=== PATIENT | female | born 1980 | race African-American/Black ===

== ENCOUNTER → 2020-09-19 06:51 | Outpatient (CLI) | payer BC, SELFPAY ==
[2020-09-19 19:41] LABS: SARS-CoV-2 RNA PCR Negative
== END ==
PROVIDERS: PCP Internal Medicine; Visit Provider Nurse Practitioner
DX: Z20.822 Contact with and (suspected) exposure to COVID-19 (principal)
CPT/HCPCS: C9803; U0003; U0005

== ENCOUNTER → 2020-11-09 07:09 | Outpatient (CLI) | payer BC, SELFPAY ==
[2020-11-09 19:49] LABS: SARS-CoV-2 RNA PCR Negative
== END ==
PROVIDERS: PCP Internal Medicine; Visit Provider Nurse Practitioner
DX: Z20.822 Contact with and (suspected) exposure to COVID-19 (principal); R50.9 Fever, unspecified
CPT/HCPCS: C9803; U0003; U0005

== ENCOUNTER → 2021-01-19 07:16 | Outpatient (CLI) | payer BC, SELFPAY ==
[2021-01-19 19:27] LABS: SARS-CoV-2 RNA PCR Negative
== END ==
PROVIDERS: Visit Provider Nurse Practitioner
DX: R68.89 Other general symptoms and signs (principal); Z20.822 Contact with and (suspected) exposure to COVID-19
CPT/HCPCS: C9803; U0003; U0005

== ENCOUNTER → 2021-04-11 02:59 | Outpatient (CLI) | payer BC, SELFPAY ==
[2021-04-11 20:44] LABS: SARS-CoV-2 RNA PCR Negative
== END ==
PROVIDERS: PCP Internal Medicine; Visit Provider Nurse Practitioner
DX: Z20.822 Contact with and (suspected) exposure to COVID-19 (principal)
CPT/HCPCS: C9803; U0003; U0005

== ENCOUNTER → 2021-05-13 03:43 | Outpatient (CLI) | payer BC, SELFPAY ==
[2021-05-13 20:20] LABS: SARS-CoV-2 RNA PCR Negative
== END ==
PROVIDERS: PCP Internal Medicine; Visit Provider Nurse Practitioner
DX: R05.9 Cough, unspecified (principal); Z20.822 Contact with and (suspected) exposure to COVID-19
CPT/HCPCS: C9803; U0003; U0005

== ENCOUNTER → 2021-08-05 01:26 | Outpatient (CLI) | payer BC, SELFPAY ==
[2021-08-05 21:22] LABS: SARS-CoV-2 RNA PCR Negative
== END ==
PROVIDERS: PCP Internal Medicine; Visit Provider Nurse Practitioner
DX: R51.9 Headache, unspecified (principal); Z20.822 Contact with and (suspected) exposure to COVID-19
CPT/HCPCS: C9803; U0003; U0005

== ENCOUNTER 2022-06-13 10:59 | Outpatient (CLI) | payer BC, SELFPAY ==
[2022-06-13 11:53] LABS: Basophils Percent Auto 0.6 % (0.2-1.2); Eosinophils Absolute Auto 0.1 K/mm3 (0-0.3); Eosinophils Percent Auto 0.9 % (0-4.4); Hematocrit 33.1 % (37.0-47.0); Hemoglobin 10.5 g/dL (12.0-15.0); Immature Granulocyte Absolute 0.01 K/mm3 (0.00-0.031); Immature Granulocyte Percent A 0.2 % (0-0.5); Lymphocytes Absolute Auto 1.84 K/mm3 (0.9-3.2); Lymphocytes Percent Auto 34.7 % (18.3-44.2); Mean Corpuscular HGB Conc 31.7 g/dl (32-36); Mean Corpuscular Hemoglobin 30.9 pg (26-34); Mean Corpuscular Volume 97.4 fl (80-100); Mean Platelet Volume 9.6 fl (7.4-10.4); Monocytes Absolute Auto 0.6 K/mm3 (0.1-0.6); Monocytes Percent Auto 10.5 % (2.6-8.5); Neutrophils Absolute Auto 2.8 K/mm3 (1.3-6.7); Neutrophils Percent Auto 53.1 % (45.5-73.1); Platelet Count Result 191 k/mm3 (150-375); Red Cell Distribution Width 13.8 % (11.5-14.5); White Blood Count 5.3 K/mm3 (4.5-10.0)
[2022-06-13 12:12] LABS: Alanine Aminotransferase 17 U/L (6-35); Alkaline Phosphatase 102 U/L (38-126); Anion Gap 7 mmol/L (8-16); Aspartate Amino Transferase 27 U/L (14-36); Bilirubin,Total 0.3 mg/dL (0.2-1.3); Blood Urea Nitrogen 14 mg/dL (7-17); Calcium 8.3 mg/dL (8.4-10.2); Carbon Dioxide 28 mmol/L (22-30); Chloride 101 mmol/L (98-107); Cholesterol 146 mg/dL (0-200); Estimated Glomerular Filt Rate > 60; Glucose 108 mg/dL (65-110); HDL Direct 59 mg/dL; Potassium 3.4 mmol/L (3.4-5.0); Sodium 136 mmol/L (137-145); Triglycerides 42 mg/dL (<150)
[2022-06-13 12:23] LABS: LDL Cholesterol Direct 61 mg/dL
[2022-06-13 12:42] LABS: Thyroid Stimulating Hormone 0.644 uIU/mL (0.465-4.680)
[2022-06-13 12:59] LABS: Ferritin 8.55 ng/mL (6.24-137)
[2022-06-13 14:03] LABS: Vitamin D 25 Hydroxy < 12.8 ng/mL
== END 2022-06-13 11:00 | disposition home or self-care (01) ==
PROVIDERS: PCP Internal Medicine; Visit Provider Nurse Practitioner
DX: R10.9 Unspecified abdominal pain (principal); R53.83 Other fatigue
CPT/HCPCS: 36415; 80053; 80061; 82306; 82728; 84443; 85025

== ENCOUNTER 2022-06-18 17:25 | Outpatient (CLI) | payer BC, SELFPAY ==
--- NOTE | ~2022-06-18 | CT_ITS ---
EXAMINATION: CT abdomen pelvis w con DATE: 06/18/2022 18:03 INDICATION: Suspected umbilical hernia TECHNIQUE: Computed tomography (CT) of the abdomen and pelvis was performed with 100 CC Omnipaque 350 intravenous contrast. Automated exposure control and iterative reconstruction technique were employe d. Exam dose: 363.06 mGy-cm total exam DLP. COMPARISON: None. FINDINGS: The lung bases are clear. Normal heart size. No pericardial or pleural effusion. Small sliding hiatal hernia. Postoperative change of the stomach. The liver, gallbladder, bile ducts, spleen, pancreas and pancreatic duct are unremarkable. Normal mor phology of the adrenal glands. No renal mass lesion or urinary tract calculus or hydroureteronephrosis. The urinary bladder is unremarkable. There is an IUD within the uterus. Normal caliber of the abdominal aorta. No intraperitoneal or retroperitoneal or pelvic mass lesion or adenopathy or abnormal pelvic fluid collection is detected. There are sutures of the stomach as well as some sutures of the small bowel in the left lower abdomen . There is up to approximately 5.3 cm diameter of the small bowel segment with radiopaque sutures (pr obable jejunal jejunal anastomosis of gastric bypass) of the left lower abdomen. However, no proximal small bowel dilatation or pneumatosis or intraperitoneal free air is detected. Normal appendix, right lower quadrant. Very small fat-containing umbilical hernia. At least 2 or 3 small fat-containing supraumbilical fat-c ontaining hernias. Included skeletal structures are unremarkable. IMPRESSION: Postoperative change of the stomach and small bowel, likely related to gastric bypass perdue rgery. Solitary small fat-containing umbilical hernia and at least 2 or 3 supraumbilical small fat-containin g ventral abdominal wall hernias IUD in uterus Small sliding hiatal hernia Reviewed, dictated and finalized at [facility]. Reviewed, dictated and finalized at location [facility]. 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 Solitary small fat-containing umbilical hernia and at least 2 or 3 supraumbilic al small fat-containing ventral abdominal wall hernias IUD in uterus Small sliding hiatal hernia
== END 2022-06-18 17:26 | disposition home or self-care (01) ==
LOC: ANHIMG 17:26
PROVIDERS: PCP Internal Medicine; Visit Provider Nurse Practitioner
DX: R10.9 Unspecified abdominal pain (principal); Z97.5 Presence of (intrauterine) contraceptive device; K44.9 Diaphragmatic hernia without obstruction or gangrene
CPT/HCPCS: 74177; Q9967

== ENCOUNTER 2023-02-15 12:34 | Outpatient (CLI) | payer OTHER, SELFPAY ==
--- NOTE | ~2023-02-15 | MR_ITS ---
EXAMINATION: MR brain/brain stem wo/w con DATE: 02/15/2023 13:22 INDICATION: Migraine headache, unspecified, not intractable. TECHNIQUE: Magnetic resonance imaging (MRI) of the brain and brainstem was performed without and with 15 mL MultiHance intravenous contrast. COMPARISON: None. FINDINGS: There is no intracranial hemorrhage, acute infarction, or abnormal intracranial mass lesion . The hippocampi are normal and symmetric. The ventricles are normal in size. The orbits are normal. The paranasal sinuses are clear. The mastoid air cells are normal. IMPRESSION: 1. Normal brain. Reviewed, dictated and finalized at location [facility]. IMPRESSION: 1. Normal brain.
== END 2023-02-15 12:35 | disposition home or self-care (01) ==
PROVIDERS: PCP Internal Medicine; Visit Provider Nurse Practitioner
DX: G43.909 Migraine, unspecified, not intractable, without status migrainosus (principal)
CPT/HCPCS: 70553; A9577

== ENCOUNTER 2023-11-05 12:08 | Emergency (ER) | payer OTHER, SELFPAY ==
[2023-11-05 12:18] VITALS: BP 147/100; PULSE 109; RESP 20; TEMP 36.1; O2SAT 100
--- NOTE | 2023-11-05 12:42 | ED.DENTAL ---
HPI - Dental/Oral General Chief complaint: Dental/Oral Stated complaint: right upper toothache (extracted Thursday) Time Seen by Provider: 11/05/23 12:40 Source: patient Mode of arrival: ambulatory Limitations: no limitations History of Present Illness HPI Narrative: Patient presents with dental pain. She had tooth 4. Extracted on Thursday with a provider at the health department in [place]. She continued to have pain and thus returned yesterday. She was told it was not dry socket. She received an public affairs specialist and a nerve block but this wore off last night. She has been taking Tylenol but states that the does lasts only 1-2 hours. She states that she has been taking about 5000 mg per day of Tylenol. She is unable to take NSAIDs in the setting of a history of gastric bypass surgery and that this causes significant GI irritation. She did have course of amoxicillin ( she believes it was actually Augmentin) at home and started taking this for the past 3 days. She has at least 2 weeks worth of this medication left as she had been given a very prolonged prescription for this prior to her dental extraction procedure. She denies any fevers. She states the pain feels like she can feel her heart beating in the place where her tooth used to be. Related Data Allergies Allergy/AdvReac Type Severity Reaction Status Date / Time tramadol Allergy Unknown seizure Verified 11/05/23 12:23 codeine AdvReac Itching Verified 11/05/23 12:22 NSAIDS (Non-Steroidal AdvReac Other Verified 11/05/23 12:23 Anti-Inflamma PMFSH Past Medical History Medical History Anemia Fibromyalgia Hyperkalemia Hypocalcemia Leukopenia Surgical History Surgical History H/O gastric bypass History of umbilical hernia repair Family History Family History Sibling Diabetes mellitus Mother Hypertension Father Family history unknown Social History Social History Social History: Caffeine-occasionally Smoking status: Never smoker Alcohol intake: current Alcohol use details: occasionally Exam Narrative: GENERAL: Well-appearing, well-nourished, in acute mild acute distress. HEAD: Normocephalic, atraumatic. EYES: Non injected, non icteric ENT: Nares clear, no rhinorrhea or epistaxis. able to open mouth without trismus. no periapical abscess. No evidence of dental abscess. there is some brown discoloration at the gum at the site of tooth #5. TTP of the area to percussion. No tongue edema. Uvula midline. NECK: Supple. CHEST: speaking complete sentences. No respiratory distress. HEART: tachycardic rate and rhythm. . ABDOMEN: Soft, nondistended. EXTREMITIES: Normal range of motion. No edema. SKIN: Warm, dry, no rash. NEURO: No focal deficits. Alert and oriented x3. speaks clearly without dysphonia PSYCH: Normal mood and affect. Course Vital Signs Vital signs: Vital Signs Temperature 97.0 F L 11/05/23 12:18 Pulse Rate 109 H 11/05/23 12:18 Respiratory Rate 20 11/05/23 12:18 Blood Pressure 147/100 H 11/05/23 12:18 Pulse Oximetry 100 11/05/23 12:18 Oxygen Delivery Room Air 11/05/23 12:18 Temperature 98.2 F 11/05/23 13:29 Pulse Rate 78 11/05/23 13:29 Respiratory Rate 17 11/05/23 13:29 Blood Pressure 132/76 11/05/23 13:29 Pulse Oximetry 99 11/05/23 13:29 Oxygen Delivery Room Air 11/05/23 12:18 MDM - Dental/Oral MDM Narrative Medical decision making narrative: Patient presents with dental pain. She had tooth 4. Extracted on Thursday with a provider at the health department in [place]. She continued to have pain and thus returned yesterday. She was told it was not dry socket. She received an public affairs specialist and a nerve block but this wore off last night. She has
[2023-11-05] MEDS: HYDROcodone/acetaminophen (*CRX) 5-325 MG TABLET 1 TAB PO (13:25)
[2023-11-05 13:29] VITALS: BP 132/76; PULSE 78; RESP 17; TEMP 36.8; O2SAT 99
== END 2023-11-05 13:31 | disposition home or self-care (01) ==
LOC: ANHED 13:08
PROVIDERS: Emergency Provider Student in an Organized Health Care Education/Training Program; PCP Internal Medicine
DX: K08.89 Other specified disorders of teeth and supporting structures (principal); Z98.818 Other dental procedure status; D64.9 Anemia, unspecified; Z98.84 Bariatric surgery status; Z86.2 Personal history of diseases of the blood and blood-forming organs and certain disorders involving the immune mechanism
CPT/HCPCS: 99283; A9270

== ENCOUNTER 2023-12-04 15:21 | Emergency (ER) | payer OTHER, SELFPAY ==
[2023-12-04 15:47] VITALS: BP 130/94; PULSE 79; RESP 14; TEMP 36.6; O2SAT 99
--- NOTE | 2023-12-04 15:50 | ED.LOWEXIN ---
HPI - Extremity Injury (Lower) General Chief Complaint: Extremity Injury, Lower Stated Complaint: floresita shoulder and floresita leg pain Time Seen by Provider: 12/04/23 15:40 Source: patient Mode of arrival: ambulatory Limitations: no limitations History of Present Illness HPI Narrative: Tabitha is a 43-year-old female patient presenting to the emergency room today with complaints of pain in the bilateral shoulders that writing down her arms and also left leg pain that is radiating down her leg. Denies any injury. States that she has had the symptoms of for was given gabapentin and that helped relieve her symptoms. No history of any neck or back injury. Denies any loss of bowel or bladder, denies any saddle anesthesia. She is unable to take NSAIDs due to gastric irritation-bypass. History of fibromyalgia. She denies any shortness of breath, chest pain, headache, or dizziness. Related Data Allergies Allergy/AdvReac Type Severity Reaction Status Date / Time tramadol Allergy Unknown seizure Verified 12/04/23 15:39 codeine AdvReac Itching Verified 12/04/23 15:39 NSAIDS (Non-Steroidal AdvReac Other Verified 12/04/23 15:39 Anti-Inflamma Review of Systems Review of Systems: Pertinent positives per HPI. Patient denies any fever, chills, rash, headache, visual changes, dizziness, cough, runny nose, sore throat, shortness of breath, chest pain, palpitations, nausea, vomiting, diarrhea, constipation, abdominal pain, or any urinary issues. [facility] Past Medical History Medical History Anemia Fibromyalgia Hyperkalemia Hypocalcemia Leukopenia Surgical History Surgical History H/O gastric bypass History of umbilical hernia repair Family History Family History Sibling Diabetes mellitus Mother Hypertension Father Family history unknown Social History Social History Social History: Caffeine-occasionally Smoking status: Never smoker Alcohol intake: current Alcohol use details: occasionally Comments At the time of my signature, I reviewed and agree with the nursing past medical, surgical, social, and family history. There is no relevant family history pertinent to the patient complaint. Exam Narrative: General: Well-developed, well nourished, in no apparent distress Head: Normocephalic, atraumatic. Cardio: Regular rate and rhythm, s1 and s2 normal, no murmur appreciated. Resp: Clear to auscultation bilaterally, no rhonchi, rales, wheezing or rubs. Musculoskeletal: No deformity, non-tender to palpation, grossly normal range of motion, muscle strength strong and equal, peripheral pulse strong, no edema, no cyanosis, normal gait and station Course Course Emergency Course: Portions of this record may have been created with voice recognition software. Vital Signs Vital signs: Vital Signs Temperature 36.6 C 12/04/23 15:47 Pulse Rate 79 12/04/23 15:47 Respiratory Rate 14 12/04/23 15:47 Blood Pressure 130/94 H 12/04/23 15:47 Pulse Oximetry 99 12/04/23 15:47 Temperature 36.6 C 12/04/23 15:47 Pulse Rate 79 12/04/23 15:47 Respiratory Rate 14 12/04/23 15:47 Blood Pressure 130/94 H 12/04/23 15:47 Pulse Oximetry 99 12/04/23 15:47 Vital signs reviewed MDM - Extremity Injury (Lower) MDM Narrative Medical decision making narrative: At the time of visit patient is resting comfortably on the exam table. Patient appears to be nontoxic. Plan: Offered to do labs and x-rays and patient does not wish to do this at this time. I suspect patient has nerve inflammation-will send prescription for gabapentin and have the patient follow-up with her PCP if symptoms persist. Supportive measures were discussed with the patient and they voiced understandin
== END 2023-12-04 16:10 | disposition home or self-care (01) ==
PROVIDERS: Emergency Provider Nurse Practitioner Family
DX: M25.512 Pain in left shoulder (principal); M25.511 Pain in right shoulder; M79.605 Pain in left leg; M79.7 Fibromyalgia; Z86.2 Personal history of diseases of the blood and blood-forming organs and certain disorders involving the immune mechanism; Z98.84 Bariatric surgery status
CPT/HCPCS: 99283

== ENCOUNTER 2023-12-10 16:25 | Emergency (ER) | payer OTHER, SELFPAY ==
[2023-12-10 16:31] VITALS: BP 137/88; PULSE 103; RESP 18; TEMP 36.4; O2SAT 100
--- NOTE | 2023-12-10 18:18 | PC.NURSE ---
Pt upset about wait time. Charge nurse in to speak with pt.
--- NOTE | 2023-12-10 18:26 | ED.GENADULT ---
HPI - General Adult General Chief complaint: Extremity Problem,Nontraumatic Stated complaint: bilateral leg and arm pain Time Seen by Provider: 12/10/23 18:21 History of Present Illness HPI narrative: Patient is a 43-year-old female who presents ER with request for med refill. She had been having pain in her arms and legs. She had been taking or gabapentin which worked and she was prescribed gabapentin 300 mg b.i.d. a couple weeks ago. She accidentally dropped the pills with a loose cap into the toilet. No additional issues with her pain. No fevers or chills. No trauma. Related Data Allergies Allergy/AdvReac Type Severity Reaction Status Date / Time tramadol Allergy Unknown seizure Verified 12/10/23 16:55 codeine AdvReac Itching Verified 12/10/23 16:55 NSAIDS (Non-Steroidal AdvReac Other Verified 12/10/23 16:55 Anti-Inflamma Review of Systems Constitutional: Constitutional: Reports no additional constitutional complaints Genitourinary: Genitourinary: Reports no additional female genitourinary complaints Musculoskeletal: Musculoskeletal: Denies back pain, Reports arthralgias and Denies joint swelling Integumentary/Breasts: Skin/Breast: Reports system reviewed and no additional complaints, except as docu Neurologic: Reports system reviewed and no additional complaints, except as documented PMFSH Past Medical History Medical History Anemia Fibromyalgia Hyperkalemia Hypocalcemia Leukopenia Surgical History Surgical History H/O gastric bypass History of umbilical hernia repair Family History Family History Sibling Diabetes mellitus Mother Hypertension Father Family history unknown Social History Social History Social History: Caffeine-occasionally Smoking status: Never smoker Alcohol intake: current Alcohol use details: occasionally Exam Narrative: GENERAL: Well-appearing, well-nourished, and in no acute distress. HEAD: Normocephalic, atraumatic. CHEST: Clear to auscultation. No respiratory distress. HEART: Regular rate and rhythm. Normal peripheral pulses. EXTREMITIES: Normal range of motion. No edema. NEURO: Alert and oriented x3. PSYCH: Normal mood and affect. Course Course Emergency Course: medications will be refilled. Patient has scheduled follow-up with PCP in 2-3 weeks. Vital Signs Vital signs: Vital Signs Temperature 97.5 F L 12/10/23 16:31 Pulse Rate 103 H 12/10/23 16:31 Respiratory Rate 18 12/10/23 16:31 Blood Pressure 137/88 12/10/23 16:31 Pulse Oximetry 100 12/10/23 16:31 Oxygen Delivery Room Air 12/10/23 16:31 Temperature 97.5 F L 12/10/23 16:31 Pulse Rate 103 H 12/10/23 16:31 Respiratory Rate 18 12/10/23 16:31 Blood Pressure 137/88 12/10/23 16:31 Pulse Oximetry 100 12/10/23 16:31 Oxygen Delivery Room Air 12/10/23 16:31 Medical Decision Making Vital Signs Vital Signs: Vital Signs Temperature 97.5 F L 12/10/23 16:31 Pulse Rate 103 H 12/10/23 16:31 Respiratory Rate 18 12/10/23 16:31 Blood Pressure 137/88 12/10/23 16:31 Pulse Oximetry 100 12/10/23 16:31 Oxygen Delivery Room Air 12/10/23 16:31 Temperature 97.5 F L 12/10/23 16:31 Pulse Rate 103 H 12/10/23 16:31 Respiratory Rate 18 12/10/23 16:31 Blood Pressure 137/88 12/10/23 16:31 Pulse Oximetry 100 12/10/23 16:31 Oxygen Delivery Room Air 12/10/23 16:31 Discharge Plan Discharge Clinical Impression: Neuropathy Patient Disposition: Home, Self-Care Condition: Stable Instructions: Peripheral Neuropathy (ED) Additional Instructions: Will refill your gabapentin. Follow-up with your primary care doctor. Return to the ER if you have additional concerns. Pr
== END 2023-12-10 18:42 | disposition home or self-care (01) ==
LOC: ANHED 18:40
PROVIDERS: Emergency Provider Emergency Medicine
DX: G62.9 Polyneuropathy, unspecified (principal); M79.7 Fibromyalgia; Z98.84 Bariatric surgery status; Z86.2 Personal history of diseases of the blood and blood-forming organs and certain disorders involving the immune mechanism
CPT/HCPCS: 99283

== ENCOUNTER 2024-01-29 15:48 | Emergency (ER) | payer OTHER, SELFPAY ==
--- NOTE | ~2024-01-29 | XR_ITS ---
EXAMINATION: XR knee LT min 4V DATE: 01/29/2024 17:16 INDICATION: One half weeks of medial left hip pain TECHNIQUE: Anteroposterior, 2 oblique and crosstable lateral views of the left knee were obtained COMPARISON: None. FINDINGS: Alignment is normal. No fracture. Antegrade intramedullary william in the visualized tibia with a couple interlocking proximal metaphyseal screws. Joint spaces appear normal on nonweightbearing imaging. No evident osteophytosis. No joint effusions. Soft tissues are unremarkable. IMPRESSION: 1. No left knee joint effusion or acute osseous abnormality. Reviewed, dictated and finalized at location [facility].
[2024-01-29 15:49] VITALS: BP 132/77; PULSE 109; RESP 18; TEMP 36.4; O2SAT 100
--- NOTE | 2024-01-29 17:20 | ED.LOWEXIN ---
HPI - Extremity Injury (Lower) General Chief Complaint: Extremity Injury, Lower Stated Complaint: left knee pain Time Seen by Provider: 01/29/24 16:59 Source: patient Mode of arrival: ambulatory Limitations: no limitations History of Present Illness HPI Narrative: This is a 43-year-old female that presents to the emergency department for left knee pain. Ongoing over the last couple of weeks. Reports twisting the knee while walking. She has been taking Tylenol and using topical anti-inflammatories with little relief. Denies fevers, decreased ROM or erythema. Related Data Allergies Allergy/AdvReac Type Severity Reaction Status Date / Time tramadol Allergy Unknown seizure Verified 01/29/24 17:54 codeine AdvReac Itching Verified 01/29/24 17:54 NSAIDS (Non-Steroidal AdvReac Other Verified 01/29/24 17:54 Anti-Inflamma Review of Systems Review of Systems: CONSTITUTIONAL: Denies fever SKIN: Denies rash MUSCULOSKELETAL: Reports joint pain, and myalgia. NEUROLOGIC: Denies numbness, or weakness. All systems reviewed & are unremarkable except as noted in HPI and below PMFSH Past Medical History Medical History Anemia Fibromyalgia Hyperkalemia Hypocalcemia Leukopenia Surgical History Surgical History H/O gastric bypass History of umbilical hernia repair Family History Family History Sibling Diabetes mellitus Mother Hypertension Father Family history unknown Social History Social History Social History: Caffeine-occasionally Smoking status: Never smoker Alcohol intake: current Alcohol use details: occasionally Exam Narrative: GENERAL: Well-appearing, well-nourished, and in no acute distress. HEAD: Normocephalic, atraumatic. EYES: EOMI. EXTREMITIES: Normal range of motion. No edema or erythema. Normal DP pulse. Normal sensation SKIN: Warm, dry, no rash. NEURO: No focal deficits. Alert and oriented x3. PSYCH: Normal mood and affect Course Course Emergency Course: Patient updated on her workup and agrees with plan of care Vital Signs Vital signs: Vital Signs Temperature 97.6 F 01/29/24 15:49 Pulse Rate 109 H 01/29/24 15:49 Respiratory Rate 18 01/29/24 15:49 Blood Pressure 132/77 01/29/24 15:49 Pulse Oximetry 100 01/29/24 15:49 Oxygen Delivery Room Air 01/29/24 15:49 Temperature 97.6 F 01/29/24 15:49 Pulse Rate 109 H 01/29/24 15:49 Respiratory Rate 18 01/29/24 15:49 Blood Pressure 132/77 01/29/24 15:49 Pulse Oximetry 100 01/29/24 15:49 Oxygen Delivery Room Air 01/29/24 15:49 Procedures Orthopedic Splinting/Casting Injury #1: Splinting/Casting Date: 01/29/24 Splinting/Casting Time: 18:40 Side: left Lower Extremity Injury Location: knee Lower Extremity Immobilizer: Osiel wrap MDM - Extremity Injury (Lower) MDM Narrative Medical decision making narrative: Patient presents to the emergency department for left knee pain after an injury a couple of weeks prior. She is neurovascularly intact. Left knee x-rays without acute osseous abnormalities or evidence of joint effusion. Patient placed in an Osiel wrap. Reports she has crutches at home. Instructed on further care of knee sprain. She is to follow up with Orthopedics. She was given warnings to return to the ER Differential Diagnosis Differential diagnosis: Likely acute internal derangement of knee and other (meniscal tear) Imaging Data Radiologist's impression: ITS Impressions Knee X-Ray 01/29/24 17:18 IMPRESSION: 1. No left knee joint effusion or acute osseous abnormality. Critical Care Time Critical Care Time Critical Care Time: No Discharge Plan Discharge Clinical Impression: Left
== END 2024-01-29 18:40 | disposition home or self-care (01) ==
PROVIDERS: Emergency Provider Physician Assistant
DX: S83.92XA Sprain of unspecified site of left knee, initial encounter (principal); D64.9 Anemia, unspecified; M79.7 Fibromyalgia; Z98.84 Bariatric surgery status; X50.0XXA Overexertion from strenuous movement or load, initial encounter
CPT/HCPCS: 73564; 99283

== ENCOUNTER 2024-05-14 11:12 | Emergency (ER) | payer OTHER, MEDICAID, SELFPAY ==
--- NOTE | ~2024-05-14 | XR_ITS ---
EXAMINATION: XR foot RT min 3V DATE: 05/14/2024 11:27 INDICATION: Right foot injury and pain. TECHNIQUE: 4 views of right foot were obtained. COMPARISON: None. FINDINGS: There is mild valgus. No fracture. There is mild osteoarthritis of first metatarsophalangea l joint. IMPRESSION: 1. Mild hallux valgus. 2. Mild osteoarthritis of first metatarsophalangeal joint. Reviewed, dictated and finalized at location A.
[2024-05-14 11:14] VITALS: BP 148/109; PULSE 120; RESP 18; TEMP 36.4; O2SAT 100
[2024-05-14] MEDS: oxyCODONE/ACETAMINOPHEN (*CRX) 5-325 MG TABLET 1 TABLET PO (12:13)
--- NOTE | 2024-05-14 12:13 | PC.NURSE ---
Pt refused ordered ice pack. Osiel wrap applied to R. foot.
[2024-05-14 13:09] VITALS: BP 148/104; PULSE 103; RESP 16; O2SAT 97
--- NOTE | 2024-05-14 13:09 | ED.LOWEXIN ---
HPI - Extremity Injury (Lower) General Chief Complaint: Extremity Injury, Lower Stated Complaint: Right Foot Injury Time Seen by Provider: 05/14/24 11:16 History of Present Illness HPI Narrative: Patient presents after accidentally crushed her right foot in a car door a few days ago, continuing to have pain. Related Data Allergies Allergy/AdvReac Type Severity Reaction Status Date / Time tramadol Allergy Unknown seizure Verified 01/29/24 17:54 codeine AdvReac Itching Verified 01/29/24 17:54 methocarbamol AdvReac Vomiting Verified 05/14/24 11:41 NSAIDS (Non-Steroidal AdvReac Diarrhea Verified 05/14/24 11:41 Anti-Inflamma Review of Systems Review of Systems: All systems reviewed & are unremarkable except as noted in HPI and below PMFSH Past Medical History Medical History Anemia Fibromyalgia Hyperkalemia Hypocalcemia Leukopenia Surgical History Surgical History H/O gastric bypass History of umbilical hernia repair Family History Family History Sibling Diabetes mellitus Mother Hypertension Father Family history unknown Social History Social History Social History: Caffeine-occasionally Smoking status: Never smoker Alcohol intake: current Alcohol use details: occasionally Exam Narrative: EXAMINATION OF ORGAN SYSTEMS/BODY AREAS: Constitutional: Vital signs per nursing GENERAL:[No acute distress, non-toxic appearing.] HEAD: Normal with no signs of head trauma. EYES: EOMI, conjunctiva normal ENT: Hearing grossly intact LUNGS: Nonlabored breathing. HEART: well perfused foot with normal DP pulse ABD: [Soft], [nontender to palpation] EXT: Normal range of motion, Tenderness to palpation to right foot SKIN: some bruising to right foot NEURO: [Alert and oriented x 3. No gross focal sensory or strength deficits.] PSYCH: Normal affect Course Vital Signs Vital signs: Vital Signs Temperature 97.5 F L 05/14/24 11:14 Pulse Rate 120 H 05/14/24 11:14 Respiratory Rate 18 05/14/24 11:14 Blood Pressure 148/109 H 05/14/24 11:14 Pulse Oximetry 100 05/14/24 11:14 Oxygen Delivery Room Air 05/14/24 11:14 Temperature 97.5 F L 05/14/24 11:14 Pulse Rate 103 H 05/14/24 13:09 Respiratory Rate 16 05/14/24 13:09 Blood Pressure 148/104 H 05/14/24 13:09 Pulse Oximetry 97 05/14/24 13:09 Oxygen Delivery Room Air 05/14/24 11:14 MDM - Extremity Injury (Lower) MDM Narrative Medical decision making narrative: patient presents with right foot injury, x-ray does not show any acute fracture, Osiel wrap applied, pain medication provided, follow-up to steel wool machine operator given. Discharge Plan Discharge Clinical Impression: Foot sprain Patient Disposition: Home, Self-Care Condition: Stable Instructions: Antibiotic Form, Foot Sprain (ED) Additional Instructions: Please follow up with the steel wool machine operator; use ice and the osiel wrap and keep the foot elevated; you can always return to the ER for any further issues. Prescriptions: New oxycodone 5 mg capsule 5 mg PO Q8H PRN (Reason: pain) Qty: 4 0RF No Action sumatriptan succinate [Imitrex] 50 mg tablet See Rx Instructions PO .COMPLEX Qty: 9 2RF Rx Instructions: take 1 tab at onset of headache; if no relief may repeat 1 tab after at least 2 hrs; max = 4 tabs/24 hr PO pregabalin 200 mg capsule 200 mg PO BID Qty: 60 3RF gabapentin 300 mg capsule 300 mg PO BID 30 Days Qty: 60 0RF hydrocodone-acetaminophen 5-325 mg tablet 1 tablet PO Q6H PRN (Reason: pain) Qty: 12 0RF gabapentin 300 mg capsule 300 mg PO BID Qty: 60 0RF cyclobenzaprine 10 mg tablet 10 mg PO TID PRN (Reason: muscle spasm) Qty: 14 0RF estazolam 2 mg tablet 2 mg PO QHS Qty: 30 0RF Follow-up/Referrals: Devon Young Jr., DPM [Physician] - 2 Days Jeremiah Kwon DO [Primary Care Provider] -
== END 2024-05-14 13:11 | disposition home or self-care (01) ==
PROVIDERS: Emergency Provider Emergency Medicine; PCP Family Medicine
DX: S93.601A Unspecified sprain of right foot, initial encounter (principal); M79.7 Fibromyalgia; Z98.84 Bariatric surgery status; Z86.2 Personal history of diseases of the blood and blood-forming organs and certain disorders involving the immune mechanism; W23.0XXA Caught, crushed, jammed, or pinched between moving objects, initial encounter; Z79.899 Other long term (current) drug therapy
CPT/HCPCS: 73630; 99283; A9270

== ENCOUNTER 2024-06-01 10:42 | Emergency (ER) | payer OTHER, MEDICAID, SELFPAY ==
[2024-06-01 10:52] VITALS: BP 136/95; PULSE 100; RESP 14; TEMP 36.9; O2SAT 100
[2024-06-01 11:12] VITALS: BP 129/95; PULSE 102; RESP 16; O2SAT 100
--- NOTE | 2024-06-01 11:14 | PC.NURSE ---
Patient states to this RN, I dont want to see anyone but a medical doctor. This RN explained to patient that all providers in the ER are competent and able to assess and treat her migraine. Providers notified of patient preference.
[2024-06-01] MEDS: diphenhydrAMINE HCl INJ 50 MG/ML VIAL IV PUSH (12:47)
[2024-06-01] MEDS: methylPREDNISolone SOD SUCC 125 MG VIAL IV PUSH (12:48)
[2024-06-01] MEDS: PROCHLORPERAZINE EDISYLATE 10 MG/2 ML VIAL IV PUSH (12:48)
--- NOTE | 2024-06-01 12:54 | ED.HA ---
HPI - Headache General Chief Complaint: Headache Stated Complaint: MIGRAINE Time Seen by Provider: 06/01/24 12:05 History of Present Illness HPI Narrative: Pt prsents with migraine BAUTISTA. Pt says she has history of Migraines but can usually control them with imitrex at home. Pt says the BAUTISTA started last night tried imitrex today without relief so came to ER. Pt has not ever been seen for migraines in ER before. Pt denies neuro symptoms Related Data Allergies Allergy/AdvReac Type Severity Reaction Status Date / Time tramadol Allergy Unknown seizure Verified 06/01/24 10:53 codeine AdvReac Itching Verified 06/01/24 10:53 ketorolac [From Toradol] AdvReac Shakiness Verified 06/01/24 12:48 methocarbamol AdvReac Vomiting Verified 06/01/24 10:53 NSAIDS (Non-Steroidal AdvReac Diarrhea Verified 06/01/24 10:53 Anti-Inflamma Review of Systems Review of Systems: All systems reviewed & are unremarkable except as noted in HPI and below PMFSH Past Medical History Medical History Anemia Fibromyalgia Hyperkalemia Hypocalcemia Leukopenia Surgical History Surgical History H/O gastric bypass History of umbilical hernia repair Family History Family History Sibling Diabetes mellitus Mother Hypertension Father Family history unknown Social History Social History Social History: Caffeine-occasionally Smoking status: Never smoker Alcohol intake: current Alcohol use details: occasionally Exam Const: General: healthy appearing and no acute distress Nutritional Appearance: well nourished Orientation/consciousness: patient oriented x3 Limitations: no limitations HENMT: Mouth: Yes Normal oral and palatal mucosa present Eyes: Conjunctivae: conjunctivae normal Pupils: Equal, round and reactive pupils present EOM: EOMs intact bilaterally Direct Ophthalmoscopy: no photophobia Neck: Neck: normal visual inspection and no lymphadenopathy Resp: Effort & Inspection: normal respiratory effort Auscultation: clear to auscultation bilaterally Cardio: Rate: regular rate Rhythm: regular rhythm GI: GI Palp: Yes Soft to palpation Auscultation: normal bowel sounds Skin: General skin exam: normal color Rashes: no rashes Wounds: no wounds Neuro: General: patient oriented x3, moves all extremities, no meningeal signs, no focal motor deficits and CN's II-XI intact bilaterally Cranial nerves: Yes Nystagmus not present Speech: normal speech Gait exam (Neuro): Normal gait present Extrem: General: normal to inspection and no clubbing, cyanosis or edema Psych: Mental Status: mental status grossly normal Affect: normal affect Attitude: cooperative Course Vital Signs Vital signs: Vital Signs Temperature 98.4 F 06/01/24 10:52 Pulse Rate 100 06/01/24 10:52 Respiratory Rate 14 06/01/24 10:52 Blood Pressure 136/95 H 06/01/24 10:52 Pulse Oximetry 100 06/01/24 10:52 Temperature 98.4 F 06/01/24 10:52 Pulse Rate 108 H 06/01/24 14:07 Respiratory Rate 16 06/01/24 14:07 Blood Pressure 131/92 H 06/01/24 14:07 Pulse Oximetry 97 06/01/24 14:07 MDM - Headache MDM Narrative Medical decision making narrative: Pt presents with typical migraine but did not resolve with imitrex. will try some meds and hold off on CT to see if improves. Pt feels much better. home to rest. Discharge Plan Discharge Clinical Impression: Headache, Migraine Patient Disposition: Home, Self-Care Condition: Improved Instructions: Antibiotic Form, Dysmenorrhea (ED), Acute Headache (ED) Prescriptions: New hydrocodone-acetaminophen 5-325 mg tablet 1 tablet PO Q6H PRN (Reason: pain) Qty: 10 0RF No Action sumatriptan succinate [Imitrex] 50 mg tablet See Rx Instructions PO .COMPLEX Qty: 9 2RF Rx Instructions: take 1 tab at onset of headache; if no relief may repeat 1 tab after at least 2 hrs; max = 4 tabs/24 hr PO pregabalin 200 mg capsule 200 mg PO BID Qty: 60 3RF gabapentin 300 mg capsule 300 mg PO BID 30 Days Qty: 60 0RF hydrocodone-acetaminophen 5-325 mg tablet 1 tablet PO Q6H PRN (Reason: pain) Qty: 12 0RF gabapentin 300 mg capsule 300 mg PO BID Qty: 60 0RF cyclobenzaprine 10 mg tablet 10 mg PO TID PRN (Reason: muscle spasm) Qty: 14 0RF oxycodone 5 mg capsule 5 mg PO Q8H PRN (Reason: pain) Qty: 4 0RF estazolam 2 mg tablet 2 mg PO QHS Qty: 30 0RF Follow-up/Referrals: Sofia,Rabia Yun APRN [Primary Care Provider] -
[2024-06-01 13:18] VITALS: BP 118/70; PULSE 77; RESP 15; O2SAT 100
[2024-06-01 14:07] VITALS: BP 131/92; PULSE 108; RESP 16; O2SAT 97
== END 2024-06-01 14:10 | disposition home or self-care (01) ==
PROVIDERS: Emergency Provider Emergency Medicine; PCP Nurse Practitioner Family
DX: G43.909 Migraine, unspecified, not intractable, without status migrainosus (principal); M79.7 Fibromyalgia; Z86.2 Personal history of diseases of the blood and blood-forming organs and certain disorders involving the immune mechanism; Z98.84 Bariatric surgery status; Z79.899 Other long term (current) drug therapy
CPT/HCPCS: 96374; 96375; 99284; J0780; J1200; J2919

== ENCOUNTER 2024-08-24 13:02 | Emergency (ER) | payer OTHER, SELFPAY ==
--- NOTE | ~2024-08-24 | CT_ITS ---
EXAMINATION: CT abdomen pelvis w con DATE: 08/24/2024 15:29 INDICATION: Abdominal pain TECHNIQUE: Computed tomography (CT) of the abdomen and pelvis was performed with 100 mL Omnipaque-350 intravenous contrast. Automated exposure control and iterative reconstruction technique were employe d. The dose-length product was 647.69 mGy-cm. COMPARISON: 02/15/2022 FINDINGS: Lung bases are clear. Heart size is normal. No pericardial or pleural effusion. Small sliding-type hi atal hernia with change of prior gastric bypass procedure. Liver, gallbladder, pancreas, bilateral ad renal glands and kidneys are normal. No interval change in a partially rim calcified subcentimeter li haider benign cystic lesion at the spleen. Large amount of stool at the rectum and distal sigmoid colon . Small bowel anastomosis in the lower pelvis. No bowel obstruction. Normal appendix. Bladder is norm al. The uterus is not identified and has likely been surgically resected. No free intraperitoneal gas or fluid. No pathologically enlarged abdominal or pelvic lymphadenopathy. Frontal sinuses. IMPRESSION: 1. Large amount of stool at the rectum and distal sigmoid colon which could be seen with constipation . No other acute intra-abdominal/pelvic process. 2. Postoperative change of prior gastric bypass procedure and hysterectomy. 3. Small sliding-type hiatal hernia. Reviewed, dictated and finalized at location A. E ADVISOR IMPRESSION: 1. Large amount of stool at the rectum and distal sigmoid colon which could be seen with constipation. No other acute intra-abdominal/pelvic process. 2. Postoperative change of prior gastric bypass procedure and hysterectomy. 3. Small sliding-type hiatal hernia.
[2024-08-24 13:17] VITALS: BP 135/92; PULSE 120; RESP 16; TEMP 36.4; O2SAT 100
[2024-08-24] MEDS: ONDANSETRON INJ 4 MG/2 ML VIAL IV PUSH (14:43)
[2024-08-24] MEDS: MORPHINE SULFATE (*CRX) 4 MG/ML INJ IV PUSH (14:43)
[2024-08-24 14:46] LABS: Basophils Percent Auto 0.3 % (0.2-1.2); Eosinophils Percent Auto 0.6 % (0-4.4); Hematocrit 38.4 % (37.0-47.0); Hemoglobin 12.6 g/dL (12.0-15.0); Immature Granulocyte Absolute 0.01 K/mm3 (0.00-0.031); Immature Granulocyte Percent A 0.3 % (0-0.5); Lymphocytes Absolute Auto 1.63 K/mm3 (0.9-3.2); Lymphocytes Percent Auto 47.1 % (18.3-44.2); Mean Corpuscular HGB Conc 32.8 g/dl (32-36); Mean Corpuscular Volume 88.3 fl (80-100); Mean Platelet Volume 10.1 fl (7.4-10.4); Monocytes Absolute Auto 0.3 K/mm3 (0.1-0.6); Monocytes Percent Auto 7.8 % (2.6-8.5); Neutrophils Absolute Auto 1.5 K/mm3 (1.3-6.7); Neutrophils Percent Auto 43.9 % (45.5-73.1); Platelet Count Result 262 k/mm3 (150-375); Red Blood Count 4.35 M/mm3 (4.2-5.4); Red Cell Distribution Width 15.9 % (11.5-14.5); White Blood Count 3.5 K/mm3 (4.5-10.0)
[2024-08-24 14:57] LABS: Alanine Aminotransferase 12 U/L (6-35); Albumin Level 4.3 g/dL (3.5-5.1); Alkaline Phosphatase 148 U/L (38-126); Anion Gap 12 mmol/L (4-12); Aspartate Amino Transferase 24 U/L (14-36); Bilirubin,Total 0.7 mg/dL (0.2-1.3); Blood Urea Nitrogen 11 mg/dL (7-17); Carbon Dioxide 21 mmol/L (22-30); Chloride 107 mmol/L (98-107); Estimated CRCL calculation 109 ml/min; Estimated Glomerular Filt Rate > 60; Glucose 110 mg/dL (65-110); Lipase 108 U/L (23-300); Potassium 3.8 mmol/L (3.4-5.0); Sodium 140 mmol/L (137-145)
[2024-08-24 15:00] VITALS: BP 142/80; PULSE 108; RESP 16; TEMP 36.6; O2SAT 100
[2024-08-24 15:11] LABS: Add Urine Microscopic? YES; Appearance Urine Cloudy (Clear); Bacteria Urine Rare /hpf; Bilirubin Urine Negative (Negative); Blood Urine 1+ (Negative); Budding Yeast Urine Present /hpf; Calcium Oxalate Crystals Urine Present /hpf; Color Urine Yellow (Yellow); Glucose Urine UA Negative (Negative); Hyaline Casts Urine Present /lpf; Ketones Urine 1+ mg/dL (Negative); Leukocyte Esterase Ur 1+ LEU/UL (Negative); Need Manual Microscopic Reviewed; Nitrate Urine Negative (Negative); Non Pathogenic Casts 0-2; Protein Urine Trace mg/dL (Negative); Specific Grav Ur 1.029 (1.001-1.035); Squamous Epithelial Cell Urine Occasional /hpf (Few)
[2024-08-24 16:00] VITALS: BP 146/80; PULSE 102; RESP 16; TEMP 36.4; O2SAT 100
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
--- OUTSIDE RECORDS SUMMARY | 2024-08-26 00:51 | XMS_ITS | Encounter Summary ---
Author Organization [facility] Address [address] [place] [address]. [place], [place] [id number] [place] [id number] Care Team Providers Care Manager Communication Name Role Phone Betzy Tang ENDOSCOPY NURSE Primary Care Provider [phone] Rabia Black ARCHERY EQUIPMENT REPAIRER Primary Care Provider [phone] Encounter Details Date Type Department Care Team (Late st Contact Info) Description 02/08/2020 Telephone [facility] Med/Surg [id number] [address] [id number] Katy Blevins CNA Social History Tobacco Use Types Packs/Day Years Used Date Smoking Tobacco: Never Smokeless Tobacco: Never Alcohol Use Standard Drinks/Week Comments Yes 0 (1 standard drink = 0.6 oz pur e alcohol) occ Comments No Sex and Gender Information Value Date Recorded Sex Assigned at Not on file Legal Sex Female 7:12 PM CDT Gender Identity Not on file Sexual Orientation Not on file COVID-19 Exposure Response Date Recorded In the last month, have you been in contact with someone who was confirmed or suspected to have Coronavirus / COVID-19? Unable to assess 02/07/2020 12:54 PM CDT documented as of this encounter Functional Status * RETIRED Are you deaf or do you have serious difficulty hearing Answer Date of Assessment Author Status No 02/06/2020 5:07 PM CDT Activ e * RETIRED Are you blind or do you have serious difficulty seeing, even when wearing glasses? Answer Date of Assessment Author Status No 02/06/2020 5:07 PM CDT Activ e * Do you have serious difficulty walking or climbing stairs? Answer Date of Assessment Author Status No 02/06/2020 5:07 PM Jennifer Strong RN Active * Do you have difficulty dressing or bathing? Answer Date of Assessment Author Status No 02/06/2020 5:07 PM Jenniefr Strong RN Active * Because of a physical, mental, or emotional condition, do you have difficulty doing errands alone such as visiting a doctor's office or shopping? Answer Date of Assessment Author Status No 02/06/2020 5:07 PM Jennifer Strong RN Active documented as of this encounter Mental Status * Because of a physical, mental, or emotional condition, do you have serious difficulty concentrating, remembering, or making decisions? Answer Entry Date Author Status No 02/06/2020 5:07 PM Jennifer Strong RN Active documented in this encounter Plan of Treatment Not on file documented as of this encounter Goals Goal Patient Goal Type Associated Problems Recent Progress Patient-Stated? 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 MSW documented as of this encounter Visit Diagnoses Not on filedocumented in this encounter Care Teams Manager Communication Relationship Specialty Start Date End Date Betzy Tang APRN [address] [place] [address] PCP - General NURSE PRACTITIONER 04/01/19 10/29/23 Rabia Black FNP [address] [place] [address] PCP - General Nurse Practitioner Family 02/29/24 documented as of this encounter
--- OUTSIDE RECORDS SUMMARY | 2024-08-26 00:51 | XMS_ITS | Encounter Summary ---
Author Organization [facility] Address [address] [place] [address]. [place], [place] [address] [place] [address] Care Team Providers Care Newswriter Name Role Phone Betzy Tang PATIENT ACCOUNT ANALYST Primary Care Provider [phone] Rabia Black TAP PULLER Primary Care Provider [phone] Encounter Details Date Type Department Care Team (Late st Contact Info) Description 07/23/2022 Hospital Follow-up Call [facility] [address] [place] [address] Divina Merino RN Social History Tobacco Use Types Packs/Day Years [...] Exposure Response Date Recorded In the last 10 days, have yo u been in contact with someone who was confirmed or suspected to have Coronavirus/COVID-19? No / Unsure 07/20/2022 1:13 PM LONG DISTANCE OPERATOR documented as of this encounter Functional Status * RETIRED Are you deaf or do you have serious difficulty hearing Answer Date of Assessment Author Status No 07/20/2022 7:28 PM LONG DISTANCE OPERATOR Activ e * RETIRED Are you blind or do you have serious difficulty seeing, even when wearing glasses? Answer Date of Assessment Author Status No 07/20/2022 7:28 PM LONG DISTANCE OPERATOR Activ e * Do you have serious difficulty walking or climbing stairs? Answer Date of Assessment Author Status No 07/20/2022 7:28 PM Ethel Xiong RN Active * Do you have difficulty dressing or bathing? Answer Date of Assessment Author Status No 07/20/2022 7:28 PM Ethel Xiong RN Active * Because of a physical, mental, or emotional condition, do you have difficulty doing errands alone such as visiting a doctor's office or shopping? Answer Date of Assessment Author Status No 07/20/2022 7:28 PM Ethel Xiong RN Active documented as of this encounter Mental Status * Because of a physical, mental, or emotional condition, do you have serious difficulty concentrating, remembering, or making decisions? Answer Entry Date Author Status No 07/20/2022 7:28 PM Ethel Xiong RN Active documented in this encounter Plan of Treatment Not on file documented as of this encounter Goals Goal Patient Goal Type Associated Problems Recent Progress Patient-Stated? 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 MSW Safety ? Patient/family will have appropriate support at home upon discharge Lifestyle No Nelli Rodríguez RN documented as of this encounter Visit Diagnoses Not on filedocumented in this encounter Care Teams Newswriter Relationship Specialty Start Date End Date Betzy Tang APRN [address] [place] [address] PCP - General NURSE PRACTITIONER 04/01/19 10/29/23 Rabia Black FNP [address] [place] [address] PCP - General Nurse Practitioner Family 02/29/24 documented as of this encounter
--- OUTSIDE RECORDS SUMMARY | 2024-08-26 00:51 | XMS_ITS | Patient Health Summary ---
Author Organization [facility] Address [address] 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 This disclosure is being madepursuant to the Care Everywhere program and may not contain all information available regarding this patient. Last updated 18.[facility] Allergies * Codeine(Itching) -Low Criticality * Doxycycline(GI Discomfort) * Nsaids(GI Discomfort) -Low Criticality * Tramadol(Seizures) -High Criticality Medications * Be aware that medications may not be up to date on this document. Alwaysverify current medications with the patient. * SUMAtriptan (Imitrex) 50 MG tablet(Started 03/30/2023) * tobramycin-dexAMETHasone (Tobradex) 0.3-0.1 % ophthalmic suspension(Started 03/18/2023) SHAKE LIQUID AND INSTILL 1 DROP IN RIGHT EYE FOUR TIMES DAILY FOR 10 DAYS * traZODone (Desyrel) 50 MG tablet(Started 03/30/2023) Take 1 (one) tablet by mouth * acetaminophen (Tylenol) 500 MG tablet(Started 05/08/2023) Take 2 (two) tablets by mouth every 8 hours Maximum allowable Acetaminophen amount = 4 Grams (4000 mg) / 24 hours. 2 refills by 05/07/2024 * hydrOXYzine HCl (Atarax) 25 MG tablet(Started 05/08/2023) Take 1 (one) tablet to 2 (two) tablets by mouth 4 times daily as needed for Itching Reasons: Feeling Anxious, Itching, pain adjunct 1 refill by 05/07/2024 * apixaban (Eliquis) 2.5 MG tablet(Started 05/08/2023) Take 1 (one) tablet by mouth 2 times daily * ferrous sulfate 325 (65 FE) MG tablet(Started 05/09/2023) Take 1 (one) tablet by mouth every 2 days 2 refills by 05/07/2024 * cyclobenzaprine (Flexeril) 10 MG tablet(Started 05/08/2023) Take 1 (one) tablet by mouth 3 times daily as needed for Muscle Spasms 1 refill by 05/07/2024 * oxyCODONE, immediate release, (Roxicodone) 10 MG tablet(Started 05/08/2023) Take 1 (one) tablet by mouth every 6 hours as needed * oxyCODONE (Oxy-Ir) 5 MG capsule(Started 05/26/2023) Take 1 (one) capsule by mouth every 6 hours as needed for Pain * HYDROcodone-acetaminophen (Orleans) 5-325 MG tablet(Started 07/07/2023) Take 1 (one) tablet by mouth every 8 hours as needed for Pain * naloxone HCl (Narcan) 4 MG/0.1ML nasal spray(Started 07/08/2023) [place] 1 (one) spray into the nose as needed * pregabalin (Lyrica) 75 MG capsule(Started 07/18/2023) Take 1 (one) capsule by mouth 2 times daily * pregabalin (Lyrica) 200 MG capsule(Started 07/20/2023) Take 1 (one) capsule by mouth 2 times daily * acetaminophen-codeine (Tylenol #3) 300-30 MG tablet(Started 07/29/2023) Take 1 (one) tablet by mouth every 8 hours as needed for Pain * cyanocobalamin (Vitamin B-12) 1000 MCG tablet(Started 06/08/2023) Take 1 (one) tablet by mouth once daily * Estazolam 2 MG(Started 05/26/2023) Take 1 tablet by mouth * acetaminophen-codeine (Tylenol #3) 300-30 MG tablet(Started 08/18/2023) Take 1 (one) tablet by mouth every 8 hours as needed for Pain * diclofenac sodium (Voltaren) 1 % gel(Started 08/18/2023) Apply 2 (two) g to affected area 3 times daily as needed 2 refills by 08/17/2024 Active Problems Problem Noted Date Diagnosed Date Iron deficiency anemia 05/07/2023 Vitamin B 12 deficiency 05/07/2023 Obesity 05/07/2023 H/O gastric bypass 05/07/2023 Tachycardia 05/07/2023 Tibia/fibula fracture, left, closed, initial enc ounter 04/28/2023 Social History Tobacco Use Types Packs/Day Years Used Date Smoking Tobacco: Never Smokeless Tobacco: Never Tobacco Cessation:Counseling Given: Not Answered AUDIT-C Answer Date Recorded Q1: How often do you have a drink containing alcohol? Never 05/01/2023 Q2: How many drinks containi ng alcohol do you have on a typical day when you are drinking? Patient does not drink Q3: How often do you have si x or more drinks on one occasion? Never 05/01/2023 Overall Financial Resource Strain (CARDIA) Answe r Date Recorded How hard is it for you to pa y for the very basics like food, housing, medical care, and heating? Not hard at all 05/01/2023 PHQ-2 Answer Date Recorded Patient Health Questionnaire-2 Score 0 08/18/2023 [facility] - Occupational Stress Questionnaire Answer Date Recorded Do you feel stress - tense, restless, nervous, or anxious, or unable to sleep at night because your mind is troubled all the time - these days? Not at all 05/01/2023 Hunger Vital Sign Answer Date Recorded Within the past 12 months, y ou worried that your food would run out before you got the money to buy more. Never true 05/01/20 23 Within the past 12 months, t he food you bought just didn't last and you didn't have money to get more. Never true 05/01/2023 PRAPARE - Transportation Answer Date Re corded In the past 12 months, has l ack of transportation kept you from medical appointments or from getting medications? No 04/04 In the past 12 months, has l ack of transportation kept you from meetings, work, or from getting things needed for daily living? No 05/01/2023 Housing Stability Vital Sign Answer Anibal e Recorded In the last 12 months, was t here a time when you were not able to pay the mortgage or rent on time? No 05/01/2023 In the last 12 months, how many places have you lived? 1 05/01/2023 In the last 12 months, was t here a time when you did not have a steady place to sleep or slept in a assisted (including now)? No 05/01/2023 Sex and Gender Information Value Date Recorded Sex Assigned at Not on file Gender Identity Not on file Sexual Orientation Not on file Last Filed Vital Signs Vital Sign Reading Time Taken Comments Blood Pressure 137/89 05/08/2023 11:50 AM CDT Pulse 141 05/08/2023 11:50 AM CDT Nurse Notified Temperature 36.8 ??C (98.3 ??F) 05/08/2023 1 1:50 AM CDT Respiratory Rate 16 05/07/2023 6:54 AM CDT Oxygen Saturation 100% 05/08/2023 11: 50 AM CDT Inhaled Oxygen Concentration - - Weight 70.3 kg (155 lb) 08/18/2023 10:5 9 AM EHS SPECIALIST Height 154.9 cm (5' 1 ) 05/19/2023 10:3 7 AM CDT Body Mass Index 29.29 05/19/2023 10:37 AM CDT Medical Devices Implanted Type Area Employment Manager Device Identifier Shelf Expiration Date Model / Serial / Lot Tibial Nail- Advanced/11mm 345mm Implanted:Qty: 1 on 04/29/2023 by Sanjeev Kline MD at [facility] Left: Tibia [employer] 08/02/2032 [id number] S / / [id number] 5.0mm Locking Screws Implanted:Qty: 1 on 04/29/2023 by Sanjeev Kline MD at [facility] [id number] / / 5.0mm Locking Screw Implanted:Qty: 1 on 04/29/2023 by Sanjeev Kline MD at [facility] [id number] / / 5.0mm Locking Screw Implanted:Qty: 2 on 04/29/2023 by Sanjeev Kline MD at [facility] [id number] / / 5.0mm Locking Screw Implanted:Qty: 1 on 04/29/2023 by Sanjeev Kline MD at [facility] [id number] / / 3.5 Cannulated Implanted:Qty: 1 on 04/29/2023 by Sanjeev Kline MD at [facility] [id number] / / 3.5 Cannulated Implanted:Qty: 1 on 04/29/2023 by Sanjeev Kline MD at [facility] [id number] / / Explanted Type Area Employment Manager Device Identifier Shelf Expiration Date Model / Serial / Lot Slv Prtc 12mm Suprapatellar Strl Explanted:Qty: 1 on 04/29/2023 at [facility] Left: Tibia [employer] 10/31/2024 [id number] S / / [id number] Procedures * XR TIBIA FIBULA LEFT 2VW(Performed 08/18/2023) Performed for Tibia/fibula fracture, left, closed, with routine healing, subsequent encounter * XR TIBIA FIBULA LEFT 2VW(Performed 07/07/2023) Performed for Tibia/fibula fracture, left, closed, with routine healing, subsequent encounter * XR TIBIA FIBULA LEFT 2VW(Performed 05/19/2023) Performed for Tibia/fibula fracture, left, closed, initial encounter * CARDIAC EKG ORDER(Performed 05/11/2023) * BASIC METABOLIC PANEL (CALCIUM TOTAL)(Performed 05/08/2023) * CBC W/O DIFFERENTIAL(Performed 05/08/2023) * IRON + TRANSFERRIN PANEL(Performed 05/07/2023) * FERRITIN(Performed 05/07/2023) * VITAMIN B1(Performed 05/07/2023) * FOLATE(Performed 05/07/2023) * METHYLMALONIC ACID BLOOD(Performed 05/07/2023) * VITAMIN B12(Performed 05/07/2023) * EKG 12-LEAD(Performed 05/07/2023) Performed for H/O gastric bypass, Tachycardia * TSH REFLEX FREE T4(Performed 05/07/2023) * BASIC METABOLIC PANEL (CALCIUM TOTAL)(Performed 05/07/2023) * CBC W/O DIFFERENTIAL(Performed 05/07/2023) * BASIC METABOLIC PANEL (CALCIUM TOTAL)(Performed 05/06/2023) * CBC W/O DIFFERENTIAL(Performed 05/06/2023) * BASIC METABOLIC PANEL (CALCIUM TOTAL)(Performed 05/05/2023) * CBC W/O DIFFERENTIAL(Performed 05/05/2023) * BASIC METABOLIC PANEL (CALCIUM TOTAL)(Performed 05/04/2023) * CBC W/O DIFFERENTIAL(Performed 05/04/2023) * BASIC METABOLIC PANEL (CALCIUM TOTAL)(Performed 05/03/2023) * CBC W/O DIFFERENTIAL(Performed 05/03/2023) * BASIC METABOLIC PANEL (CALCIUM TOTAL)(Performed 05/02/2023) * CBC W/O DIFFERENTIAL(Performed 05/02/2023) * BASIC METABOLIC PANEL (CALCIUM TOTAL)(Performed 05/01/2023) * CBC W/O DIFFERENTIAL(Performed 05/01/2023) * BASIC METABOLIC PANEL (CALCIUM TOTAL)(Performed 04/30/2023) * CBC W/O DIFFERENTIAL(Performed 04/30/2023) * XR TIBIA FIBULA LEFT 2VW(Performed 04/29/2023) Performed for Tibia/fibula fracture, left, closed, initial encounter * FL ELIDA SURGERY(Performed 04/29/2023) Performed for Tibia/fibula fracture, left, closed, initial encounter * PERIPHERAL IV NOTE(Performed 04/29/2023) * WA OPEN RX TIBIA SHAFT FX,INTRAMED DEMARCO(Performed 04/29/2023) Performed for Closed fracture of proximal end of right tibia, unspecified fracture morphology, initial encounter * ENDOTRACHEAL TUBE NOTE(Performed 04/29/2023) * CT ANKLE LEFT WO CONTRAST(Performed 04/28/2023) Performed for Fall, initial encounter * XR TIBIA FIBULA LEFT 2VW(Performed 04/27/2023) Performed for Fall, initial encounter * BLOOD TYPE VERIFICATION(Performed 04/27/2023) * TYPE + SCREEN PANEL(Performed 04/27/2023) * VITAMIN D 25-HYDROXY(Performed 04/27/2023) * HCG BETA BLOOD QUANTITATIVE(Performed 04/27/2023) * COMPREHENSIVE METABOLIC PANEL(Performed 04/27/2023) * CBC W AUTO DIFFERENTIAL(Performed 04/27/2023) * PT-INR [facility](Performed 04/27/2023) * XR ANKLE LEFT 3VW OR MORE(Performed 04/27/2023) Performed for Fall, initial encounter * XR FOOT RIGHT 3VW OR MORE(Performed 04/27/2023) Performed for Fall, initial encounter * XR TIBIA FIBULA LEFT 2VW(Performed 04/27/2023) Performed for Fall, initial encounter Results * XR TIBIA FIBULA LEFT 2VW (08/18/2023 10:53 AM EHS SPECIALIST) Only the most recent of6 resultswithin the time period is included. Anatomical Region Laterality Modality Lower Extremity Radiographic Halley ging 08/18/2023 10:5 5 AM EHS SPECIALIST Impressions 08/18/2023 10:57 AM EHS SPECIALIST IMPRESSION: Unchanged alignment. Report dictated by Malcolm Stein DO (president of the [place]). I, Sage Mattson MD have personally reviewed and interpreted this examination/study. > Interpreting Provider: Sage Mattson MD on 08/18/2023 10:57 AM Narrative 08/18/2023 10:57 AM EHS SPECIALIST PROCEDURE: ??XR TIBIA FIBULA LEFT 2VW, DATE/TIME OF EXAM: ??08/18/2023 10:53 AM, LOCATION ??[facility] INDICATION: S82.202D: Tibia/fibula fracture, left, closed, with routine healing, subsequent encounter S82.402D: Tibia/fibula fracture, left, closed, with routine healing, subsequent encounter ADDITIONAL CLINICAL INFORMATION: Ordering Provider Reason For Exam: ??fracture Technologist Note: Additional: COMPARISON: 07/07/2023 FINDINGS: Redemonstrated distal tibial fracture with intramedullary nail and screw fixation into medial malleolus.. The hardware is intact and the tibial osseous alignment is unchanged. The distal fibular shaft fracture is unchanged in alignment with progression of callus formation. ?? Procedure Note Sage Mattson MD - 08/18/2023 PROCEDURE: XR TIBIA FIBULA LEFT 2VW, DATE/TIME OF EXAM: 0:53 AM, LOCATION [facility] INDICATION: S82.202D: Tibia/fibula fracture, left, closed, with routine healing, subsequent encounter S82.402D: Tibia/fibula fracture, left, closed, with routine healing, subsequent encounter ADDITIONAL CLINICAL INFORMATION: Ordering Provider Reason For Exam: fracture Technologist Note: Additional: COMPARISON: 07/07/2023 FINDINGS: Redemonstrated distal tibial fracture with intramedullary nail and screw fixation into medial malleolus.. The hardware is intact and the tibial osseous alignment is unchanged. The distal fibular shaft fracture is unchanged in alignment with progression of callus formation. IMPRESSION: Unchanged alignment. Report dictated by Malcolm Stein DO (president of the [place]). I, Sage Mattson MD have personally reviewed and interpreted this examination/study. > Interpreting Provider: Sage Mattson MD on 08/18/2023 10:57 AM Parful Reina DO DIAGNOSTIC IMAGING O RDERABLES * CARDIAC EKG ORDER (05/11/2023 3:29 PM CDT) Narrative 05/11/2023 3:29 PM CDT Ordered by an unspecified provider. Scanned Document CARDIAC SERVICES ORD ERABLES * (ABNORMAL) CBC W/O DIFFERENTIAL (05/08/2023 2:45 AM CDT) Only the most recent of9 resultswithin the time period is included. WBC 3.8 3.5 - 10.5 10? 3 /uL 05/08/2023 3:05 AM [facility] RBC 2.78(L) 3.80 - 5.20 10? 6 /uL 05/08/2023 3:05 AM [facility] Hemoglobin 8.0(L) 12.0 - 15.6 g/dL 05/08/2023 3:05 AM [facility] Hematocrit 24.5(L) 35.0 - 45.0 % 05/08/2023 3:05 AM [facility] MCV 88.1 80.7 - 98.3 fL 05/08/2023 3:05 AM [facility] MCH 28.8 26.7 - 34.0 pg 05/08/2023 3:05 AM [facility] MCHC 32.7 30.8 - 35.9 g/dL 05/08/2023 3:05 AM [facility] RDW-SD 45.2 36.0 - 50.0 fL 05/08/2023 3:05 AM [facility] RDW-CV 14.0 11.2 - 14.8 % 05/08/2023 3:05 AM [facility] Platelet Count 314 150 - 400 10? 3 /uL 05/08/2023 3:05 AM [facility] MPV 8.7(L) 9.4 - 12.9 fL 05/08/2023 3:05 AM [facility] nRBC Absolute 0.00 0 10? 3 /uL 05/08/2023 3:05 AM [facility] nRBC Auto 0.0 0 /100 WBC 05/08/2023 3:05 AM [facility] Blood BLOOD SPECIMEN / Unknown Lab Venipuncture / Unknown 05/08/2023 2:45 AM CDT 05/08/2023 2:50 AM CDT Praful Reina DO LAB - HEMATOLOGY ORD ERABLES [facility] [address] [place] [address], [facility] [phone] * (ABNORMAL) BASIC METABOLIC PANEL (CALCIUM TOTAL) (05/08/2023 2:45 AM CDT) Only the most recent of9 resultswithin the time period is included. BUN 13 7 - 26 mg/dL 05/08/2023 3:19 AM [facility] Creatinine 0.62 0.56 - 0.96 mg/dL 05/08/2023 3:19 AM [facility] Sodium 135(L) 136 - 145 mmol/L 05/08/2023 3:19 AM [facility] Potassium 4.3 3.5 - 4.5 mmol/L 05/08/2023 3:19 AM [facility] Chloride 106 98 - 107 mmol/L 05/08/2023 3:19 AM [facility] CO2 25 22 - 29 mmol/L 05/08/2023 3:19 AM [facility] Glucose 103 70 - 115 mg/dL 05/08/2023 3:19 AM [facility] Calcium 8.6 8.4 - 10.2 mg/dL 05/08/2023 3:19 AM [facility] Anion Gap 4(L) 6 - 16 05/08/2023 3:19 AM CDT [facility] BUN/Creatinine Ratio 21 7 - 23 05/08/2023 3:19 AM CDT [facility] Osmolality Calculated 280 275 - 295 mOsm/kg 05/08/2023 3:19 AM CDT [facility] eGFR by CKD-EPI >90 >=90 mL/min/1.7 3 m2 05/08/2023 3:19 AM CDT [facility] Blood BLOOD SPECIMEN / Unknown Lab Venipuncture / Unknown 05/08/2023 2:45 AM CDT 05/08/2023 2:51 AM CDT Praful Reina DO LAB - CHEMISTRY [facility] [address] [address], [place] [phone] * IRON + TRANSFERRIN PANEL (05/07/2023 3:28 PM CDT) Iron 74 40 - 150 ug/dL 05/07/2023 5:00 PM CDT [facility] Transferrin 294 174 - 382 mg/dL 05/07/2023 5:00 PM CDT [facility] Transferrin Saturation % 20 16 - 50 % 05/07/2023 5:00 PM CDT [facility] TIBC Calculated 368 240 - 450 ug/dL 05/07/2023 5:00 PM CDT [facility] Blood BLOOD SPECIMEN / Unknown Lab Venipuncture / Unknown 05/07/2023 3:28 PM CDT 05/07/2023 3:54 PM CDT Susanna Acosta PA-C LAB - CHEMIS TRY ORDERABLES [address] [address], [place] [phone] * FERRITIN (05/07/2023 3:28 PM CDT) Ferritin 111 13 - 204 ng/mL 05/07/2023 5:17 PM CDT [facility] Blood BLOOD SPECIMEN / Unknown Lab Venipuncture / Unknown 05/07/2023 3:28 PM CDT 05/07/2023 3:54 PM CDT Susanna Acosta PA-C LAB - CHEMIS TRY ORDERABLES Performing Organization Address [facility]/ZIP Co de Phone Number [facility] [address] [place] [address], [facility] [phone] * (ABNORMAL) METHYLMALONIC ACID BLOOD (05/07/2023 3:26 PM CDT) Methylmalonic Acid 1.69(H) 0.00 - 0.40 umol/L 05/11/2023 5:15 AM CDT [place] ([facility]) Comment: Slight elevation 0.41-0.99 umol/L ? Consistent with mild vitamin B12 deficiency, renal ? insufficiency, or intravascular volume contraction. Moderate elevation 1.00-9.99 umol/L ?Consistent with mild vitamin B12 deficiency. Massive elevation - Greater than or equal to 10 umol/L ?Consistent with significant vitamin B12 deficiency ?or with inborn errors of metabolism. INTERPRETIVE INFORMATION: MMA Serum/Plasma, ?Vitamin B12 Status This test was developed and its performance characteristics determined by [facility]. It has not been cleared or approved by the [place] Food and Drug Administration. This test was performed in a CLIA certified laboratory and is intended for clinical purposes. Performed By: [facility] [address] [place] [id number] [employer]: Ritchie Chapman MD, PhD CLIA Number: [id number] Blood BLOOD SPECIMEN / Unknown Lab Venipuncture / Unknown 05/07/2023 3:26 PM CDT 05/07/2023 3:54 PM CDT Susanna Acosta PA-C LAB - CHEMIS TRY ORDERABLES [facility] [employer] ([facility]) [address] [place] [address] * VITAMIN B1 (05/07/2023 3:26 PM CDT) [facility] Vitamin B1 Whole Blood 98 70 - 180 nmol/L 05/11/2023 7:40 AM CDT [facility] ([facility]) Comment: INTERPRETIVE INFORMATION: Vitamin B1, Whole Blood This assay measures the concentration of thiamine diphosphate (TDP), the primary active form of vitamin B1. Approximately 90 percent of vitamin B1 present in whole blood is TDP. Thiamine and thiamine monophosphate, which comprise the remaining 10 percent, are not measured. This test was developed and its performance characteristics determined by [facility]. It has not been cleared or approved by the [place] Food and Drug Administration. This test was performed in a CLIA certified laboratory and is intended for clinical purposes. Performed By: [facility] [address] [place] [address] [employer]: Ritchie Chapman MD, PhD CLIA Number: [id number] Blood BLOOD SPECIMEN / Unknown Lab Venipuncture / Unknown 05/07/2023 3:26 PM CDT 05/07/2023 3:54 PM CDT Susanna Acosta PA-C LAB - CHEMIS TRY ORDERABLES Performing Organization Address [facility] Co de Phone Number [facility]) [address] [place] [address] * (ABNORMAL) FOLATE (05/07/2023 3:26 PM CDT) [facility] Folate 36.7(H) 7.0 - 31.4 ng/mL 05/07/2023 6:05 PM CDT [facility] Comment:Result obtained by haley roland. Blood BLOOD SPECIMEN / Unknown Lab Venipuncture / Unknown 05/07/2023 3:26 PM CDT 05/07/2023 4:15 PM CDT Susanna Acosta PA-C LAB - CHEMIS TRY ORDERABLES [facility] [address] [place] [address], [facility] [phone] * (ABNORMAL) VITAMIN B12 (05/07/2023 3:26 PM CDT) [facility] Vitamin B12 >2,000(H) 213 - 816 pg/mL 05/07/2023 5:21 PM CDT [facility] Blood BLOOD SPECIMEN / Unknown Lab Venipuncture / Unknown 05/07/2023 3:26 PM CDT 05/07/2023 4:15 PM CDT Susanna Acosta PA-C LAB - CHEMIS TRY ORDERABLES [address] [address], [facility] [phone] * EKG 12-LEAD (05/07/2023 2:59 PM CDT) [facility] Ventricular Rate 111 BPM [facility] MUSE Atrial Rate 111 BPM [facility] MUSE P-R Interval 142 ms [facility] MUSE QRS Duration ms 74 ms [facility] MUSE Q-T Interval ms 334 ms [facility] MUSE QTC Calculation (Bezet) 454 ms [facility] MUSE Calculated P [place] 68 degrees [facility] MUSE Calculated R [place] 52 degrees [facility] MUSE Calculated T [place] 59 degrees [facility] MUSE Interpretation EKG SINUS TACHYCARDIA OTHERWISE NORMAL ECG NO PREVIOUS ECGS AVAILABLE Confirmed by DONNA MADRIGAL, SOILA ([id number]) on 05/08/2023 3:22:20 PM [facility] MUSE 05/07/2023 2:59 PM CDT 05/08/2023 3:22 PM CDT Susanna Acosta PA-C ECG ORDERABL ES [facility] MUSE * TSH REFLEX FREE T4 (05/07/2023 2:36 AM CDT) [facility] TSH 0.397 0.350 - 4.940 uIU/mL 05/07/2023 10:54 AM CDT [facility] Blood BLOOD SPECIMEN / Unknown Lab Venipuncture / Unknown 05/07/2023 2:36 AM CDT 05/07/2023 3:02 AM CDT Praful Reina DO LAB - CHEMISTRY WANDER LINDSAY [facility] [address] [place] [address], [facility] [phone] * FL ELIDA SURGERY (04/29/2023 5:15 PM CDT) Narrative [facility] RADIOLOGY - 04/29/2023 5:40 PM CDT Fluoroscopy was used for this exam in the OR. Please see the Operative report. Sanjeev Kline MD FLUOROSCOPY ORDERABL ES Performing Organization Address City/[facility]/ZIP Co de Phone Number [facility] * IV PLACEMENT PERFORMABLE (04/29/2023 4:51 PM CDT) Narrative Jaswinder Churchill MD - 04/29/2023 4:51 PM CDT Dg Bocanegra, DO ? 04/29/2023 ??4:52 PM Peripheral IV Line Placement: Patient Location: ??OR Procedure: IV start ([id number]). Procedure Section: ?? Skin Prep: alcohol. Orientation: right Location: hand Local Anesthetic Used? ??No Brand Name: Osborn. Catheter Gauge: 18 Catheter Length (in): 1.25 Number of Attempts: 1. Procedure Tolerance: performed while patient under general anesthesia. Procedure Start Time: 04/29/2023 2:44 PM. Procedure End Time: 04/29/2023 2:46 PM. Procedure Total Time: 2 ??minutes. Staff Section ? Provider #1: Mathew Barajas, Performed the procedure. Jaswinder Churchill MD GENERAL ANESTHESIA O RDERABLES * ETT LINE PERFORMABLE (04/29/2023 3:02 PM CDT) Narrative Jaswinder Churchill MD - 04/29/2023 3:02 PM CDT Dg Bocanegra, DO ? 04/29/2023 ??3:06 PM Endotracheal Tube Placement: ? Patient Location: OR. Intubation Event Date/Time: ??04/29/2023 2:37 PM Procedure: intubation ([id number]). Procedure Section: ?? Sedation: under general anesthesia. Indications for Airway Management: ??anesthesia Procedure pretreatments used? ??No Induction: standard IV Patient Position: ??supine and sniffing Mask Ventilation: easy. Blade Type: Keri Blade Size: 3 Laryngoscopy View: grade 2 (partial cords) Intubation Adjuncts: stylet Tube: endotracheal tube Placement: oral Tube type: cuff - inflated Tube Size (MM): 7 Depth of Insertion (CM): 21 Measured From: teeth Cuff volume (mL): ??8 Cuff Inflated With: air Number of Attempts: 2. Ventilation between attempts: Yes. Placement Verified By: direct visualization, bilateral breath sounds, chest auscultation and CO2 monitor Tube secured with: ??adhesive tape. Dentition unchanged? ??Yes Difficult Airway? ??No. Procedure Start Time: 04/29/2023 2:37 PM. Procedure End Time: 04/29/2023 2:41 PM. Procedure Total Time: 4 ??minutes. Staff Section ? Anesthesia Provider: Dg Bocanegra, DO, Performed the procedure ? Provider #1: Mathew Barajas, Performed the procedure. ? Provider #2: Jaswinder Churchill MD. Additional Comments: Jenn, MS4 first DL attempt, had grade II view, ETT dislodged from vocal cord while removing stylet. Ventilated and Daljit attempted DL with successful intubation.. Jaswinder Churchill MD GENERAL ANESTHESIA O RDERABLES * CT ANKLE LEFT WO CONTRAST (04/28/2023 1:58 AM CDT) Anatomical Region Laterality Modality Lower Extremity Computed Tomogra phy 04/28/2023 2:33 AM CDT Impressions 04/28/2023 8:05 AM CDT IMPRESSION: Distal tibial and fibular fractures. The report was drafted by Neto Vernon MD (president of the [place]) I, Sage Mattson MD have personally reviewed and interpreted this examination/study. > Interpreting Provider: Sage Mattson MD on 04/28/2023 8:05 AM Narrative 04/28/2023 8:05 AM CDT PROCEDURE: ??CT ANKLE LEFT WO CONTRAST DATE/TIME OF EXAM: ??04/28/2023 1:59 AM CLINICAL INFORMATION: None relevant/not provided if blank. Indication: W19.XXXA: Fall, initial encounter COMPARISON: Radiograph of the left tibia/fibula and ankle dated 04/27/2023. TECHNIQUE: CT of the left ankle was performed utilizing standard protocol. CT dose reduction technique was used, including Automated Exposure Control. FINDINGS/IMPRESSION: There is a splint. There is a moderately displaced mildly comminuted fracture of the distal tibial shaft. There is a nondisplaced intra-articular fracture of the distal tibia at the medial malleolus. There is a mildly to moderately displaced fracture of the distal fibular shaft. There is no dislocation. The joint spaces are normal. There is soft tissue edema around the fracture sites. Procedure Note Sage Mattson MD - 04/28/2023 PROCEDURE: CT ANKLE LEFT WO CONTRAST DATE/TIME OF EXAM: 04/28/2023 1:59 AM CLINICAL INFORMATION: None relevant/not provided if blank. Indication: W19.XXXA: Fall, initial encounter COMPARISON: Radiograph of the left tibia/fibula and ankle dated 04/27/2023. TECHNIQUE: CT of the left ankle was performed utilizing standard protocol. CT dose reduction technique was used, including Automated ExposureControl. FINDINGS/IMPRESSION: There is a splint. There is a moderately displaced mildly comminuted fracture of the distal tibial shaft. There is a nondisplaced intra-articular fracture of the distal tibia at the medial malleolus. There is a mildly to moderately displaced fracture of the distal fibular shaft. There is no dislocation. The joint spaces are normal. There is soft tissue edema around thefracture sites. IMPRESSION: Distal tibial and fibular fractures. The report was drafted by Neto Vernon MD (president of the [place]) I, Sage Mattson MD have personally reviewed and interpreted this examination/study. > Interpreting Provider: Sage Mattson MD on 04/28/2023 8:05 AM Tata Desir MD CT ORDERABLES * BLOOD TYPE VERIFICATION (04/27/2023 8:38 PM CDT) ABO Rh B POS 04/27/2023 9:1 8 PM CDT [facility] Blood Bank BLOOD SPECIMEN / Unknown Lab Venipuncture / Unknown 04/27/2023 8:38 PM CDT 04/27/2023 8:52 PM CDT Ignacia Merino MD LAB - BLOOD BANK ORD ERABLES Performing Organization Address City/[facility]/ZIP Co de Phone Number [facility] [address] [place] [address], [facility] [phone] * PT-INR [facility] (04/27/2023 8:06 PM CDT) PT 13.7 12.1 - 14.8 Seconds 04/27/2023 8:44 PM CDT [facility] INR 1.1 See Comment 04/27/2023 8:44 PM CDT [facility] Comment:The suggested therap eutic range for standard coumadin (warfarin) therapy is an INR of 2.0-3.0. For high-risk patients (Mechanical Mitral Valve Prosthesis, etc.), the suggested prophylactic therapeutic range is an INR of 2.5-3.5. Blood BLOOD SPECIMEN / Unknown Venipuncture / Unknown 04/27/2023 8:06 PM CDT 04/27/2023 8:22 PM CDT Parker Quispe MD LAB - COAGULATION OR DERABLES Performing Organization Address [facility]/ZIP Co de Phone Number [facility] [address] [place] [address], [place] [phone] * (ABNORMAL) VITAMIN D 25-HYDROXY (04/27/2023 8:06 PM CDT) Vitamin D, 25 Hydroxy 7.0(L) 30.0 - 80.0 ng/mL 04/28/2023 8:10 AM CDT [facility] Comment: The recommendations for 25-Hydroxy Vitamin D clinical decision points are as follows: ? Deficient: ? <20.0 ng/mL ? Insufficient: ? 20.0 - 29.9 ng/mL ? Sufficient: ? 30.0 - 100.0 ng/mL ? Potential Toxicity: ??>100 ng/mL Reference: The Endocrine Society Clinical Practice Guidelines. 2011 If the 25-Hydroxy Vitamin D results are inconsitent with clinical evidence, it is recommended that follow-up testing using a method such as LC/MS/MS be performed to confirm the result. ? Blood BLOOD SPECIMEN / Unknown Venipuncture / Unknown 04/27/2023 8:06 PM CDT 04/27/2023 8:22 PM CDT Cata Francois APRN-OUTSIDE REPAIRER SPECIAL LAB - CHEMISTRY O RDERABLES Performing Organization Address City/[facility]/ZIP Co de Phone Number [facility] [address] [place] [address], [place] [phone] * TYPE + SCREEN PANEL (04/27/2023 8:06 PM CDT) Pathologist [facility] [place] Antibody Screen NEG 9:03 PM CDT [facility] ABO Rh B POS 04/27/2023 9:03 PM CDT [facility] Blood Bank BLOOD SPECIMEN / Unknown Venipuncture / Unknown 04/27/2023 8:06 PM CDT 04/27/2023 8:27 PM CDT Parker Quispe MD LAB - BLOOD BANK ORD ERABLES Performing Organization Address City/[facility]/ZIP Co de Phone Number [facility] [address] [place] [address], [place] [phone] * (ABNORMAL) CBC W AUTO DIFFERENTIAL (04/27/2023 8:06 PM CDT) WBC 6.5 3.5 - 10.5 10? 3 /uL 04/27/2023 8:29 PM [facility] RBC 3.50(L) 3.80 - 5.20 10? 6 /uL 04/27/2023 8:29 PM [facility] Hemoglobin 10.2(L) 12.0 - 15.6 g/dL 04/27/2023 8:29 PM [facility] Hematocrit 31.0(L) 35.0 - 45.0 % 04/27/2023 8:29 PM [facility] MCV 88.6 80.7 - 98.3 fL 04/27/2023 8:29 PM [facility] MCH 29.1 26.7 - 34.0 pg 04/27/2023 8:29 PM [facility] MCHC 32.9 30.8 - 35.9 g/dL 04/27/2023 8:29 PM [facility] RDW-SD 45.9 36.0 - 50.0 fL 04/27/2023 8:29 PM [facility] RDW-CV 14.3 11.2 - 14.8 % 04/27/2023 8:29 PM [facility] Platelet Count 223 150 - 400 10? 3 /uL 04/27/2023 8:29 PM [facility] MPV 9.7 9.4 - 12.9 fL 04/27/2023 8:29 PM [facility] nRBC Absolute 0.00 0 10? 3 /uL 04/27/2023 8:29 PM [facility] nRBC Auto 0.0 0 /100 WBC 04/27/2023 8:29 PM [facility] Neutrophils % 55.0 35.0 - 70.0 % 04/27/2023 8:29 PM [facility] Lymphocytes % 34.3 20.0 - 43.0 % 04/27/2023 8:29 PM [facility] Monocytes % 9.8 5.0 - 13.0 % 04/27/2023 8:29 PM [facility] Eosinophils % 0.3 0.0 - 6.0 % 04/27/2023 8:29 PM [facility] Basophil % 0.3 0.0 - 2.0 % 04/27/2023 8:29 PM CDT [facility] Neutrophils Absolute 3.55 1.60 - 7.00 10? 3 /uL 04/27/2023 8:29 PM CDT [facility] Lymphocyte Absolute 2.21 1.10 - 3.90 10? 3 /uL 04/27/2023 8:29 PM CDT [facility] Monocytes Absolute 0.63 0.26 - 1.07 10? 3 /uL 04/27/2023 8:29 PM CDT [facility] Eosinophils Absolute 0.02 0.00 - 0.47 10? 3 /uL 04/27/2023 8:29 PM CDT [facility] Basophils Absolute 0.02 0.00 - 0.08 10? 3 /uL 04/[facility]23 [facility] Granulocytes % 0.3 0.0 - 1.0 % 04/27/2023 8:29 PM T [facility] Immature Granulocytes Absolute 0.02 04/27/2023 8:29 PM [facility] Blood BLOOD SPECIMEN / Unknown Venipuncture / Unknown 04/27/2023 8:06 PM CDT 04/27/2023 8:22 PM CDT Parker Quispe MD LAB - HEMATOLOGY ORD ERABLES [facility] [address] [place] [address], [facility] [phone] * (ABNORMAL) COMPREHENSIVE METABOLIC PANEL (04/27/2023 8:06 PM CDT) BUN 9 7 - 26 mg/dL 04/27/2023 8:53 PM CDT [facility] Creatinine 0.74 0.56 - 0.96 mg/dL 04/27/2023 8:53 PM [facility] Sodium 138 136 - 145 mmol/L 04/27/2023 8:53 PM T [facility] Potassium 3.7 3.5 - 4.5 mmol/L 04/27/2023 8:53 PM T [facility] Chloride 107 98 - 107 mmol/L 04/27/2023 8:53 PM [facility] CO2 24 22 - 29 mmol/L 04/27/2023 8:53 PM [facility] Glucose 103 70 - 115 mg/dL 04/27/2023 8:53 PM [facility] Calcium 8.2(L) 8.4 - 10.2 mg/dL 04/27/2023 8:53 PM [facility] Protein Total 6.6 6.0 - 8.3 g/dL 04/27/2023 8:53 PM [facility] Albumin 3.6 3.4 - 5.0 g/dL 04/27/2023 8:53 PM [facility] Bilirubin Total 0.4 0.2 - 1.2 mg/dL 04/27/2023 8:53 PM [facility] Alkaline Phosphatase 105 40 - 150 U/L 04/27/2023 8:53 PM [facility] ALT 28 5 - 55 U/L 04/27/2023 8:53 PM [facility] AST 32 5 - 34 U/L 04/27/2023 8:53 PM [facility] Anion Gap 7 6 - 16 04/27/2023 8:53 PM [facility] BUN/Creatinine Ratio 12 7 - 23 04/27/2023 8:53 PM [facility] Osmolality Calculated 285 275 - 295 mOsm/kg 04/27/2023 8:53 PM [facility] Albumin/Globulin Ratio 1.2 1.1 - 2.3 04/27/2023 8:53 PM [facility] eGFR by CKD-EPI >90 >=90 mL/min/1.7 3 m2 04/27/2023 8:53 PM [facility] Blood BLOOD SPECIMEN / Unknown Venipuncture / Unknown 04/27/2023 8:06 PM T 04/27/2023 8:22 PM [facility] Parker Quispe MD LAB - CHEMISTRY WANDER [facility] Organization Address City/State/ZIP Co de Phone Number [facility] [address] [place] [address], [facility] [phone] * HCG BETA BLOOD QUANTITATIVE (04/27/2023 8:06 PM CDT) Beta-hCG Total Quantitative <3 mIU/mL 04/27/2023 9:05 PM CDT [facility] Comment: HCG Numeric Result Interpretation: ? Non- Females: ? < 5 mIU/mL ? Post-Menopausal Females: ??< 7 mIU/mL ? This assay is cleared for use in the early detection of only. It is not approved for any other uses such as tumor marker screening, tumor marker monitoring, etc. and should not be used for any other purposes. Blood BLOOD SPECIMEN / Unknown Venipuncture / Unknown 04/27/2023 8:06 PM CDT 04/27/2023 8:22 PM CDT Parker Quispe MD LAB - CHEMISTRY W[facility]ER [place] Organization Address City/State/ZIP Co de Phone Number [address] [address], [facility] [phone] * XR ANKLE LEFT 3VW OR MORE (04/27/2023 8:00 PM CDT) Anatomical Region Laterality Modality Lower Extremity Radiographic Halley ging 04/27/2023 8:16 PM CDT Impressions 04/27/2023 11:25 PM CDT IMPRESSION: Acute comminuted and displaced fracture of left distal tibia, as described above. Acute displaced fracture of left distal fibula, as described above. No acute fracture or dislocation in left ankle. Report dictated by Jesus Alberto Justin MD (president of the [place]). I, Marcio Victor MD have personally reviewed and interpreted this examination/study. > Interpreting Provider: Marcio Victor MD on 04/27/2023 11:25 PM Narrative 04/27/2023 11:25 PM CDT PROCEDURE: ??XR TIBIA FIBULA LEFT 2VW, XR ANKLE LEFT 3VW OR MORE, DATE/TIME OF EXAM: ??04/27/2023 7:59 PM, LOCATION ??[facility] INDICATION: W19.XXXA: Fall, initial encounter Ordering Provider Reason For Exam: ??fx COMPARISON: None. FINDINGS: Evaluation of bony and soft tissue details is partially limited by presence of dorsal and plantar splint over left lower extremity. Left tibia/fibula: Acute comminuted fractures of distal-third shaft of tibia, with medial and posterior displacement of distal fracture segment. There is also acute fracture of distal third shaft of fibula, with lateral and anterior displacement of distal fracture segment. Bone density and texture are normal. Soft tissue swelling is present over the fracture area. Left ankle: Displaced fractures of distal tibia and fibula, as described above. The osseous structures are otherwise intact and well aligned without acute fracture or dislocation. The ankle mortise is intact. Bone density and texture are normal. No soft tissue swelling is present. Procedure Note Marcio Victor MD - 04/27/2023 PROCEDURE: XR TIBIA FIBULA LEFT 2VW, XR ANKLE LEFT 3VW OR MORE,DATE/TIME OF EXAM: 04/27/2023 7:59 PM, LOCATION [facility] INDICATION: W19.XXXA: Fall, initial encounter Ordering Provider Reason For Exam: fx COMPARISON: None. FINDINGS: Evaluation of bony and soft tissue details is partially limited bypresence of dorsal and plantar splint over left lower extremity. Left tibia/fibula: Acute comminuted fractures of distal-third shaft of tibia, with medialand posterior displacement of distal fracture segment. There is also acute fracture of distal third shaft of fibula, with lateral and anterior displacement of distal fracture segment. Bone density and texture are normal. Soft tissue swelling is present over the fracture area. Left ankle: Displaced fractures of distal tibia and fibula, as described above. The osseous structures are otherwise intact and well aligned without acute fracture or dislocation. The ankle mortise is intact. Bone density and texture are normal. No soft tissue swelling is present. IMPRESSION: Acute comminuted and displaced fracture of left distal tibia, asdescribed above. Acute displaced fracture of left distal fibula, as described above. No acute fracture or dislocation in left ankle. Report dictated by Jesus Alberto Justin MD (president of the [place]). I, Marcio Victor MD have personally reviewed and interpreted this examination/study. > Interpreting Provider: Marcio Victor MD on 04/27/2023 11:25 PM Parker Quispe MD DIAGNOSTIC IMAGING O RDERABLES * XR FOOT RIGHT 3VW OR MORE (04/27/2023 8:00 PM CDT) Anatomical Region Laterality Modality Ankle / Foot Radiographic Halley ging 04/27/2023 8:24 PM CDT Impressions 04/28/2023 10:26 AM CDT IMPRESSION: No acute fracture or dislocation identified. Report dictated by Jesus Alberto Justin MD (president of the [place]). Alba Cordova MD have personally reviewed and interpreted this examination/study. > Interpreting Provider: Alba Saldaña MD on 04/28/2023 10:26 AM Narrative 04/28/2023 10:26 AM CDT PROCEDURE: ??XR FOOT RIGHT 3VW OR MORE, DATE/TIME OF EXAM: ??04/27/2023 8:00 PM, LOCATION ??[facility] INDICATION: W19.XXXA: Fall, initial encounter Ordering Provider Reason For Exam: ??fx COMPARISON: None. FINDINGS: The osseous structures are intact and well aligned without acute fracture or dislocation. The joint spaces are preserved. Bone density and texture are normal. No soft tissue swelling is present. Procedure Note Alba Saldaña MD - 04/28/2023 PROCEDURE: XR FOOT RIGHT 3VW OR MORE, DATE/TIME OF EXAM: 38:00 PM, LOCATION [facility] INDICATION: W19.XXXA: Fall, initial encounter Ordering Provider Reason For Exam: fx COMPARISON: None. FINDINGS: The osseous structures are intact and well aligned without acutefracture or dislocation. The joint spaces are preserved. Bone density and texture are normal. No soft tissue swelling is present. IMPRESSION: No acute fracture or dislocation identified. Report dictated by Jesus Alberto Justin MD (president of the [place]). Alba Cordova MD have personally reviewed and interpreted this examination/study. > Interpreting Provider: Alba Saldaña MD on 04/28/2023 10:26 AM Parker Quispe MD DIAGNOSTIC IMAGING O RDERABLES
--- OUTSIDE RECORDS SUMMARY | 2024-08-26 00:51 | XMS_ITS | Clinical Summary ---
Author Organization [facility] Address [address] [place] [address]. 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 07/31/2022 Active SUMAtriptan (IMITREX) 50 MG tablet Take 1 tablet (50 mg total) by mouth 2 (two) times daily as needed for Migraine. 03/30/2023 Active Cyanocobalamin (B-12) 1000 MCG Tab Active rivaroxaban (XARELTO) 20 MG Tab tablet Take by mouth daily with supper. Take with food Active cyclobenzaprine (FLEXERIL) 10 MG tablet Take 1 tablet (10 mg total) by mouth 3 (three) times daily as needed for Muscle Spasms. 30 tablet 02/29/2024 Active Active Problems Problem Noted Date Diagnosed Date NSTEMI (non-ST elevated myoc ardial infarction) (CMS/HCC HHS/HCC) 07/24/2023 Low back pain 03/02/2020 Syncope 02/06/2020 TMJ (temporomandibular joint syndrome) 8 Patellar bursitis of right knee 06/18/2017 BMI 35.0-35.9,adult 12/31/2016 Overview (02/07/2020): Transitioned From: BMI 33.0-33.9,adult B12 deficiency 01/23/2016 Iron deficiency anemia due to dietary causes Anemia 12/26/2015 Intermittent palpitations 12/24/2015 Depression 11/23/2015 Fibromyalgia 11/07/2015 Seizures ([facility]) 11/07/2015 Resolved Problems Problem Noted Date Diagnosed Date Resolved Date Partial small bowel obstruct ion ([facility]) 07/20/2022 07/22/2022 Incarcerated ventral hernia 07/20/2022 08/18/2022 Women's annual routine gynec ological examination 03/31/2016 04/13/2020 Encounters Date Type Department Care Team Description 08/01/2024 1:41 PM MANAGER FUND - 08/01/2024 9:18 PM [facility] Emergency [facility] Emergency Room [address] [place], [place] [id number] Kerline Anderson MD Medical Problem Discharge Disposition: Transfer to Acute Care Hospital 08/01/2024 Travel from Last 3 Months Immunizations Name Administration Dates Next Due Fluzone 6 Months+ Quad (0.5 mL Prefilled Syringe) 07/25/2023(Deferred: Patient/family declined) Family History Medical History Relation Comments No Known Problems Father No Known Problems Mother Relation Status Comments Father Alive Mother Alive Social History Tobacco Use Types Packs/Day Years Used Date Smoking Tobacco: Never Smokeless Tobacco: Never Tobacco Cessation:Counseling Given: Not Answered Alcohol Use Standard Drinks/Week Comments Yes 0 (1 standard drink = 0.6 oz pur e alcohol) very rarely [facility] Utilities Answer Date Recorded In the past 12 months has e [employer], gas, oil, or water Dimeres threatened to shut off services in your home? Patient declined 07/24/2023 Humiliation, Afraid, Rape, and Kick questionnair e Answer Date Recorded Within the last year, have y ou been afraid of your partner or ex-partner? Patient declined 07/24/2023 Within the last year, have y ou been humiliated or emotionally abused in other ways by your partner or ex-partner? Patient declined 07/24/2023 Within the last year, have y ou been kicked, hit, slapped, or otherwise physically hurt by your partner or ex-partner? Patient declined 07/24/2023 Within the last year, have y ou been raped or forced to have any kind of sexual activity by your partner or ex-partner? Patient declined 07/24/2023 Social Connection and Isolat ion Panel [NHANES] Answer Date Recorded In a typical week, how many times do you talk on the phone with family, friends, or neighbors? More than three times a week 07/24/2023 How often do you get togethe r with friends or relatives? Patient declined 07/24/2023 How often do you attend chur or jewish services? More than 4 times per year 07/24/2023 Do you belong to any clubs o r organizations such as episcopalian groups, unions, fraternal or athletic groups, or school groups? Patient declined 07/24/2023 How often do you attend meet ings of the clubs or organizations you belong to? Patient declined 07/24/2023 Are you , , di vorced, , never , or living with a partner? Patient declined 07/24/2023 AUDIT-C Answer Date Recorded Q1: How often do you have a drink containing alc ohol? Monthly or less 07/24/2023 Q2: How many drinks containi ng alcohol do you have on a typical day when you are drinking? 1 or 2 07/24/2023 Q3: How often do you have si x or more drinks on one occasion? Patient declined 07/24/2023 Overall Financial Resource Strain (CARDIA) Answe r Date Recorded How hard is it for you to pa y for the very basics like food, housing, medical care, and heating? Patient declined 07/24/2023 [facility] - Occupational Stress Questionnaire Answer Date Recorded Do you feel stress - tense, restless, nervous, or anxious, or unable to sleep at night because your mind is troubled all the time - these days? Patient declined 07/24/2023 Exercise Vital Sign Answer Date Recorde d On average, how many days pe r week do you engage in moderate to strenuous exercise (like a brisk walk)? Patient declined On average, how many minutes do you engage in exercise at this level? 0 min 07/24/2023 Hunger Vital Sign Answer Date Recorded Within the past 12 months, y ou worried that your food would run out before you got the money to buy more. Patient declined Within the past 12 months, t he food you bought just didn't last and you didn't have money to get more. Patient declined PRAPARE - Transportation Answer Date Re corded In the past 12 months, has l ack of transportation kept you from medical appointments or from getting medications? Patient declined 07/24/2023 In the past 12 months, has l ack of transportation kept you from meetings, work, or from getting things needed for daily living? Patient declined 07/24/2023 Housing Stability Vital Sign Answer Anibal e Recorded In the last 12 months, was t here a time when you were not able to pay the mortgage or rent on time? Patient declined 07/24/20 23 In the last 12 months, how many places have you lived? 1 07/24/2023 In the last 12 months, was t here a time when you did not have a steady place to sleep or slept in a nursing home (including now)? Patient declined 07/24/2023 Comments No Sex and Gender Information Value Date Recorded Sex Assigned at Not on file Legal Sex Female 7:12 PM CDT Gender Identity Not on file Sexual Orientation Not on file Last Filed Vital Signs Vital Sign Reading Time Taken Comments Blood Pressure 130/90 08/01/2024 8:01 PM MANAGER FUND Pulse 90 08/01/2024 8:01 PM MANAGER FUND Temperature 36.7 ??C (98 ??F) 08/01/2024 8:01 PM MANAGER FUND Respiratory Rate 20 08/01/2024 8:01 PM MANAGER FUND Oxygen Saturation 100% 08/01/2024 8:01 PM MANAGER FUND Inhaled Oxygen Concentration - - Weight 81.2 kg (179 lb) 08/01/2024 1:43 PM MANAGER FUND Height 154.9 cm (5' 1 ) 08/01/2024 1:43 PM MANAGER FUND Body Mass Index 33.82 08/01/2024 1:43 PM MANAGER FUND Plan of Treatment Health Maintenance Due Date Last Done Comments ASCVD Statin 1980 Cervical Cancer Screening Pap Smear (Age 30 to 64) Every 3 Years 1980 Annual Physical 1983 Pneumococcal Vaccine: Pediatrics (0 to 5 Years) and At-Risk Patients (6 to 64 Years) (1 of 2 - PCV) 1986 Hepatitis C 1998 DTaP, Tdap and Td Vaccines (1 - Tdap) 1999 Hepatitis B Vaccines (1 of 3 - 19+ 3-dose series) 1999 Cervical Cancer Screening Pap with HPV Testing (Age 30 to 64) Every 5 Years 2010 Cervical Cancer Screening with HPV 2010 Mammogram Screening 01/02/2023 01/02/2021 COVID-19 Vaccine ( season) 2024 ASCVD LDL 07/24/2024 07/24/2023, 03/03, 02/07/2020, Additional history exists Influenza Adult Completed 06/03/2024 HPV Vaccines Aged Out No longer eligi ble based on patient's age to complete this topic Meningococcal Vaccine Aged Out No renato gavi eligible based on patient's age to complete this topic RSV Immunizations Under 20 Months Aged Out No longer eligible based on patient's age to complete this topic Goals Goal Patient Goal Type Associated Problems Recent Progress Patient-Stated? 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 Patient/family will have appropriate support at home upon discharge Lifestyle No Nelli Rodríguez, digital controls technical officer Procedure Name Priority Date/Time Associated Diagnosis Comments ECG 12-LEAD STAT 08/01/2024 7:[address] ABD+PEL W CON STAT 08/01/2024 4:17 PM MANAGER FUND LACTIC ACID STAT 08/01/2024 3:50 PM MANAGER FUND TROPONIN, QUANT Routine 08/01/2024 3:07 PM MANAGER FUND LACTIC ACID STAT 08/01/2024 3:07 PM MANAGER FUND LIPASE STAT 08/01/2024 3:07 PM MANAGER FUND COMPREHENSIVE METABOLIC PANEL STAT 08/01/2024 3:07 PM MANAGER FUND CBC W/DIFF AUTOMATED STAT 08/01/2024 3:07 PM MANAGER FUND LIPID PANEL Routine 07/24/2023 7:08 AM MANAGER FUND MG SCREENING W ADRIANA LAISHA DIGI Routine 01/02/2021 1:19 PM CDT Visit for screening mammogram from Last 3 Months or Most Recently Relevant to Health Maintenance Results * ECG 12 lead (08/01/2024 7:16 PM MANAGER FUND) 08/01/2024 7:16 PM MANAGER FUND Narrative [facility] ([facility] RAD - 08/02/2024 8:39 AM MANAGER FUND ?[facility] ? Test Date: ?2024-08-01 Pat Name: ? TABITHA BLACKWELL ?Department: ?? 85 ? Room: ? TG1TG1 Gender: ? Female ? Imaging Aide: ?? : ?1980 ? Requested By: KERLINE ANDERSON Order Number: [id number] ? Reading MD: ?? Emre Lees ? Measurements Intervals ?[place] ? Rate: ? 97 ? P: ?59 RI: ? 136 ?QRS: ?43 QRSD: ? 73 ? T: ?48 QT: ? 338 ? QTc: ?430 ? Interpretive Statements SINUS RHYTHM Compared to ECG 02/29/2024 15:22:31 Sinus tachycardia no longer present GER FUND Procedure Note Emre Lees MD - 08/02/2024 [facility] Test Date: 2024-08-01 Pat Name: TABITHA BLACKWELL Department: 85 Room: [facility] Gender: Female Imaging Aide: : 1980 Requested By: KERLINE ANDERSON Order Number: [id number] Reading MD: Emre Lees Measurements Intervals [place] Rate: 97 P: 59 RI: 136 QRS: 43 QRSD: 73 T: 48 QT: 338 QTc: 430 Interpretive Statements SINUS RHYTHM Compared to ECG 02/29/2024 15:22:31 Sinus tachycardia no longer present GER FUND Kerline Anderson MD ECG ORDERABLES Final Result [facility]) RAD * CT ABD+PEL W CON (08/01/2024 4:17 PM MANAGER FUND) Anatomical Region Laterality Modality Abdomen Computed Tomogra phy 08/01/2024 4:42 PM MANAGER FUND Impressions 08/01/2024 4:53 PM MANAGER FUND IMPRESSION: 1. Enlarged mid mesenteric lymph nodes, nonspecific. 2. Mild swirling of the SMA/SMV pedicle with a change in location of the distal anastomosis which is now on the right incidentals midline without convincing evidence of obstruction at this time. These findings are new since August 2022 and subtle internal hernia is not entirely excluded. If patient's abdominal pain persists or progresses a low threshold rescanning would be recommended. 3. Mild wall thickening of the distal Domenic-en-Y anastomosis, largely unchanged compared to the prior examination. Referred By: ?? Interpreted By: Raymon Gardiner MD, 08/01/2024 4:42 PM Narrative 08/01/2024 4:53 PM MANAGER FUND [facility] [address] [place] [address] EXAMINATION: CT ABDOMEN/PELVIS WITH CONTRAST INDICATION: Abdominal pain. COMPARISON: 08/23/2022 TECHNIQUE: Computed tomography of the abdomen, and pelvis was performed after administration of intravenous contrast, 75 mL of Isovue-370, without immediate complication, according to routine protocol. Radiation dose reduction technique(s) were used FINDINGS: Lower Chest: Lung bases are clear. No cardiomegaly or pericardial effusion. Upper abdominal organs: Small hypoattenuating lesion in the posterior right lobe of liver measuring about 8 mm, nonspecific but most commonly represent a benign cyst or hemangioma. There is also a stable partially calcified cyst in the spleen. The gallbladder and biliary tree are unremarkable. No peripancreatic inflammation. No adrenal nodules. No hydronephrosis or nephrolithiasis. Vascular: The abdominal aorta is normal in caliber. There is mild swirling of the SMA/SMV pedicle. Lymph nodes: There are prominent mid mesenteric lymph nodes, nonspecific. No retroperitoneal or inguinal lymphadenopathy. Gastrointestinal: Domenic-en-Y gastric bypass. No evidence of bowel obstruction. Mild wall thickening at the distal anastomosis, unchanged from the prior exams. No convincing evidence of bowel wall thickening. The appendix is normal. Miscellaneous: No free intraperitoneal air or ascites. Pelvis: No free pelvic fluid. The urinary bladder is normal. The uterus is surgically absent. No evidence of adnexal mass. 1.9 cm right ovarian follicle. MSK: No acute osseous abnormality or destructive bone lesions. Procedure Note Raymon Gardiner MD - 08/01/2024 [facility] [address] [facility] [place] [address] EXAMINATION: CT ABDOMEN/PELVIS WITH CONTRAST INDICATION: Abdominal pain. COMPARISON: 08/23/2022 TECHNIQUE: Computed tomography of the abdomen, and pelvis was performedafter administration of intravenous contrast, 75 mL of Isovue-370, withoutimmediate complication, according to routine protocol. Radiation dosereduction technique(s) were used FINDINGS: Lower Chest: Lung bases are clear. No cardiomegaly or pericardialeffusion. Upper abdominal organs: Small hypoattenuating lesion in the posteriorright lobe of liver measuring about 8 mm, nonspecific but most commonlyrepresent a benign cyst or hemangioma. There is also a stable partiallycalcified cyst in the spleen. The gallbladder and biliary tree areunremarkable. No peripancreatic inflammation. No adrenal nodules. Nohydronephrosis or nephrolithiasis. Vascular: The abdominal aorta is normal in caliber. There is mild swirlingof the SMA/SMV pedicle. Lymph nodes: There are prominent mid mesenteric lymph nodes, nonspecific.No retroperitoneal or inguinal lymphadenopathy. Gastrointestinal: Domenic-en-Y gastric bypass. No evidence of bowelobstruction. Mild wall thickening at the distal anastomosis, unchangedfrom the prior exams. No convincing evidence of bowel wall thickening. Theappendix is normal. Miscellaneous: No free intraperitoneal air or ascites. Pelvis: No free pelvic fluid. The urinary bladder is normal. The uterus issurgically absent. No evidence of adnexal mass. 1.9 cm right ovarianfollicle. MSK: No acute osseous abnormality or destructive bone lesions. IMPRESSION: 1. Enlarged mid mesenteric lymph nodes, nonspecific. 2. Mild swirling of the SMA/SMV pedicle with a change in location of thedistal anastomosis which is now on the right incidentals midline withoutconvincing evidence of obstruction at this time. These findings are newsince August 2022 and subtle internal hernia is not entirely excluded. Ifpatient's abdominal pain persists or progresses a low threshold rescanningwould be recommended. 3. Mild wall thickening of the distal Domenic-en-Y anastomosis, largelyunchanged compared to the prior examination. Referred By: Interpreted By: Raymon Gardiner MD, 08/01/2024 4:42 PM us Kerline Anderson MD CT Final Result * LACTIC ACID - SINGLE (08/01/2024 3:50 PM MANAGER FUND) Only the most recent of2 resultswithin the time period is included. LACTIC ACID VENOUS 0.5 0.4 - 2.0 MMOL/L 08/01/2024 4:12 PM MANAGER FUND [facility] 08/01/2024 3:50 PM MANAGER FUND us Kerline Anderson MD LABORATORY Final Result [facility] [address] [place] [address], [place] [phone] * (ABNORMAL) COMPREHENSIVE METABOLIC PANEL (08/01/2024 3:07 PM MANAGER FUND) Pathologist [facility] GLUCOSE 98 70 - 99 MG/DL 08/01/2024 3:29 PM MANAGER FUND [facility] BUN 12 7 - 18 MG/DL 08/01/2024 3:29 PM MANAGER FUND [facility] CREATININE S/P/B 0.85 0.55 - 1.02 MG/DL 08/01/2024 3:29 PM [facility] SODIUM S/P/B 143 136 - 145 MMOL/L 08/01/2024 3:29 PM [facility] POTASSIUM S/P/B 3.9 3.5 - 5.1 MMOL/L 08/01/2024 3:29 PM [facility] CHLORIDE S/P/B 107 100 - 108 MMOL/L 08/01/2024 3:29 PM [facility] CO2 27.9 21 - 32 MMOL/L 08/01/2024 3:29 PM [facility] CALCIUM S/P/B 9.0 8.5 - 10.1 MG/DL 08/01/2024 3:29 PM [facility] BILIRUBIN TOTAL S/P/B 0.2 0.2 - 1.2 MG/DL 08/01/2024 3:29 PM [facility] TOTAL PROTEIN S/P/B 7.4 6.4 - 8.2 G/DL 08/01/2024 3:29 PM [facility] ALBUMIN S/P/B 3.3(L) 3.4 - 5.0 G/DL 08/01/2024 3:29 PM [facility] AST 19 15 - 37 U/L 08/01/2024 3:29 PM [facility] ALT 25 14 - 55 U/L 08/01/2024 3:29 PM [facility] ALKALINE PHOSPHATASE S/P/B 167(H) 50 - 136 U/L 08/01/2024 3:29 PM [facility] ANION GAP 8.1 5 - 15 MMOL/L 08/01/2024 3:29 PM [facility] BUN CREATININE RATIO 14.1 6 - 26 08/01/2024 3:29 PM [facility] A/G RATIO 0.8(L) 1.0 - 2.0 RATIO 08/01/2024 3:29 PM [facility] GFR ESTIMATE 87(L) >90 ML/MIN/1.7 3 M2 08/01/2024 3:29 PM [facility] Comment: NOTE: eGFR is not calculated for patients <18 years of age. This is an estimated GFR calculation using the new CKD EPI creatinine equation without race and so does not require a correction factor for race. This estimated GFR should not be used for calculating drug doses. 08/01/2024 3:07 PM MANAGER FUND Kerline Anderson MD LABORATORY Final Result [facility] [address] [place] [address], * (ABNORMAL) CBC W/DIFF AUTOMATED (08/01/2024 3:07 PM MANAGER FUND) WBC 5.64 4.4 - 11.0 x10'3/uL 08/01/2024 3:14 PM [facility] RBC 3.99(L) 4.50 - 5.10 x10'6/uL 08/01/2024 3:14 PM [facility] HGB 11.5(L) 12.3 - 15.3 G/DL 08/01/2024 3:14 PM [facility] HCT 36.1 35.9 - 44.6 % 08/01/2024 3:14 PM [facility] MCV 90.5 80.0 - 96.0 FL 08/01/2024 3:14 PM [facility] MCH 28.8 25.3 - 30.9 PG 08/01/2024 3:14 PM [facility] MCHC 31.9 31.0 - 34.1 G/DL 08/01/2024 3:14 PM [facility] RDW 16.0(H) 12.4 - 15.1 % 08/01/2024 3:14 PM [facility] PLT 306 151 - 353 x10'3/uL 08/01/2024 3:14 PM [facility] MPV 9.4(L) 9.6 - 12.0 FL 08/01/2024 3:14 PM [facility] RBC MORPHOLOGY NORMAL 08/01/2024 3:14 PM [facility] PLT MORPH. NORMAL 08/01/2024 3:14 PM [facility] WBC MORPHOLOGY NORMAL 08/01/2024 3:14 PM [facility] LYMPHOCYTES % 30.3 15.8 - 45.0 % 08/01/2024 3:14 PM [facility] NEUTROPHILS % 60.7 42.1 - 71.9 % 08/01/2024 3:14 PM [facility] MONOCYTES % 6.9 5.7 - 12.5 % 08/01/2024 3:14 PM [facility] EOSINOPHILS 0.5 0.0 - 5.6 % 08/01/2024 3:14 PM [facility] BASOPHILS 0.4 0.0 - 1.3 % 08/01/2024 3:14 PM [facility] ABS. NEUTROPHILS 3.42 1.40 - 6.00 x10'3/uL 08/01/2024 3:14 PM [facility] IMMATURE GRANS % 1.2(H) 0.0 - 0.5 % 08/01/2024 3:14 PM MANAGER FUND [facility] ABS. LYMPHOCYTES 1.71 0.80 - 4.70 x10'3/uL 08/01/2024 3:14 PM MANAGER FUND [facility] 08/01/2024 3:07 PM MANAGER FUND us Kerline Anderson MD LABORATORY Final Result Performing Organization Address City/[facility]/ZIP Co de Phone Number [facility] [address] [place] [address], [place] [phone] * TROPONIN, QUANT (08/01/2024 3:07 PM MANAGER FUND) [facility] TROPONIN I HIGH SENSITIVITY <4 0 - 50 ng/L 08/01/2024 10:38 PM MANAGER FUND [facility] Comment: HIGH DOSES OF BIOTIN, TROPONIN-SPECIFIC AUTOANTIBODIES, AND ANTIBODY THERAPY CONTAINING HAMA MAY INTERFERE WITH THIS TEST RESULT. CORRELATION TO CLINICAL HISTORY AND PRESENTATION RECOMMENDED. 08/01/2024 3:07 PM MANAGER FUND us Kerline Anderson MD LABORATORY Final Result Performing Organization Address City/[facility] Co de Phone Number [facility] [address] [place] [address], [place] [phone] * LIPASE (08/01/2024 3:07 PM MANAGER FUND) [facility] LIPASE 51 16 - 77 UNITS/L 08/01/2024 3:29 PM MANAGER FUND [facility] 08/01/2024 3:07 PM MANAGER FUND us Kerline Anderson MD LABORATORY Final Result Performing Organization Address City/[facility]/ZIP Co de Phone Number [facility] [address] [place] [address], [place] [phone] * LIPID PANEL (07/24/2023 7:08 AM MANAGER FUND) [facility] Signature CHOLESTEROL 131 <200 MG/DL 07/24/2023 8:17 AM [facility] TRIGLYCERIDES 45 <150 MG/DL 07/24/2023 8:17 AM [facility] HDL 65 >40.0 MG/DL 07/24/2023 8:17 AM [facility] LDL (CALCULATED) 57 <100 MG/DL 07/24/20 8:17 AM [facility] NON HDL CHOLESTEROL 66 <130 MG/DL 07/24 8:17 AM [facility] CHOL/HDL RATIO 2.0 0.0 - 4.5 07/24/2023 8:17 AM [facility] VLDL CALCULATION 9 5 - 55 MG/DL 07/24/2023 8:17 AM [facility] LIPID INTERPRETATION 07/24/2023 8:17 AM [facility] Comment: NIH CONCENSUS REPORT RECOMMENDATIONS: ?ADULT ?CHILD ??LOW RISK: ?CHOLESTEROL ? <200 ? <170 ?TRIGLYCERIDE ?<150 ?--- ?HDL ? >=60 ?--- ?LDL ? <100 ? <110 ??BORDERLINE: ?CHOLESTEROL ? 200-239 ?? 170-199 ?TRIGLYCERIDE ?150-199 ? --- ?HDL ?40-59 ?--- ?LDL ? 100-159 ?? 110-129 ??HIGH RISK: ?CHOLESTEROL ? >=240 ?>=200 ?TRIGLYCERIDE ?>=200 ? --- ?HDL ?<40 ?--- ?LDL ? >=160 ?>=130 07/24/2023 7:08 AM MANAGER FUND Alyse Jacob MD LABORATORY Final Re sult Performing Organization Address City/State/[facility] Co de Phone Number [facility] [address] [id number], * MG SCREENING W ADRIANA LAISHA DIGI (01/02/2021 1:19 PM CDT) Anatomical Region Laterality Modality Breast Bilateral Mammography 01/02/2021 1:25 PM CDT Narrative 01/02/2021 1:26 PM CDT IMAGING STUDIES: MG SCREENING W ADRIANA LAISHA DIGI ? DATE: 01/02/2021 1:19 PM INDICATION: screening. Baseline. COMPARISON: ??No comparisons. FINDINGS: Bilateral XCCL, CC and MLO views, digital with CAD. ??2-D with 3-D tomosynthesis. Breast compostition: Category C - The breasts are heterogeneously dense, which may obscure small masses. No suspicious microcalcification, worrisome mass or evidence of architectural distortion. ??No skin thickening or nipple retraction. Benign microcalcifications. CONCLUSION: No mammographic evidence of malignancy. BI-RADS Category 2 - benign findings. Routine screening mammography recommended ? MQSA BI-RADS Categories: Category 0 - needs additional imaging evaluation. Category 1 - negative. Category 2 - benign findings. Category 3 - probably benign findings, but short interval follow-up ?is recommended. Category 4 - suspicious abnormality and biopsy should be considered ?though the lesion may well be benign. Category 5 - highly suggestive of malignancy and appropriate action ?should be taken. ?? A) ??A negative report should not delay a biopsy if a dominant or ?clinically suspicious mass is present. B) ??Adenosis and dense breasts may obscure an underlying neoplasm. C) ??Study interpreted with computer aided detection. Referred By: MITA MADRID Interpreted By: Daniel Presley, 01/02/2021 1:25 PM us [place] CHIEF PETROLEUM ENGINEER MAMMO Final Result from Last 3 Months or Most Recently Relevant to Health Maintenance Insurance [facility] Advance Directives * Full Code (Latest Code Status on File) Date Activated Date Inactivated Comments 07/24/2023 5:34 PM 07/25/2023 2:01 PM * Full Code Date Activated Date Inactivated Comments 07/24/2023 6:39 AM 07/24/2023 5:34 PM * Full Code Date Activated Date Inactivated Comments 07/20/2022 8:07 PM 07/22/2022 7:06 PM * Full Code Date Activated Date Inactivated Comments 02/06/2020 4:39 PM 02/07/2020 6:36 PM 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
--- OUTSIDE RECORDS SUMMARY | 2024-08-26 00:51 | XMS_ITS | Clinical Summary ---
Author Organization [facility] Address [address] [place] [address] Care Team Providers Care Hadoop Engineer Name Role Phone Unavailable Primary Care Provider Unavailabl e Source Comments [facility],non-owned Affiliates and Associated Physician Practices is amultiple site organization consisting of ambulatory clinics and hospital sitesin [place], [place], [place] and [place]. This disclosure is being madepursuant to the Care Everywhere program and may not contain all information available regarding this patient. Last updated 18.[facility] [employer] Allergies Active Allergy Reactions Criticality Noted Date Comments Codeine Itching Low 04/27/2023 Doxycycline GI Discomfort 07/07/2023 Nsaids GI Discomfort Low 04/27/2023 Gastric bypass patient Tramadol Seizures High 11/07/2015 Medications * Be aware that medications may not be up to date on this document. Alwaysverify current medications with the patient. Medication Sig Dispensed Refills Start Date End Date Status SUMAtriptan (Imitrex) 50 MG tablet 03/30/2023 Active tobramycin-dexAME THasone (Tobradex) 0.3-0.1 % ophthalmic suspension SHAKE LIQUID AND INSTILL 1 DROP IN RIGHT EYE FOUR TIMES DAILY FOR 10 DAYS 03/18/2023 Active traZODone (Desyrel) 50 MG tablet Take 1 (one) tablet by mouth 03/30/2023 Active acetaminophen (Tylenol) 500 MG tablet Take 2 (two) tablets by mouth every 8 hours Maximum allowable Acetaminophen amount = 4 Grams (4000 mg) / 24 hours. 90 tablet 2 05/08/2023 Active hydrOXYzine HCl (Atarax) 25 MG tabletIndications :Anxiety,Pruritus ,pain adjunct Take 1 (one) tablet to 2 (two) tablets by mouth 4 times daily as needed for Itching Reasons: Feeling Anxious, Itching, pain adjunct 40 tablet 1 05/08/2023 Active Additional Information Patient not taking.Reported on 07/07/2023 apixaban (Eliquis) 2.5 MG tablet Take 1 (one) tablet by mouth 2 times daily 70 tablet 05/08/2023 Active ferrous sulfate 325 (65 FE) MG tablet Take 1 (one) tablet by mouth every 2 days 30 tablet 2 05/09/2023 Active cyclobenzaprine (Flexeril) 10 MG tablet Take 1 (one) tablet by mouth 3 times daily as needed for Muscle Spasms 30 tablet 1 05/08/2023 Active Additional Information Patient not taking.Reported on 08/18/2023 oxyCODONE, immediate release, (Roxicodone) 10 MG tabletIndications :Tibia/fibula fracture, left, closed, initial encounter Take 1 (one) tablet by mouth every 6 hours as needed 40 tablet 05/08/2023 Active Additional Information Patient not taking.Reported on 07/07/2023 oxyCODONE (Oxy-Ir) 5 MG capsuleIndication s:Tibia/fibula fracture, left, closed, initial encounter Take 1 (one) capsule by mouth every 6 hours as needed for Pain 40 capsule 05/26/2023 Active Additional Information Patient not taking.Reported on 07/07/2023 HYDROcodone-aceta minophen ([place]) 5-325 MG tabletIndications :Tibia/fibula fracture, left, closed, with routine healing, subsequent encounter Take 1 (one) tablet by mouth every 8 hours as needed for Pain 40 tablet 07/07/2023 Active Additional Information Patient not taking.Reported on 08/18/2023 naloxone HCl (Narcan) 4 MG/0.1ML nasal sprayIndications: Tibia/fibula fracture, left, closed, with routine healing, subsequent encounter,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,Chronic pain syndrome [place] 1 (one) spray into the nose as needed 2 Each 07/08/2023 Active pregabalin (Lyrica) 75 MG capsule Take 1 (one) capsule by mouth 2 times daily 30 capsule 07/18/2023 Active Additional Information Patient not taking.Reported on 08/18/2023 pregabalin (Lyrica) 200 MG capsule Take 1 (one) capsule by mouth 2 times daily 60 capsule 07/20/2023 Active acetaminophen-cod eine (Tylenol #3) 300-30 MG tablet Take 1 (one) tablet by mouth every 8 hours as needed for Pain 40 tablet 07/29/2023 Active Additional Information Patient not taking.Reported on 08/18/2023 cyanocobalamin (Vitamin B-12) 1000 MCG tablet Take 1 (one) tablet by mouth once daily 06/08/2023 Active Estazolam 2 MG Take 1 tablet by mouth 05/26/2023 Active acetaminophen-cod eine (Tylenol #3) 300-30 MG tabletIndications :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,Chronic pain syndrome,Closed displaced oblique fracture of shaft of left tibia with routine healing, subsequent encounter Take 1 (one) tablet by mouth every 8 hours as needed for Pain 30 tablet 08/18/2023 Active diclofenac sodium (Voltaren) 1 % gelIndications:Lo ng term current use of opiate analgesic,Closed displaced oblique fracture of shaft of left tibia with routine healing, subsequent encounter Apply 2 (two) g to affected area 3 times daily as needed 100 g 2 08/18/2023 Active Active Problems Problem Noted Date Diagnosed [...] Recorded Patient Health Questionnaire-2 Score 0 08/18/2023 [facility] Occupat ional Health - Occupational Stress [...] place to sleep or slept in a chcf (including now)? No 05/01/2023 Sex and Gender [...] kg (155 lb) 08/18/2023 10:5 9 AM TRANSVERSE ABDOMINAL MUSCLE NURSE Height 154.9 cm (5' 1 ) 05/19/2023 10:3 7 AM CDT Body Mass Index 29.29 05/19/2023 10:37 AM CDT Plan of Treatment Health Maintenance Due Date Last Done Comments LIPID TESTING 1980 HIV SCREENING 1995 HEPATITIS C SCREENING 04/21/1998 DTAP/TDAP/TD VACCINES (1 - Tdap) 1999 HEPATITIS B VACCINE (1 of 3 - 19+ 3-dose series) 1999 MAMMOGRAM 01/02/2023 01/02/2021 COVID-19 VACCINE (1 - 2023- season) 2024 INFLUENZA VACCINE (#1) 2024 DEPRESSION SCREENING 08/03/2024 08/18/2023, 07/07/20 PAP SMEAR 06/03/2025 06/03/2022 SCREENING FOR DIABETES 05/08/2026 , 05/07/2023, 05/06/2023, Additional history exists ZOSTER VACCINE (1 of 2) 2030 HIB VACCINE Aged Out No longer eligi ble based on patient's age to complete this topic HPV VACCINE Aged Out No longer eligi ble based on patient's age to complete this topic MENINGOCOCCAL (Group B) VACCINE Aged Out No longer eligible based on patient's age to complete this topic MENINGOCOCCAL VACCINE Aged Out No renato gavi eligible based on patient's age to complete this topic PNEUMOCOCCAL VACCINE Aged Out No long er eligible based on patient's age to complete this topic Medical Devices Implanted Type Area Sample Display Preparer Device Identifier Shelf Expiration Date Model / Serial / Lot Tibial Nail- Advanced/11mm 345mm Implanted:Qty: 1 on 04/29/2023 by Sanjeev Kline MD at [facility] Left: Tibia [employer] 08/02/2032 [id number] S / / [id number] 5.0mm Locking Screws Implanted:Qty: 1 on 04/29/2023 by Sanjeev Kline MD at [facility] 04.045.032 / / 5.0mm Locking Screw Implanted:Qty: 1 on 04/29/2023 by Sanjeev Kline MD at [facility] 04.045.036 / / 5.0mm Locking Screw Implanted:Qty: 2 on 04/29/2023 by Sanjeev Kline MD at [facility] 04.045.040 / / 5.0mm Locking Screw Implanted:Qty: 1 on 04/29/2023 by Sanjeev Kline MD at [facility] [id number] / / 3.5 Cannulated Implanted:Qty: 1 on 04/29/2023 by Sanjeev Kline MD at [facility] [id number] / / 3.5 Cannulated Implanted:Qty: 1 on 04/29/2023 by Sanjeev Kline MD at [facility] [id number] / / Explanted Type Area Sample Display Preparer Device Identifier Shelf Expiration Date Model / Serial / Lot Slv Prtc 12mm Suprapatellar Strl Explanted:Qty: 1 on 04/29/2023 at [facility] Left: Tibia [employer] 10/31/2024 [id number] S / / [id number] Procedures Procedure Name Priority Date/Time Associated Diagnosis Comments BASIC METABOLIC PANEL (CALCIUM TOTAL) AM Draw 05/08/2023 2:45 AM CDT from Last 3 Months or Most Recently Relevant to Health Maintenance Results * (ABNORMAL) BASIC METABOLIC PANEL (CALCIUM TOTAL) (05/08/2023 2:45 AM CDT) BUN 13 7 - 26 mg/dL 05/08/2023 3:19 AM [facility] Creatinine 0.62 0.56 - 0.96 mg/dL 05/08/2023 3:19 AM [facility] Sodium 135(L) 136 - 145 mmol/L 05/08/2023 3:19 AM [facility] Potassium 4.3 3.5 - 4.5 mmol/L 05/08/2023 3:19 AM [facility] Chloride 106 98 - 107 mmol/L 05/08/2023 3:19 AM [facility] CO2 25 22 - 29 mmol/L 05/08/2023 3:19 AM [facility] Glucose 103 70 - 115 mg/dL 05/08/2023 3:19 AM [facility] Calcium 8.6 8.4 - 10.2 mg/dL 05/08/2023 3:19 AM [facility] Anion Gap 4(L) 6 - 16 05/08/2023 3:19 AM [facility] BUN/Creatinine Ratio 21 7 - 23 05/08/2023 3:[address] [facility] Osmolality Calculated 280 275 - 295 mOsm/kg 05/08/2023 3:19 AM CDT [facility] eGFR by CKD-EPI >90 >=90 mL/min/1.7 3 m2 05/08/2023 3:19 AM CDT [facility] Blood BLOOD SPECIMEN / Unknown Lab Venipuncture / Unknown 05/08/2023 2:45 AM CDT 05/08/2023 2:51 AM CDT Praful Reina DO LAB - CHEMISTRY WANDER LINDSAY [facility] [address] [place] [address], [facility] [phone] from Last 3 Months or Most Recently Relevant to Health Maintenance Advance Directives * Full Code (Latest Code Status on File) Date Activated Date Inactivated Comments 04/28/2023 4:28 AM 05/08/2023 4:32 PM
--- OUTSIDE RECORDS SUMMARY | 2024-08-26 00:51 | XMS_ITS | Referral Summary ---
Author Organization [facility] Address [address] [place] [address] Care Team Providers Care Au Pair Name Role Phone Unavailable Primary Care Provider Unavailabl e Source Comments [facility],non-owned Affiliates and Associated Physician Practices is amultiple site organization consisting of ambulatory clinics and hospital sitesin [place], [place], [place] and [place]. This disclosure is being madepursuant to the Care Everywhere program and may not contain all information available regarding this patient. Last updated 18.[facility] [employer] Allergies Active Allergy Reactions Criticality Noted Date [...] Patient not taking.Reported on 07/07/2023 HYDROcodone-aceta minophen ([place]) 5-325 MG tabletIndications :Tibia/fibula fracture, left, closed, with routine healing, subsequent encounter Take 1 (one) tablet by mouth every 8 hours as needed for Pain 40 tablet 07/07/2023 Active Additional Information Patient not taking.Reported on 08/18/2023 naloxone HCl (Narcan) 4 MG/0.1ML nasal sprayIndications: Tibia/fibula fracture, left, closed, with routine healing, subsequent encounter,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 No 05/01/2023 Sex and Gender [...] kg (155 lb) 08/18/2023 10:5 9 AM FUR POINTER Height 154.9 cm (5' 1 ) 05/19/2023 10:3 7 AM CDT Body Mass Index 29.29 05/19/2023 10:37 AM CDT Functional Status Functional Status Response Date of Assess ment Is person deaf or have serious hearing difficult y? No 05/01/2023 Is person blind or have serious difficulty seein g? No 05/01/2023 Does person have serious dif ficulty walking/climbing stairs? No 05/01/2023 Does person have difficulty dressing/bathing? No 05/01/2023 Does person have difficulty doing errands alone? No 05/01/2023 Cognitive Status Response Date of Assessm ent Does person have difficulty concentrating/remembering/making decisions? No 05/01/2023 Plan of Treatment Not on file Medical Devices Implanted Type Area Dietary Director Device Identifier Shelf Expiration Date Model / Serial / Lot Tibial Nail- Advanced/11mm 345mm Implanted:Qty: 1 on 04/29/2023 by Sanjeev Kline MD at [facility] Left: Tibia [employer] 08/02/2032 [id number] S / / [id number] 5.0mm Locking Screws Implanted:Qty: 1 on 04/29/2023 by Sanjeev Kline MD at [facility] 04.045.032 / / 5.0mm Locking Screw Implanted:Qty: 1 on 04/29/2023 by Sanjeev Kline MD at [facility] 04.045.036 / / 5.0mm Locking Screw Implanted:Qty: 2 on 04/29/2023 by Sanjeev Kline MD at [facility] 04.045.040 / / 5.0mm Locking Screw Implanted:Qty: 1 on 04/29/2023 by Sanjeev Kline MD at [facility] 04.045.042 / / 3.5 Cannulated Implanted:Qty: 1 on 04/29/2023 by Sanjeev Kline MD at [facility] [id number] / / 3.5 Cannulated Implanted:Qty: 1 on 04/29/2023 by Sanjeev Kline MD at [facility] [id number] / / Explanted Type Area Dietary Director Device Identifier Shelf Expiration Date Model / Serial / Lot Slv Prtc 12mm Suprapatellar Strl Explanted:Qty: 1 on 04/29/2023 at [facility] Left: Tibia [employer] 10/31/2024 [id number] S / / [id number] Procedures Procedure Name Priority Date/Time Associated Diagnosis Comments BASIC METABOLIC PANEL (CALCIUM TOTAL) AM Draw 05/08/2023 2:45 AM CDT from Last 3 Months or Most Recently Relevant to Health Maintenance Results * (ABNORMAL) BASIC METABOLIC PANEL (CALCIUM TOTAL) (05/08/2023 2:45 AM CDT) BUN 13 7 - 26 mg/dL 05/08/2023 3:19 AM [facility] Creatinine 0.62 0.56 - 0.96 mg/dL 05/08/2023 3:19 AM [facility] Sodium 135(L) 136 - 145 mmol/L 05/08/2023 3:19 AM [facility] Potassium 4.3 3.5 - 4.5 mmol/L 05/08/2023 3:19 AM [facility] Chloride 106 98 - 107 mmol/L 05/08/2023 3:19 AM [facility] CO2 25 22 - 29 mmol/L 05/08/2023 3:19 AM [facility] Glucose 103 70 - 115 mg/dL 05/08/2023 3:19 AM [facility] Calcium 8.6 8.4 - 10.2 mg/dL 05/08/2023 3:19 AM [facility] Anion Gap 4(L) 6 - 16 05/08/2023 3:19 AM [facility] BUN/Creatinine Ratio 21 7 - 23 05/08/2023 3:19 AM [facility] Osmolality Calculated 280 275 - 295 mOsm/kg 05/08/2023 3:19 AM [facility] eGFR by CKD-EPI >90 >=90 mL/min/1.7 3 m2 05/08/2023 3:19 AM [facility] Blood BLOOD SPECIMEN / Unknown Lab Venipuncture / Unknown 05/08/2023 2:45 AM CDT 05/08/2023 2:51 AM CDT Praful Reina DO LAB - CHEMISTRY WANDER LINDSAY [facility] [address] [place] [address], [facility] [phone] from Last 3 Months or Most Recently Relevant to Health Maintenance Advance Directives * Full Code (Latest Code Status on File) Date Activated Date Inactivated Comments 04/28/2023 4:28 AM 05/08/2023 4:32 PM
--- OUTSIDE RECORDS SUMMARY | 2024-08-26 00:51 | XMS_ITS | Clinical Summary ---
Author Organization [facility] Address [address], [facility] [address] [place] [address] Phone Care Team Providers Care Dye Tub Operator Name Role Phone Unavailable Primary Care Provider Unavailabl e Allergies Active Allergy Reactions Criticality Noted Date Comments Codeine Itching 01/16/2016 Medications LYRICA 150 MG Capsule Take 150 mg by mouth 2 times daily. 5 01/02/2016 Active VIMPAT 100 MG Tablet Take 100 mg by mouth 2 times daily. 01/10/2016 Active ferrous sulfate 325 (65 FE) MG Tablet 1 tab daily for 7 days , then 1 tab twice a day 60 Tab 2 01/23/2016 Active Active Problems Problem Noted Date Diagnosed Date B12 deficiency 01/23/2016 Iron deficiency anemia due to dietary causes Family History Medical History Relation Name Comments Diabetes Brother No Known Problems Father Cancer Maternal Aunt pancreatic Heart Disease Maternal Aunt Heart Attack Maternal Grandfather No Known Problems Maternal Grandmother Heart Disease Maternal Uncle No Known Problems Mother Heart Disease Paternal Grandfather Heart Disease Paternal Grandmother Relation Name Status Comments Brother Alive Father Alive Maternal Aunt Maternal Grandfather Maternal Grandmother Alive Maternal Uncle Mother Alive Paternal Grandfather Paternal Grandmother Social History Tobacco Use Types Packs/Day Years Used Date Smoking Tobacco: Never Alcohol Use Standard Drinks/Week Comments Yes 0 (1 standard drink = 0.6 oz pur e alcohol) occasional Comments No Sex and Gender Information Value Date Recorded Sex Assigned at Not on file Legal Sex Female 9:40 AM CDT Gender Identity Not on file Sexual Orientation Not on file Last Filed Vital Signs Vital Sign Reading Time Taken Comments Blood Pressure 122/78 01/23/2016 10:14 AM CDT Pulse 98 01/23/2016 10:14 AM CDT Temperature 37.3 ??C (99.1 ??F) 01/23/2016 10:14 AM C DT Respiratory Rate - - Oxygen Saturation 98% 01/23/2016 10:14 AM CDT Inhaled Oxygen Concentration - - Weight 73 kg (161 lb) 01/23/2016 10:14 AM CDT Height 157.5 cm (5' 2 ) 01/23/2016 10:14 AM CDT Body Mass Index 29.45 01/23/2016 10:14 AM CDT Plan of Treatment Health Maintenance Due Date Last Done Comments Hepatitis C Virus (HCV) Screening 1980 TdaP Immunization 1980 Hepatitis B Immunization (1 of 3 - 19+ 3-dose series) 1999 Pap Smear 2001 Cervical Cancer Screening (CCS) 2010 HPV/Cotest 2010 Discussion re Starting/Frequ ency of Mammograms 2020 Influenza Immunization (#1) 2024 SARS-COV-2 Immunization (2023- season) 2024 Respiratory Syncytial Virus (RSV) Immunization (Adult) (1 - 1-dose 75+ series) 2055 Meningococcal Immunization (ACWY) Aged Out No longer eligible based on patient's age to complete this topic Pneumococcal Immunization Combined Aged Out No longer eligible based on patient's age to complete this topic Rotavirus Immunization Aged Out No lo nger eligible based on patient's age to complete this topic Insurance MEDICAID [facility]
--- OUTSIDE RECORDS SUMMARY | 2024-08-26 02:14 | XMS_ITS | Clinical Summary ---
Author Organization [facility] Address [address] [place] [address] Care Team Providers Care Artificial Glass Eye Maker Name Role Phone Unavailable Primary Care Provider Unavailabl e Source Comments [facility],non-owned Affiliates and Associated Physician Practices is amultiple site organization consisting of ambulatory clinics and hospital sitesin [place], [place], [place] and [place]. This disclosure is being madepursuant to the Care Everywhere program and may not contain all information available regarding this patient. Last updated 18.[facility] [employer] Allergies Active Allergy Reactions Criticality Noted Date [...] Patient not taking.Reported on 07/07/2023 HYDROcodone-aceta minophen ([place]) 5-325 MG tabletIndications :Tibia/fibula fracture, left, closed, with routine healing, subsequent encounter Take 1 (one) tablet by mouth every 8 hours as needed for Pain 40 tablet 07/07/2023 Active Additional Information Patient not taking.Reported on 08/18/2023 naloxone HCl (Narcan) 4 MG/0.1ML nasal sprayIndications: Tibia/fibula fracture, left, closed, with routine healing, subsequent encounter,long term current use of opiate analgesic,Chronic pain syndrome [place] 1 (one) spray into the nose as [...] acetaminophen-cod eine (Tylenol #3) 300-30 MG tabletIndications :long term current use of opiate analgesic,Chronic pain syndrome,Closed [...] Recorded Patient Health Questionnaire-2 Score 0 08/18/2023 [facility] of Occupat ional Health - Occupational Stress [...] place to sleep or slept in a senior care (including now)? No 05/01/2023 Sex and Gender [...] kg (155 lb) 08/18/2023 10:5 9 AM [employer] Height 154.9 cm (5' 1 ) 05/19/2023 [...] this topic Medical Devices Implanted Type Area Vp Research Device Identifier Shelf Expiration Date Model / Serial / Lot Tibial Nail- Advanced/11mm 345mm Implanted:Qty: 1 on 04/29/2023 by Sanjeev Kline MD at [facility] Left: Tibia [employer] 08/02/2032 04.043.335 S / / [id number] 5.0mm Locking Screws Implanted:Qty: 1 on 04/29/2023 by Sanjeev Kline MD at [facility] 04.045.032 / / 5.0mm Locking Screw Implanted:Qty: 1 on 04/29/2023 by Sanjeev Kline MD at [facility] 04.045.036 / / 5.0mm Locking Screw Implanted:Qty: 2 on 04/29/2023 by Sanjeev Kline MD at [facility] 04.045.040 / / 5.0mm Locking Screw Implanted:Qty: 1 on 04/29/2023 by Sanjeev Kline MD at [facility] 04.045.042 / / 3.5 Cannulated Implanted:Qty: 1 on 04/29/2023 by Sanjeev Kline MD at [facility] [id number] / / 3.5 Cannulated Implanted:Qty: 1 on 04/29/2023 by Sanjeev Kline MD at [facility] 04.353.336 / / Explanted Type Area Vp Research Device Identifier Shelf Expiration Date Model / Serial / Lot Slv Prtc 12mm Suprapatellar Strl Explanted:Qty: 1 on 04/29/2023 at [facility] Left: [employer]ia [employer] 10/31/2024 03.010.437 S / / [id number] Procedures Procedure Name Priority Date/Time Associated Diagnosis Comments BASIC METABOLIC PANEL (CALCIUM TOTAL) AM Draw 05/08/2023 2:45 AM CDT from Last 3 Months or Most Recently Relevant to Health Maintenance Results * (ABNORMAL) BASIC METABOLIC PANEL (CALCIUM TOTAL) (05/08/2023 2:45 AM CDT) BUN 13 7 - 26 mg/dL 05/08/2023 3:19 AM [facility] Creatinine 0.62 0.56 - 0.96 mg/dL 05/08/2023 3:19 AM [facility] Sodium 135(L) 136 - 145 mmol/L 05/08/2023 3:19 AM [facility] Potassium 4.3 3.5 - 4.5 mmol/L 05/08/2023 3:19 AM [facility] Chloride 106 98 - 107 mmol/L 05/08/2023 3:19 AM [facility] CO2 25 22 - 29 mmol/L 05/08/2023 3:19 AM [facility] Glucose 103 70 - 115 mg/dL 05/08/2023 3:19 AM [facility] Calcium 8.6 8.4 - 10.2 mg/dL 05/08/2023 3:19 AM [facility] Anion Gap 4(L) 6 - 16 05/08/2023 3:19 AM [facility] BUN/Creatinine Ratio 21 7 - 23 05/08/2023 3:19 AM CDT [facility] Osmolality Calculated 280 275 - 295 mOsm/kg 05/08/2023 3:19 AM CDT [facility] eGFR by CKD-EPI >90 >=90 mL/min/1.7 3 m2 05/08/2023 3:19 AM CDT [facility] Blood BLOOD SPECIMEN / Unknown Lab Venipuncture / Unknown 05/08/2023 2:45 AM CDT 05/08/2023 2:51 AM CDT Praful Reina DO LAB - CHEMISTRY WANDER LINDSAY [facility] [address] [place] [address], [facility] [phone] from Last 3 Months or Most Recently Relevant to Health Maintenance Advance Directives * Full Code (Latest Code Status on File) Date Activated Date Inactivated Comments 04/28/2023 4:28 AM 05/08/2023 4:32 PM
--- OUTSIDE RECORDS SUMMARY | 2024-08-26 02:14 | XMS_ITS | Encounter Summary ---
Author Organization [facility] Address [address] [place] [address]. [place], [place] [address] [place] [address] Care Team Providers Care Ems Instructor Name Role Phone Betzy Tang HABILITATION WORKER Primary Care Provider [phone] Rabia Black HISTORICAL GUIDE Primary Care Provider [phone] Encounter Details Date Type Department Care Team (Late st Contact Info) Description 07/23/2022 Hospital Follow-up Call [facility] [address] [place] [address] Divina Merino RN Social History [...] Coronavirus/COVID-19? No / Unsure 07/20/2022 1:13 PM DIRECTOR OF PLAYER PERSONNEL documented as of this encounter Functional Status * RETIRED Are you deaf or do you have serious difficulty hearing Answer Date of Assessment Author Status No 07/20/2022 7:28 PM DIRECTOR OF PLAYER PERSONNEL Activ e * RETIRED Are you blind or do you have serious difficulty seeing, even when wearing glasses? Answer Date of Assessment Author Status No 07/20/2022 7:28 PM DIRECTOR OF PLAYER PERSONNEL Activ e * Do you have serious [...] on filedocumented in this encounter Care Teams Ems Instructor Relationship Specialty Start Date End Date Betzy Tang APRN [address] [place] [address] PCP - General NURSE PRACTITIONER 04/01/19 10/29/23 Rabia Black FNP [address] [place] [address] PCP - General Nurse Practitioner Family 02/29/24 documented as of this encounter
--- OUTSIDE RECORDS SUMMARY | 2024-08-26 02:14 | XMS_ITS | Encounter Summary ---
Author Organization [facility] Address [address] [place] [address]. [place], [place] [address] [place] [address] Care Team Providers Care Dinkey Motor Operator Name Role Phone Betzy Tang ANIMAL SCIENCE PROFESSOR Primary Care Provider [phone] Rabia Black MARKETING COMMUNICATIONS MANAGER Primary Care Provider [phone] Encounter Details Date Type Department Care Team (Late st Contact Info) Description 02/08/2020 Telephone [facility] Med/Surg [address] [id number] Katy Blevins CNA Social History Tobacco Use [...] 5:07 PM Jennifer Strong RN Active * Because of a [...] on filedocumented in this encounter Care Teams Dinkey Motor Operator Relationship Specialty Start Date End Date Betzy Tang APRN [address] [place] [address] PCP - General NURSE PRACTITIONER 04/01/19 10/29/23 Rabia Black FNP [address] [place] [address] PCP - General Nurse Practitioner Family 02/29/24 documented as of this encounter
--- OUTSIDE RECORDS SUMMARY | 2024-08-26 02:14 | XMS_ITS | Clinical Summary ---
Author Organization [facility] Address [address] [place] [address]. [place] [address] [place] [address] Care Team Providers Care Salad Counter Attendant Name Role Phone Rabia Black Trever PRE PAROLE COUNSELING AIDE Primary Care Provider [phone] Allergies Active Allergy Reactions Criticality Noted Date [...] palpitations 12/24/2015 Depression 11/23/2015 Fibromyalgia 11/07/2015 Seizures ([facility]) 11/07/2015 Resolved Problems Problem Noted Date Diagnosed Date Resolved Date Partial small bowel obstruct ion ([facility]) 07/20/2022 07/22/2022 Incarcerated ventral hernia 07/20/2022 08/18/2022 Women's annual routine gynec ological examination 03/31/2016 04/13/2020 Encounters Date Type Department Care Team Description 08/01/2024 1:41 PM BOX TOE STITCHER - 08/01/2024 9:18 PM [facility] Emergency [facility] Emergency Room [address] [place], [place] [id number] Kerline Anderson MD Medical Problem Discharge Disposition: [...] 0.6 oz pur e alcohol) very rarely [facility] Utilities Answer Date Recorded In the past 12 months has e T3 Search, gas, oil, or water Sensitive Object threatened to shut off services in your [...] How often do you attend chur or denominational services? More than 4 times per year 07/24/2023 Do you belong to any clubs o r organizations such as restoration groups, unions, fraternal or athletic groups, or [...] medical care, and heating? Patient declined 07/24/2023 [facility] - [...] place to sleep or slept in a intermediate (including now)? Patient declined 07/24/2023 Comments No Sex and Gender Information Value Date Recorded Sex Assigned at Not on file Legal Sex Female 7:12 PM CDT Gender Identity Not on file Sexual Orientation Not on file Last Filed Vital Signs Vital Sign Reading Time Taken Comments Blood Pressure 130/90 08/01/2024 8:01 PM BOX TOE STITCHER Pulse 90 08/01/2024 8:01 PM BOX TOE STITCHER Temperature 36.7 ??C (98 ??F) 08/01/2024 8:01 PM BOX TOE STITCHER Respiratory Rate 20 08/01/2024 8:01 PM BOX TOE STITCHER Oxygen Saturation 100% 08/01/2024 8:01 PM BOX TOE STITCHER Inhaled Oxygen Concentration - - Weight 81.2 kg (179 lb) 08/01/2024 1:43 PM BOX TOE STITCHER Height 154.9 cm (5' 1 ) 08/01/2024 1:43 PM BOX TOE STITCHER Body Mass Index 33.82 08/01/2024 1:43 PM BOX TOE STITCHER Plan of Treatment Health Maintenance Due Date [...] to independent living Lifestyle No Aracely Baird, STEAM TABLE ASSOCIATE Safety ? Patient/family will have appropriate support at home upon discharge Lifestyle No Nelli Rodríguez, medical facilities section director Procedure Name Priority Date/Time Associated Diagnosis Comments ECG 12-LEAD STAT 08/01/2024 7:[address] ABD+PEL W CON STAT 08/01/2024 4:17 PM BOX TOE STITCHER LACTIC ACID STAT 08/01/2024 3:50 PM BOX TOE STITCHER TROPONIN, QUANT Routine 08/01/2024 3:07 PM BOX TOE STITCHER LACTIC ACID STAT 08/01/2024 3:07 PM BOX TOE STITCHER LIPASE STAT 08/01/2024 3:07 PM BOX TOE STITCHER COMPREHENSIVE METABOLIC PANEL STAT 08/01/2024 3:07 PM BOX TOE STITCHER CBC W/DIFF AUTOMATED STAT 08/01/2024 3:07 PM BOX TOE STITCHER LIPID PANEL Routine 07/24/2023 7:08 AM BOX TOE STITCHER MG SCREENING W ADRIANA LAISHA DIGI Routine 01/02/2021 1:19 PM CDT Visit for screening mammogram from Last 3 Months or Most Recently Relevant to Health Maintenance Results * ECG 12 lead (08/01/2024 7:16 PM BOX TOE STITCHER) 08/01/2024 7:16 PM BOX TOE STITCHER Narrative [facility] RAD - 08/02/2024 8:39 AM BOX TOE STITCHER ?[facility] [place] ? Test Date: ?2024-08-01 Pat Name: ? TABITHA BLACKWELL ?Department: ?? 85 ? Room: ? TG1TG1 Gender: ? Female ? 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 : ?1980 ? Requested By: KERLINE ANDERSON Order Number: [id number] ? Reading MD: ?? Emre Lese ? Measurements Intervals ?[place] ? Rate: ? 97 ? P: ?59 TN: ? 136 ?QRS: ?43 QRSD: ? 73 ? T: ?48 QT: ? 338 ? QTc: ?430 ? 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: : 1980 Requested By: KERLINE ANDERSON Order Number: [id number] Reading MD: Emre Lees Measurements Intervals [place] Rate: 97 P: 59 TN: 136 QRS: 43 QRSD: 73 T: 48 QT: 338 QTc: 430 Interpretive Statements SINUS RHYTHM Compared to ECG 02/29/2024 15:22:31 Sinus tachycardia no longer present TOE STITCHER Kerline Anderson MD ECG ORDERABLES Final Result [facility] RAD * CT ABD+PEL W CON (08/01/2024 4:17 PM BOX TOE STITCHER) Anatomical Region Laterality Modality Abdomen Computed Tomogra phy 08/01/2024 4:42 PM BOX TOE STITCHER Impressions 08/01/2024 4:53 PM BOX TOE STITCHER IMPRESSION: 1. Enlarged mid mesenteric lymph nodes, [...] 08/01/2024 4:42 PM Narrative 08/01/2024 4:53 PM BOX TOE STITCHER [facility] [address] [place] [address] EXAMINATION: CT ABDOMEN/PELVIS WITH CONTRAST INDICATION: Abdominal [...] Procedure Note Raymon Gardiner MD - 08/01/2024 [facility] [address] [facility] [place] [address] EXAMINATION: CT ABDOMEN/PELVIS WITH CONTRAST INDICATION: Abdominal [...] LACTIC ACID - SINGLE (08/01/2024 3:50 PM BOX TOE STITCHER) Only the most recent of2 resultswithin the time period is included. LACTIC ACID VENOUS 0.5 0.4 - 2.0 MMOL/L 08/01/2024 4:12 PM BOX TOE STITCHER [facility] 08/01/2024 3:50 PM BOX TOE STITCHER us Kerline Anderson MD LABORATORY Final Result [facility] [address] [place] [address], [place] [phone] * (ABNORMAL) COMPREHENSIVE METABOLIC PANEL (08/01/2024 3:07 PM BOX TOE STITCHER) Pathologist [facility] GLUCOSE 98 70 - 99 MG/DL 08/01/2024 3:29 PM BOX TOE STITCHER [facility] BUN 12 7 - 18 MG/DL 08/01/2024 3:29 PM BOX TOE STITCHER [facility] CREATININE S/P/B 0.85 0.55 - 1.02 MG/DL 08/01/2024 3:29 PM [facility] SODIUM S/P/B 143 136 - 145 MMOL/L 08/01/2024 3:29 PM [facility] POTASSIUM S/P/B 3.9 3.5 - 5.1 MMOL/L 08/01/2024 3:29 PM [facility] CHLORIDE S/P/B 107 100 - 108 MMOL/L 08/01/2024 3:29 PM [facility] CO2 27.9 21 - 32 MMOL/L 08/01/2024 3:29 PM [facility] CALCIUM S/P/B 9.0 8.5 - 10.1 MG/DL 08/01/2024 3:29 PM [facility] BILIRUBIN TOTAL S/P/B 0.2 0.2 - 1.2 MG/DL 08/01/2024 3:29 PM [facility] TOTAL PROTEIN S/P/B 7.4 6.4 - 8.2 G/DL 08/01/2024 3:29 PM [facility] ALBUMIN S/P/B 3.3(L) 3.4 - 5.0 G/DL 08/01/2024 3:29 PM [facility] AST 19 15 - 37 U/L 08/01/2024 3:29 PM [facility] ALT 25 14 - 55 U/L 08/01/2024 3:29 PM [facility] ALKALINE PHOSPHATASE S/P/B 167(H) 50 - 136 U/L 08/01/2024 3:29 PM [facility] ANION GAP 8.1 5 - 15 MMOL/L 08/01/2024 3:29 PM [facility] BUN CREATININE RATIO 14.1 6 - 26 08/01/2024 3:29 PM [facility] A/G RATIO 0.8(L) 1.0 - 2.0 RATIO 08/01/2024 3:29 PM [facility] GFR ESTIMATE 87(L) >90 ML/MIN/1.7 3 M2 08/01/2024 3:29 PM [facility] Comment: NOTE: eGFR is not calculated for patients <18 years of age. This is an estimated GFR calculation using the new CKD EPI creatinine equation without race and so does not require a correction factor for race. This estimated GFR should not be used for calculating drug doses. 08/01/2024 3:07 PM BOX TOE STITCHER Kerline Anderson MD LABORATORY Final Result [facility] [address] [place] [address], * (ABNORMAL) CBC W/DIFF AUTOMATED (08/01/2024 3:07 PM BOX TOE STITCHER) WBC 5.64 4.4 - 11.0 x10'3/uL 08/01/2024 3:14 PM [facility] RBC 3.99(L) 4.50 - 5.10 x10'6/uL 08/01/2024 3:14 PM [facility] HGB 11.5(L) 12.3 - 15.3 G/DL 08/01/2024 3:14 PM [facility] HCT 36.1 35.9 - 44.6 % 08/01/2024 3:14 PM [facility] MCV 90.5 80.0 - 96.0 FL 08/01/2024 3:14 PM [facility] MCH 28.8 25.3 - 30.9 PG 08/01/2024 3:14 PM [facility] MCHC 31.9 31.0 - 34.1 G/DL 08/01/2024 3:14 PM [facility] RDW 16.0(H) 12.4 - 15.1 % 08/01/2024 3:14 PM [facility] PLT 306 151 - 353 x10'3/uL 08/01/2024 3:14 PM [facility] MPV 9.4(L) 9.6 - 12.0 FL 08/01/2024 3:14 PM [facility] RBC MORPHOLOGY NORMAL 08/01/2024 3:14 PM [facility] PLT MORPH. NORMAL 08/01/2024 3:14 PM [facility] WBC MORPHOLOGY NORMAL 08/01/2024 3:14 PM [facility] LYMPHOCYTES % 30.3 15.8 - 45.0 % 08/01/2024 3:14 PM [facility] NEUTROPHILS % 60.7 42.1 - 71.9 % 08/01/2024 3:14 PM [facility] MONOCYTES % 6.9 5.7 - 12.5 % 08/01/2024 3:14 PM [facility] EOSINOPHILS 0.5 0.0 - 5.6 % 08/01/2024 3:14 PM [facility] BASOPHILS 0.4 0.0 - 1.3 % 08/01/2024 3:14 PM [facility] ABS. NEUTROPHILS 3.42 1.40 - 6.00 x10'3/uL 08/01/2024 3:14 PM [facility] IMMATURE GRANS % 1.2(H) 0.0 - 0.5 % 08/01/2024 3:14 PM BOX TOE STITCHER [facility] ABS. LYMPHOCYTES 1.71 0.80 - 4.70 x10'3/uL 08/01/2024 3:14 PM BOX TOE STITCHER [facility] 08/01/2024 3:07 PM BOX TOE STITCHER us Kerline Anderson MD LABORATORY Final Result Performing Organization Address City/[facility]/ZIP Co de Phone Number [facility] [address] [place] [address], [place] [phone] * TROPONIN, QUANT (08/01/2024 3:07 PM BOX TOE STITCHER) [facility] TROPONIN I HIGH SENSITIVITY <4 0 - 50 ng/L 08/01/2024 10:38 PM BOX TOE STITCHER [facility] Comment: HIGH DOSES OF BIOTIN, TROPONIN-SPECIFIC AUTOANTIBODIES, AND ANTIBODY THERAPY CONTAINING HAMA MAY INTERFERE WITH THIS TEST RESULT. CORRELATION TO CLINICAL HISTORY AND PRESENTATION RECOMMENDED. 08/01/2024 3:07 PM BOX TOE STITCHER us Kerline Anderson MD LABORATORY Final Result Performing Organization Address City/[facility] Co de Phone Number [facility] [address] [place] [address], [place] [phone] * LIPASE (08/01/2024 3:07 PM BOX TOE STITCHER) [facility] LIPASE 51 16 - 77 UNITS/L 08/01/2024 3:29 PM BOX TOE STITCHER [facility] 08/01/2024 3:07 PM BOX TOE STITCHER us Kerline Anderson MD LABORATORY Final Result Performing Organization Address City/[facility]/ZIP Co de Phone Number [facility] [address] [place] [address], [place] [phone] * LIPID PANEL (07/24/2023 7:08 AM BOX TOE STITCHER) [facility] Signature CHOLESTEROL 131 <200 MG/DL 07/24/2023 8:17 AM [facility] TRIGLYCERIDES 45 <150 MG/DL 07/24/2023 8:17 AM [facility] HDL 65 >40.0 MG/DL 07/24/2023 8:17 AM [facility] LDL (CALCULATED) 57 <100 MG/DL 07/24/20 8:17 AM [facility] NON HDL CHOLESTEROL 66 <130 MG/DL 07/24 8:17 AM [facility] CHOL/HDL RATIO 2.0 0.0 - 4.5 07/24/2023 8:17 AM [facility] VLDL CALCULATION 9 5 - 55 MG/DL 07/24/2023 8:17 AM [facility] LIPID INTERPRETATION 07/24/2023 8:17 AM [facility] Comment: [facility] CONCENS[facility] REPORT RECOMMENDATIONS: [...] ?LDL ? >=160 ?>=130 07/24/2023 7:08 AM BOX TOE STITCHER Alyse Jacob MD LABORATORY Final Re sult Performing Organization Address City/State/[facility] Co de Phone Number [facility] [address] [id number], * MG SCREENING W ADRIANA LAISHA DIGI [...] detection. Referred By: MITA MADRID Interpreted By: Dnaiel Presley, 01/02/2021 1:25 PM us Mita [place] CROSSBAR SWITCH ADJUSTER MAMMO Final Result from Last 3 Months or Most Recently Relevant to Health Maintenance Insurance [facility] Advance Directives * Full Code (Latest Code [...] 4:39 PM 02/07/2020 6:36 PM Care Teams Salad Counter Attendant Relationship Specialty Start Date End Date Rabia Black FNP PCP - General Nurse Practitioner Family 02/29/24
--- OUTSIDE RECORDS SUMMARY | 2024-08-26 02:14 | XMS_ITS | Patient Health Summary ---
Author Organization [facility] Address [address] [place] [address] Care Team Providers Care Air Lift Operator Name Role Phone Unavailable Primary Care Provider Unavailabl e Note from [facility],non-owned Affiliates and Associated Physician Practices is amultiple site organization consisting of ambulatory clinics and hospital sitesin [place], [place], [place] and [place]. This disclosure is being madepursuant to the Care Everywhere program and may not contain all information available regarding this patient. Last updated 18.[facility] Allergies * Codeine(Itching) -Low Criticality * Doxycycline(GI [...] hours as needed for Pain * HYDROcodone-acetaminophen ([place]) 5-325 MG tablet(Started 07/07/2023) Take 1 (one) tablet by mouth every 8 hours as needed for Pain * naloxone HCl (Narcan) 4 MG/0.1ML nasal spray(Started 07/08/2023) [place] 1 (one) spray into the nose as [...] Recorded Patient Health Questionnaire-2 Score 0 08/18/2023 [facility] - Occupational Stress Questionnaire Answer [...] place to sleep or slept in a residential (including now)? No 05/01/2023 Sex and Gender [...] kg (155 lb) 08/18/2023 10:5 9 AM HEADER DOCK Height 154.9 cm (5' 1 ) 05/19/2023 10:3 7 AM CDT Body Mass Index 29.29 05/19/2023 10:37 AM CDT Medical Devices Implanted Type Area Marketing Support Specialist Device Identifier Shelf Expiration Date Model / Serial / Lot Tibial Nail- Advanced/11mm 345mm Implanted:Qty: 1 on 04/29/2023 by Sanjeev Kline MD at [facility] Left: Tibia [employer] 08/02/2032 [id number] S / / [id number] 5.0mm Locking Screws Implanted:Qty: 1 on 04/29/2023 by Sanjeev Kline MD at [facility] [id number] / / 5.0mm Locking Screw Implanted:Qty: 1 on 04/29/2023 by Sanjeev Kline MD at [facility] [id number] / / 5.0mm Locking Screw Implanted:Qty: 2 on 04/29/2023 by Sanjeev Kline MD at [facility] [id number] / / 5.0mm Locking Screw Implanted:Qty: 1 on 04/29/2023 by Sanjeev Kline MD at [facility] [id number] / / 3.5 Cannulated Implanted:Qty: 1 on 04/29/2023 by Sanjeev Kline MD at [facility] [id number] / / 3.5 Cannulated Implanted:Qty: 1 on 04/29/2023 by Sanjeev Kline MD at [facility] [id number] / / Explanted Type Area Marketing Support Specialist Device Identifier Shelf Expiration Date Model / Serial / Lot Slv Prtc 12mm Suprapatellar Strl Explanted:Qty: 1 on 04/29/2023 at [facility] Left: Tibia [employer] 10/31/2024 [id number] S / / [id number] Procedures * XR TIBIA FIBULA LEFT 2VW(Performed [...] encounter * PERIPHERAL IV NOTE(Performed 04/29/2023) * [place] OPEN RX TIBIA SHAFT FX,INTRAMED DEMARCO(Performed 04/29/2023) [...] TIBIA FIBULA LEFT 2VW (08/18/2023 10:53 AM HEADER DOCK) Only the most recent of6 resultswithin the time period is included. Anatomical Region Laterality Modality Lower Extremity Radiographic Halley ging 08/18/2023 10:5 5 AM HEADER DOCK Impressions 08/18/2023 10:57 AM HEADER DOCK IMPRESSION: Unchanged alignment. Report dictated by Malcolm Stein DO (echocardiography radiology technologist). I, Sage Mattson MD have personally reviewed and interpreted this examination/study. > Interpreting Provider: Sage Mattson MD on 08/18/2023 10:57 AM Narrative 08/18/2023 10:57 AM HEADER DOCK PROCEDURE: ??XR TIBIA FIBULA LEFT 2VW, DATE/TIME OF EXAM: ??08/18/2023 10:53 AM, LOCATION ??[facility] INDICATION: S82.202D: Tibia/fibula fracture, left, closed, [...] 2VW, DATE/TIME OF EXAM: 0:53 AM, LOCATION [facility] INDICATION: S82.202D: Tibia/fibula fracture, left, closed, [...] alignment. Report dictated by Malcolm Stein DO (echocardiography radiology technologist). I, Sage Mattson MD have personally reviewed and interpreted this examination/study. > Interpreting Provider: Sage Mattson MD on 08/18/2023 10:57 AM Praful Reina DO DIAGNOSTIC IMAGING O RDERABLES * CARDIAC EKG ORDER (05/11/2023 3:29 PM CDT) Narrative 05/11/2023 3:29 PM CDT Ordered by an unspecified provider. Scanned Document CARDIAC SERVICES ORD ERABLES * (ABNORMAL) CBC W/O DIFFERENTIAL (05/08/2023 2:45 AM CDT) Only the most recent of9 resultswithin the time period is included. WBC 3.8 3.5 - 10.5 10? 3 /uL 05/08/2023 3:05 AM [facility] RBC 2.78(L) 3.80 - 5.20 10? 6 /uL 05/08/2023 3:05 AM [facility] Hemoglobin 8.0(L) 12.0 - 15.6 g/dL 05/08/2023 3:05 AM [facility] Hematocrit 24.5(L) 35.0 - 45.0 % 05/08/2023 3:05 AM [facility] MCV 88.1 80.7 - 98.3 fL 05/08/2023 3:05 AM [facility] MCH 28.8 26.7 - 34.0 pg 05/08/2023 3:05 AM [facility] MCHC 32.7 30.8 - 35.9 g/dL 05/08/2023 3:05 AM [facility] RDW-SD 45.2 36.0 - 50.0 fL 05/08/2023 3:05 AM [facility] RDW-CV 14.0 11.2 - 14.8 % 05/08/2023 3:05 AM [facility] Platelet Count 314 150 - 400 10? 3 /uL 05/08/2023 3:05 AM [facility] MPV 8.7(L) 9.4 - 12.9 fL 05/08/2023 3:05 AM [facility] nRBC Absolute 0.00 0 10? 3 /uL 05/08/2023 3:05 AM [facility] nRBC Auto 0.0 0 /100 WBC 05/08/2023 3:05 AM [facility] Blood BLOOD SPECIMEN / Unknown Lab Venipuncture / Unknown 05/08/2023 2:45 AM CDT 05/08/2023 2:50 AM CDT Praful Reina DO LAB - HEMATOLOGY ORD ERABLES [facility] [address] [place] [address], [facility] [phone] * (ABNORMAL) BASIC METABOLIC PANEL (CALCIUM TOTAL) (05/08/2023 2:45 AM CDT) Only the most recent of9 resultswithin the time period is included. BUN 13 7 - 26 mg/dL 05/08/2023 3:19 AM [facility] Creatinine 0.62 0.56 - 0.96 mg/dL 05/08/2023 3:19 AM [facility] Sodium 135(L) 136 - 145 mmol/L 05/08/2023 3:19 AM [facility] Potassium 4.3 3.5 - 4.5 mmol/L 05/08/2023 3:19 AM [facility] Chloride 106 98 - 107 mmol/L 05/08/2023 3:19 AM [facility] CO2 25 22 - 29 mmol/L 05/08/2023 3:19 AM [facility] Glucose 103 70 - 115 mg/dL 05/08/2023 3:19 AM [facility] Calcium 8.6 8.4 - 10.2 mg/dL 05/08/2023 3:19 AM [facility] Anion Gap 4(L) 6 - 16 05/08/2023 3:19 AM CDT [facility] BUN/Creatinine Ratio 21 7 - 23 05/08/2023 3:19 AM CDT [facility] Osmolality Calculated 280 275 - 295 mOsm/kg 05/08/2023 3:19 AM CDT [facility] eGFR by CKD-EPI >90 >=90 mL/min/1.7 3 m2 05/08/2023 3:19 AM CDT [facility] Blood BLOOD SPECIMEN / Unknown Lab Venipuncture / Unknown 05/08/2023 2:45 AM CDT 05/08/2023 2:51 AM CDT Praful Reina DO LAB - CHEMISTRY [place]ER [place] [address] [address], [place] [phone] * IRON + TRANSFERRIN PANEL (05/07/2023 3:28 PM CDT) Iron 74 40 - 150 ug/dL 05/07/2023 5:00 PM CDT [facility] Transferrin 294 174 - 382 mg/dL 05/07/2023 5:00 PM CDT [facility] Transferrin Saturation % 20 16 - 50 % 05/07/2023 5:00 PM CDT [facility] TIBC Calculated 368 240 - 450 ug/dL 05/07/2023 5:00 PM CDT [facility] Blood BLOOD SPECIMEN / Unknown Lab Venipuncture / Unknown 05/07/2023 3:28 PM CDT 05/07/2023 3:54 PM CDT Susanna Acosta PA-C LAB - CHEMIS TRY ORDERABLES [address] [address], [place] [phone] * FERRITIN (05/07/2023 3:28 PM CDT) Ferritin 111 13 - 204 ng/mL 05/07/2023 5:17 PM CDT [facility] Blood BLOOD SPECIMEN / Unknown Lab Venipuncture / Unknown 05/07/2023 3:28 PM CDT 05/07/2023 3:54 PM CDT Susanna Acosta PA-C LAB - CHEMIS TRY ORDERABLES Performing Organization Address [facility]/ZIP Co de Phone Number [facility] [address] [place] [address], [facility] [phone] * (ABNORMAL) METHYLMALONIC ACID BLOOD (05/07/2023 3:26 PM CDT) Methylmalonic Acid 1.69(H) 0.00 - 0.40 umol/L 05/11/2023 5:15 AM CDT [facility] ([facility]) Comment: Slight elevation 0.41-0.99 umol/L ? Consistent [...] developed and its performance characteristics determined by [facility]. It has not been cleared or approved by the US Food and Drug Administration. This test was performed in a CLIA certified laboratory and is intended for clinical purposes. Performed By: [facility] [address] [place] [address] Rubber Engraver: Ritchie Chapman MD, PhD CLIA Number: [id number] Blood BLOOD SPECIMEN / Unknown Lab Venipuncture / Unknown 05/07/2023 3:26 PM CDT 05/07/2023 3:54 PM CDT Susanna Acosta PA-C LAB - CHEMIS TRY ORDERABLES [facility] [employer] ([facility]) [address] [place] [address] * VITAMIN B1 (05/07/2023 3:26 PM CDT) [facility] Vitamin B1 Whole Blood 98 70 - 180 nmol/L 05/11/2023 7:40 AM CDT [facility] ([facility]) Comment: INTERPRETIVE INFORMATION: Vitamin B1, Whole Blood This assay measures the concentration of thiamine diphosphate (TDP), the primary active form of vitamin B1. Approximately 90 percent of vitamin B1 present in whole blood is TDP. Thiamine and thiamine monophosphate, which comprise the remaining 10 percent, are not measured. This test was developed and its performance characteristics determined by [employer]. It has not been cleared or approved by the US Food and Drug Administration. This test was performed in a CLIA certified laboratory and is intended for clinical purposes. Performed By: [employer] [address] [place] [address] Rubber Engraver: Ritchie Chapman MD, PhD CLIA Number: [id number] Blood BLOOD SPECIMEN / Unknown Lab Venipuncture / Unknown 05/07/2023 3:26 PM CDT 05/07/2023 3:54 PM CDT Susanna Acosta PA-C LAB - CHEMIS TRY ORDERABLES Performing Organization Address [facility] Co de Phone Number [facility]) [address] [place] [address] * (ABNORMAL) FOLATE (05/07/2023 3:26 PM CDT) [facility] Folate 36.7(H) 7.0 - 31.4 ng/mL 05/07/2023 6:05 PM CDT [facility] Comment:Result obtained by haley roland. Blood BLOOD SPECIMEN / Unknown Lab Venipuncture / Unknown 05/07/2023 3:26 PM CDT 05/07/2023 4:15 PM CDT Susanna Acosta PA-C LAB - CHEMIS TRY ORDERABLES [facility] [address] [place] [address], [facility] [phone] * (ABNORMAL) VITAMIN B12 (05/07/2023 3:26 PM CDT) [facility] Vitamin B12 >2,000(H) 213 - 816 pg/mL 05/07/2023 5:21 PM CDT [facility] Blood BLOOD SPECIMEN / Unknown Lab Venipuncture / Unknown 05/07/2023 3:26 PM CDT 05/07/2023 4:15 PM CDT Susanna Acosta PA-C LAB - CHEMIS TRY ORDERABLES [address] [address], [facility] [phone] * EKG 12-LEAD (05/07/2023 2:59 PM CDT) [facility] Ventricular Rate 111 BPM [facility] MUSE Atrial Rate 111 BPM [facility] MUSE P-R Interval 142 ms [facility] MUSE QRS Duration ms 74 ms [facility] MUSE Q-T Interval ms 334 ms [facility] MUSE QTC Calculation (Bezet) 454 ms [facility] MUSE Calculated P [place] 68 degrees [facility] MUSE Calculated R [place] 52 degrees [facility] MUSE Calculated T [place] 59 degrees [facility] MUSE Interpretation EKG SINUS TACHYCARDIA OTHERWISE NORMAL ECG NO PREVIOUS ECGS AVAILABLE Confirmed by DONNA MADRIGAL, SOILA ([id number]) on 05/08/2023 3:22:20 PM [facility] MUSE 05/07/2023 2:59 PM CDT 05/08/2023 3:22 PM CDT Susanna Acosta PA-C ECG ORDERABL ES [facility] MUSE * TSH REFLEX FREE T4 (05/07/2023 2:36 AM CDT) [facility] TSH 0.397 0.350 - 4.940 uIU/mL 05/07/2023 10:54 AM CDT [facility] Blood BLOOD SPECIMEN / Unknown Lab Venipuncture / Unknown 05/07/2023 2:36 AM CDT 05/07/2023 3:02 AM CDT Praful Reina DO LAB - CHEMISTRY WANDER [place]SA[place] [facility] LABORATORY [facility] [address] [place] [address], [facility] [phone] * [place] ELIDA SURGERY (04/29/2023 5:15 PM CDT) Narrative [facility] RADIOLOGY - 04/29/2023 5:40 PM CDT Fluoroscopy was used for this exam in the OR. Please see the Operative report. Sanjeev Kline MD FLUOROSCOPY ORDERABL ES Performing Organization Address City/[facility]/ZIP Co de Phone Number [facility] RADIOLOGY * IV PLACEMENT PERFORMABLE (04/29/2023 4:51 PM CDT) Narrative Jaswinder Churchill MD - 04/29/2023 4:51 PM CDT Dg Bocanegra, DO ? 04/29/2023 ??4:52 PM Peripheral IV Line Placement: Patient Location: ??OR Procedure: IV start ([id number]). Procedure Section: ?? Skin Prep: alcohol. Orientation: [...] Event Date/Time: ??04/29/2023 2:37 PM Procedure: intubation ([id number]). Procedure Section: ?? Sedation: under general anesthesia. [...] report was drafted by Neto Vernon MD (executive vice president business development) I, Sage Mattson MD have personally reviewed [...] report was drafted by Neto Vernon MD (executive vice president business development) I, Sage Mattson MD have personally reviewed [...] BLOOD BANK ORD ERABLES Performing Organization Address City/[facility]/ZIP Co de Phone Number [facility] BLOOD BANK LAB [address] [place] [address], [facility] [phone] * PT-INR [facility] (04/27/2023 8:06 PM CDT) PT 13.7 12.1 - 14.8 Seconds 04/27/2023 8:44 PM CDT [facility] LABORATORY [facility] INR 1.1 See Comment 04/27/2023 8:44 PM CDT [facility] Comment:The suggested therap eutic range for standard coumadin (warfarin) therapy is an INR of 2.0-3.0. For high-risk patients (Mechanical Mitral Valve Prosthesis, etc.), the suggested prophylactic therapeutic range is an INR of 2.5-3.5. Blood BLOOD SPECIMEN / Unknown Venipuncture / Unknown 04/27/2023 8:06 PM CDT 04/27/2023 8:22 PM CDT Parker Quispe MD LAB - COAGULATION OR DERABLES Performing Organization Address [facility]/ZIP Co de Phone Number [facility] [address] [place] [address], [place] [phone] * (ABNORMAL) VITAMIN D 25-HYDROXY (04/27/2023 8:06 PM CDT) Vitamin D, 25 Hydroxy 7.0(L) 30.0 - 80.0 ng/mL 04/28/2023 8:10 AM CDT [facility] Comment: The recommendations for 25-Hydroxy [...] CDT 04/27/2023 8:22 PM CDT Cata Francois APRN-TOWN CLERK LAB - CHEMISTRY O RDERABLES Performing Organization Address City/[facility]/ZIP Co de Phone Number [facility] [address] [place] [address], [place] [phone] * TYPE + SCREEN PANEL (04/27/2023 8:06 PM CDT) Pathologist [facility] Antibody Screen NEG 9:03 PM CDT [facility] BLOOD BANK LAB ABO Rh B POS 04/27/2023 9:03 PM CDT [facility] BLOOD BANK LAB Blood Bank BLOOD SPECIMEN / Unknown Venipuncture / Unknown 04/27/2023 8:06 PM CDT 04/27/2023 8:27 PM CDT Parker Quispe MD LAB - BLOOD BANK ORD ERABLES Performing Organization Address City/[facility]/ZIP Co de Phone Number [facility] BLOOD BANK LAB [address] [place] [address], [place] [phone] * (ABNORMAL) CBC W AUTO DIFFERENTIAL (04/27/2023 8:06 PM CDT) WBC 6.5 3.5 - 10.5 10? 3 /uL 04/27/2023 8:29 PM [facility] RBC 3.50(L) 3.80 - 5.20 10? 6 /uL 04/27/2023 8:29 PM [facility] Hemoglobin 10.2(L) 12.0 - 15.6 g/dL 04/27/2023 8:29 PM [facility] Hematocrit 31.0(L) 35.0 - 45.0 % 04/27/2023 8:29 PM [facility] MCV 88.6 80.7 - 98.3 fL 04/27/2023 8:29 PM [facility] MCH 29.1 26.7 - 34.0 pg 04/27/2023 8:29 PM [facility] MCHC 32.9 30.8 - 35.9 g/dL 04/27/2023 8:29 PM [facility] RDW-SD 45.9 36.0 - 50.0 fL 04/27/2023 8:29 PM [facility] RDW-CV 14.3 11.2 - 14.8 % 04/27/2023 8:29 PM [facility] Platelet Count 223 150 - 400 10? 3 /uL 04/27/2023 8:29 PM [facility] MPV 9.7 9.4 - 12.9 fL 04/27/2023 8:29 PM [facility] nRBC Absolute 0.00 0 10? 3 /uL 04/27/2023 8:29 PM [facility] nRBC Auto 0.0 0 /100 WBC 04/27/2023 8:29 PM [facility] Neutrophils % 55.0 35.0 - 70.0 % 04/27/2023 8:29 PM [facility] Lymphocytes % 34.3 20.0 - 43.0 % 04/27/2023 8:29 PM [facility] Monocytes % 9.8 5.0 - 13.0 % 04/27/2023 8:29 PM [facility] Eosinophils % 0.3 0.0 - 6.0 % 04/27/2023 8:29 PM [facility] Basophil % 0.3 0.0 - 2.0 % 04/27/2023 8:29 PM CDT [facility] Neutrophils Absolute 3.55 1.60 - 7.00 10? 3 /uL 04/27/2023 8:29 PM CDT [facility] Lymphocyte Absolute 2.21 1.10 - 3.90 10? 3 /uL 04/27/2023 8:29 PM CDT [facility] Monocytes Absolute 0.63 0.26 - 1.07 10? 3 /uL 04/27/2023 8:29 PM CDT [facility] Eosinophils Absolute 0.02 0.00 - 0.47 10? 3 /uL 04/27/2023 8:29 PM CDT [facility] Basophils Absolute 0.02 0.00 - 0.08 10? 3 /uL 04/27/2023 8:29 PM [facility] Imm[facility] Granulocytes % 0.3 0.0 - 1.0 % 04/27/2023 8:29 PM T [facility] Immature Granulocytes Absolute 0.02 04/27/2023 8:29 PM [facility] Blood BLOOD SPECIMEN / Unknown Venipuncture / Unknown 04/27/2023 8:06 PM CDT 04/27/2023 8:22 PM CDT Parker Quispe MD LAB - HEMATOLOGY ORD ERABLES [facility] [address] [place] [address], [facility] [phone] * (ABNORMAL) COMPREHENSIVE METABOLIC PANEL (04/27/2023 8:06 PM CDT) BUN 9 7 - 26 mg/dL 04/27/2023 8:53 PM CDT [facility] Creatinine 0.74 0.56 - 0.96 mg/dL 04/27/2023 8:53 PM [facility] Sodium 138 136 - 145 mmol/L 04/27/2023 8:53 PM T [facility] Potassium 3.7 3.5 - 4.5 mmol/L 04/27/2023 8:53 PM T [facility] Chloride 107 98 - 107 mmol/L 04/27/2023 8:53 PM [facility] CO2 24 22 - 29 mmol/L 04/27/2023 8:53 PM [facility] Glucose 103 70 - 115 mg/dL 04/27/2023 8:53 PM [facility] Calcium 8.2(L) 8.4 - 10.2 mg/dL 04/27/2023 8:53 PM [facility] Protein Total 6.6 6.0 - 8.3 g/dL 04/27/2023 8:53 PM [facility] Albumin 3.6 3.4 - 5.0 g/dL 04/27/2023 8:53 PM [facility] Bilirubin Total 0.4 0.2 - 1.2 mg/dL 04/27/2023 8:53 PM [facility] Alkaline Phosphatase 105 40 - 150 U/L 04/27/2023 8:53 PM [facility] ALT 28 5 - 55 U/L 04/27/2023 8:53 PM [facility] AST 32 5 - 34 U/L 04/27/2023 8:53 PM [facility] Anion Gap 7 6 - 16 04/27/2023 8:53 PM [facility] BUN/Creatinine Ratio 12 7 - 23 04/27/2023 8:53 PM [facility] Osmolality Calculated 285 275 - 295 mOsm/kg 04/27/2023 8:53 PM [facility] Albumin/Globulin Ratio 1.2 1.1 - 2.3 04/27/2023 8:53 PM [facility] eGFR by CKD-EPI >90 >=90 mL/min/1.7 3 m2 04/27/2023 8:53 PM [facility] Blood BLOOD SPECIMEN / Unknown Venipuncture / Unknown 04/27/2023 8:06 PM T 04/27/2023 8:22 PM [facility] Parker Quispe MD LAB - CHEMISTRY WANDER [place]SA[place] [facility] Organization Address City/State/ZIP Co de Phone Number [facility] [address] [place] [address], [facility] [phone] * HCG BETA BLOOD QUANTITATIVE (04/27/2023 8:06 PM CDT) Beta-hCG Total Quantitative <3 mIU/mL 04/27/2023 9:05 PM CDT [facility] Comment: HCG Numeric Result Interpretation: [...] Quispe MD LAB - CHEMISTRY WANDER [place]SA[place] [facility] Organization Address City/State/ZIP Co de Phone Number [address] [address], [facility] [phone] * XR ANKLE LEFT 3VW OR MORE [...] Report dictated by Jesus Alberto Justin MD (echocardiography radiology technologist). I, Marcio Victor MD have personally reviewed and interpreted this examination/study. > Interpreting Provider: Marcio Victor MD on 04/27/2023 11:25 PM Narrative 04/27/2023 11:25 PM CDT PROCEDURE: ??XR TIBIA FIBULA LEFT 2VW, XR ANKLE LEFT 3VW OR MORE, DATE/TIME OF EXAM: ??04/27/2023 7:59 PM, LOCATION ??[facility] INDICATION: W19.XXXA: Fall, initial encounter Ordering [...] MORE,DATE/TIME OF EXAM: 04/27/2023 7:59 PM, LOCATION [facility] INDICATION: W19.XXXA: Fall, initial encounter Ordering [...] Report dictated by Jesus Alberto Justin MD (echocardiography radiology technologist). I, Marcio Victor MD have personally reviewed [...] Report dictated by Jesus Alberto Justin MD (echocardiography radiology technologist). Alba Cordova MD have personally reviewed and interpreted this examination/study. > Interpreting Provider: Alba Saldaña MD on 04/28/2023 10:26 AM Narrative 04/28/2023 10:26 AM CDT PROCEDURE: ??XR FOOT RIGHT 3VW OR MORE, DATE/TIME OF EXAM: ??04/27/2023 8:00 PM, LOCATION ??[facility] INDICATION: W19.XXXA: Fall, initial encounter Ordering [...] MORE, DATE/TIME OF EXAM: 38:00 PM, LOCATION [facility] INDICATION: W19.XXXA: Fall, initial encounter Ordering Provider Reason For Exam: fx COMPARISON: None. FINDINGS: The osseous structures are intact and well aligned without acutefracture or dislocation. The joint spaces are preserved. Bone density and texture are normal. No soft tissue swelling is present. IMPRESSION: No acute fracture or dislocation identified. Report dictated by Jesus Alberto Justin MD (echocardiography radiology technologist). Alba Cordova MD have personally reviewed and interpreted this examination/study. > Interpreting Provider: Alba Saldaña MD on 04/28/2023 10:26 AM Parker Quispe MD DIAGNOSTIC IMAGING O RDERABLES
--- OUTSIDE RECORDS SUMMARY | 2024-08-26 02:14 | XMS_ITS | Referral Summary ---
Author Organization [facility] Address [address] [place] [address] Care Team Providers Care Automobile Mechanic Apprentice Name Role Phone Unavailable Primary Care Provider Unavailabl e Source Comments [facility],non-owned Affiliates and Associated Physician Practices is amultiple site organization consisting of ambulatory clinics and hospital sitesin [place], [place], [place] and [place]. This disclosure is being madepursuant to the Care Everywhere program and may not contain all information available regarding this patient. Last updated 18.[facility] [employer] [facility] [employer] Allergies Active Allergy Reactions Criticality Noted Date [...] Patient not taking.Reported on 07/07/2023 HYDROcodone-aceta minophen ([place]) 5-325 MG tabletIndications :Tibia/fibula fracture, left, closed, with routine healing, subsequent encounter Take 1 (one) tablet by mouth every 8 hours as needed for Pain 40 tablet 07/07/2023 Active Additional Information Patient not taking.Reported on 08/18/2023 naloxone HCl (Narcan) 4 MG/0.1ML nasal sprayIndications: Tibia/fibula fracture, left, closed, with routine healing, subsequent encounter,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 No 05/01/2023 Sex and Gender [...] kg (155 lb) 08/18/2023 10:5 9 AM TRAINING MANAGER Height 154.9 cm (5' 1 ) 05/19/2023 [...] on file Medical Devices Implanted Type Area Intelligence Consultant Device Identifier Shelf Expiration Date Model / Serial / Lot Tibial Nail- Advanced/11mm 345mm Implanted:Qty: 1 on 04/29/2023 by Sanjeev Kline MD at [facility] Left: Tibia [employer] 08/02/2032 [id number] S / / [id number] 5.0mm Locking Screws Implanted:Qty: 1 on 04/29/2023 by Sanjeev Kline MD at [facility] [id number] / / 5.0mm Locking Screw Implanted:Qty: 1 on 04/29/2023 by Sanjeev Kline MD at [facility] [id number] / / 5.0mm Locking Screw Implanted:Qty: 2 on 04/29/2023 by Sanjeev Kline MD at [facility] [id number] / / 5.0mm Locking Screw Implanted:Qty: 1 on 04/29/2023 by Sanjeev Kline MD at [facility] [id number] / / 3.5 Cannulated Implanted:Qty: 1 on 04/29/2023 by Sanjeev Kline MD at [facility] [id number] / / 3.5 Cannulated Implanted:Qty: 1 on 04/29/2023 by Sanjeev Kline MD at [facility] [id number] / / Explanted Type Area Intelligence Consultant Device Identifier Shelf Expiration Date Model / Serial / Lot Slv Prtc 12mm Suprapatellar Strl Explanted:Qty: 1 on 04/29/[address] [facility] Left: Tibia [employer] 10/31/2024 [id number] S / / [id number] Procedures Procedure Name Priority Date/Time Associated Diagnosis Comments BASIC METABOLIC PANEL (CALCIUM TOTAL) AM Draw 05/08/2023 2:45 AM CDT from Last 3 Months or Most Recently Relevant to Health Maintenance Results * (ABNORMAL) BASIC METABOLIC PANEL (CALCIUM TOTAL) (05/08/2023 2:45 AM CDT) BUN 13 7 - 26 mg/dL 05/08/2023 3:19 AM [facility] Creatinine 0.62 0.56 - 0.96 mg/dL 05/08/2023 3:19 AM [facility] Sodium 135(L) 136 - 145 mmol/L 05/08/2023 3:19 AM [facility] Potassium 4.3 3.5 - 4.5 mmol/L 05/08/2023 3:19 AM [facility] Chloride 106 98 - 107 mmol/L 05/08/2023 3:19 AM [facility] CO2 25 22 - 29 mmol/L 05/08/2023 3:19 AM [facility] Glucose 103 70 - 115 mg/dL 05/08/2023 3:19 AM [facility] Calcium 8.6 8.4 - 10.2 mg/dL 05/08/2023 3:19 AM [facility] Anion Gap 4(L) 6 - 16 05/08/2023 3:19 AM [facility] BUN/Creatinine Ratio 21 7 - 23 05/08/2023 3:19 AM [facility] Osmolality Calculated 280 275 - 295 mOsm/kg 05/08/2023 3:19 AM [facility] eGFR by CKD-EPI >90 >=90 mL/min/1.7 3 m2 05/08/2023 3:19 AM [facility] Blood BLOOD SPECIMEN / Unknown Lab Venipuncture / Unknown 05/08/2023 2:45 AM CDT 05/08/2023 2:51 AM CDT Praful Reina DO LAB - CHEMISTRY WANDER [facility] [address] [place] [address], [facility] [phone] from Last 3 Months or Most Recently Relevant to Health Maintenance Advance Directives * Full Code (Latest Code Status on File) Date Activated Date Inactivated Comments 04/28/2023 4:28 AM 05/08/2023 4:32 PM
--- OUTSIDE RECORDS SUMMARY | 2024-08-26 02:14 | XMS_ITS | Clinical Summary ---
Author Organization [facility] Address [address] [place] [address] Phone Care Team Providers Care Cloud Engineer Name Role Phone Unavailable Primary Care Provider Unavailabl e Allergies Active Allergy Reactions Criticality Noted Date Comments Codeine Itching Low 08/22/2024 Methocarbamol Nausea and Vomiting Low 08/22/2024 Nsaids (Non-Steroidal Anti-Inflammatory Drug) Nausea and Vomiting Low 08/22/2024 Tramadol Seizure High 08/22/2024 Encounters Date Type Department Care Team Description 08/22/2024 6:58 PM NETWORK MANAGEMENT SPECIALIST - 08/22/2024 8:23 PM NETWORK MANAGEMENT SPECIALIST Emergency [facility] Emergency Department [address] [place] [address] Rabia Chi MD Discharge Disposition: Left without being seen from Last 3 Months Social History Tobacco Use Types Packs/Day Years Used Date Smoking Tobacco: Never Assessed Feeling Safe Answer Date Recorded Are you in a relationship wi th someone who hurts you emotionally and/or physically? No 08/22/2024 Comments Unknown Sex and Gender Information Value Date Recorded Sex Assigned at Not on file Legal Sex Female 6:11 PM NETWORK MANAGEMENT SPECIALIST Gender Identity Not on file Sexual Orientation Not on file Last Filed Vital Signs Vital Sign Reading Time Taken Comments Blood Pressure 124/94 08/22/2024 6:16 PM NETWORK MANAGEMENT SPECIALIST Pulse - - Temperature 36.6 ??C (97.9 ??F) 08/22/2024 6:16 PM CS T Respiratory Rate 08/22/2024 6:16 PM NETWORK MANAGEMENT SPECIALIST Oxygen Saturation 100% 08/22/2024 6:16 PM NETWORK MANAGEMENT SPECIALIST Inhaled Oxygen Concentration - - Weight 84.8 kg (187 lb) 08/22/2024 6:16 PM NETWORK MANAGEMENT SPECIALIST Height 154.9 cm (5' 1 ) 08/22/2024 6:16 PM NETWORK MANAGEMENT SPECIALIST Body Mass Index 35.33 08/22/2024 6:16 PM NETWORK MANAGEMENT SPECIALIST Plan of Treatment Health Maintenance Due Date Last Done Comments Pre-Diabetes and Diabetes Screening 1980 DTAP/TDAP/TD VACCINES (1 - Tdap) 1999 HEPATITIS B VACCINES (1 of 3 - 19+ 3-dose series) 1999 CERVICAL CANCER SCREENING 2010 BREAST CANCER SCREENING 2020 INFLUENZA VACCINE (#1) 2024 HPV VACCINES Aged Out No longer eligi ble based on patient's age to complete this topic Procedures Procedure Name Priority Date/Time Associated Diagnosis Comments POC CREATININE Stat 08/22/2024 7:20 PM NETWORK MANAGEMENT SPECIALIST COMPREHENSIVE METABOLIC PANEL Stat 08/22/2024 7:15 PM NETWORK MANAGEMENT SPECIALIST CBC WITH DIFFERENTIAL Stat 08/22/2024 7:15 PM NETWORK MANAGEMENT SPECIALIST from Last 3 Months Results * POC CREATININE (08/22/2024 7:20 PM NETWORK MANAGEMENT SPECIALIST) CREATININE POC 0.90 0.50 - 1.00 mg/dL 08/22/2024 7:20 PM NETWORK MANAGEMENT SPECIALIST [facility] GFR POC >60 >=60 mL/min/1.7 3 sq meter 08/22/2024 7:20 PM NETWORK MANAGEMENT SPECIALIST [facility] Comment:eGFR calculated with 2020 CKD-EPI equation. Vegetarian diet, extremely high or low muscle mass, and may affect results. Cystatin C with Glomerular Filtration Rate is a suitable alternative for these patients. Blood, whole 08/22/2024 7:20 PM NETWORK MANAGEMENT SPECIALIST 08/22/2024 7:23 PM NETWORK MANAGEMENT SPECIALIST us Rabia Chi MD POINT OF CARE TESTING Final Resu lt [facility]# [id number] [address] [place] [id number] * (ABNORMAL) CBC WITH DIFFERENTIAL (08/22/2024 7:15 PM NETWORK MANAGEMENT SPECIALIST) WBC 4.7 4.0 - 9.8 K/uL 08/22/2024 7:41 PM NETWORK MANAGEMENT SPECIALIST [facility] RBC 4.13 3.90 - 4.90 M/uL 08/22/2024 7:41 PM NETWORK MANAGEMENT SPECIALIST [facility] [place] HEMOGLOBIN 12.1 11.8 - 14.8 g/dL 08/22/2024 7:41 PM NETWORK MANAGEMENT SPECIALIST [facility] [place] HEMATOCRIT 37.1 35.5 - 44.0 % 08/22/2024 7:41 PM NETWORK MANAGEMENT SPECIALIST [facility] [place] MCV 89.8 82.0 - 99.0 fL 08/22/2024 7:41 PM NETWORK MANAGEMENT SPECIALIST [facility] [place] MCH 29.3 27.2 - 32.6 pg 08/22/2024 7:41 PM NETWORK MANAGEMENT SPECIALIST [facility] MCHC 32.6 31.5 - 35.5 g/dL 08/22/2024 7:41 PM NETWORK MANAGEMENT SPECIALIST [facility] RDW 16.3(H) 11.5 - 14.5 % 08/22/2024 7:41 PM NETWORK MANAGEMENT SPECIALIST [facility] RDW-STDEV 54.5(H) 37.1 - 48.7 fL 08/22/2024 7:41 PM NETWORK MANAGEMENT SPECIALIST [facility] [place] PLATELETS 273 140 - 350 K/uL 08/22/2024 7:41 PM NETWORK MANAGEMENT SPECIALIST [facility] MPV 10.4 9.3 - 12.4 fL 08/22/2024 7:41 PM NETWORK MANAGEMENT SPECIALIST [facility] NEUTROPHILS 41 % 08/22/2024 7:41 PM NETWORK MANAGEMENT SPECIALIST [facility] LYMPHOCYTES 48 % 08/22/2024 7:41 PM NETWORK MANAGEMENT SPECIALIST [facility] MONOCYTES 9 % 08/22/2024 7:41 PM NETWORK MANAGEMENT SPECIALIST [facility] EOSINOPHILS 1 % 08/22/2024 7:41 PM NETWORK MANAGEMENT SPECIALIST [facility] BASOPHILS 0 % 08/22/2024 7:41 PM NETWORK MANAGEMENT SPECIALIST [facility] IMMATURE GRANULOCYTES 0 % 08/22/2024 7:41 PM NETWORK MANAGEMENT SPECIALIST [facility] [place] NEUTROPHIL ABSOLUTE 1.93 1.90 - 7.00 K/uL 08/22/2024 7:41 PM NETWORK MANAGEMENT SPECIALIST [facility] LYMPHOCYTE ABSOLUTE 2.25 0.70 - 4.50 K/uL 08/22/2024 7:[address] [facility] MONOCYTE ABSOLUTE 0.41 0.10 - 1.30 K/uL 08/22/2024 7:[address] [facility] EOSINOPHIL ABSOLUTE 0.04 0.00 - 0.70 K/uL 08/22/2024 7:[address] [facility] BASOPHILS ABSOLUTE 0.02 0.00 - 0.20 K/uL 08/22/2024 7:[address] [facility] IMMATURE GRANULOCYTES ABSOLUTE 0.01 0.00 - 0.03 K/uL 08/22/2024 7:[address] [facility] Blood Venipuncture / Unknown 08/22/2024 7:15 PM NETWORK MANAGEMENT SPECIALIST 08/22/2024 7:30 PM NETWORK MANAGEMENT SPECIALIST Rabia Chi MD HEMATOLOGY ORDERABLES Final Resu lt [facility]# [id number] [address] [place] [id number] * (ABNORMAL) COMPREHENSIVE METABOLIC PANEL (08/22/2024 7:15 PM NETWORK MANAGEMENT SPECIALIST) SODIUM 142 136 - 145 mmol/L 08/22/2024 8:[address] [facility] [place] POTASSIUM 4.5 3.5 - 5.0 mmol/L 08/22/2024 8:[address] [facility] [place] CHLORIDE 109(H) 98 - 107 mmol/L 08/22/2024 8:[address] [facility] CO2 23 22 - 29 mmol/L 08/22/2024 8:[address] [facility] [place] CALCIUM 9.0 8.6 - 10.2 mg/dL 08/22/2024 8:09 PM NETWORK MANAGEMENT SPECIALIST [facility] BUN 17 6 - 20 mg/dL 08/22/2024 8:09 PM [facility] CREATININE 0.86 0.51 - 0.95 mg/dL 08/22/2024 8:09 PM [facility] GLUCOSE 105(H) 74 - 99 mg/dL 08/22/2024 8:09 PM [facility] TOTAL PROTEIN 7.5 6.7 - 8.6 g/dL 08/22/2024 8:09 PM [facility] ALBUMIN 4.0 3.5 - 5.2 g/dL 08/22/2024 8:09 PM [facility] BILIRUBIN TOTAL 0.2(L) 0.3 - 1.2 mg/dL 08/22/2024 8:09 PM [facility] ALKALINE PHOSPHATASE 148(H) 35 - 104 U/L 08/22/2024 8:09 PM [facility] AST 08/22/2024 8:09 PM [facility] [employer] [facility] Comment:Test cannot be perfo rmed. Sample hemolysis interference above limits. Redraw if indicated. ALT 8 <34 U/L 08/22/2024 8:09 PM [facility] GFR >60 >=60 mL/min/1.7 3 sq meter 08/22/2024 8:09 PM [facility] [employer] [facility] Comment:eGFR calculated with 2020 CKD-EPI equation. Vegetarian diet, extremely high or low muscle mass, and may affect results. Cystatin C with Glomerular Filtration Rate is a suitable alternative for these patients. ANION GAP 10 8 - 16 mmol/L 08/22/2024 8:09 PM [facility] [employer] [facility] Blood Venipuncture / Unknown 08/22/2024 7:15 PM NETWORK MANAGEMENT SPECIALIST 08/22/2024 7:30 PM [facility] - 08/22/2024 8:[address] [facility] Samples containing indocyanine green cause interferences on Total and/or Direct Bilirubin and must not be measured. us Rabia Chi MD CHEMISTRY ORDERABLES Final Resul t [facility]# [id number] [address] [place] [address] from Last 3 Months Insurance [facility] [id number] [place] [phone]
--- OUTSIDE RECORDS SUMMARY | 2024-08-26 02:14 | XMS_ITS | Clinical Summary ---
Author Organization [facility] Address [address], [facility] [[email or web address] [address] [place] [address] Phone Care Team Providers Care Braid Maker Name Role Phone Unavailable Primary Care [...] age to complete this topic Insurance MEDICAID [facility] PLAN
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
== END 2024-08-24 16:22 | disposition home or self-care (01) ==
PROVIDERS: Physician Assistant; Emergency Provider Emergency Medicine; PCP Nurse Practitioner Family
DX: R10.9 Unspecified abdominal pain (principal); M79.7 Fibromyalgia; Z98.84 Bariatric surgery status
CPT/HCPCS: 36415; 74177; 80053; 81001; 83690; 85025; 87086; 96374; 96375; 99284; J2270; J2405; Q9967

== ENCOUNTER 2024-09-09 15:56 | Emergency (ER) | payer OTHER, SELFPAY ==
--- NOTE | ~2024-09-09 | XR_ITS ---
EXAMINATION: XR ankle LT min 3V DATE: 09/09/2024 16:34 INDICATION: Left ankle injury post fall TECHNIQUE: Anteroposterior, oblique and lateral views of the left ankle were obtained. COMPARISON: None. FINDINGS: There are old healed fractures in near-anatomic alignment of the left fibular diaphysis and the dista l left tibial metadiaphysis, the latter fixed with an antegrade intramedullary william with 3 distal inte rlocking screws in the metaphyseal region. There are a pair of lag screws at the lateral malleolus perdue ggesting an old healed medial malleolar fracture without residual deformity. No acute fractures ident ified. Joint spaces are normal. Small plantar calcaneal spur. Mild soft tissue swelling about the lef t ankle. IMPRESSION: 1. Old fractures of the tibia and fibula with internal fixation as detailed above. No acute osseous a bnormality. Reviewed, dictated and finalized at location B. ER IMPRESSION: 1. Old fractures of the tibia and fibula with internal fixation as detailed abo ve. No acute osseous abnormality.
--- NOTE | ~2024-09-09 | XR_ITS ---
EXAMINATION: XR knee LT min 4V DATE: 09/09/2024 16:34 INDICATION: Fall. TECHNIQUE: 5 views of left knee were obtained. COMPARISON: Left knee radiographs 01/29/2024. FINDINGS: Bone alignment is normal. No acute fracture. There is william and screw fixation of left tibia. There is mild tricompartmental osteoarthritis of the knee. No knee joint effusion. IMPRESSION: 1. Mild left knee osteoarthritis. Reviewed, dictated and finalized at location A. R DRIVER
--- OUTSIDE RECORDS SUMMARY | 2024-09-09 15:58 | XMS_ITS | Clinical Summary ---
Author Organization [facility] Address [address] [place] [address] Care Team Providers Care Roving Teller Name Role Phone Cole Blackdrea Perera COMPANY MANAGER Primary Care Provider [phone] Allergies Active Allergy Reactions Criticality Noted Date [...] palpitations 12/24/2015 Depression 11/23/2015 Fibromyalgia 11/07/2015 Seizures ([facility]) 11/07/2015 Resolved Problems Problem Noted Date Diagnosed Date Resolved Date Partial small bowel obstruct ion ([facility]) 07/20/2022 07/22/2022 Incarcerated ventral hernia 07/20/2022 08/18/2022 Women's annual routine gynec ological examination 03/31/2016 04/13/2020 Encounters Date Type Department Care Team Description 08/01/2024 1:41 PM IC ENGINEER - 08/01/2024 9:18 PM [facility] Emergency [facility] Emergency Room [address] [place], [place] [id number] Kerline Anderson MD Medical Problem Discharge Disposition: [...] 0.6 oz pur e alcohol) very rarely [facility] Utilities Answer Date Recorded In the past 12 months has e [employer], gas, oil, or water [employer] threatened to shut off services in your [...] How often do you attend chur or sikh services? More than 4 times per year 07/24/2023 Do you belong to any clubs o r organizations such as faith groups, unions, fraternal or athletic groups, or [...] or slept in a residential (including now)? Patient declined 07/24/2023 Comments No Sex and Gender Information Value Date Recorded Sex Assigned at Not on file Legal Sex Female 7:12 PM CDT Gender Identity Not on file Sexual Orientation Not on file Last Filed Vital Signs Vital Sign Reading Time Taken Comments Blood Pressure 130/90 08/01/2024 8:01 PM IC ENGINEER Pulse 90 08/01/2024 8:01 PM IC ENGINEER Temperature 36.7 C (98 F) 08/01/2024 8:01 PM IC ENGINEER Respiratory Rate 20 08/01/2024 8:01 PM IC ENGINEER Oxygen Saturation 100% 08/01/2024 8:01 PM IC ENGINEER Inhaled Oxygen Concentration - - Weight 81.2 kg (179 lb) 08/01/2024 1:43 PM IC ENGINEER Height 154.9 cm (5' 1 ) 08/01/2024 1:43 PM IC ENGINEER Body Mass Index 33.82 08/01/2024 1:43 PM IC ENGINEER Plan of Treatment Health Maintenance Due Date [...] patient's age to complete this topic Meningococcal B Vaccine Aged Out No l onger eligible based on patient's age to complete this topic Meningococcal Vaccine Aged Out No renato gavi eligible based on patient's age to complete this topic RSV Immunizations Under 20 Months Aged Out No longer eligible based on patient's age to complete this topic Goals Goal Patient Goal Type Associated Problems Recent Progress Patient-Stated? 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, INNER DIAMETER GRINDER TOOL Safety Patient/family will have appropriate support at home upon discharge Lifestyle No Nelli Rodríguez, gis consultant Procedure Name Priority Date/Time Associated Diagnosis Comments ECG 12-LEAD STAT 08/01/2024 7:[address] ABD+PEL W CON STAT 08/01/2024 4:17 PM IC ENGINEER LACTIC ACID STAT 08/01/2024 3:50 PM IC ENGINEER TROPONIN, QUANT Routine 08/01/2024 3:07 PM IC ENGINEER LACTIC ACID STAT 08/01/2024 3:07 PM IC ENGINEER LIPASE STAT 08/01/2024 3:07 PM IC ENGINEER COMPREHENSIVE METABOLIC PANEL STAT 08/01/2024 3:07 PM IC ENGINEER CBC W/DIFF AUTOMATED STAT 08/01/2024 3:07 PM IC ENGINEER LIPID PANEL Routine 07/24/2023 7:08 AM IC ENGINEER MG SCREENING W ADRIANA LAISHA DIGI Routine 01/02/2021 1:19 PM CDT Visit for screening mammogram from Last 3 Months or Most Recently Relevant to Health Maintenance Results * ECG 12 lead (08/01/2024 7:16 PM IC ENGINEER) 08/01/2024 7:16 PM IC ENGINEER Narrative [facility] ([facility]) RAD - 08/02/2024 8:39 AM IC ENGINEER [facility] Test Date: 2024-08-01 Pat Name: TABITHA BLACKWELL Department: 85 Room: [facility] Gender: Female 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: : [id number] Requested By: KERLINE ANDERSON Order Number: [id number] Reading MD: Emre Lees Measurements Intervals [place] Rate: 97 P: 59 LA: 136 QRS: 43 QRSD: 73 T: 48 QT: 338 QTc: 430 Interpretive Statements SINUS RHYTHM Compared to ECG 02/29/2024 15:22:31 Sinus tachycardia no longer present ENGINEER Procedure Note Emre Lees MD - 08/02/2024 [facility] Test Date: 2024-08-01 Pat Name: TABITHA BLACKWELL Department: 85 Room: [facility] Gender: Female 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: : [id number] Requested By: KERLINEROSEMARIE ANDERSON Order Number: [id number] Reading MD: Emre Lees Measurements Intervals [place] Rate: 97 P: 59 LA: 136 QRS: 43 QRSD: 73 T: 48 QT: 338 QTc: 430 Interpretive Statements SINUS RHYTHM Compared to ECG 02/29/2024 15:22:31 Sinus tachycardia no longer present ENGINEER us Kerline Anderson MD ECG ORDERABLES Final Result [facility] ([facility]) RAD * CT ABD+PEL W CON (08/01/2024 4:17 PM IC ENGINEER) Anatomical Region Laterality Modality Abdomen Computed Tomogra phy 08/01/2024 4:42 PM IC ENGINEER Impressions 08/01/2024 4:53 PM IC ENGINEER IMPRESSION: 1. Enlarged mid mesenteric lymph nodes, [...] 08/01/2024 4:42 PM Narrative 08/01/2024 4:53 PM IC ENGINEER [facility] [address] [place] [address] EXAMINATION: CT ABDOMEN/PELVIS WITH CONTRAST INDICATION: Abdominal [...] Procedure Note Raymon Gardiner MD - 08/01/2024 [facility] [address] [address] [place] [address] EXAMINATION: CT ABDOMEN/PELVIS WITH CONTRAST INDICATION: Abdominal [...] LACTIC ACID - SINGLE (08/01/2024 3:50 PM IC ENGINEER) Only the most recent of2 resultswithin the time period is included. LACTIC ACID VENOUS 0.5 0.4 - 2.0 MMOL/L 08/01/2024 4:12 PM IC ENGINEER [facility] 08/01/2024 3:50 PM IC ENGINEER us Kerline Anderson MD LABORATORY Final Result [facility] [address] [place] [address], * (ABNORMAL) COMPREHENSIVE METABOLIC PANEL (08/01/2024 3:07 PM IC ENGINEER) GLUCOSE 98 70 - 99 MG/DL 08/01/2024 3:29 PM IC ENGINEER [facility] BUN 12 7 - 18 MG/DL 08/01/2024 3:29 PM IC ENGINEER [facility] CREATININE S/P/B 0.85 0.55 - 1.02 MG/DL 08/01/2024 3:29 PM [facility] SODIUM S/P/B 143 136 - 145 MMOL/L 08/01/2024 3:29 PM [facility] POTASSIUM S/P/B 3.9 3.5 - 5.1 MMOL/L 08/01/2024 3:29 PM [facility] CHLORIDE S/P/B 107 100 - 108 MMOL/L 08/01/2024 3:29 PM [facility] CO2 27.9 21 - 32 MMOL/L 08/01/2024 3:29 PM [facility] CALCIUM S/P/B 9.0 8.5 - 10.1 MG/DL 08/01/2024 3:29 PM [facility] BILIRUBIN TOTAL S/P/B 0.2 0.2 - 1.2 MG/DL 08/01/2024 3:29 PM [facility] TOTAL PROTEIN S/P/B 7.4 6.4 - 8.2 G/DL 08/01/2024 3:29 PM [facility] ALBUMIN S/P/B 3.3(L) 3.4 - 5.0 G/DL 08/01/2024 3:29 PM [facility] AST 19 15 - 37 U/L 08/01/2024 3:29 PM [facility] ALT 25 14 - 55 U/L 08/01/2024 3:29 PM [facility] ALKALINE PHOSPHATASE S/P/B 167(H) 50 - 136 U/L 08/01/2024 3:29 PM [facility] ANION GAP 8.1 5 - 15 MMOL/L 08/01/2024 3:29 PM [facility] BUN CREATININE RATIO 14.1 6 - 26 08/01/2024 3:29 PM [facility] A/G RATIO 0.8(L) 1.0 - 2.0 RATIO 08/01/2024 3:29 PM [facility] GFR ESTIMATE 87(L) >90 ML/MIN/1.7 3 M2 08/01/2024 3:29 PM [facility] Comment: NOTE: eGFR is not calculated for patients <18 years of age. This is an estimated GFR calculation using the new CKD EPI creatinine equation without race and so does not require a correction factor for race. This estimated GFR should not be used for calculating drug doses. 08/01/2024 3:07 PM IC ENGINEER Kerline Anderson MD LABORATORY Final Result [facility] [address] [place] [address], * (ABNORMAL) CBC W/DIFF AUTOMATED (08/01/2024 3:07 PM IC ENGINEER) WBC 5.64 4.4 - 11.0 x10'3/uL 08/01/2024 3:14 PM [facility] RBC 3.99(L) 4.50 - 5.10 x10'6/uL 08/01/2024 3:14 PM [facility] HGB 11.5(L) 12.3 - 15.3 G/DL 08/01/2024 3:14 PM [facility] HCT 36.1 35.9 - 44.6 % 08/01/2024 3:14 PM [facility] MCV 90.5 80.0 - 96.0 FL 08/01/2024 3:14 PM [facility] MCH 28.8 25.3 - 30.9 PG 08/01/2024 3:14 PM [facility] MCHC 31.9 31.0 - 34.1 G/DL 08/01/2024 3:14 PM [facility] RDW 16.0(H) 12.4 - 15.1 % 08/01/2024 3:14 PM [facility] PLT 306 151 - 353 x10'3/uL 08/01/2024 3:14 PM [facility] MPV 9.4(L) 9.6 - 12.0 FL 08/01/2024 3:14 PM [facility] RBC MORPHOLOGY NORMAL 08/01/2024 3:14 PM [facility] PLT MORPH. NORMAL 08/01/2024 3:14 PM [facility] WBC MORPHOLOGY NORMAL 08/01/2024 3:14 PM [facility] LYMPHOCYTES % 30.3 15.8 - 45.0 % 08/01/2024 3:14 PM [facility] NEUTROPHILS % 60.7 42.1 - 71.9 % 08/01/2024 3:14 PM [facility] MONOCYTES % 6.9 5.7 - 12.5 % 08/01/2024 3:14 PM [facility] EOSINOPHILS 0.5 0.0 - 5.6 % 08/01/2024 3:14 PM [facility] BASOPHILS 0.4 0.0 - 1.3 % 08/01/2024 3:14 PM [facility] ABS. NEUTROPHILS 3.42 1.40 - 6.00 x10'3/uL 08/01/2024 3:14 PM [facility] IMMATURE GRANS % 1.2(H) 0.0 - 0.5 % 08/01/2024 3:14 PM [facility] ABS. LYMPHOCYTES 1.71 0.80 - 4.70 x10'3/uL 08/01/2024 3:14 PM IC ENGINEER [facility] 08/01/2024 3:07 PM IC ENGINEER us Kerline Anderson MD LABORATORY Final Result Performing Organization Address City/[facility]/ZIP Co de Phone Number [facility] [address] [place] [address], [place] [phone] * TROPONIN, QUANT (08/01/2024 3:07 PM IC ENGINEER) TROPONIN I HIGH SENSITIVITY <4 0 - 50 ng/L 08/01/2024 10:38 PM IC ENGINEER [facility] Comment: HIGH DOSES OF BIOTIN, TROPONIN-SPECIFIC AUTOANTIBODIES, AND ANTIBODY THERAPY CONTAINING HAMA MAY INTERFERE WITH THIS TEST RESULT. CORRELATION TO CLINICAL HISTORY AND PRESENTATION RECOMMENDED. 08/01/2024 3:07 PM IC ENGINEER us Kerline Anderson MD LABORATORY Final Result Performing Organization Address [facility]/ZIP Co de Phone Number [facility] [address] [place] [address], [place] [phone] * LIPASE (08/01/2024 3:07 PM IC ENGINEER) LIPASE 51 16 - 77 UNITS/L 08/01/2024 3:29 PM IC ENGINEER [facility] 08/01/2024 3:07 PM IC ENGINEER us Kerline Anderson MD LABORATORY Final Result Performing Organization Address City/[facility]/ZIP Co de Phone Number [facility] [address] [place] [address], [place] [phone] * LIPID PANEL (07/24/2023 7:08 AM IC ENGINEER) CHOLESTEROL 131 <200 MG/DL 07/24/2023 8:17 AM [facility] TRIGLYCERIDES 45 <150 MG/DL 07/24/2023 8:17 AM [facility] HDL 65 >40.0 MG/DL 07/24/2023 8:17 AM [facility] LDL (CALCULATED) 57 <100 MG/DL 07/24/20 8:17 AM [facility] NON HDL CHOLESTEROL 66 <130 MG/DL 07/24 8:17 AM [facility] CHOL/HDL RATIO 2.0 0.0 - 4.5 07/24/2023 8:17 AM [facility] VLDL CALCULATION 9 5 - 55 MG/DL 07/24/2023 8:17 AM [facility] LIPID INTERPRETATION 07/24/2023 8:17 AM [facility] Comment: [facility] REPORT RECOMMENDATIONS: ADULT CHILD LOW RISK: CHOLESTEROL <200 <170 TRIGLYCERIDE <150 --- HDL >=60 --- LDL <100 <110 BORDERLINE: CHOLESTEROL 200-239 170-199 TRIGLYCERIDE 150-199 --- HDL 40-59 --- LDL 100-159 110-129 HIGH RISK: CHOLESTEROL >=240 >=200 TRIGLYCERIDE >=200 --- HDL <40 --- LDL >=160 >=130 07/24/2023 7:08 AM IC ENGINEER Alyse Jacob MD LABORATORY Final Re sult [facility] [address] [place] [address], [place] [phone] * MG SCREENING W ADRIANAHillary BLACKBURNI (01/02/2021 1:19 PM CDT) Anatomical Region Laterality Modality Breast Bilateral Mammography 01/02/2021 1:25 PM CDT Narrative 01/02/2021 1:26 PM CDT IMAGING STUDIES: MG SCREENING W ADRIANA INTERIANO DIGI DATE: 01/02/2021 1:19 PM INDICATION: screening. Baseline. COMPARISON: No comparisons. FINDINGS: Bilateral XCCL, CC and MLO views, digital with CAD. 2-D with 3-D tomosynthesis. Breast compostition: Category C - The breasts are heterogeneously dense, which may obscure small masses. No suspicious microcalcification, worrisome mass or evidence of architectural distortion. No skin thickening or nipple retraction. Benign microcalcifications. CONCLUSION: No mammographic evidence of malignancy. BI-RADS Category 2 - benign findings. Routine screening mammography recommended [facility] BI-RADS Categories: Category 0 - needs additional imaging evaluation. Category 1 - negative. Category 2 - benign findings. Category 3 - probably benign findings, but short interval follow-up is recommended. Category 4 - suspicious abnormality and biopsy should be considered though the lesion may well be benign. Category 5 - highly suggestive of malignancy and appropriate action should be taken. A) A negative report should not delay a biopsy if a dominant or clinically suspicious mass is present. B) Adenosis and dense breasts may obscure an underlying neoplasm. C) Study interpreted with computer aided detection. Referred By: MITA MADRID Interpreted By: Daniel Presley, 01/02/2021 1:25 PM [place] MANAGER PRICING MAMMO Final Result from Last 3 Months or Most Recently Relevant to Health Maintenance [facility] [address] Advance Directives * Full Code (Latest Code [...] 4:39 PM 02/07/2020 6:36 PM Care Teams Roving Teller Relationship Specialty Start Date End Date Rabia Black FNP PCP - General Nurse Practitioner Family 02/29/24
--- OUTSIDE RECORDS SUMMARY | 2024-09-09 15:58 | XMS_ITS | Referral Summary ---
Author Organization [facility] Address [address] [place] [address] Care Team Providers Care Laundry Superintendent Name Role Phone Unavailable Primary Care Provider Unavailabl e Source Comments [facility],non-owned Affiliates and Associated Physician Practices is amultiple site organization consisting of ambulatory clinics and hospital sitesin [place], [place], [place] and [place]. This disclosure is being madepursuant to the Care Everywhere program and may not contain all information available regarding this patient. Last updated 18.[facility] [employer] Allergies Active Allergy Reactions Criticality Noted Date [...] Patient not taking.Reported on 07/07/2023 HYDROcodone-aceta minophen ([place]buck[place]) 5-325 MG tabletIndications :Tibia/fibula fracture, left, closed, with routine healing, subsequent encounter Take 1 (one) tablet by mouth every 8 hours as needed for Pain 40 tablet 07/07/2023 Active Additional Information Patient not taking.Reported on 08/18/2023 naloxone HCl (Narcan) 4 MG/0.1ML nasal sprayIndications: Tibia/fibula fracture, left, closed, with routine healing, subsequent encounter,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 No 05/01/2023 Sex and Gender Information Value Date Recorded Sex Assigned at Not on file Gender Identity Not on file Sexual Orientation Not on file Last Filed Vital Signs Vital Sign Reading Time Taken Comments Blood Pressure 137/89 05/08/2023 11:50 AM CDT Pulse 141 05/08/2023 11:50 AM CDT Nurse Notified Temperature 36.8 C (98.3 F) 05/08/2023 11:50 AM CDT Respiratory Rate 16 05/07/2023 6:54 AM CDT Oxygen Saturation 100% 05/08/2023 11: 50 AM CDT Inhaled Oxygen Concentration - - Weight 70.3 kg (155 lb) 08/18/2023 10:5 9 AM ANATOMY TEACHER Height 154.9 cm (5' 1 ) 05/19/2023 [...] concentrating/remembering/making decisions? No 05/01/2023 Plan of Treatment Upcoming Encounters Date Type Department Care Team (Late st Contact Info) Description 10/04/2024 12:00 PM ANATOMY TEACHER Office Visit [facility] - Orthopedics [address] [place] [phone] Praful Reina, [address] [facility] [place] [address] Medical Devices Implanted Type Area Maintenance Truck Driver Device Identifier Shelf Expiration Date Model / Serial / Lot Tibial Nail- Advanced/11mm 345mm Implanted:Qty: 1 on 04/29/2023 by Sanjeev Kline MD at [facility] Left: Tibia [employer] 08/02/2032 [id number] S / / [id number] 5.0mm Locking Screws Implanted:Qty: 1 on 04/29/2023 by Sanjeev Kline MD at [facility] [id number] / / 5.0mm Locking Screw Implanted:Qty: 1 on 04/29/2023 by Sanjeev Kline MD at [facility] [id number] / / 5.0mm Locking Screw Implanted:Qty: 2 on 04/29/2023 by Sanjeev Kline MD at [facility] [id number] / / 5.0mm Locking Screw Implanted:Qty: 1 on 04/29/2023 by Sanjeev Kline MD at [facility] [id number] / / 3.5 Cannulated Implanted:Qty: 1 on 04/29/2023 by Sanjeev Kline MD at [facility] [id number] / / 3.5 Cannulated Implanted:Qty: 1 on 04/29/2023 by Sanjeev Kline MD at [facility] [id number] / / Explanted Type Area Maintenance Truck Driver Device Identifier Shelf Expiration Date Model / Serial / Lot Slv Prtc 12mm Suprapatellar Strl Explanted:Qty: 1 on 04/29/2023 at [facility] Left: Tibia [employer] 10/31/2024 [id number] S / / [id number] Procedures Procedure Name Priority Date/Time Associated Diagnosis Comments BASIC METABOLIC PANEL (CALCIUM TOTAL) AM Draw 05/08/2023 2:45 AM CDT from Last 3 Months or Most Recently Relevant to Health Maintenance Results * (ABNORMAL) BASIC METABOLIC PANEL (CALCIUM TOTAL) (05/08/2023 2:45 AM CDT) BUN 13 7 - 26 mg/dL 05/08/2023 3:19 AM [facility] Creatinine 0.62 0.56 - 0.96 mg/dL 05/08/2023 3:19 AM [facility] Sodium 135(L) 136 - 145 mmol/L 05/08/2023 3:19 AM [facility] Potassium 4.3 3.5 - 4.5 mmol/L 05/08/2023 3:19 AM [facility] Chloride 106 98 - 107 mmol/L 05/08/2023 3:19 AM [facility] CO2 25 22 - 29 mmol/L 05/08/2023 3:19 AM [facility] Glucose 103 70 - 115 mg/dL 05/08/2023 3:19 AM [facility] Calcium 8.6 8.4 - 10.2 mg/dL 05/08/2023 3:19 AM [facility] Anion Gap 4(L) 6 - 16 05/08/2023 3:19 AM [facility] BUN/Creatinine Ratio 21 7 - 23 05/08/2023 3:19 AM [facility] Osmolality Calculated 280 275 - 295 mOsm/kg 05/08/2023 3:19 AM [facility] eGFR by CKD-EPI >90 >=90 mL/min/1.7 3 m2 05/08/2023 3:19 AM [facility] Blood BLOOD SPECIMEN / Unknown Lab Venipuncture / Unknown 05/08/2023 2:45 AM CDT 05/08/2023 2:51 AM CDT Praful Reina DO LAB - CHEMISTRY [facility] [address] [place] [address], [facility] [phone] from Last 3 Months or Most Recently Relevant to Health Maintenance Advance Directives * Full Code (Latest Code Status on File) Date Activated Date Inactivated Comments 04/28/2023 4:28 AM 05/08/2023 4:32 PM
--- OUTSIDE RECORDS SUMMARY | 2024-09-09 15:58 | XMS_ITS | Patient Health Summary ---
Author Organization [facility] Address [address] [place] [address] Care Team Providers Care Voyage Management System Operator Name Role Phone Unavailable Primary Care Provider Unavailabl e Note from [facility],non-owned Affiliates and Associated Physician Practices is amultiple site organization consisting of ambulatory clinics and hospital sitesin [place], [place], [place] and [place]. This disclosure is being madepursuant to the Care Everywhere program and may not contain all information available regarding this patient. Last updated 18.[facility] Allergies * Codeine(Itching) -Low Criticality * Doxycycline(GI [...] hours as needed for Pain * HYDROcodone-acetaminophen ([place]) 5-325 MG tablet(Started 07/07/2023) Take 1 (one) tablet by mouth every 8 hours as needed for Pain * naloxone HCl (Narcan) 4 MG/0.1ML nasal spray(Started 07/08/2023) [place] 1 (one) spray into the nose as [...] Recorded Patient Health Questionnaire-2 Score 0 08/18/2023 [facility] Occupat ional [facility] - Occupational Stress Questionnaire Answer Date Recorded [...] place to sleep or slept in a prison (including now)? No 05/01/2023 Sex and Gender [...] kg (155 lb) 08/18/2023 10:5 9 AM ASSISTANT EDITOR Height 154.9 cm (5' 1 ) 05/19/2023 10:3 7 AM CDT Body Mass Index 29.29 05/19/2023 10:37 AM CDT Medical Devices Implanted Type Area Switch Inspector Device Identifier Shelf Expiration Date Model / Serial / Lot Tibial Nail- Advanced/11mm 345mm Implanted:Qty: 1 on 04/29/2023 by Sanjeev Kline MD at [facility] Left: Tibia [employer] 08/02/2032 [id number] S / / [id number] 5.0mm Locking Screws Implanted:Qty: 1 on 04/29/2023 by Sanjeev Kline MD at [facility] [id number] / / 5.0mm Locking Screw Implanted:Qty: 1 on 04/29/2023 by Sanjeev Kline MD at [facility] [id number] / / 5.0mm Locking Screw Implanted:Qty: 2 on 04/29/2023 by Sanjeev Kline MD at [facility] [id number] / / 5.0mm Locking Screw Implanted:Qty: 1 on 04/29/2023 by Sanjeev Kline MD at [facility] [id number] / / 3.5 Cannulated Implanted:Qty: 1 on 04/29/2023 by Sanjeev Kline MD at [facility] [id number] / / 3.5 Cannulated Implanted:Qty: 1 on 04/29/2023 by Sanjeev Kline MD at [facility] [id number] / / Explanted Type Area Switch Inspector Device Identifier Shelf Expiration Date Model / Serial / Lot Slv Prtc 12mm Suprapatellar Strl Explanted:Qty: 1 on 04/29/2023 at [facility] Left: Tibia [employer] 10/31/2024 [id number] S / / [id number] Procedures * XR TIBIA FIBULA LEFT 2VW(Performed [...] encounter * PERIPHERAL IV NOTE(Performed 04/29/2023) * MS OPEN RX TIBIA SHAFT FX,INTRAMED DEMARCO(Performed 04/29/2023) [...] TIBIA FIBULA LEFT 2VW (08/18/2023 10:53 AM ASSISTANT EDITOR) Only the most recent of6 resultswithin the time period is included. Anatomical Region Laterality Modality Lower Extremity Radiographic Halley ging 08/18/2023 10:5 5 AM ASSISTANT EDITOR Impressions 08/18/2023 10:57 AM ASSISTANT EDITOR IMPRESSION: Unchanged alignment. Report dictated by Malcolm Stein DO (student affairs vice president). I, Sage Mattson MD have personally reviewed and interpreted this examination/study. > Interpreting Provider: Sage Mattson MD on 08/18/2023 10:57 AM Narrative 08/18/2023 10:57 AM ASSISTANT EDITOR PROCEDURE: XR TIBIA FIBULA LEFT 2VW, DATE/TIME OF EXAM: 08/18/2023 10:53 AM, LOCATION [facility] INDICATION: S82.202D: Tibia/fibula fracture, left, closed, with [...] in alignment with progression of callus formation. Procedure Note Sage Mattson MD - 08/18/2023 PROCEDURE: XR TIBIA FIBULA LEFT 2VW, DATE/TIME OF EXAM: 410:53 AM, LOCATION [facility] INDICATION: S82.202D: Tibia/fibula fracture, left, closed, with [...] alignment. Report dictated by Malcolm Stein DO (student affairs vice president). I, Sage Mattson MD have personally reviewed [...] is included. WBC 3.8 3.5 - 10.5 10 3/uL 05/08/2023 3:05 AM [facility] RBC 2.78(L) 3.80 - 5.20 10 6/uL 05/08/2023 3:05 AM [facility] Hemoglobin 8.0(L) 12.0 - 15.6 g/dL 05/08/2023 3:05 AM [facility] Hematocrit 24.5(L) 35.0 - 45.0 % 05/08/2023 3:05 AM [facility] MCV 88.1 80.7 - 98.3 fL 05/08/2023 3:05 AM [facility] MCH 28.8 26.7 - 34.0 pg 05/08/2023 3:05 AM [facility] MCHC 32.7 30.8 - 35.9 g/dL 05/08/2023 3:05 AM [facility] RDW-SD 45.2 36.0 - 50.0 fL 05/08/2023 3:05 AM [facility] RDW-CV 14.0 11.2 - 14.8 % 05/08/2023 3:05 AM [facility] Platelet Count 314 150 - 400 10 3/uL 05/08/2023 3:05 AM [facility] MPV 8.7(L) 9.4 - 12.9 fL 05/08/2023 3:05 AM [facility] nRBC Absolute 0.00 0 10 3/uL 05/08/2023 3:05 AM [facility] nRBC Auto 0.0 0 /100 WBC 05/08/2023 3:05 AM [facility] Blood BLOOD SPECIMEN / Unknown Lab Venipuncture / Unknown 05/08/2023 2:45 AM CDT 05/08/2023 2:50 AM CDT Praful Reina DO LAB - HEMATOLOGY ORD ERABLES [facility] [address] [place] [address], [facility] [phone] * (ABNORMAL) BASIC METABOLIC PANEL (CALCIUM TOTAL) (05/08/2023 2:45 AM CDT) Only the most recent of9 resultswithin the time period is included. BUN 13 7 - 26 mg/dL 05/08/2023 3:19 AM [facility] Creatinine 0.62 0.56 - 0.96 mg/dL 05/08/2023 3:19 AM [facility] Sodium 135(L) 136 - 145 mmol/L 05/08/2023 3:19 AM [facility] Potassium 4.3 3.5 - 4.5 mmol/L 05/08/2023 3:19 AM [facility] Chloride 106 98 - 107 mmol/L 05/08/2023 3:19 AM [facility] CO2 25 22 - 29 mmol/L 05/08/2023 3:19 AM [facility] Glucose 103 70 - 115 mg/dL 05/08/2023 3:19 AM [facility] Calcium 8.6 8.4 - 10.2 mg/dL 05/08/2023 3:19 AM [facility] Anion Gap 4(L) 6 - 16 05/08/2023 3:19 AM [facility] BUN/Creatinine Ratio 21 7 - 23 05/08/2023 3:19 AM CDT [facility] Osmolality Calculated 280 275 - 295 mOsm/kg 05/08/2023 3:19 AM CDT [facility] eGFR by CKD-EPI >90 >=90 mL/min/1.7 3 m2 05/08/2023 3:19 AM CDT [facility] Blood BLOOD SPECIMEN / Unknown Lab Venipuncture / Unknown 05/08/2023 2:45 AM CDT 05/08/2023 2:51 AM CDT Praful Reina DO LAB - CHEMISTRY [facility] [place] [address] [address], [place] [phone] * IRON + TRANSFERRIN PANEL (05/07/2023 3:28 PM CDT) Iron 74 40 - 150 ug/dL 05/07/2023 5:00 PM CDT [facility] Transferrin 294 174 - 382 mg/dL 05/07/2023 5:00 PM CDT [facility] Transferrin Saturation % 20 16 - 50 % 05/07/2023 5:00 PM CDT [facility] TIBC Calculated 368 240 - 450 ug/dL 05/07/2023 5:00 PM CDT [facility] Blood BLOOD SPECIMEN / Unknown Lab Venipuncture / Unknown 05/07/2023 3:28 PM CDT 05/07/2023 3:54 PM CDT Susanna Acosta PA-C LAB - CHEMIS TRY ORDERABLES [address] [address], [place] [phone] * FERRITIN (05/07/2023 3:28 PM CDT) Ferritin 111 13 - 204 ng/mL 05/07/2023 5:17 PM CDT [facility] Blood BLOOD SPECIMEN / Unknown Lab Venipuncture / Unknown 05/07/2023 3:28 PM CDT 05/07/2023 3:54 PM CDT Susanna Acosta PA-C LAB - CHEMIS TRY ORDERABLES Performing Organization Address [facility] Co de Phone Number [address] [phone] [place] [address], [facility] [phone] * (ABNORMAL) METHYLMALONIC ACID BLOOD (05/07/2023 3:26 PM CDT) Methylmalonic Acid 1.69(H) 0.00 - 0.40 umol/L 05/11/2023 5:15 AM CDT [employer] ([facility]) Comment: Slight elevation 0.41-0.99 umol/L Consistent with mild vitamin B12 deficiency, renal insufficiency, or intravascular volume contraction. Moderate elevation 1.00-9.99 umol/L Consistent with mild vitamin B12 deficiency. Massive elevation - Greater than or equal to 10 umol/L Consistent with significant vitamin B12 deficiency or with inborn errors of metabolism. INTERPRETIVE INFORMATION: MMA Serum/Plasma, Vitamin B12 Status This test was developed and its performance characteristics determined by [employer]. It has not been cleared or approved by the [place] Food and Drug Administration. This test was performed in a CLIA certified laboratory and is intended for clinical purposes. Performed By: [employer] [address] [place] [address] Airborne Operations Manager: Ritchie Champan MD, PhD CLIA Number: [id number] Blood BLOOD SPECIMEN / Unknown Lab Venipuncture / Unknown 05/07/2023 3:26 PM CDT 05/07/2023 3:54 PM CDT Susanna Acosta PA-C LAB - CHEMIS TRY ORDERABLES Performing Organization Address [facility]/ZIP Co de Phone Number [facility] [employer] [facility]) [address] * VITAMIN B1 (05/07/2023 3:26 PM CDT) Vitamin B1 Whole Blood 98 70 - 180 nmol/L 05/11/2023 7:40 AM CDT [facility] ([facility]) Comment: INTERPRETIVE INFORMATION: Vitamin B1, Whole Blood This assay measures the concentration of thiamine diphosphate (TDP), the primary active form of vitamin B1. Approximately 90 percent of vitamin B1 present in whole blood is TDP. Thiamine and thiamine monophosphate, which comprise the remaining 10 percent, are not measured. This test was developed and its performance characteristics determined by [employer]. It has not been cleared or approved by the US Food and Drug Administration. This test was performed in a CLIA certified laboratory and is intended for clinical purposes. Performed By: [employer] [address] [place] [address] Airborne Operations Manager: Ritchie Chapman MD, PhD CLIA Number: [id number] Blood BLOOD SPECIMEN / Unknown Lab Venipuncture / Unknown 05/07/2023 3:26 PM CDT 05/07/2023 3:54 PM CDT Susanna Acosta PA-C LAB - CHEMH&R Century TRY ORDERABLES Performing Organization Address City/[facility]/ZIP Co de Phone Number [facility]) [address] [place] [address] * (ABNORMAL) FOLATE (05/07/2023 3:26 PM CDT) Folate 36.7(H) 7.0 - 31.4 ng/mL 05/07/2023 6:05 PM CDT [facility] Comment:Result obtained by haley roland. Blood BLOOD SPECIMEN / Unknown Lab Venipuncture / Unknown 05/07/2023 3:26 PM CDT 05/07/2023 4:15 PM CDT Susanna Acosta PA-C LAB - CHEMIS TRY ORDERABLES [facility] [address] [place] [address], [place] [phone] * (ABNORMAL) VITAMIN B12 (05/07/2023 3:26 PM CDT) Vitamin B12 >2,000(H) 213 - 816 pg/mL 05/07/2023 5:21 PM CDT [facility] Blood BLOOD SPECIMEN / Unknown Lab Venipuncture / Unknown 05/07/2023 3:26 PM CDT 05/07/2023 4:15 PM CDT Susanna Acosta PA-C LAB - CHEMIS TRY ORDERABLES Performing Organization Address [facility] Co de Phone Number [address] [address], [facility] [phone] * EKG 12-LEAD (05/07/2023 2:59 PM CDT) Ventricular Rate 111 BPM [facility] Atrial Rate 111 BPM [facility] P-R Interval 142 ms [facility] QRS Duration ms 74 ms [facility] MUSE Q-T Interval ms 334 ms [facility] MUSE QTC Calculation (Bezet) 454 ms [facility] Calculated P [place] 68 degrees [facility] MUSE Calculated R [place] 52 degrees [facility] MUSE Calculated T [place] 59 degrees [facility] Interpretation EKG SINUS TACHYCARDIA OTHERWISE NORMAL ECG NO PREVIOUS ECGS AVAILABLE Confirmed by SOILA THOMPSON MD ([id number]) on 05/08/2023 3:22:20 PM [facility] MUSE 05/07/2023 2:59 PM CDT 05/08/2023 3:22 PM CDT Susanna Acosta PA-C ECG ORDERABL ES Performing Organization Address [facility] Co de Phone Number [facility] MUSE * TSH REFLEX FREE T4 (05/07/2023 2:36 AM CDT) TSH 0.397 0.350 - 4.940 uIU/mL 05/07/2023 10:54 AM CDT [facility] Blood BLOOD SPECIMEN / Unknown Lab Venipuncture / Unknown 05/07/2023 2:36 AM CDT 05/07/2023 3:02 AM CDT Praful Reina DO LAB - CHEMISTRY [facility] [place] Performing Organization Address City/[facility]/ZIP Co de Phone Number [address] [address], [facility] [phone] * FL ELIDA SURGERY (04/29/2023 5:15 PM CDT) Narrative [facility] RADIOLOGY - 04/29/2023 5:40 PM CDT Fluoroscopy was used for this exam in the OR. Please see the Operative report. Sanjeev Kline MD FLUOROSCOPY ORDERABL ES [facility] RADIOLOGY * IV PLACEMENT PERFORMABLE (04/29/2023 4:51 PM CDT) Narrative Jaswinder Churchill MD - 04/29/2023 4:51 PM CDT Dg Bocanegra DO 04/29/2023 4:52 PM Peripheral IV Line Placement: Patient Location: OR Procedure: IV start (88514). Procedure Section: Skin Prep: alcohol. Orientation: right Location: hand Local Anesthetic Used? No Brand Name: Osborn. Catheter Gauge: 18 Catheter Length (in): 1.25 Number of Attempts: 1. Procedure Tolerance: performed while patient under general anesthesia. Procedure Start Time: 04/29/2023 2:44 PM. Procedure End Time: 04/29/2023 2:46 PM. Procedure Total Time: 2 minutes. Staff Section Provider #1: Mathew Barajas, Performed the procedure. Jaswinder Churchill MD GENERAL ANESTHESIA O RDERABLES * ETT LINE PERFORMABLE (04/29/2023 3:02 PM CDT) Narrative Jaswinder Churchill MD - 04/29/2023 3:02 PM CDT Dg Bocanegra DO 04/29/2023 3:06 PM Endotracheal Tube Placement: Patient Location: OR. Intubation Event Date/Time: 04/29/2023 2:37 PM Procedure: intubation (54028). Procedure Section: Sedation: under general anesthesia. Indications for Airway Management: anesthesia Procedure pretreatments used? No Induction: standard IV Patient Position: supine and sniffing Mask Ventilation: easy. Blade Type: Keri Blade Size: 3 Laryngoscopy View: grade 2 (partial cords) Intubation Adjuncts: stylet Tube: endotracheal tube Placement: oral Tube type: cuff - inflated Tube Size (MM): 7 Depth of Insertion (CM): 21 Measured From: teeth Cuff volume (mL): 8 Cuff Inflated With: air Number of Attempts: 2. Ventilation between attempts: Yes. Placement Verified By: direct visualization, bilateral breath sounds, chest auscultation and CO2 monitor Tube secured with: adhesive tape. Dentition unchanged? Yes Difficult Airway? No. Procedure Start Time: 04/29/2023 2:37 PM. Procedure End Time: 04/29/2023 2:41 PM. Procedure Total Time: 4 minutes. Staff Section Anesthesia Provider: Dg Bocanegra DO, Performed the procedure Provider #1: Mathew Barajas, Performed the procedure. Provider #2: Jaswinder Churchill MD. Additional Comments: [...] report was drafted by Neto Vernon MD (residential insurance inspector) I, Sage Mattson MD have personally reviewed and interpreted this examination/study. > Interpreting Provider: Sage Mattson MD on 04/28/2023 8:05 AM Narrative 04/28/2023 8:05 AM CDT PROCEDURE: CT ANKLE LEFT WO CONTRAST DATE/TIME [...] report was drafted by Neto Vernon MD (residential insurance inspector) I, Sage Mattson MD have personally reviewed and interpreted this examination/study. > Interpreting Provider: Sage Mattson MD on 04/28/2023 8:[address] ORDERABLES * BLOOD TYPE VERIFICATION (04/27/2023 8:38 PM CDT) ABO Rh B POS 04/27/2023 9:1 8 PM CDT [facility] BLOOD BANK LAB Blood Bank BLOOD SPECIMEN / Unknown Lab Venipuncture / Unknown 04/27/2023 8:38 PM CDT 04/27/2023 8:52 PM CDT Ignacia Merino MD LAB - BLOOD BANK ORD ERABLES [facility] BLOOD BANK LAB [address] [place] [address], [facility] [phone] * PT-INR [facility] (04/27/2023 8:06 PM CDT) PT 13.7 12.1 - 14.8 Seconds 04/27/2023 8:44 PM CDT [facility] INR 1.1 See Comment 04/27/2023 8:44 PM CDT [facility] Comment:The suggested therap eutic range for standard coumadin (warfarin) therapy is an INR of 2.0-3.0. For high-risk patients (Mechanical Mitral Valve Prosthesis, etc.), the suggested prophylactic therapeutic range is an INR of 2.5-3.5. Blood BLOOD SPECIMEN / Unknown Venipuncture / Unknown 04/27/2023 8:06 PM CDT 04/27/2023 8:22 PM CDT Parker Quispe MD LAB - COAGULATION OR DERABLES Performing Organization Address [facility]/ZIP Co de Phone Number [address] [address], [facility] [phone] * (ABNORMAL) VITAMIN D 25-HYDROXY (04/27/2023 8:06 PM CDT) Vitamin D, 25 Hydroxy 7.0(L) 30.0 - 80.0 ng/mL 04/28/2023 8:10 AM CDT [facility] Comment: The recommendations for 25-Hydroxy Vitamin D clinical decision points are as follows: Deficient: <20.0 ng/mL Insufficient: 20.0 - 29.9 ng/mL Sufficient: 30.0 - 100.0 ng/mL Potential Toxicity: >100 ng/mL Reference: The Endocrine Society Clinical Practice Guidelines. 2011 If the 25-Hydroxy Vitamin D results are inconsitent with clinical evidence, it is recommended that follow-up testing using a method such as LC/MS/MS be performed to confirm the result. Blood BLOOD SPECIMEN / Unknown Venipuncture / Unknown 04/27/2023 8:06 PM CDT 04/27/2023 8:22 PM CDT Cata Francois DIGITAL PHOTOGRAPHER-PROFESSOR [employer] LAB - CHEMISTRY O RDERABLES Performing Organization Address City/[facility]/ZIP Co de Phone Number [address] [address], [place] [phone] * TYPE + SCREEN PANEL (04/27/2023 8:06 PM CDT) Pathologist [facility] Antibody Screen NEG 9:03 PM CDT [facility] BLOOD B[facility] LAB ABO Rh B POS 04/27/2023 9:03 PM CDT [facility] BLOOD [facility] LAB Blood Bank BLOOD SPECIMEN / Unknown Venipuncture / Unknown 04/27/2023 8:06 PM CDT 04/27/2023 8:27 PM CDT Parker Quispe MD LAB - BLOOD BANK ORD ERABLES [facility] BLOOD [facility]ANK LAB [address] [place] [address], [facility] [phone] * (ABNORMAL) CBC W AUTO DIFFERENTIAL (04/27/2023 8:06 PM CDT) [facility] WBC 6.5 3.5 - 10.5 10 3/uL 04/27/2023 8:29 PM [facility] RBC 3.50(L) 3.80 - 5.20 10 6/uL 04/27/2023 8:29 PM [facility] Hemoglobin 10.2(L) 12.0 - 15.6 g/dL 04/27/2023 8:29 PM [facility] Hematocrit 31.0(L) 35.0 - 45.0 % 04/27/2023 8:29 PM [facility] MCV 88.6 80.7 - 98.3 fL 04/27/2023 8:29 PM [facility] MCH 29.1 26.7 - 34.0 pg 04/27/2023 8:29 PM [facility] MCHC 32.9 30.8 - 35.9 g/dL 04/27/2023 8:29 PM [facility] RDW-SD 45.9 36.0 - 50.0 fL 04/27/2023 8:29 PM [facility] RDW-CV 14.3 11.2 - 14.8 % 04/27/2023 8:29 PM [facility] Platelet Count 223 150 - 400 10 3/uL 04/27/2023 8:29 PM [facility] MPV 9.7 9.4 - 12.9 fL 04/27/2023 8:29 PM [facility] nRBC Absolute 0.00 0 10 3/uL 04/27/2023 8:29 PM [facility] nRBC Auto 0.0 0 /100 WBC 04/27/2023 8:29 PM [facility] Neutrophils % 55.0 35.0 - 70.0 % 04/27/2023 8:29 PM [facility] Lymphocytes % 34.3 20.0 - 43.0 % 04/27/2023 8:29 PM [facility] Monocytes % 9.8 5.0 - 13.0 % 04/27/2023 8:29 PM [facility] Eosinophils % 0.3 0.0 - 6.0 % 04/27/2023 8:29 PM [facility] Basophil % 0.3 0.0 - 2.0 % 04/27/2023 8:29 PM [facility] Neutrophils Absolute 3.55 1.60 - 7.00 10 3/uL 04/27/2023 8:29 PM [facility] Lymphocyte Absolute 2.21 1.10 - 3.90 10 3/uL 04/27/2023 8:29 PM [facility] Monocytes Absolute 0.63 0.26 - 1.07 10 3/uL 04/27/2023 8:29 PM [facility] Eosinophils Absolute 0.02 0.00 - 0.47 10 3/uL 04/27/2023 8:29 PM [facility] Basophils Absolute 0.02 0.00 - 0.08 10 3/uL 04/27/2023 8:29 PM [facility] Immature Granulocytes % 0.3 0.0 - 1.0 % 04/27/2023 8:29 PM [facility] Immature Granulocytes Absolute 0.02 04/27/2023 8:29 PM [facility] Blood BLOOD SPECIMEN / Unknown Venipuncture / Unknown 04/27/2023 8:06 PM CDT 04/27/2023 8:22 PM CDT Parker Quispe MD LAB - HEMATOLOGY ORD ERABLES [facility] [address] [place] [address], [facility] [phone] * (ABNORMAL) COMPREHENSIVE METABOLIC PANEL (04/27/2023 8:06 PM CDT) BUN 9 7 - 26 mg/dL 04/27/2023 8:53 PM [facility] Creatinine 0.74 0.56 - 0.96 mg/dL 04/27/2023 8:53 PM [facility] Sodium 138 136 - 145 mmol/L 04/27/2023 8:53 PM [facility] Potassium 3.7 3.5 - 4.5 mmol/L 04/27/2023 8:53 PM [facility] Chloride 107 98 - 107 mmol/L 04/27/2023 8:53 PM [facility] CO2 24 22 - 29 mmol/L 04/27/2023 8:53 PM [facility] Glucose 103 70 - 115 mg/dL 04/27/2023 8:53 PM [facility] Calcium 8.2(L) 8.4 - 10.2 mg/dL 04/27/2023 8:53 PM [facility] Protein Total 6.6 6.0 - 8.3 g/dL 04/27/2023 8:53 PM [facility] Albumin 3.6 3.4 - 5.0 g/dL 04/27/2023 8:53 PM [facility] Bilirubin Total 0.4 0.2 - 1.2 mg/dL 04/27/2023 8:53 PM [facility] Alkaline Phosphatase 105 40 - 150 U/L 04/27/2023 8:53 PM [facility] ALT 28 5 - 55 U/L 04/27/2023 8:53 PM [facility] AST 32 5 - 34 U/L 04/27/2023 8:53 PM [facility] Anion Gap 7 6 - 16 04/27/2023 8:53 PM [facility] BUN/Creatinine Ratio 12 7 - 23 04/27/2023 8:53 PM CDT [facility] Osmolality Calculated 285 275 - 295 mOsm/kg 04/27/2023 8:53 PM [facility]T [facility] Albumin/Globulin Ratio 1.2 1.1 - 2.3 04/27/2023 8:53 PM CDT [facility] eGFR by CKD-EPI >90 >=90 mL/min/1.7 3 m2 04/27/2023 8:53 PM CDT [facility] Blood BLOOD SPECIMEN / Unknown Venipuncture / Unknown 04/27/2023 8:06 PM CDT 04/27/2023 8:22 PM CDT Parker Quispe MD LAB - CHEMISTRY [facility] Performing Organization Address City/[facility]/ZIP Co de Phone Number [address] [id number], [facility] [phone] * HCG BETA BLOOD QUANTITATIVE (04/27/2023 8:06 PM CDT) Beta-hCG Total Quantitative <3 mIU/mL 04/27/2023 9:05 PM CDT [facility] Comment: HCG Numeric Result Interpretation: Non- Females: < 5 mIU/mL Post-Menopausal Females: < 7 mIU/mL This assay is cleared for use in the early detection of only. It is not approved for any other uses such as tumor marker screening, tumor marker monitoring, etc. and should not be used for any other purposes. Blood BLOOD SPECIMEN / Unknown Venipuncture / Unknown 04/27/2023 8:06 PM CDT 04/27/2023 8:22 PM CDT Parker Quispe MD LAB - CHEMISTRY [facility] [address] [address], [place] [phone] * XR ANKLE LEFT 3VW OR MORE [...] Report dictated by Jesus Alberto Justin MD (student affairs vice president). I, Marcio Victor MD have personally reviewed and interpreted this examination/study. > Interpreting Provider: Marcio Victor MD on 04/27/2023 11:25 PM Narrative 04/27/2023 11:25 PM CDT PROCEDURE: XR TIBIA FIBULA LEFT 2VW, XR ANKLE LEFT 3VW OR MORE, DATE/TIME OF EXAM: 04/27/2023 7:59 PM, LOCATION [facility] INDICATION: W19.XXXA: Fall, initial encounter Ordering Provider [...] MORE,DATE/TIME OF EXAM: 04/27/2023 7:59 PM, LOCATION [facility] INDICATION: W19.XXXA: Fall, initial encounter Ordering Provider [...] Report dictated by Jesus Alberto Justin MD (student affairs vice president). Marcio Cordova MD have personally reviewed and interpreted [...] Report dictated by Jesus Alberto Justin MD (student affairs vice president). Alba Cordova MD have personally reviewed and interpreted this examination/study. > Interpreting Provider: Alba Saldaña MD on 04/28/2023 10:26 AM Narrative 04/28/2023 10:26 AM CDT PROCEDURE: XR FOOT RIGHT 3VW OR MORE, DATE/TIME OF EXAM: 04/27/2023 8:00 PM, LOCATION [facility] INDICATION: W19.XXXA: Fall, initial encounter Ordering Provider [...] MORE, DATE/TIME OF EXAM: 38:00 PM, LOCATION [facility] INDICATION: W19.XXXA: Fall, initial encounter Ordering Provider Reason For Exam: fx COMPARISON: None. FINDINGS: The osseous structures are intact and well aligned without acutefracture or dislocation. The joint spaces are preserved. Bone density and texture are normal. No soft tissue swelling is present. IMPRESSION: No acute fracture or dislocation identified. Report dictated by Jesus Alberto Justin MD (student affairs vice president). I, Alba Saldaña MD have personally reviewed and interpreted this examination/study. > Interpreting Provider: Alba Saldaña MD on 04/28/2023 10:26 AM Parker Quispe MD DIAGNOSTIC IMAGING [facility] [place]
--- OUTSIDE RECORDS SUMMARY | 2024-09-09 15:58 | XMS_ITS | Clinical Summary ---
Author Organization [facility] Address [address] [place] [address] Care Team Providers Care Movie Editor Name Role Phone Unavailable Primary Care Provider Unavailabl e Source Comments [facility],non-owned Affiliates and Associated Physician Practices is amultiple site organization consisting of ambulatory clinics and hospital sitesin [place], [place], [place] and [place]. This disclosure is being madepursuant to the Care Everywhere program and may not contain all information available regarding this patient. Last updated 18.[facility] [place] Allergies Active Allergy Reactions Criticality Noted Date [...] Patient not taking.Reported on 07/07/2023 HYDROcodone-aceta minophen ([place]) 5-325 MG tabletIndications :Tibia/fibula fracture, left, closed, with routine healing, subsequent encounter Take 1 (one) tablet by mouth every 8 hours as needed for Pain 40 tablet 07/07/2023 Active Additional Information Patient not taking.Reported on 08/18/2023 naloxone HCl (Narcan) 4 MG/0.1ML nasal sprayIndications: Tibia/fibula fracture, left, closed, with routine healing, subsequent encounter,terminal carman current use of opiate analgesic,Chronic pain syndrome [place] 1 (one) spray into the nose as [...] eine (Tylenol #3) 300-30 MG tabletIndications :terminal carman current use of opiate analgesic,Chronic pain syndrome,Closed [...] Recorded Patient Health Questionnaire-2 Score 0 08/18/2023 [facility] - Occupational [...] slept in a nursing home (including now)? No 05/01/2023 Sex and [...] kg (155 lb) 08/18/2023 10:5 9 AM WORKING SECOND HAND Height 154.9 cm (5' 1 ) 05/19/2023 10:3 7 AM CDT Body Mass Index 29.29 05/19/2023 10:37 AM CDT Plan of Treatment Upcoming Encounters Date Type Department Care Team (Late st Contact Info) Description 10/04/2024 12:00 PM WORKING SECOND HAND Office Visit [facility] Orth[facility] [address] [place] [address], [place] [address] Praful Reina, DO [facility] [place] [address] Health Maintenance Due Date Last Done Comments LIPID TESTING 1980 HIV SCREENING 1995 HEPATITIS C SCREENING 04/21/1998 DTAP/TDAP/TD VACCINES (1 - Tdap) 1999 HEPATITIS B VACCINE (1 of 3 - 19+ 3-dose series) 1999 MAMMOGRAM 01/02/2023 01/02/2021 COVID-19 VACCINE (1 - season) 2024 INFLUENZA VACCINE (#1) 2024 DEPRESSION SCREENING 08/03/2024 08/18/2023, 07/07/20 PAP SMEAR 06/03/2025 06/03/2022 SCREENING FOR DIABETES 05/08/2026 3, 05/07/2023, 05/06/2023, Additional history exists ZOSTER VACCINE [...] this topic Medical Devices Implanted Type Area Public Area Attendant Device Identifier Shelf Expiration Date Model / Serial / Lot Tibial Nail- Advanced/11mm 345mm Implanted:Qty: 1 on 04/29/2023 by Sanjeev Kline MD at [facility] Left: Tibia [employer] 08/02/2032 [id number] S / / [id number] 5.0mm Locking Screws Implanted:Qty: 1 on 04/29/2023 by Sanjeev Kline MD at [facility] [id number] / / 5.0mm Locking Screw Implanted:Qty: 1 on 04/29/2023 by Sanjeev Kline MD at [facility] [id number] / / 5.0mm Locking Screw Implanted:Qty: 2 on 04/29/2023 by Sanjeev Kline MD at [facility] [id number] / / 5.0mm Locking Screw Implanted:Qty: 1 on 04/29/2023 by Sanjeev Kline MD at [facility] [id number] / / 3.5 Cannulated Implanted:Qty: 1 on 04/29/2023 by Sanjeev Kline MD at [facility] [id number] / / 3.5 Cannulated Implanted:Qty: 1 on 04/29/2023 by Sanjeev Kline MD at [facility] [id number] / / Explanted Type Area Public Area Attendant Device Identifier Shelf Expiration Date Model / Serial / Lot Slv Prtc 12mm Suprapatellar Strl Explanted:Qty: 1 on 04/29/2023 at [facility] Left: Tibia [employer] 10/31/2024 [id number] S / / [id number] Procedures Procedure Name Priority Date/Time Associated Diagnosis Comments BASIC METABOLIC PANEL (CALCIUM TOTAL) AM Draw 05/08/2023 2:45 AM CDT from Last 3 Months or Most Recently Relevant to Health Maintenance Results * (ABNORMAL) BASIC METABOLIC PANEL (CALCIUM TOTAL) (05/08/2023 2:45 AM CDT) BUN 13 7 - 26 mg/dL 05/08/2023 3:19 AM [facility] Creatinine 0.62 0.56 - 0.96 mg/dL 05/08/2023 3:19 AM [facility] Sodium 135(L) 136 - 145 mmol/L 05/08/2023 3:19 AM [facility] Potassium 4.3 3.5 - 4.5 mmol/L 05/08/2023 3:19 AM [facility] Chloride 106 98 - 107 mmol/L 05/08/2023 3:19 AM [facility] CO2 25 22 - 29 mmol/L [...] [facility] [address] [place] [address], [facility] [phone] from Last 3 Months or Most Recently Relevant to Health Maintenance Advance Directives * Full Code (Latest Code Status on File) Date Activated Date Inactivated Comments 04/28/2023 4:28 AM 05/08/2023 4:32 PM
--- OUTSIDE RECORDS SUMMARY | 2024-09-09 15:59 | XMS_ITS | Encounter Summary ---
Author Organization [facility] Address [facility] [place] [address] Care Team Providers Care Farmer Diversified Crops Name Role Phone Betzy Tang APRN Primary Care Provider [phone] Rabia Black BASKETBALL COMMENTATOR Primary Care Provider [phone] Encounter Details Date Type Department Care Team (Late st Contact Info) Description 07/23/2022 Hospital Follow-up Call [place] [address] [place] [address] Divina Merino, RN Social History Tobacco Use Types Packs/Day [...] Coronavirus/COVID-19? No / Unsure 07/20/2022 1:13 PM PROFESSOR OF PSYCHIATRY documented as of this encounter Functional Status * RETIRED Are you deaf or do you have serious difficulty hearing Answer Date of Assessment Author Status No 07/20/2022 7:28 PM PROFESSOR OF PSYCHIATRY Activ e * RETIRED Are you blind or do you have serious difficulty seeing, even when wearing glasses? Answer Date of Assessment Author Status No 07/20/2022 7:28 PM PROFESSOR OF PSYCHIATRY Activ e * Do you have serious [...] living Lifestyle No Aracely Baird MSW Safety Patient/family will have appropriate support at home upon discharge Lifestyle No Nelli Rodríguez RN documented as of this encounter Visit Diagnoses Not on filedocumented in this encounter Care Teams Farmer Diversified Crops Relationship Specialty Start Date End Date Betzy Tang APRN [address] [place] [address] PCP - General NURSE PRACTITIONER 04/01/19 10/29/23 Rabia Black FNP [address] [place] [address] PCP - General Nurse Practitioner Family 02/29/24 documented as of this encounter
--- OUTSIDE RECORDS SUMMARY | 2024-09-09 15:59 | XMS_ITS | Encounter Summary ---
Author Organization [facility] Address [facility] [place] [address] Care Team Providers Care Advertising Traffic Manager Name Role Phone Betzy Tang APRN Primary Care Provider [phone] Rabia Black RESIDENT ENGINEER Primary Care Provider [phone] Encounter Details Date Type Department Care Team (Late st Contact Info) Description 02/08/2020 Telephone [facility] [address] [place] [address] Katy Blevins CNA Social History Tobacco Use [...] Assessment Author Status No 02/06/2020 5:07 PM Jennifre Strong RN Active * Because of a [...] to independent living Lifestyle No Aracely Baird, STRATEGIC ALLIANCES MANAGER documented as of this encounter Visit Diagnoses Not on filedocumented in this encounter Care Teams Advertising Traffic Manager Relationship Specialty Start Date End Date Betzy Tang APRN [address] [place] [address] PCP - General NURSE PRACTITIONER 04/01/19 10/29/23 Rabia Black FNP [address] [place] [address] PCP - General Nurse Practitioner Family 02/29/24 documented as of this encounter
--- OUTSIDE RECORDS SUMMARY | 2024-09-09 15:59 | XMS_ITS | Clinical Summary ---
Author Organization [facility] Address [address], [facility] [address] [place] [address] Phone Care Team Providers Care Medication Aid Name Role Phone Unavailable Primary Care Provider [...] 98 01/23/2016 10:14 AM CDT Temperature 37.3 C (99.1 F) 01/23/2016 10:14 AM CDT Respiratory Rate - - Oxygen Saturation 98% [...] age to complete this topic Insurance MEDICAID [facility]
--- OUTSIDE RECORDS SUMMARY | 2024-09-09 15:59 | XMS_ITS | Clinical Summary ---
Author Organization [facility] ui Address [address] [place] [address] Phone Care Team Providers Care Cuprous Chloride Helper Name Role Phone Unavailable Primary Care Provider Unavailabl e Allergies Active Allergy Reactions Criticality Noted Date Comments Codeine Itching Low 08/22/2024 Methocarbamol Nausea and Vomiting Low 08/22/2024 Nsaids (Non-Steroidal Anti-Inflammatory Drug) Nausea and Vomiting Low 08/22/2024 Tramadol Seizure High 08/22/2024 Encounters Date Type Department Care Team Description 08/22/2024 6:58 PM MEDICAL OBSERVER - 08/22/2024 8:23 PM MEDICAL OBSERVER Emergency [facility] Emergency Department [address] [place] [address] Rabia Chi MD Discharge Disposition: [...] on file Legal Sex Female 6:11 PM MEDICAL OBSERVER Gender Identity Not on file Sexual Orientation Not on file Last Filed Vital Signs Vital Sign Reading Time Taken Comments Blood Pressure 124/94 08/22/2024 6:16 PM MEDICAL OBSERVER Pulse - - Temperature 36.6 C (97.9 F) 08/22/2024 6:16 PM MEDICAL OBSERVER Respiratory Rate 20 08/22/2024 6:16 PM MEDICAL OBSERVER Oxygen Saturation 100% 08/22/2024 6:16 PM MEDICAL OBSERVER Inhaled Oxygen Concentration - - Weight 84.8 kg (187 lb) 08/22/2024 6:16 PM MEDICAL OBSERVER Height 154.9 cm (5' 1 ) 08/22/2024 6:16 PM MEDICAL OBSERVER Body Mass Index 35.33 08/22/2024 6:16 PM MEDICAL OBSERVER Plan of Treatment Health Maintenance Due Date [...] Comments POC CREATININE Stat 08/22/2024 7:20 PM MEDICAL OBSERVER COMPREHENSIVE METABOLIC PANEL Stat 08/22/2024 7:15 PM MEDICAL OBSERVER CBC WITH DIFFERENTIAL Stat 08/22/2024 7:15 PM MEDICAL OBSERVER from Last 3 Months Results * POC CREATININE (08/22/2024 7:20 PM MEDICAL OBSERVER) CREATININE POC 0.90 0.50 - 1.00 mg/dL 08/22/2024 7:20 PM MEDICAL OBSERVER [facility] GFR POC >60 >=60 mL/min/1.7 3 sq meter 08/22/2024 7:20 PM MEDICAL OBSERVER [facility] Comment:eGFR calculated with 2020 CKD-EPI equation. Vegetarian diet, extremely high or low muscle mass, and may affect results. Cystatin C with Glomerular Filtration Rate is a suitable alternative for these patients. Blood, whole 08/22/2024 7:20 PM MEDICAL OBSERVER 08/22/2024 7:23 PM MEDICAL OBSERVER us Rabia Chi MD POINT OF CARE TESTING Final Resu lt [facility]# [id number] [address] [place] [address] * (ABNORMAL) CBC WITH DIFFERENTIAL (08/22/2024 7:15 PM MEDICAL OBSERVER) WBC 4.7 4.0 - 9.8 K/uL 08/22/2024 7:41 PM MEDICAL OBSERVER [facility] RBC 4.13 3.90 - 4.90 M/uL 08/22/2024 7:41 PM MEDICAL OBSERVER [facility] HEMOGLOBIN 12.1 11.8 - 14.8 g/dL 08/22/2024 7:41 PM MEDICAL OBSERVER [facility] [place] HEMATOCRIT 37.1 35.5 - 44.0 % 08/22/2024 7:41 PM MEDICAL OBSERVER [facility] [place] MCV 89.8 82.0 - 99.0 fL 08/22/2024 7:41 PM MEDICAL OBSERVER [facility] [place] MCH 29.3 27.2 - 32.6 pg 08/22/2024 7:41 PM MEDICAL OBSERVER [facility] MCHC 32.6 31.5 - 35.5 g/dL 08/22/2024 7:41 PM MEDICAL OBSERVER [facility] RDW 16.3(H) 11.5 - 14.5 % 08/22/2024 7:41 PM MEDICAL OBSERVER [facility] RDW-STDEV 54.5(H) 37.1 - 48.7 fL 08/22/2024 7:41 PM MEDICAL OBSERVER [facility] PLATELETS 273 140 - 350 K/uL 08/22/2024 7:41 PM MEDICAL OBSERVER [facility] MPV 10.4 9.3 - 12.4 fL 08/22/2024 7:41 PM MEDICAL OBSERVER [facility] [place] NEUTROPHILS 41 % 08/22/2024 7:41 PM MEDICAL OBSERVER [facility] LYMPHOCYTES 48 % 08/22/2024 7:41 PM MEDICAL OBSERVER [facility] MONOCYTES 9 % 08/22/2024 7:41 PM MEDICAL OBSERVER [facility] EOSINOPHILS 1 % 08/22/2024 7:41 PM MEDICAL OBSERVER [facility] BASOPHILS 0 % 08/22/2024 7:41 PM MEDICAL OBSERVER [facility] IMMATURE GRANULOCYTES 0 % 08/22/2024 7:41 PM MEDICAL OBSERVER [facility] [place] NEUTROPHIL ABSOLUTE 1.93 1.90 - 7.00 K/uL 08/22/2024 7:41 PM MEDICAL OBSERVER [facility] LYMPHOCYTE ABSOLUTE 2.25 0.70 - 4.50 K/uL 08/22/2024 7:41 PM [facility] [employer] [facility] - [facility] MONOCYTE ABSOLUTE 0.41 0.10 - 1.30 K/uL 08/22/2024 7:41 PM [facility] [employer] [facility] EOSINOPHIL ABSOLUTE 0.04 0.00 - 0.70 K/uL 08/22/2024 7:41 PM [facility] [employer] [facility] BASOPHILS ABSOLUTE 0.02 0.00 - 0.20 K/uL 08/22/2024 7:41 PM [facility] [employer] [facility] - [facility] IMMATURE GRANULOCYTES ABSOLUTE 0.01 0.00 - 0.03 K/uL 08/22/2024 7:41 PM [facility] [employer] [facility] Blood Venipuncture / Unknown 08/22/2024 7:15 PM MEDICAL OBSERVER 08/22/2024 7:30 PM MEDICAL OBSERVER Rabia Chi MD HEMATOLOGY ORDERABLES Final Resu lt [facility]# [id number] [address] [place] [address] * (ABNORMAL) COMPREHENSIVE METABOLIC PANEL (08/22/2024 7:15 PM MEDICAL OBSERVER) SODIUM 142 136 - 145 mmol/L 08/22/2024 8:09 PM [facility] POTASSIUM 4.5 3.5 - 5.0 mmol/L 08/22/2024 8:09 PM [facility] [employer] [facility] [place] CHLORIDE 109(H) 98 - 107 mmol/L 08/22/2024 8:09 PM [facility] [employer] [facility] CO2 23 22 - 29 mmol/L 08/22/2024 8:09 PM [facility] [employer] [facility] CALCIUM 9.0 8.6 - 10.2 mg/dL 08/22/2024 8:09 PM [facility] [employer] [facility] [place] BUN 17 6 - 20 mg/dL 08/22/2024 8:09 PM [facility] [employer] [facility] CREATININE 0.86 0.51 - 0.95 mg/dL 08/22/2024 8:09 PM [facility] GLUCOSE 105(H) 74 - 99 mg/dL 08/22/2024 8:09 PM [facility] TOTAL PROTEIN 7.5 6.7 - 8.6 g/dL 08/22/2024 8:09 PM [facility] ALBUMIN 4.0 3.5 - 5.2 g/dL 08/22/2024 8:09 PM [facility] BILIRUBIN TOTAL 0.2(L) 0.3 - 1.2 mg/dL 08/22/2024 8:09 PM [facility] ALKALINE PHOSPHATASE 148(H) 35 - 104 U/L 08/22/2024 8:09 PM [facility] AST 08/22/2024 8:09 PM [facility] Comment:Test cannot be perfo rmed. Sample hemolysis interference above limits. Redraw if indicated. ALT 8 <34 U/L 08/22/2024 8:09 PM [facility] GFR >60 >=60 mL/min/1.7 3 sq meter 08/22/2024 8:09 PM [facility] Comment:eGFR calculated with 2020 CKD-EPI equation. Vegetarian diet, extremely high or low muscle mass, and may affect results. Cystatin C with Glomerular Filtration Rate is a suitable alternative for these patients. ANION GAP 10 8 - 16 mmol/L 08/22/2024 8:09 PM [facility] Blood Venipuncture / Unknown 08/22/2024 7:15 PM MEDICAL OBSERVER 08/22/2024 7:30 PM [facility] - 08/22/2024 8:09 PM [facility] Samples containing indocyanine green cause interferences on Total and/or Direct Bilirubin and must not be measured. Rabia Chi MD CHEMISTRY ORDERABLES Final Resul t [facility] CLIA# [id number] [address] [place] [address] from Last 3 Months Insurance [facility] CHOICE [id number]
[2024-09-09 16:12] VITALS: BP 135/100; PULSE 120; RESP 17; TEMP 36.4; O2SAT 100
--- NOTE | 2024-09-09 16:13 | ED.LOWEXIN ---
HPI - Extremity Injury (Lower) General Chief Complaint: Extremity Injury, Lower Stated Complaint: fall left leg pain Focused HPI: 44-year-old female presents emergency department for left knee and ankle pain after mechanical fall that occurred yesterday. Patient states she was walking naked slides when the lip over 90 slide caught a stair and caused her to fall, landing on her left knee. She endorses a prior history of surgery to this left knee is concerned that the rods are screws have been misplaced. She did not hit her head or lose consciousness. Denies other injuries acquired. GENERAL: Well-appearing, well-nourished, and in no acute distress. HEAD: Normocephalic, atraumatic. CHEST: Clear to auscultation. ?No respiratory distress. EXT: LLE: tenderness over the patella and inferior to patella with no overlying skin changes, no deformity, full active and passive range of motion. Tenderness along the medial malleolus full range of motion of ankle and toes, DP pulse 2 +, sensation intact. HEART: Regular rate and rhythm.? NEURO: ?Alert and oriented x3. Patient screened in triage and initial orders placed.? ?Additional care and disposition to be based upon?diagnostic testing and treatment. Related Data Allergies Allergy/AdvReac Type Severity Reaction Status Date / Time tramadol Allergy Unknown seizure Verified 08/24/24 13:04 codeine AdvReac Itching Verified 08/24/24 13:04 ketorolac (From Toradol) AdvReac Shakiness Verified 08/24/24 13:04 methocarbamol AdvReac Vomiting Verified 08/24/24 13:04 NSAIDS (Non-Steroidal AdvReac Diarrhea Verified 08/24/24 13:04 Anti-Inflamma Review of Systems Review of Systems: All systems reviewed & are unremarkable except as noted in HPI and below PMFSH Past Medical History Medical History Anemia Hypocalcemia Hyperkalemia Leukopenia Fibromyalgia Surgical History Surgical History History of umbilical hernia repair H/O gastric bypass Family History Family History Sibling Diabetes mellitus Mother Hypertension Father Family history unknown Social History Social History Social History: Caffeine-occasionally Smoking status: Never smoker Alcohol intake: current Alcohol use details: occasionally Exam Narrative: GENERAL: Well-appearing, well-nourished, and in no acute distress. HEAD: Normocephalic, atraumatic. EYES: EOMI. ENT: Nares clear, no rhinorrhea or epistaxis. Mucous membranes moist. NECK: Supple. CHEST: Clear to auscultation. No respiratory distress. HEART: Regular rate and rhythm. No murmur heard. Normal peripheral pulses. EXTREMITIES: EXT: LLE: Tenderness to the patella just inferior to the patella with no overlying deformity or skin changes, full active and passive range of motion of knee. Tenderness to the medial malleolus with no overlying skin changes or deformity. DP pulse 2 +. Sensation intact. Compartments soft SKIN: Warm, dry, no rash. NEURO: No focal deficits. Alert and oriented x3 Course Vital Signs Vital signs: Vital Signs Temperature 97.6 F 09/09/24 16:12 Pulse Rate 120 H 09/09/24 16:12 Respiratory Rate 17 09/09/24 16:12 Blood Pressure 135/100 H 09/09/24 16:12 Pulse Oximetry 100 09/09/24 16:12 Oxygen Delivery Room Air 09/09/24 16:12 Temperature 97.6 F 09/09/24 16:12 Pulse Rate 120 H 09/09/24 16:12 Respiratory Rate 17 09/09/24 16:12 Blood Pressure 135/100 H 09/09/24 16:12 Pulse Oximetry 100 09/09/24 16:12 Oxygen Delivery Room Air 09/09/24 16:12 MDM - Extremity Injury (Lower) MDM Narrative Medical decision making narrative: 44-year-old female presents emergency department for left knee and ankle pain after a fall that occurred yesterday. Follows mechanical in nature. No head injury or trauma. Exam is significant for the above, no evidence of trauma. She is neurovascularly intact. X-rays of the left knee and ankle show no acute osseous findings, there are old fractures of the tibia and fibula with internal fixation. Patient updated on results. Discussed supportive care with NURA Mena, f/u with PCP. Pt repeatedly asked what I was going to do for her pain and I continue to reinforce that unfortunately will take time for the contusion/sprain to heal and then she needs to rest, compress, elevate and ice 20 minutes on 20 minutes off. Patient then asked to speak with attending physician. I am concerned for drug-seeking behavior. Per PMD patient had [place] filled on 08/27/2024 and oxycodone as then filled on 08/18/2024, pregabalin, gabapentin several times. These are all filled by different providers. Pt advised to f/u with PCP. Return precautions provided. Discharge Plan Discharge Clinical Impression: Acute pain of left knee Patient Disposition: Home, Self-Care Condition: Stable Instructions: Antibiotic Form, Knee Pain (ED) Additional Instructions: Please ice compress and elevate your injury and take Tylenol as needed for pain. Follow up with your primary care provider. Return to the ER if you develop any worsening symptoms. Patient Language: Turkish Prescriptions: No Action sumatriptan succinate [Imitrex] 50 mg tablet See Rx Instructions PO .COMPLEX Qty: 9 2RF Rx Instructions: take 1 tab at onset of headache; if no relief may repeat 1 tab after at least 2 hrs; max = 4 tabs/24 hr PO pregabalin 200 mg capsule 200 mg PO BID Qty: 60 3RF gabapentin 300 mg capsule 300 mg PO BID 30 Days Qty: 60 0RF hydrocodone-acetaminophen 5-325 mg tablet 1 tablet PO Q6H PRN (Reason: pain) 3 Days Qty: 12 0RF polyethylene glycol 3350 [Miralax] 17 gram/dose powder 17 g PO DAILY 5 Days Qty: 119 0RF hydrocodone-acetaminophen 5-325 mg tablet 1 tablet PO Q6H PRN (Reason: pain) Qty: 12 0RF gabapentin 300 mg capsule 300 mg PO BID Qty: 60 0RF cyclobenzaprine 10 mg tablet 10 mg PO TID PRN (Reason: muscle spasm) Qty: 14 0RF oxycodone 5 mg capsule 5 mg PO Q8H PRN (Reason: pain) Qty: 4 0RF hydrocodone-acetaminophen 5-325 mg tablet 1 tablet PO Q6H PRN (Reason: pain) Qty: 10 0RF estazolam 2 mg tablet 2 mg PO QHS Qty: 30 0RF Follow-up/Referrals: Sofia,Rabia Yun, TIMBER REPAIRER [Primary Care Provider] -
--- NOTE | 2024-09-09 17:20 | PC.NURSE ---
asked to dc pt by EDP, upset that she was being dc without pain medications. pt asked t follow up with PCP for pain management
--- OUTSIDE RECORDS SUMMARY | 2024-09-09 17:22 | XMS_ITS | Clinical Summary ---
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 Primary Care Provider [phone] Allergies Active Allergy Reactions Criticality Noted Date [...] palpitations 12/24/2015 Depression 11/23/2015 Fibromyalgia 11/07/2015 Seizures ([facility]) 11/07/2015 Resolved Problems Problem Noted Date Diagnosed Date Resolved Date Partial small bowel obstruct ion ([facility]) 07/20/2022 07/22/2022 Incarcerated ventral hernia 07/20/2022 08/18/2022 Women's annual routine gynec ological examination 03/31/2016 04/13/2020 Encounters Date Type Department Care Team Description 08/01/2024 1:41 PM COLLISION REPAIRER - 08/01/2024 9:18 PM [facility] Emergency [facility] Emergency Room [address] [place], [place] [id number] Kerline Anderson MD Medical Problem Discharge Disposition: [...] 0.6 oz pur e alcohol) very rarely [facility] Utilities Answer Date Recorded In the past 12 months has e [employer], gas, oil, or water [employer] threatened to shut off services in your [...] How often do you attend chur or mandaen services? More than 4 times per year 07/24/2023 Do you belong to any clubs o r organizations such as religion groups, unions, fraternal or athletic groups, or [...] medical care, and heating? Patient declined 07/24/2023 [facility] - Occupational [...] or slept in a fdc (including now)? Patient declined 07/24/2023 Comments No Sex and Gender Information Value Date Recorded Sex Assigned at Not on file Legal Sex Female 7:12 PM CDT Gender Identity Not on file Sexual Orientation Not on file Last Filed Vital Signs Vital Sign Reading Time Taken Comments Blood Pressure 130/90 08/01/2024 8:01 PM COLLISION REPAIRER Pulse 90 08/01/2024 8:01 PM COLLISION REPAIRER Temperature 36.7 C (98 F) 08/01/2024 8:01 PM COLLISION REPAIRER Respiratory Rate 20 08/01/2024 8:01 PM COLLISION REPAIRER Oxygen Saturation 100% 08/01/2024 8:01 PM COLLISION REPAIRER Inhaled Oxygen Concentration - - Weight 81.2 kg (179 lb) 08/01/2024 1:43 PM COLLISION REPAIRER Height 154.9 cm (5' 1 ) 08/01/2024 1:43 PM COLLISION REPAIRER Body Mass Index 33.82 08/01/2024 1:43 PM COLLISION REPAIRER Plan of Treatment Health Maintenance Due Date [...] to independent living Lifestyle No Aracely Baird, STUNT DOUBLE Safety Patient/family will have appropriate support at home upon discharge Lifestyle No Nelli 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, 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 bench operator Procedure Name Priority Date/Time Associated Diagnosis Comments ECG 12-LEAD STAT 08/01/2024 7:[address] ABD+PEL W CON STAT 08/01/2024 4:17 PM COLLISION REPAIRER LACTIC ACID STAT 08/01/2024 3:50 PM COLLISION REPAIRER TROPONIN, QUANT Routine 08/01/2024 3:07 PM COLLISION REPAIRER LACTIC ACID STAT 08/01/2024 3:07 PM COLLISION REPAIRER LIPASE STAT 08/01/2024 3:07 PM COLLISION REPAIRER COMPREHENSIVE METABOLIC PANEL STAT 08/01/2024 3:07 PM COLLISION REPAIRER CBC W/DIFF AUTOMATED STAT 08/01/2024 3:07 PM COLLISION REPAIRER LIPID PANEL Routine 07/24/2023 7:08 AM COLLISION REPAIRER MG SCREENING W ADRIANA LAISHA DIGI Routine 01/02/2021 1:19 PM CDT Visit for screening mammogram from Last 3 Months or Most Recently Relevant to Health Maintenance Results * ECG 12 lead (08/01/2024 7:16 PM COLLISION REPAIRER) 08/01/2024 7:16 PM COLLISION REPAIRER Narrative [facility] RAD - 08/02/2024 8:39 AM COLLISION REPAIRER [facility] Test Date: 2024-08-01 Pat Name: TABITHA BLACKWELL Department: 85 Room: [facility] Gender: Female 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: : 1980 Requested By: KERLINE ANDERSON Order Number: [id number] Reading MD: Emre Lees Measurements Intervals [place] Rate: 97 P: 59 WY: 136 QRS: 43 QRSD: 73 T: 48 QT: 338 QTc: 430 Interpretive Statements SINUS RHYTHM Compared to ECG 02/29/2024 15:22:31 Sinus tachycardia no longer present ISION REPAIRER Procedure Note Emre Lees MD - 08/02/2024 [facility] Test Date: 2024-08-01 Pat Name: TABITHA BLACKWELL Department: 85 Room: [facility] Gender: Female 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: : 1980 Requested By: KERLINEROSEMARIE ANDERSON Order Number: [id number] Reading MD: Emre Lees Measurements Intervals [place] Rate: 97 P: 59 WY: 136 QRS: 43 QRSD: 73 T: 48 QT: 338 QTc: 430 Interpretive Statements SINUS RHYTHM Compared to ECG 02/29/2024 15:22:31 Sinus tachycardia no longer present ISION REPAIRER us Kerline Anderson MD ECG ORDERABLES Final Result [facility] RAD * CT ABD+PEL W CON (08/01/2024 4:17 PM COLLISION REPAIRER) Anatomical Region Laterality Modality Abdomen Computed Tomogra phy 08/01/2024 4:42 PM COLLISION REPAIRER Impressions 08/01/2024 4:53 PM COLLISION REPAIRER IMPRESSION: 1. Enlarged mid mesenteric lymph nodes, [...] 08/01/2024 4:42 PM Narrative 08/01/2024 4:53 PM COLLISION REPAIRER [facility] [address] [place] [address] EXAMINATION: CT ABDOMEN/PELVIS WITH CONTRAST INDICATION: Abdominal [...] Procedure Note Raymon Gardiner MD - 08/01/2024 [facility] [address] [facility] [place] [address] EXAMINATION: CT ABDOMEN/PELVIS WITH CONTRAST INDICATION: Abdominal [...] LACTIC ACID - SINGLE (08/01/2024 3:50 PM COLLISION REPAIRER) Only the most recent of2 resultswithin the time period is included. LACTIC ACID VENOUS 0.5 0.4 - 2.0 MMOL/L 08/01/2024 4:12 PM COLLISION REPAIRER [facility] 08/01/2024 3:50 PM COLLISION REPAIRER us Kerline Anderson MD LABORATORY Final Result [facility] [address] [place] [address], * (ABNORMAL) COMPREHENSIVE METABOLIC PANEL (08/01/2024 3:07 PM COLLISION REPAIRER) GLUCOSE 98 70 - 99 MG/DL 08/01/2024 3:29 PM COLLISION REPAIRER [facility] BUN 12 7 - 18 MG/DL 08/01/2024 3:29 PM COLLISION REPAIRER [facility] CREATININE S/P/B 0.85 0.55 - 1.02 MG/DL 08/01/2024 3:29 PM [facility] SODIUM S/P/B 143 136 - 145 MMOL/L 08/01/2024 3:29 PM [facility] POTASSIUM S/P/B 3.9 3.5 - 5.1 MMOL/L 08/01/2024 3:29 PM [facility] CHLORIDE S/P/B 107 100 - 108 MMOL/L 08/01/2024 3:29 PM [facility] CO2 27.9 21 - 32 MMOL/L 08/01/2024 3:29 PM [facility] CALCIUM S/P/B 9.0 8.5 - 10.1 MG/DL 08/01/2024 3:29 PM [facility] BILIRUBIN TOTAL S/P/B 0.2 0.2 - 1.2 MG/DL 08/01/2024 3:29 PM [facility] TOTAL PROTEIN S/P/B 7.4 6.4 - 8.2 G/DL 08/01/2024 3:29 PM [facility] ALBUMIN S/P/B 3.3(L) 3.4 - 5.0 G/DL 08/01/2024 3:29 PM [facility] AST 19 15 - 37 U/L 08/01/2024 3:29 PM [facility] ALT 25 14 - 55 U/L 08/01/2024 3:29 PM [facility] ALKALINE PHOSPHATASE S/P/B 167(H) 50 - 136 U/L 08/01/2024 3:29 PM [facility] ANION GAP 8.1 5 - 15 MMOL/L 08/01/2024 3:29 PM [facility] BUN CREATININE RATIO 14.1 6 - 26 08/01/2024 3:29 PM [facility] A/G RATIO 0.8(L) 1.0 - 2.0 RATIO 08/01/2024 3:29 PM [facility] GFR ESTIMATE 87(L) >90 ML/MIN/1.7 3 M2 08/01/2024 3:29 PM [facility] Comment: NOTE: eGFR is not calculated for patients <18 years of age. This is an estimated GFR calculation using the new CKD EPI creatinine equation without race and so does not require a correction factor for race. This estimated GFR should not be used for calculating drug doses. 08/01/2024 3:07 PM COLLISION REPAIRER Kerline Anderson MD LABORATORY Final Result [facility] [address] [place] [address], * (ABNORMAL) CBC W/DIFF AUTOMATED (08/01/2024 3:07 PM COLLISION REPAIRER) WBC 5.64 4.4 - 11.0 x10'3/uL 08/01/2024 3:14 PM [facility] RBC 3.99(L) 4.50 - 5.10 x10'6/uL 08/01/2024 3:14 PM [facility] HGB 11.5(L) 12.3 - 15.3 G/DL 08/01/2024 3:14 PM [facility] HCT 36.1 35.9 - 44.6 % 08/01/2024 3:14 PM [facility] MCV 90.5 80.0 - 96.0 FL 08/01/2024 3:14 PM [facility] MCH 28.8 25.3 - 30.9 PG 08/01/2024 3:14 PM [facility] MCHC 31.9 31.0 - 34.1 G/DL 08/01/2024 3:14 PM [facility] RDW 16.0(H) 12.4 - 15.1 % 08/01/2024 3:14 PM [facility] PLT 306 151 - 353 x10'3/uL 08/01/2024 3:14 PM [facility] MPV 9.4(L) 9.6 - 12.0 FL 08/01/2024 3:14 PM [facility] RBC MORPHOLOGY NORMAL 08/01/2024 3:14 PM [facility] PLT MORPH. NORMAL 08/01/2024 3:14 PM [facility] WBC MORPHOLOGY NORMAL 08/01/2024 3:14 PM [facility] LYMPHOCYTES % 30.3 15.8 - 45.0 % 08/01/2024 3:14 PM [facility] NEUTROPHILS % 60.7 42.1 - 71.9 % 08/01/2024 3:14 PM [facility] MONOCYTES % 6.9 5.7 - 12.5 % 08/01/2024 3:14 PM [facility] EOSINOPHILS 0.5 0.0 - 5.6 % 08/01/2024 3:14 PM [facility] BASOPHILS 0.4 0.0 - 1.3 % 08/01/2024 3:14 PM [facility] ABS. NEUTROPHILS 3.42 1.40 - 6.00 x10'3/uL 08/01/2024 3:14 PM [facility] IMMATURE GRANS % 1.2(H) 0.0 - 0.5 % 08/01/2024 3:14 PM [facility] ABS. LYMPHOCYTES 1.71 0.80 - 4.70 x10'3/uL 08/01/2024 3:14 PM COLLISION REPAIRER [facility] 08/01/2024 3:07 PM COLLISION REPAIRER us Kerline Anderson MD LABORATORY Final Result Performing Organization Address City/[facility]/ZIP Co de Phone Number [facility] [address] [place] [address], [place] [phone] * TROPONIN, QUANT (08/01/2024 3:07 PM COLLISION REPAIRER) TROPONIN I HIGH SENSITIVITY <4 0 - 50 ng/L 08/01/2024 10:38 PM COLLISION REPAIRER [facility] Comment: HIGH DOSES OF BIOTIN, TROPONIN-SPECIFIC AUTOANTIBODIES, AND ANTIBODY THERAPY CONTAINING HAMA MAY INTERFERE WITH THIS TEST RESULT. CORRELATION TO CLINICAL HISTORY AND PRESENTATION RECOMMENDED. 08/01/2024 3:07 PM COLLISION REPAIRER us Kerline Anderson MD LABORATORY Final Result Performing Organization Address [facility]/ZIP Co de Phone Number [facility] [address] [place] [address], [place] [phone] * LIPASE (08/01/2024 3:07 PM COLLISION REPAIRER) LIPASE 51 16 - 77 UNITS/L 08/01/2024 3:29 PM COLLISION REPAIRER [facility] 08/01/2024 3:07 PM COLLISION REPAIRER us Kerline Anderson MD LABORATORY Final Result Performing Organization Address City/[facility]/ZIP Co de Phone Number [facility] [address] [place] [address], [place] [phone] * LIPID PANEL (07/24/2023 7:08 AM COLLISION REPAIRER) CHOLESTEROL 131 <200 MG/DL 07/24/2023 8:17 AM [facility] TRIGLYCERIDES 45 <150 MG/DL 07/24/2023 8:17 AM [facility] HDL 65 >40.0 MG/DL 07/24/2023 8:17 AM [facility] LDL (CALCULATED) 57 <100 MG/DL 07/24/20 8:17 AM [facility] NON HDL CHOLESTEROL 66 <130 MG/DL 07/24 8:17 AM [facility] CHOL/HDL RATIO 2.0 0.0 - 4.5 07/24/2023 8:17 AM [facility] VLDL CALCULATION 9 5 - 55 MG/DL 07/24/2023 8:17 AM [facility] LIPID INTERPRETATION 07/24/2023 8:17 AM [facility] Comment: [facility] CONCENSUS REPORT RECOMMENDATIONS: ADULT CHILD LOW RISK: CHOLESTEROL <200 <170 TRIGLYCERIDE <150 --- HDL >=60 --- LDL <100 <110 BORDERLINE: CHOLESTEROL 200-239 170-199 TRIGLYCERIDE 150-199 --- HDL 40-59 --- LDL 100-159 110-129 HIGH RISK: CHOLESTEROL >=240 >=200 TRIGLYCERIDE >=200 --- HDL <40 --- LDL >=160 >=130 07/24/2023 7:08 AM COLLISION REPAIRER Alyse Jacob MD LABORATORY Final Re sult [facility] [address] [place] [address], [place] [phone] * MG SCREENING W ADRIANAHillary BLACKBURNI (01/02/2021 [...] - benign findings. Routine screening mammography recommended [facility] BI-RADS Categories: Category 0 - needs [...] Daniel Presley, 01/02/2021 1:25 PM Mita [place] CHART WRITER MAMMO Final Result from Last 3 Months or Most Recently Relevant to Health Maintenance [facility] [address] Advance Directives * Full Code (Latest [...] 4:39 PM 02/07/2020 6:36 PM Care Teams Residential Appraiser Relationship Specialty Start Date End Date Rabia Black FNP PCP - General Nurse Practitioner Family 02/29/24
--- OUTSIDE RECORDS SUMMARY | 2024-09-09 17:23 | XMS_ITS | Clinical Summary ---
Author Organization [facility] Address [address] [place] [address] Care Team Providers Care Sustainability Officer Name Role Phone Unavailable Primary Care Provider Unavailabl e Source Comments [facility],non-owned Affiliates and Associated Physician Practices is amultiple site organization consisting of ambulatory clinics and hospital sitesin [place], [place], [place] and [place]. This disclosure is being madepursuant to the Care Everywhere program and may not contain all information available regarding this patient. 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 No 05/01/2023 Sex and Gender [...] kg (155 lb) 08/18/2023 10:5 9 AM PROJECT SURVEYOR Height 154.9 cm (5' 1 ) 05/19/2023 10:3 7 AM CDT Body Mass Index 29.29 05/19/2023 10:37 AM CDT Plan of Treatment Upcoming Encounters Date Type Department Care Team (Late st Contact Info) Description 10/04/2024 12:00 PM PROJECT SURVEYOR Office Visit [facility] [address] [place] [address], [place] [address] Praful Reina, DO [facility] [place] [address] Health Maintenance Due Date Last Done Comments [...] this topic Medical Devices Implanted Type Area Heater Helper Device Identifier Shelf Expiration Date Model / Serial / Lot Tibial Nail- Advanced/11mm 345mm Implanted:Qty: 1 on 04/29/2023 by Sanjeev Kline MD at [facility] Left: Tibia [employer] 08/02/2032 [id number] S / / [id number] 5.0mm Locking Screws Implanted:Qty: 1 on 04/29/2023 by Sanjeev Kline MD at [facility] [id number] / / 5.0mm Locking Screw Implanted:Qty: 1 on 04/29/2023 by Sanjeev Kline MD at [facility] [id number] / / 5.0mm Locking Screw Implanted:Qty: 2 on 04/29/2023 by Sanjeev Kline MD at [facility] [id number] / / 5.0mm Locking Screw Implanted:Qty: 1 on 04/29/2023 by Sanjeev Kline MD at [facility] [id number] / / 3.5 Cannulated Implanted:Qty: 1 on 04/29/2023 by Sanjeev Kline MD at [facility] [id number] / / 3.5 Cannulated Implanted:Qty: 1 on 04/29/2023 by Sanjeev Kline MD at [facility] [id number] / / Explanted Type Area Heater Helper Device Identifier Shelf Expiration Date Model / Serial / Lot Slv Prtc 12mm Suprapatellar Strl Explanted:Qty: 1 on 04/29/2023 at [facility] Left: Tibia [employer] 10/31/2024 [id number] S / / [id number] Procedures Procedure Name Priority Date/Time Associated Diagnosis Comments BASIC METABOLIC PANEL (CALCIUM TOTAL) AM Draw 05/08/2023 2:45 AM CDT from Last 3 Months or Most Recently Relevant to Health Maintenance Results * (ABNORMAL) BASIC METABOLIC PANEL (CALCIUM TOTAL) (05/08/2023 2:45 AM CDT) BUN 13 7 - 26 mg/dL 05/08/2023 3:19 AM [facility] Creatinine 0.62 0.56 - 0.96 mg/dL 05/08/2023 3:19 AM [facility] Sodium 135(L) 136 - 145 mmol/L 05/08/2023 3:19 AM [facility] Potassium 4.3 3.5 - 4.5 mmol/L 05/08/2023 3:19 AM [facility] Chloride 106 98 - 107 mmol/L 05/08/2023 3:19 AM [facility] CO2 25 22 - 29 mmol/L 05/08/2023 3:19 AM [facility] Glucose 103 70 - 115 mg/dL 05/08/2023 3:19 AM [facility] Calcium 8.6 8.4 - 10.2 mg/dL 05/08/2023 3:19 AM [facility] Anion Gap 4(L) 6 - 16 05/08/2023 3:19 AM [facility] BUN/Creatinine Ratio 21 7 - 23 05/08/2023 3:19 AM [facility] Osmolality Calculated 280 275 - 295 mOsm/kg 05/08/2023 3:19 AM [facility] eGFR by CKD-EPI >90 >=90 mL/min/1.7 3 m2 05/08/2023 3:19 AM [facility] Blood BLOOD SPECIMEN / Unknown Lab Venipuncture / Unknown 05/08/2023 2:45 AM CDT 05/08/2023 2:51 AM CDT Praful Reina DO LAB - CHEMISTRY WANDER [facility] [address] [place] [address], [facility] [phone] from Last 3 Months or Most Recently Relevant to Health Maintenance Advance Directives * Full Code (Latest Code Status on File) Date Activated Date Inactivated Comments 04/28/2023 4:28 AM 05/08/2023 4:32 PM
--- OUTSIDE RECORDS SUMMARY | 2024-09-09 17:23 | XMS_ITS | Patient Health Summary ---
Author Organization [facility] Address [address] [place] [address] Care Team Providers Care Butt Presser Name Role Phone Unavailable Primary Care Provider Unavailabl e Note from [facility],non-owned Affiliates and Associated Physician Practices is amultiple site organization consisting of ambulatory clinics and hospital sitesin [place], [place], [place] and [place]. This disclosure is being madepursuant to the Care Everywhere program and may not contain all information available regarding this patient. Last updated 18.[facility] Allergies * Codeine(Itching) -Low Criticality * Doxycycline(GI [...] hours as needed for Pain * HYDROcodone-acetaminophen ([place]) 5-325 MG tablet(Started 07/07/2023) Take 1 (one) tablet by mouth every 8 hours as needed for Pain * naloxone HCl (Narcan) 4 MG/0.1ML nasal spray(Started 07/08/2023) [place] 1 (one) spray into the nose as [...] Recorded Patient Health Questionnaire-2 Score 0 08/18/2023 [facility] - Occupational Stress Questionnaire Answer Date [...] place to sleep or slept in a alf (including now)? No 05/01/2023 Sex and Gender [...] kg (155 lb) 08/18/2023 10:5 9 AM NUTRITION SERVICES ASSISTANT Height 154.9 cm (5' 1 ) 05/19/2023 10:3 7 AM CDT Body Mass Index 29.29 05/19/2023 10:37 AM CDT Medical Devices Implanted Type Area Raw Hide Trimmer Device Identifier Shelf Expiration Date Model / Serial / Lot Tibial Nail- Advanced/11mm 345mm Implanted:Qty: 1 on 04/29/2023 by Sanjeev Kline MD at [facility] Left: Tibia [employer] 08/02/2032 [id number] S / / [id number] 5.0mm Locking Screws Implanted:Qty: 1 on 04/29/2023 by Sanjeev Kline MD at [facility] [id number] / / 5.0mm Locking Screw Implanted:Qty: 1 on 04/29/2023 by Sanjeev Kline MD at [facility] [id number] / / 5.0mm Locking Screw Implanted:Qty: 2 on 04/29/2023 by Sanjeev Kline MD at [facility] [id number] / / 5.0mm Locking Screw Implanted:Qty: 1 on 04/29/2023 by Sanjeev Kline MD at [facility] [id number] / / 3.5 Cannulated Implanted:Qty: 1 on 04/29/2023 by Sanjeev Kline MD at [facility] [id number] / / 3.5 Cannulated Implanted:Qty: 1 on 04/29/2023 by Sanjeev Kline MD at [facility] [id number] / / Explanted Type Area Raw Hide Trimmer Device Identifier Shelf Expiration Date Model / Serial / Lot Slv Prtc 12mm Suprapatellar Strl Explanted:Qty: 1 on 04/29/2023 at [facility] Left: Tibia [employer] 10/31/2024 [id number] S / / [id number] Procedures * XR TIBIA FIBULA LEFT 2VW(Performed [...] encounter * PERIPHERAL IV NOTE(Performed 04/29/2023) * MA OPEN RX TIBIA SHAFT FX,INTRAMED DEMARCO(Performed 04/29/2023) [...] TIBIA FIBULA LEFT 2VW (08/18/2023 10:53 AM NUTRITION SERVICES ASSISTANT) Only the most recent of6 resultswithin the time period is included. Anatomical Region Laterality Modality Lower Extremity Radiographic Halley ging 08/18/2023 10:5 5 AM NUTRITION SERVICES ASSISTANT Impressions 08/18/2023 10:57 AM NUTRITION SERVICES ASSISTANT IMPRESSION: Unchanged alignment. Report dictated by Malcolm Stein DO (residential interior designer). I, Sage Mattson MD have personally reviewed and interpreted this examination/study. > Interpreting Provider: Sage Mattson MD on 08/18/2023 10:57 AM Narrative 08/18/2023 10:57 AM NUTRITION SERVICES ASSISTANT PROCEDURE: XR TIBIA FIBULA LEFT 2VW, DATE/TIME OF EXAM: 08/18/2023 10:53 AM, LOCATION [facility] INDICATION: S82.202D: Tibia/fibula fracture, left, [...] 2VW, DATE/TIME OF EXAM: 410:53 AM, LOCATION [facility] INDICATION: S82.202D: Tibia/fibula fracture, left, [...] alignment. Report dictated by Malcolm Stein DO (residential interior designer). I, Sage Mattson MD have personally reviewed [...] - 10.5 10 3/uL 05/08/2023 3:05 AM [facility] RBC 2.78(L) 3.80 - 5.20 10 6/uL 05/08/2023 3:05 AM [facility] Hemoglobin 8.0(L) 12.0 - 15.6 g/dL 05/08/2023 3:05 AM [facility] Hematocrit 24.5(L) 35.0 - 45.0 % 05/08/2023 3:05 AM [facility] MCV 88.1 80.7 - 98.3 fL 05/08/2023 3:05 AM [facility] MCH 28.8 26.7 - 34.0 pg 05/08/2023 3:05 AM [facility] MCHC 32.7 30.8 - 35.9 g/dL 05/08/2023 3:05 AM [facility] RDW-SD 45.2 36.0 - 50.0 fL 05/08/2023 3:05 AM [facility] RDW-CV 14.0 11.2 - 14.8 % 05/08/2023 3:05 AM [facility] Platelet Count 314 150 - 400 10 3/uL 05/08/2023 3:05 AM [facility] MPV 8.7(L) 9.4 - 12.9 fL 05/08/2023 3:05 AM [facility] nRBC Absolute 0.00 0 10 3/uL 05/08/2023 3:05 AM [facility] nRBC Auto 0.0 0 /100 WBC 05/08/2023 3:05 AM [facility] Blood BLOOD SPECIMEN / Unknown Lab Venipuncture / Unknown 05/08/2023 2:45 AM CDT 05/08/2023 2:50 AM CDT Praful Reina DO LAB - HEMATOLOGY ORD ERABLES [facility] [address] [place] [address], [facility] [phone] * (ABNORMAL) BASIC METABOLIC PANEL (CALCIUM TOTAL) (05/08/2023 2:45 AM CDT) Only the most recent of9 resultswithin the time period is included. BUN 13 7 - 26 mg/dL 05/08/2023 3:19 AM [facility] Creatinine 0.62 0.56 - 0.96 mg/dL 05/08/2023 3:19 AM [facility] Sodium 135(L) 136 - 145 mmol/L 05/08/2023 3:19 AM [facility] Potassium 4.3 3.5 - 4.5 mmol/L 05/08/2023 3:19 AM [facility] Chloride 106 98 - 107 mmol/L 05/08/2023 3:19 AM [facility] CO2 25 22 - 29 mmol/L 05/08/2023 3:19 AM [facility] Glucose 103 70 - 115 mg/dL 05/08/2023 3:19 AM [facility] Calcium 8.6 8.4 - 10.2 mg/dL 05/08/2023 3:19 AM [facility] Anion Gap 4(L) 6 - 16 05/08/2023 3:19 AM [facility] BUN/Creatinine Ratio 21 7 - 23 05/08/2023 3:19 AM CDT [facility] Osmolality Calculated 280 275 - 295 mOsm/kg 05/08/2023 3:19 AM CDT [facility] eGFR by CKD-EPI >90 >=90 mL/min/1.7 3 m2 05/08/2023 3:19 AM CDT [facility] Blood BLOOD SPECIMEN / Unknown Lab Venipuncture / Unknown 05/08/2023 2:45 AM CDT 05/08/2023 2:51 AM CDT Praful Reina DO LAB - CHEMISTRY [facility] [place] [address] [address], [place] [phone] * IRON + TRANSFERRIN PANEL (05/07/2023 3:28 PM CDT) Iron 74 40 - 150 ug/dL 05/07/2023 5:00 PM CDT [facility] Transferrin 294 174 - 382 mg/dL 05/07/2023 5:00 PM CDT [facility] Transferrin Saturation % 20 16 - 50 % 05/07/2023 5:00 PM CDT [facility] TIBC Calculated 368 240 - 450 ug/dL 05/07/2023 5:00 PM CDT [facility] Blood BLOOD SPECIMEN / Unknown Lab Venipuncture / Unknown 05/07/2023 3:28 PM CDT 05/07/2023 3:54 PM CDT Susanna Acosta PA-C LAB - CHEMIS TRY ORDERABLES [address] [address], [place] [phone] * FERRITIN (05/07/2023 3:28 PM CDT) Ferritin 111 13 - 204 ng/mL 05/07/2023 5:17 PM CDT [facility] Blood BLOOD SPECIMEN / Unknown Lab Venipuncture / Unknown 05/07/2023 3:28 PM CDT 05/07/2023 3:54 PM CDT Susanna Acosta PA-C LAB - CHEMIS TRY ORDERABLES Performing Organization Address [facility] Co de Phone Number [place] [phone] [place] [address], [facility] [phone] * (ABNORMAL) METHYLMALONIC ACID BLOOD (05/07/2023 3:26 PM CDT) Methylmalonic Acid 1.69(H) 0.00 - 0.40 umol/L 05/11/2023 5:15 AM CDT [facility] ([facility]) Comment: Slight elevation 0.41-0.99 umol/L Consistent with [...] developed and its performance characteristics determined by [facility]. It has not been cleared or approved by the US Food and Drug Administration. This test was performed in a CLIA certified laboratory and is intended for clinical purposes. Performed By: [facility] [address] [place] [address] Nocturnist Physician: Ritchie Chapman MD, PhD CLIA Number: [id number] Blood BLOOD SPECIMEN / Unknown Lab Venipuncture / Unknown 05/07/2023 3:26 PM CDT 05/07/2023 3:54 PM CDT Susanna Acosta PA-C LAB - CHEMIS TRY ORDERABLES Performing Organization Address [facility]/ZIP Co de Phone Number [facility] [employer] [facility]) [address] * VITAMIN B1 (05/07/2023 3:26 PM CDT) Vitamin B1 Whole Blood 98 70 - 180 nmol/L 05/11/2023 7:40 AM CDT [facility] ([facility]) Comment: INTERPRETIVE INFORMATION: Vitamin B1, Whole Blood This assay measures the concentration of thiamine diphosphate (TDP), the primary active form of vitamin B1. Approximately 90 percent of vitamin B1 present in whole blood is TDP. Thiamine and thiamine monophosphate, which comprise the remaining 10 percent, are not measured. This test was developed and its performance characteristics determined by [facility]. It has not been cleared or approved by the US Food and Drug Administration. This test was performed in a CLIA certified laboratory and is intended for clinical purposes. Performed By: [facility] [address] [place] [address] Nocturnist Physician: Ritchie Chapman MD, PhD CLIA Number: [id number] Blood BLOOD SPECIMEN / Unknown Lab Venipuncture / Unknown 05/07/2023 3:26 PM CDT 05/07/2023 3:54 PM CDT Susanna Acosta PA-C [facility] TRY ORDERABLES Performing Organization Address City/[facility]/ZIP Co de Phone Number [facility]) [address] [place] [address] * (ABNORMAL) FOLATE (05/07/2023 3:26 PM CDT) Folate 36.7(H) 7.0 - 31.4 ng/mL 05/07/2023 6:05 PM CDT [facility] Comment:Result obtained by haley roland. Blood BLOOD SPECIMEN / Unknown Lab Venipuncture / Unknown 05/07/2023 3:26 PM CDT 05/07/2023 4:15 PM CDT Susanna Acosta PA-C LAB - CHEMIS TRY ORDERABLES [facility] [address] [place] [address], [place] [phone] * (ABNORMAL) VITAMIN B12 (05/07/2023 3:26 PM CDT) Vitamin B12 >2,000(H) 213 - 816 pg/mL 05/07/2023 5:21 PM CDT [facility] Blood BLOOD SPECIMEN / Unknown Lab Venipuncture / Unknown 05/07/2023 3:26 PM CDT 05/07/2023 4:15 PM CDT Susanna Acosta PA-C LAB - CHEMIS TRY ORDERABLES Performing Organization Address [facility] Co de Phone Number [address] [address], [facility] [phone] * EKG 12-LEAD (05/07/2023 2:59 PM CDT) Ventricular Rate 111 BPM [facility] MUSE Atrial Rate 111 BPM [facility] P-R Interval 142 ms [facility] QRS Duration ms 74 ms [facility] MUSE Q-T Interval ms 334 ms [facility] MUSE QTC Calculation (Bezet) 454 ms [facility] M[facility] Calculated P [place] 68 degrees [facility] MUSE Calculated R [place] 52 degrees [facility] MUSE Calculated T [place] 59 degrees [facility] MUSE Interpretation EKG SINUS TACHYCARDIA OTHERWISE NORMAL ECG NO PREVIOUS ECGS AVAILABLE Confirmed by SOILA THOMPSON MD ([id number]) on 05/08/2023 3:22:20 PM [facility] MUSE 05/07/2023 2:59 PM CDT 05/08/2023 3:22 PM CDT Susanna Acosta PA-C ECG ORDERABL ES Performing Organization Address [facility] Co de Phone Number [facility] M[facility] * TSH REFLEX FREE T4 (05/07/2023 2:36 AM CDT) TSH 0.397 0.350 - 4.940 uIU/mL 05/07/2023 10:54 AM CDT [facility] Blood BLOOD SPECIMEN / Unknown Lab Venipuncture / Unknown 05/07/2023 2:36 AM CDT 05/07/2023 3:02 AM CDT Praful Reina DO LAB - CHEMISTRY WANDER [place] Performing Organization Address City/[facility]/ZIP Co de Phone Number [address] [address], [facility] [phone] * FL ELIDA SURGERY (04/29/2023 5:15 PM CDT) Narrative [facility] - 04/29/2023 5:40 PM CDT Fluoroscopy was used for this exam in the OR. Please see the Operative report. Sanejev Kline MD FLUOROSCOPY ORDERABL ES [facility] * IV PLACEMENT PERFORMABLE (04/29/2023 4:51 PM CDT) Narrative Jaswinder Churchill MD - 04/29/2023 4:51 PM CDT Dg Bocanegra DO 04/29/2023 4:52 PM Peripheral IV Line Placement: Patient Location: OR Procedure: IV start ([id number]). Procedure Section: Skin Prep: alcohol. Orientation: right [...] Event Date/Time: 04/29/2023 2:37 PM Procedure: intubation ([id number]). Procedure Section: Sedation: under general anesthesia. Indications [...] report was drafted by Neto Vernon MD (vice president for instruction) I, Sage Mattson MD have personally reviewed [...] report was drafted by Neto Vernon MD (vice president for instruction) I, Sage Mattson MD have personally reviewed and interpreted this examination/study. > Interpreting Provider: Sage Mattson MD on 04/28/2023 8:05 AM [address]ir MD [address] ORDERABLES * BLOOD TYPE VERIFICATION (04/27/2023 8:38 PM CDT) ABO Rh B POS 04/27/2023 9:1 8 PM CDT [facility] Blood Bank BLOOD SPECIMEN / Unknown Lab Venipuncture / Unknown 04/27/2023 8:38 PM CDT 04/27/2023 8:52 PM CDT Ignacia Merino MD LAB - BLOOD BANK ORD ERABLES [facility] [address] [place] [address], [facility] [phone] * PT-INR [facility] (04/27/2023 8:06 PM CDT) PT 13.7 12.1 - 14.8 Seconds 04/27/2023 8:44 PM CDT [facility] INR 1.1 See Comment 04/27/2023 8:44 PM CDT [facility] Comment:The suggested therap eutic range for standard coumadin (warfarin) therapy is an INR of 2.0-3.0. For high-risk patients (Mechanical Mitral Valve Prosthesis, etc.), the suggested prophylactic therapeutic range is an INR of 2.5-3.5. Blood BLOOD SPECIMEN / Unknown Venipuncture / Unknown 04/27/2023 8:06 PM CDT 04/27/2023 8:22 PM CDT Parker Quispe MD LAB - COAGULATION OR DERABLES Performing Organization Address [facility]/ZIP Co de Phone Number [address] [address], [facility] [phone] * (ABNORMAL) VITAMIN D 25-HYDROXY (04/27/2023 8:06 PM CDT) Vitamin D, 25 Hydroxy 7.0(L) 30.0 - 80.0 ng/mL 04/28/2023 8:10 AM CDT [facility] Comment: The recommendations for 25-Hydroxy Vitamin D [...] CDT 04/27/2023 8:22 PM CDT Cata Francois WOMEN'S STUDIES LECTURER-WORKERS COMPENSATION ANALYST LAB - CHEMISTRY O RDERABLES Performing Organization Address City/[facility]/ZIP Co de Phone Number [address] [address], [place] [phone] * TYPE + SCREEN PANEL (04/27/2023 8:06 PM CDT) Pathologist [facility] Antibody Screen NEG 9:03 PM CDT [facility] ABO Rh B POS 04/27/2023 9:03 PM CDT [facility] Blood Bank BLOOD SPECIMEN / Unknown Venipuncture / Unknown 04/27/2023 8:06 PM CDT 04/27/2023 8:27 PM CDT Parker Quispe MD LAB - BLOOD BANK ORD ERABLES [facility] [address] [place] [address], [facility] [phone] * (ABNORMAL) CBC W AUTO DIFFERENTIAL (04/27/2023 8:06 PM CDT) [facility] WBC 6.5 3.5 - 10.5 10 3/uL 04/27/2023 8:29 PM [facility] RBC 3.50(L) 3.80 - 5.20 10 6/uL 04/27/2023 8:29 PM [facility] Hemoglobin 10.2(L) 12.0 - 15.6 g/dL 04/27/2023 8:29 PM [facility] Hematocrit 31.0(L) 35.0 - 45.0 % 04/27/2023 8:29 PM [facility] MCV 88.6 80.7 - 98.3 fL 04/27/2023 8:29 PM [facility] MCH 29.1 26.7 - 34.0 pg 04/27/2023 8:29 PM [facility] MCHC 32.9 30.8 - 35.9 g/dL 04/27/2023 8:29 PM [facility] RDW-SD 45.9 36.0 - 50.0 fL 04/27/2023 8:29 PM [facility] RDW-CV 14.3 11.2 - 14.8 % 04/27/2023 8:29 PM [facility] Platelet Count 223 150 - 400 10 3/uL 04/27/2023 8:29 PM [facility] MPV 9.7 9.4 - 12.9 fL 04/27/2023 8:29 PM [facility] nRBC Absolute 0.00 0 10 3/uL 04/27/2023 8:29 PM [facility] nRBC Auto 0.0 0 /100 WBC 04/27/2023 8:29 PM [facility] Neutrophils % 55.0 35.0 - 70.0 % 04/27/2023 8:29 PM [facility] Lymphocytes % 34.3 20.0 - 43.0 % 04/27/2023 8:29 PM [facility] Monocytes % 9.8 5.0 - 13.0 % 04/27/2023 8:29 PM [facility] Eosinophils % 0.3 0.0 - 6.0 % 04/27/2023 8:29 PM [facility] Basophil % 0.3 0.0 - 2.0 % 04/27/2023 8:29 PM [facility] Neutrophils Absolute 3.55 1.60 - 7.00 10 3/uL 04/27/2023 8:29 PM [facility] Lymphocyte Absolute 2.21 1.10 - 3.90 10 3/uL 04/27/2023 8:29 PM [facility] Monocytes Absolute 0.63 0.26 - 1.07 10 3/uL 04/27/2023 8:29 PM [facility] Eosinophils Absolute 0.02 0.00 - 0.47 10 3/uL 04/27/2023 8:29 PM [facility] Basophils Absolute 0.02 0.00 - 0.08 10 3/uL 04/27/2023 8:29 PM [facility] Immature Granulocytes % 0.3 0.0 - 1.0 % 04/27/2023 8:29 PM [facility] Immature Granulocytes Absolute 0.02 04/27/2023 8:29 PM [facility] Blood BLOOD SPECIMEN / Unknown Venipuncture / Unknown 04/27/2023 8:06 PM CDT 04/27/2023 8:22 PM CDT Parker Quispe MD LAB - HEMATOLOGY ORD ERABLES [facility] [address] [place] [address], [facility] [phone] * (ABNORMAL) COMPREHENSIVE METABOLIC PANEL (04/27/2023 8:06 PM CDT) BUN 9 7 - 26 mg/dL 04/27/2023 8:53 PM [facility] Creatinine 0.74 0.56 - 0.96 mg/dL 04/27/2023 8:53 PM [facility] Sodium 138 136 - 145 mmol/L 04/27/2023 8:53 PM [facility] Potassium 3.7 3.5 - 4.5 mmol/L 04/27/2023 8:53 PM [facility] Chloride 107 98 - 107 mmol/L 04/27/2023 8:53 PM [facility] CO2 24 22 - 29 mmol/L 04/27/2023 8:53 PM [facility] Glucose 103 70 - 115 mg/dL 04/27/2023 8:53 PM [facility] Calcium 8.2(L) 8.4 - 10.2 mg/dL 04/27/2023 8:53 PM [facility] Protein Total 6.6 6.0 - 8.3 g/dL 04/27/2023 8:53 PM [facility] Albumin 3.6 3.4 - 5.0 g/dL 04/27/2023 8:53 PM [facility] Bilirubin Total 0.4 0.2 - 1.2 mg/dL 04/27/2023 8:53 PM [facility] Alkaline Phosphatase 105 40 - 150 U/L 04/27/2023 8:53 PM [facility] ALT 28 5 - 55 U/L 04/27/2023 8:53 PM [facility] AST 32 5 - 34 U/L 04/27/2023 8:53 PM [facility] Anion Gap 7 6 - 16 04/27/2023 8:53 PM [facility] BUN/Creatinine Ratio 12 7 - 23 04/27/2023 8:53 PM CDT [facility] Osmolality Calculated 285 275 - 295 mOsm/kg 04/27/2023 8:53 PM CDT [facility] Albumin/Globulin Ratio 1.2 1.1 - 2.3 04/27/2023 8:53 PM CDT [facility] eGFR by CKD-EPI >90 >=90 mL/min/1.7 3 m2 04/27/2023 8:53 PM CDT [facility] Blood BLOOD SPECIMEN / Unknown Venipuncture / Unknown 04/27/2023 8:06 PM CDT 04/27/2023 8:22 PM CDT Parker Quispe MD LAB - CHEMISTRY WANDER [place]INDSAY Performing Organization Address City/[facility]/ZIP Co de Phone Number [address] [address], [facility] [phone] * HCG BETA BLOOD QUANTITATIVE (04/27/2023 8:06 PM CDT) Beta-hCG Total Quantitative <3 mIU/mL 04/27/2023 9:05 PM CDT [facility] Comment: HCG Numeric Result Interpretation: Non- Females: [...] Quispe MD LAB - CHEMISTRY WANDER [place] [address] [address], [place] [phone] * XR ANKLE LEFT 3VW OR MORE [...] Report dictated by Jesus Alberto Justin MD (residential interior designer). I, Marcio Victor MD have personally reviewed and interpreted this examination/study. > Interpreting Provider: Marcio Victor MD on 04/27/2023 11:25 PM Narrative 04/27/2023 11:25 PM CDT PROCEDURE: XR TIBIA FIBULA LEFT 2VW, XR ANKLE LEFT 3VW OR MORE, DATE/TIME OF EXAM: 04/27/2023 7:59 PM, LOCATION [facility] INDICATION: W19.XXXA: Fall, initial encounter [...] MORE,DATE/TIME OF EXAM: 04/27/2023 7:59 PM, LOCATION [facility] INDICATION: W19.XXXA: Fall, initial encounter [...] Report dictated by Jesus Alberto Justin MD (residential interior designer). Marcio Cordova MD have personally reviewed and [...] Report dictated by Jesus Alberto Justin MD (residential interior designer). Alba Cordova MD have personally reviewed and interpreted this examination/study. > Interpreting Provider: Alba Saldaña MD on 04/28/2023 10:26 AM Narrative 04/28/2023 10:26 AM CDT PROCEDURE: XR FOOT RIGHT 3VW OR MORE, DATE/TIME OF EXAM: 04/27/2023 8:00 PM, LOCATION [facility] INDICATION: W19.XXXA: Fall, initial encounter [...] MORE, DATE/TIME OF EXAM: 38:00 PM, LOCATION [facility] INDICATION: W19.XXXA: Fall, initial encounter Ordering Provider Reason For Exam: fx COMPARISON: None. FINDINGS: The osseous structures are intact and well aligned without acutefracture or dislocation. The joint spaces are preserved. Bone density and texture are normal. No soft tissue swelling is present. IMPRESSION: No acute fracture or dislocation identified. Report dictated by Jesus Alberto Justin MD (residential interior designer). I, Alba Saldaña MD have personally reviewed and interpreted this examination/study. > Interpreting Provider: lAba Saldaña MD on 04/28/2023 10:26 AM Parker Quispe MD DIAGNOSTIC IMAGING O [place]
--- OUTSIDE RECORDS SUMMARY | 2024-09-09 17:23 | XMS_ITS | Encounter Summary ---
Author Organization [facility] Address [facility] [place] [address] Care Team Providers Care Weight Checker Name Role Phone Betzy Tang APRN Primary Care Provider [phone] Rabia Black WHEEL SHOP SUPERVISOR Primary Care Provider [phone] Encounter Details Date Type Department Care Team (Late st Contact Info) Description 02/08/[address] [facility] Med/Surg [address] [place] [address] Katy Blevins CNA Social History [...] to independent living Lifestyle No Aracely Baird, RATE INSERTER documented as of this encounter Visit Diagnoses Not on filedocumented in this encounter Care Teams Weight Checker Relationship Specialty Start Date End Date Betzy Tang APRN [address] [place] [address] PCP - General NURSE PRACTITIONER 04/01/19 10/29/23 Rabia Black FNP [address] [place] [address] PCP - General Nurse Practitioner Family 02/29/24 documented as of this encounter
--- OUTSIDE RECORDS SUMMARY | 2024-09-09 17:23 | XMS_ITS | Referral Summary ---
Author Organization [facility] Address [address] [place] [address] Care Team Providers Care Pamphlet Distributor Name Role Phone Unavailable Primary Care Provider Unavailabl e Source Comments [facility],non-owned Affiliates and Associated Physician Practices is amultiple site organization consisting of ambulatory clinics and hospital sitesin [place], [place], [place] and [place]. This disclosure is being madepursuant to the Care Everywhere program and may not contain all information available regarding this patient. Last updated 18.[facility] Allergies Active Allergy Reactions Criticality Noted Date [...] Patient not taking.Reported on 07/07/2023 HYDROcodone-aceta minophen ([place]) 5-325 MG tabletIndications :Tibia/fibula fracture, left, closed, with routine healing, subsequent encounter Take 1 (one) tablet by mouth every 8 hours as needed for Pain 40 tablet 07/07/2023 Active Additional Information Patient not taking.Reported on 08/18/2023 naloxone HCl (Narcan) 4 MG/0.1ML nasal sprayIndications: Tibia/fibula fracture, left, closed, with routine healing, subsequent encounter,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 No 05/01/2023 Sex and Gender [...] kg (155 lb) 08/18/2023 10:5 9 AM CEO AND CO FOUNDER Height 154.9 cm (5' 1 ) 05/19/2023 [...] st Contact Info) Description 10/04/2024 12:00 PM CEO AND CO FOUNDER Office Visit [facility] - Orthopedics [address] [place] [phone] Praful Reina, [address] [place] [address] Medical Devices Implanted Type Area Gas Usage Meter Clerk Device Identifier Shelf Expiration Date Model / Serial / Lot Tibial Nail- Advanced/11mm 345mm Implanted:Qty: 1 on 04/29/2023 by Sanjeev Kline MD at [facility] Left: Tibia [employer] 08/02/2032 [id number] S / / [id number] 5.0mm Locking Screws Implanted:Qty: 1 on 04/29/2023 [...] Center [id number] / / Explanted Type Area Gas Usage Meter Clerk Device Identifier Shelf Expiration Date Model / Serial / Lot Slv Prtc 12mm Suprapatellar Strl Explanted:Qty: 1 on 04/29/2023 at [facility] Left: Tibia [employer] 10/31/2024 [id number] S / / [id number] Procedures Procedure Name Priority Date/Time Associated Diagnosis Comments BASIC METABOLIC PANEL (CALCIUM TOTAL) AM Draw 05/08/2023 2:45 AM CDT from Last 3 Months or Most Recently Relevant to Health Maintenance Results * (ABNORMAL) BASIC METABOLIC PANEL (CALCIUM TOTAL) (05/08/2023 2:45 AM CDT) BUN 13 7 - 26 mg/dL 05/08/2023 3:19 AM [facility] Creatinine 0.62 0.56 - 0.96 mg/dL 05/08/2023 3:19 AM [facility] Sodium 135(L) 136 - 145 mmol/L 05/08/2023 3:19 AM [facility] Potassium 4.3 3.5 - 4.5 mmol/L 05/08/2023 3:19 AM [facility] Chloride 106 98 - 107 mmol/L 05/08/2023 3:19 AM [facility] CO2 25 22 - 29 mmol/L 05/08/2023 3:19 AM [facility] Glucose 103 70 - 115 mg/dL 05/08/2023 3:19 AM [facility] Calcium 8.6 8.4 - 10.2 mg/dL 05/08/2023 3:19 AM [facility] Anion Gap 4(L) 6 - 16 05/08/2023 3:19 AM [facility] BUN/Creatinine Ratio 21 7 - 23 05/08/2023 3:19 AM [facility] Osmolality Calculated 280 275 - 295 mOsm/kg 05/08/2023 3:19 AM [facility] eGFR by CKD-EPI >90 >=90 mL/min/1.7 3 m2 05/08/2023 3:19 AM [facility] Blood BLOOD SPECIMEN / Unknown Lab Venipuncture / Unknown 05/08/2023 2:45 AM CDT 05/08/2023 2:51 AM CDT Praful Reina DO LAB - CHEMISTRY W[facility]ER [facility] [address] [place] [address], [facility] [phone] from Last 3 Months or Most Recently Relevant to Health Maintenance Advance Directives * Full Code (Latest Code Status on File) Date Activated Date Inactivated Comments 04/28/2023 4:28 AM 05/08/2023 4:32 PM
--- OUTSIDE RECORDS SUMMARY | 2024-09-09 17:23 | XMS_ITS | Clinical Summary ---
Author Organization [facility] Address [address], [facility] [address] [phone] Phone Care Team Providers Care Hide Selector Name Role Phone Unavailable Primary Care Provider [...] age to complete this topic Insurance MEDICAID [facility]
--- OUTSIDE RECORDS SUMMARY | 2024-09-09 17:23 | XMS_ITS | Clinical Summary ---
Author Organization [facility] Address [address] [place] [address] Phone Care Team Providers Care Segment Block Layer Name Role Phone Unavailable Primary Care Provider Unavailabl e Allergies Active Allergy Reactions Criticality Noted Date Comments Codeine Itching Low 08/22/2024 Methocarbamol Nausea and Vomiting Low 08/22/2024 Nsaids (Non-Steroidal Anti-Inflammatory Drug) Nausea and Vomiting Low 08/22/2024 Tramadol Seizure High 08/22/2024 Encounters Date Type Department Care Team Description 08/22/2024 6:58 PM COMPLAINTS COORDINATOR - 08/22/2024 8:23 PM COMPLAINTS COORDINATOR Emergency [facility] Emergency Department [address] [place] [address] Rabia Chi MD Discharge Disposition: [...] on file Legal Sex Female 6:11 PM COMPLAINTS COORDINATOR Gender Identity Not on file Sexual Orientation Not on file Last Filed Vital Signs Vital Sign Reading Time Taken Comments Blood Pressure 124/94 08/22/2024 6:16 PM COMPLAINTS COORDINATOR Pulse - - Temperature 36.6 C (97.9 F) 08/22/2024 6:16 PM COMPLAINTS COORDINATOR Respiratory Rate 20 08/22/2024 6:16 PM COMPLAINTS COORDINATOR Oxygen Saturation 100% 08/22/2024 6:16 PM COMPLAINTS COORDINATOR Inhaled Oxygen Concentration - - Weight 84.8 kg (187 lb) 08/22/2024 6:16 PM COMPLAINTS COORDINATOR Height 154.9 cm (5' 1 ) 08/22/2024 6:16 PM COMPLAINTS COORDINATOR Body Mass Index 35.33 08/22/2024 6:16 PM COMPLAINTS COORDINATOR Plan of Treatment Health Maintenance Due Date [...] Comments POC CREATININE Stat 08/22/2024 7:20 PM COMPLAINTS COORDINATOR COMPREHENSIVE METABOLIC PANEL Stat 08/22/2024 7:15 PM COMPLAINTS COORDINATOR CBC WITH DIFFERENTIAL Stat 08/22/2024 7:15 PM COMPLAINTS COORDINATOR from Last 3 Months Results * POC CREATININE (08/22/2024 7:20 PM COMPLAINTS COORDINATOR) CREATININE POC 0.90 0.50 - 1.00 mg/dL 08/22/2024 7:20 PM COMPLAINTS COORDINATOR [facility] GFR POC >60 >=60 mL/min/1.7 3 sq meter 08/22/2024 7:20 PM COMPLAINTS COORDINATOR [facility] Comment:eGFR calculated with 2020 CKD-EPI equation. Vegetarian diet, extremely high or low muscle mass, and may affect results. Cystatin C with Glomerular Filtration Rate is a suitable alternative for these patients. Blood, whole 08/22/2024 7:20 PM COMPLAINTS COORDINATOR 08/22/2024 7:23 PM COMPLAINTS COORDINATOR us Rabia Chi MD POINT OF CARE TESTING Final Resu lt [facility]# [id number] [address] [place] [address] * (ABNORMAL) CBC WITH DIFFERENTIAL (08/22/2024 7:15 PM COMPLAINTS COORDINATOR) WBC 4.7 4.0 - 9.8 K/uL 08/22/2024 7:41 PM COMPLAINTS COORDINATOR [facility] RBC 4.13 3.90 - 4.90 M/uL 08/22/2024 7:41 PM COMPLAINTS COORDINATOR [facility] HEMOGLOBIN 12.1 11.8 - 14.8 g/dL 08/22/2024 7:41 PM COMPLAINTS COORDINATOR [facility] HEMATOCRIT 37.1 35.5 - 44.0 % 08/22/2024 7:41 PM COMPLAINTS COORDINATOR [facility] [place] MCV 89.8 82.0 - 99.0 fL 08/22/2024 7:41 PM COMPLAINTS COORDINATOR [facility] [place] MCH 29.3 27.2 - 32.6 pg 08/22/2024 7:41 PM COMPLAINTS COORDINATOR [facility] MCHC 32.6 31.5 - 35.5 g/dL 08/22/2024 7:41 PM COMPLAINTS COORDINATOR [facility] RDW 16.3(H) 11.5 - 14.5 % 08/22/2024 7:41 PM COMPLAINTS COORDINATOR [facility] RDW-STDEV 54.5(H) 37.1 - 48.7 fL 08/22/2024 7:41 PM COMPLAINTS COORDINATOR [facility] PLATELETS 273 140 - 350 K/uL 08/22/2024 7:41 PM COMPLAINTS COORDINATOR [facility] . [facility] MPV 10.4 9.3 - 12.4 fL 08/22/2024 7:41 PM COMPLAINTS COORDINATOR [facility] [place] NEUTROPHILS 41 % 08/22/2024 7:41 PM COMPLAINTS COORDINATOR [facility] LYMPHOCYTES 48 % 08/22/2024 7:41 PM COMPLAINTS COORDINATOR [facility] MONOCYTES 9 % 08/22/2024 7:41 PM COMPLAINTS COORDINATOR [facility] EOSINOPHILS 1 % 08/22/2024 7:41 PM COMPLAINTS COORDINATOR [facility] BASOPHILS 0 % 08/22/2024 7:41 PM COMPLAINTS COORDINATOR [facility] IMMATURE GRANULOCYTES 0 % 08/22/2024 7:41 PM COMPLAINTS COORDINATOR [facility] [place] NEUTROPHIL ABSOLUTE 1.93 1.90 - 7.00 K/uL 08/22/2024 7:41 PM COMPLAINTS COORDINATOR [facility] LYMPHOCYTE ABSOLUTE 2.25 0.70 - 4.50 K/uL 08/22/2024 7:41 PM [facility] MONOCYTE ABSOLUTE 0.41 0.10 - 1.30 K/uL 08/22/2024 7:41 PM [facility] EOSINOPHIL ABSOLUTE 0.04 0.00 - 0.70 K/uL 08/22/2024 7:41 PM [facility] BASOPHILS ABSOLUTE 0.02 0.00 - 0.20 K/uL 08/22/2024 7:41 PM [facility] IMMATURE GRANULOCYTES ABSOLUTE 0.01 0.00 - 0.03 K/uL 08/22/2024 7:41 PM [facility] Blood Venipuncture / Unknown 08/22/2024 7:15 PM COMPLAINTS COORDINATOR 08/22/2024 7:30 PM COMPLAINTS COORDINATOR Rabia Chi MD HEMATOLOGY ORDERABLES Final Resu lt [facility]# [id number] [address] [place] [address] * (ABNORMAL) COMPREHENSIVE METABOLIC PANEL (08/22/2024 7:15 PM COMPLAINTS COORDINATOR) SODIUM 142 136 - 145 mmol/L 08/22/2024 8:09 PM [facility] POTASSIUM 4.5 3.5 - 5.0 mmol/L 08/22/2024 8:09 PM [facility] [place] CHLORIDE 109(H) 98 - 107 mmol/L 08/22/2024 8:09 PM [facility] CO2 23 22 - 29 mmol/L 08/22/2024 8:09 PM [facility] CALCIUM 9.0 8.6 - 10.2 mg/dL 08/22/2024 8:09 PM [facility] [place] BUN 17 6 - 20 mg/dL 08/22/2024 8:09 PM [facility] CREATININE 0.86 0.51 - 0.95 mg/dL 08/22/2024 8:09 PM [facility] GLUCOSE 105(H) 74 - 99 mg/dL 08/22/2024 8:09 PM [facility] TOTAL PROTEIN 7.5 6.7 - 8.6 g/dL 08/22/2024 8:09 PM [facility] ALBUMIN 4.0 3.5 - 5.2 g/dL 08/22/2024 8:09 PM [facility] BILIRUBIN TOTAL 0.2(L) 0.3 - 1.2 mg/dL 08/22/2024 8:09 PM [facility] ALKALINE PHOSPHATASE 148(H) 35 - 104 U/L 08/22/2024 8:09 PM [facility] AST 08/22/2024 8:09 PM [facility] Comment:Test cannot be perfo rmed. Sample hemolysis interference above limits. Redraw if indicated. ALT 8 <34 U/L 08/22/2024 8:09 PM [facility] GFR >60 >=60 mL/min/1.7 3 sq meter 08/22/2024 8:09 PM [facility] Comment:eGFR calculated with 2020 CKD-EPI equation. Vegetarian diet, extremely high or low muscle mass, and may affect results. Cystatin C with Glomerular Filtration Rate is a suitable alternative for these patients. ANION GAP 10 8 - 16 mmol/L 08/22/2024 8:09 PM [facility] Blood Venipuncture / Unknown 08/22/2024 7:15 PM COMPLAINTS COORDINATOR 08/22/2024 7:[address] [facility] - 08/22/2024 8:09 PM [facility] Samples containing indocyanine green cause interferences on Total and/or Direct Bilirubin and must not be measured. Rabia Chi MD CHEMISTRY ORDERABLES Final Resul t [facility] CLIA# [id number] [address] [place] [address] from Last 3 Months Insurance [facility] CHOICE [id number]
--- OUTSIDE RECORDS SUMMARY | 2024-09-09 17:23 | XMS_ITS | Encounter Summary ---
Author Organization [facility] Address [address] [facility] [address] [place] [address] Care Team Providers Care Quality Head Name Role Phone Betzy Tang APRN Primary Care Provider [phone] Rabia Black PIZZA COOK Primary Care Provider [phone] Encounter Details Date Type Department Care Team (Late st Contact Info) Description 07/23/2022 Hospital Follow-up Call [place] [address] [place] [address] Divina Merino, RN Social History [...] Coronavirus/COVID-19? No / Unsure 07/20/2022 1:13 PM DOG HAIR CLIPPER documented as of this encounter Functional Status * RETIRED Are you deaf or do you have serious difficulty hearing Answer Date of Assessment Author Status No 07/20/2022 7:28 PM DOG HAIR CLIPPER Activ e * RETIRED Are you blind or do you have serious difficulty seeing, even when wearing glasses? Answer Date of Assessment Author Status No 07/20/2022 7:28 PM DOG HAIR CLIPPER Activ e * Do you have serious [...] on filedocumented in this encounter Care Teams Quality Head Relationship Specialty Start Date End Date Betzy Tang APRN [address] [place] [address] PCP - General NURSE PRACTITIONER 04/01/19 10/29/23 Rabia Black FNP [address] [place] [address] PCP - General Nurse Practitioner Family 02/29/24 documented as of this encounter
== END 2024-09-09 17:23 | disposition home or self-care (01) ==
LOC: ANHED 17:21
PROVIDERS: Emergency Provider Physician Assistant; PCP Nurse Practitioner Family
DX: M25.562 Pain in left knee (principal); W19.XXXA Unspecified fall, initial encounter
CPT/HCPCS: 73564; 73610; 99284

== ENCOUNTER 2024-11-18 15:28 | Emergency (ER) | payer OTHER, SELFPAY ==
--- OUTSIDE RECORDS SUMMARY | 2024-11-18 15:30 | XMS_ITS | Clinical Summary ---
Author Organization [facility] Address [address] [place] [address] Care Team Providers Care Whanau Support Worker Name Role Phone Unavailable Primary Care Provider Unavailabl e Source Comments [facility],non-owned Affiliates and Associated Physician Practices is amultiple site organization consisting of ambulatory clinics and hospital sitesin [place], [place], [place] and [place]. This disclosure is being madepursuant to the Care Everywhere program and may not contain all informatio navailable regarding this patient. Last updated 18.[facility] [employer] Allergies Active Allergy Reactions Criticality Noted Date Comments Codeine Itching Low 04/27/2023 Doxycycline GI Discomfort 07/07/2023 Nsaids GI Discomfort Low 04/27/2023 Gastric bypass patient Tramadol Seizures High 11/07/2015 Medications * Be aware that medications may not be up to date on this document. Alwaysverify current medications with the patient. SUMAtriptan (Imitrex) 50 MG tablet 3 Active tobramycin-dex AMETHasone (Tobradex) 0.3-0.1 % ophthalmic suspension SHAKE LIQUID AND INSTILL 1 DROP IN RIGHT EYE FOUR TIMES DAILY FOR 10 DAYS 3 Active traZODone (Desyrel) 50 MG tablet Take 1 (one) tablet by mouth 3 Active acetaminophen (Tylenol) 500 MG tablet Take 2 (two) tablets by mouth every 8 hours Maximum allowable Acetaminophen amount = 4 Grams (4000 mg) / 24 hours. 90 tablet 2 3 Active hydrOXYzine HCl (Atarax) 25 MG tabletIndicati ons:Anxiety,Pr uritus,pain adjunct Take 1 (one) tablet to 2 (two) tablets by mouth 4 times daily as needed for Itching Reasons: Feeling Anxious, Itching, pain adjunct 40 tablet 1 3 Active Additional Information Patient not taking.Reported on 07/07/2023 apixaban (Eliquis) 2.5 MG tablet Take 1 (one) tablet by mouth 2 times daily 70 tablet 3 Active ferrous sulfate 325 (65 FE) MG tablet Take 1 (one) tablet by mouth every 2 days 30 tablet 2 3 Active cyclobenzaprin e (Flexeril) 10 MG tablet Take 1 (one) tablet by mouth 3 times daily as needed for Muscle Spasms 30 tablet 1 3 Active Additional Information Patient not taking.Reported on 08/18/2023 oxyCODONE, immediate release, (Roxicodone) 10 MG tabletIndicati ons:Tibia/fibu la fracture, left, closed, initial encounter Take 1 (one) tablet by mouth every 6 hours as needed 40 tablet 3 Active Additional Information Patient not taking.Reported on 07/07/2023 oxyCODONE (Oxy-Ir) 5 MG capsuleIndicat ions:Tibia/fib rosalia fracture, left, closed, initial encounter Take 1 (one) capsule by mouth every 6 hours as needed for Pain 40 capsule 3 Active Additional Information Patient not taking.Reported on 07/07/2023 HYDROcodone-ac etaminophen ([place]) 5-325 MG tabletIndicati ons:Tibia/fibu la fracture, left, closed, with routine healing, subsequent encounter Take 1 (one) tablet by mouth every 8 hours as needed for Pain 40 tablet 3 Active Additional Information Patient not taking.Reported on 08/18/2023 naloxone HCl (Narcan) 4 MG/0.1ML nasal sprayIndicatio ns:Tibia/fibul a fracture, left, closed, with routine healing, subsequent encounter,custodial current use of opiate analgesic,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 [place] 1 (one) spray into the nose as needed 2 Each 3 Active pregabalin (Lyrica) 75 MG capsule Take 1 (one) capsule by mouth 2 times daily 30 capsule 3 Active Additional Information Patient not taking.Reported on 08/18/2023 pregabalin (Lyrica) 200 MG capsule Take 1 (one) capsule by mouth 2 times daily 60 capsule 3 Active acetaminophen- codeine (Tylenol #3) 300-30 MG tablet Take 1 (one) tablet by mouth every 8 hours as needed for Pain 40 tablet 3 Active Additional Information Patient not taking.Reported on 08/18/2023 cyanocobalamin (Vitamin B-12) 1000 MCG tablet Take 1 (one) tablet by mouth once daily 3 Active Estazolam 2 MG Take 1 tablet by mouth 3 Active acetaminophen- codeine (Tylenol #3) 300-30 MG tabletIndicati ons:custodial current use of opiate analgesic,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 Patient does not drink 3 Q3: How often do you have si x or more drinks on one occasion? Never 05/01/2023 Overall Financial Resource Strain (CARDIA) Answe r Date Recorded How hard is it for you to pa y for the very basics like food, housing, medical care, and heating? Not hard at all 05/01/2023 PHQ-2 Answer Date Recorded Patient Health Questionnaire-2 Score 0 08/18/2023 [facility] [place] of Occupat ional Health - Occupational Stress [...] place to sleep or slept in a retirement (including now)? No 05/01/2023 Comments Unknown Sex and Gender Information Value Date Recorded Sex Assigned at Not on file Legal Sex Female 5:57 PM BUILDING SPECIALIST Gender Identity Not on file Sexual [...] kg (155 lb) 08/18/2023 10:5 9 AM BUILDING SPECIALIST Height 154.9 cm (5' 1 ) 05/19/2023 10:3 7 AM CDT Body Mass Index 29.29 05/19/2023 10:37 AM CDT Plan of Treatment Health Maintenance Due Date Last Done Comments PAP SMEAR 1980 HIV SCREENING 1995 HEPATITIS C SCREENING 04/21/1998 DTAP/TDAP/TD VACCINES (1 - Tdap) 1999 HEPATITIS B VACCINE (1 of 3 - 19+ 3-dose series) 1999 MAMMOGRAM 01/02/2023 01/02/2021 COVID-19 VACCINE (1 - 2023-2 5 season) 2024 DEPRESSION SCREENING 08/03/2024 08/18/2023, 07/07/2023 INFLUENZA VACCINE (Season Ended) 2025 LIPID TESTING 07/24/2028 07/24/2023, 02/07/2020, 02/07/2020 ZOSTER VACCINE (1 of 2) 2030 HIB VACCINE Aged Out No longer eligi ble based on patient's age to complete this topic HPV VACCINE Aged Out No longer eligi ble based on patient's age to complete this topic MENINGOCOCCAL (Group B) VACCINE SHARED DECISION-MAKING Aged Out No longer eligible based on patient's age to complete this topic MENINGOCOCCAL GROUPS A/C/Y/W VACCINE Aged Out No longer eligible b ased on patient's age to complete this topic PNEUMOCOCCAL VACCINE Aged Out No long er eligible based on patient's age to complete this topic Medical Devices Implanted Type Area Knitter Wire Mesh Device Identifier Shelf Expiration Date Model / Serial / Lot Tibial Nail- Advanced/11mm 345mm Implanted:Qty: 1 on 04/29/2023 by Sanjeev Kline MD at [facility] Left: [employer]ia [employer] 08/02/2032 [id number] S / / [id number] 5.0mm Locking Screws Implanted:Qty: 1 on 04/29/2023 by Sanjeev Kline MD at [facility] [id number] / / 5.0mm Locking Screw Implanted:Qty: 1 on 04/29/2023 by Sanjeev Kline MD at [facility] [id number] / / 5.0mm Locking Screw Implanted:Qty: 2 on 04/29/2023 by Sanjeev Kline MD at [facility] [id number] / / 5.0mm Locking Screw Implanted:Qty: 1 on 04/29/2023 by Sanjeev Kline MD at [facility] [id number] / / 3.5 Cannulated Implanted:Qty: 1 on 04/29/2023 by Sanjeev Kline MD at [facility] [id number] / / 3.5 Cannulated Implanted:Qty: 1 on 04/29/2023 by Sanjeev Kline MD at [facility] [id number] / / Explanted Type Area Knitter Wire Mesh Device Identifier Shelf Expiration Date Model / Serial / Lot Slv Prtc 12mm Suprapatellar Strl Explanted:Qty: 1 on 04/29/2023 at [facility] Left: [employer]ia [employer] 10/31/2024 [id number] S / / [id number] Advance Directives * Full Code (Latest Code Status on File) Date Activated Date Inactivated Comments 04/28/2023 4:28 AM 05/08/2023 4:32 PM
--- OUTSIDE RECORDS SUMMARY | 2024-11-18 15:30 | XMS_ITS | Encounter Summary ---
Author Organization [facility] Address [address] [place] [address] Care Team Providers Care Franchise Consultant Name Role Phone Betzy Tang APRN Primary Care Provider [phone] Rabia Black DYE RANGE FEEDER Primary Care Provider [phone] Encounter Details Date Type Department Care Team (Late st Contact Info) Description 07/23/2022 Hospital Follow-up Call [facility] [place] [address] [place] [address] Divina Merino, RN Social History Tobacco Use Types Packs/Day Years Used Date Smoking Tobacco: Never Smokeless Tobacco: Never Alcohol Use Standard Drinks/Week Comments Yes 0 (1 standard drink = 0.6 oz pur e alcohol) occ Comments No Sex and Gender Information Value Date Recorded Sex Assigned at Female 09/15/2024 2:23 PM CONCRETE PUMP OPERATOR HELPER Legal Sex Female 7:12 PM CDT Gender Identity Not on file Sexual Orientation Not on file COVID-19 Exposure Response Date Recorded In the last 10 days, have yo u been in contact with someone who was confirmed or suspected to have Coronavirus/COVID-19? No / Unsure 07/20/2022 1:13 PM CONCRETE PUMP OPERATOR HELPER documented as of this encounter Functional Status * RETIRED Are you deaf or do you have serious difficulty hearing Answer Date of Assessment Author Status No 07/20/2022 7:28 PM CONCRETE PUMP OPERATOR HELPER Activ e * RETIRED Are you blind or do you have serious difficulty seeing, even when wearing glasses? Answer Date of Assessment Author Status No 07/20/2022 7:28 PM CONCRETE PUMP OPERATOR HELPER Activ e * Do you have serious [...] on filedocumented in this encounter Care Teams Franchise Consultant Relationship Specialty Start Date End Date Betzy Tang APRN [address] [place] [address] PCP - General NURSE PRACTITIONER 04/01/19 10/29/23 Rabia Black FNP [address] [place] [address] PCP - General Nurse Practitioner Family 02/29/24 documented as of this encounter
--- OUTSIDE RECORDS SUMMARY | 2024-11-18 15:30 | XMS_ITS | Encounter Summary ---
Author Organization [facility] Address [facility] [place] [address] Care Team Providers Care Can Sterilizer Name Role Phone Betzy Tang APRN Primary Care Provider [phone] Rabia Black FOLDER MACHINE Primary Care Provider [phone] Encounter Details Date Type Department Care Team (Late st Contact Info) Description 02/08/2020 Telephone [facility] Med/Surg [address] [place] [address] Katy Blevins CNA Social History Tobacco Use Types Packs/Day Years Used Date Smoking Tobacco: Never Smokeless Tobacco: Never Alcohol Use Standard Drinks/Week Comments Yes 0 (1 standard drink = 0.6 oz pur e alcohol) occ Comments No Sex and Gender Information Value Date Recorded Sex Assigned at Female 09/15/2024 2:23 PM DIRECTOR OF RESEARCH CENTER Legal Sex Female 7:12 PM CDT Gender [...] on filedocumented in this encounter Care Teams Can Sterilizer Relationship Specialty Start Date End Date Betzy Tang APRN [address] [place] [address] PCP - General NURSE PRACTITIONER 04/01/19 10/29/23 Rabia Black FNP [address] [place] [address] PCP - General Nurse Practitioner Family 02/29/24 documented as of this encounter
--- OUTSIDE RECORDS SUMMARY | 2024-11-18 15:31 | XMS_ITS | Clinical Summary ---
Author Organization [facility] Address [address] [place] [address] Phone Care Team Providers Care Direct Marketing Coordinator Name Role Phone Unavailable Primary Care Provider Unavailabl e Allergies Active Allergy Reactions Criticality Noted Date Comments Codeine Itching Low 08/22/2024 Methocarbamol Nausea and Vomiting Low 08/22/2024 Nsaids (Non-Steroidal Anti-Inflammatory Drug) Nausea and Vomiting Low 08/22/2024 Tramadol Seizure High 08/22/2024 Encounters Date Type Department Care Team Description 08/22/2024 6:58 PM NARCOTICS AND/OR VICE DETECTIVE - 08/22/2024 8:23 PM NARCOTICS AND/OR VICE DETECTIVE Emergency [facility] Emergency Department [address] [place] [address] Rabia Chi MD Discharge Disposition: [...] on file Legal Sex Female 6:11 PM NARCOTICS AND/OR VICE DETECTIVE Gender Identity Not on file Sexual Orientation Not on file Last Filed Vital Signs Vital Sign Reading Time Taken Comments Blood Pressure 124/94 08/22/2024 6:16 PM NARCOTICS AND/OR VICE DETECTIVE Pulse - - Temperature 36.6 C (97.9 F) 08/22/2024 6:16 PM NARCOTICS AND/OR VICE DETECTIVE Respiratory Rate 20 08/22/2024 6:16 PM NARCOTICS AND/OR VICE DETECTIVE Oxygen Saturation 100% 08/22/2024 6:16 PM NARCOTICS AND/OR VICE DETECTIVE Inhaled Oxygen Concentration - - Weight 84.8 kg (187 lb) 08/22/2024 6:16 PM NARCOTICS AND/OR VICE DETECTIVE Height 154.9 cm (5' 1 ) 08/22/2024 6:16 PM NARCOTICS AND/OR VICE DETECTIVE Body Mass Index 35.33 08/22/2024 6:16 PM NARCOTICS AND/OR VICE DETECTIVE Plan of Treatment Health Maintenance Due Date Last Done Comments Pre-Diabetes and Diabetes Screening 1980 DTAP/TDAP/TD VACCINES (1 - Tdap) 1999 HEPATITIS B VACCINES (1 of 3 - 19+ 3-dose series) 1999 HPV/Cotest (21-29) 2001 PAP SMEAR 2001 CERVICAL CANCER SCREENING 2010 HPV/Cotest (30-65) 2010 PAP SMEAR 2010 BREAST CANCER SCREENING 2020 INFLUENZA VACCINE (#1) 2024 HPV VACCINES Aged Out No longer eligi ble based on patient's age to complete this topic Procedures Procedure Name Priority Date/Time Associated Diagnosis Comments POC CREATININE Stat 08/22/2024 7:20 PM NARCOTICS AND/OR VICE DETECTIVE COMPREHENSIVE METABOLIC PANEL Stat 08/22/2024 7:15 PM NARCOTICS AND/OR VICE DETECTIVE CBC WITH DIFFERENTIAL Stat 08/22/2024 7:15 PM NARCOTICS AND/OR VICE DETECTIVE from Last 3 Months Results * POC CREATININE (08/22/2024 7:20 PM NARCOTICS AND/OR VICE DETECTIVE) CREATININE POC 0.90 0.50 - 1.00 mg/dL 08/22/2024 7:20 PM NARCOTICS AND/OR VICE DETECTIVE [facility] GFR POC >60 >=60 mL/min/1.7 3 sq meter 08/22/2024 7:20 PM NARCOTICS AND/OR VICE DETECTIVE [facility] Comment:eGFR calculated with 2020 CKD-EPI equation. Vegetarian diet, extremely high or low muscle mass, and may affect results. Cystatin C with Glomerular Filtration Rate is a suitable alternative for these patients. Blood, whole 08/22/2024 7:20 PM NARCOTICS AND/OR VICE DETECTIVE 08/22/2024 7:23 PM NARCOTICS AND/OR VICE DETECTIVE Rabia Chi MD POINT OF CARE TESTING Final Resu lt [facility] CLIA# [id number] [address] [place] [address] * (ABNORMAL) CBC WITH DIFFERENTIAL (08/22/2024 7:15 PM NARCOTICS AND/OR VICE DETECTIVE) [facility] WBC 4.7 4.0 - 9.8 K/uL 08/22/2024 7:41 PM NARCOTICS AND/OR VICE DETECTIVE [facility] - [facility] RBC 4.13 3.90 - 4.90 M/uL 08/22/2024 7:41 PM NARCOTICS AND/OR VICE DETECTIVE [facility] - [facility] HEMOGLOBIN 12.1 11.8 - 14.8 g/dL 08/22/2024 7:41 PM NARCOTICS AND/OR VICE DETECTIVE [facility] - [facility] HEMATOCRIT 37.1 35.5 - 44.0 % 08/22/2024 7:41 PM NARCOTICS AND/OR VICE DETECTIVE [facility] - [facility] MCV 89.8 82.0 - 99.0 fL 08/22/2024 7:41 PM NARCOTICS AND/OR VICE DETECTIVE [facility] - [facility] MCH 29.3 27.2 - 32.6 pg 08/22/2024 7:41 PM NARCOTICS AND/OR VICE DETECTIVE [facility] - [facility] MCHC 32.6 31.5 - 35.5 g/dL 08/22/2024 7:41 PM NARCOTICS AND/OR VICE DETECTIVE [facility] - [facility] RDW 16.3(H) 11.5 - 14.5 % 08/22/2024 7:41 PM NARCOTICS AND/OR VICE DETECTIVE [facility] - [facility] RDW-STDEV 54.5(H) 37.1 - 48.7 fL 08/22/2024 7:41 PM NARCOTICS AND/OR VICE DETECTIVE [facility] PLATELETS 273 140 - 350 K/uL 08/22/2024 7:41 PM NARCOTICS AND/OR VICE DETECTIVE [facility] - [facility] MPV 10.4 9.3 - 12.4 fL 08/22/2024 7:41 PM NARCOTICS AND/OR VICE DETECTIVE [facility] - . [facility] NEUTROPHILS 41 % 08/22/2024 7:41 PM NARCOTICS AND/OR VICE DETECTIVE [facility] - . [facility] LYMPHOCYTES 48 % 08/22/2024 7:41 PM NARCOTICS AND/OR VICE DETECTIVE [facility] MONOCYTES 9 % 08/22/2024 7:41 PM NARCOTICS AND/OR VICE DETECTIVE [facility] - . [place] EOSINOPHILS 1 % 08/22/2024 7:41 PM NARCOTICS AND/OR VICE DETECTIVE [facility] - . [place] BASOPHILS 0 % 08/22/2024 7:41 PM NARCOTICS AND/OR VICE DETECTIVE [facility] - . [facility] IMMATURE GRANULOCYTES 0 % 08/22/2024 7:41 PM NARCOTICS AND/OR VICE DETECTIVE [facility] NEUTROPHIL ABSOLUTE 1.93 1.90 - 7.00 K/uL 08/22/2024 7:41 PM NARCOTICS AND/OR VICE DETECTIVE [facility] LYMPHOCYTE ABSOLUTE 2.25 0.70 - 4.50 K/uL 08/22/2024 7:41 PM [facility] MONOCYTE ABSOLUTE 0.41 0.10 - 1.30 K/uL 08/22/2024 7:41 PM [facility] EOSINOPHIL ABSOLUTE 0.04 0.00 - 0.70 K/uL 08/22/2024 7:41 PM NARCOTICS AND/OR VICE DETECTIVE [facility] BASOPHILS ABSOLUTE 0.02 0.00 - 0.20 K/uL 08/22/2024 7:41 PM [facility] IMMATURE GRANULOCYTES ABSOLUTE 0.01 0.00 - 0.03 K/uL 08/22/2024 7:41 PM [facility] Blood Venipuncture / Unknown 08/22/2024 7:15 PM NARCOTICS AND/OR VICE DETECTIVE 08/22/2024 7:30 PM NARCOTICS AND/OR VICE DETECTIVE us Rabia Chi MD HEMATOLOGY ORDERABLES Final Resu lt [facility]# [id number] [address] [facility] [place] [address] * (ABNORMAL) COMPREHENSIVE METABOLIC PANEL (08/22/2024 7:15 PM NARCOTICS AND/OR VICE DETECTIVE) SODIUM 142 136 - 145 mmol/L 08/22/2024 8:09 PM [facility] POTASSIUM 4.5 3.5 - 5.0 mmol/L 08/22/2024 8:09 PM NARCOTICS AND/OR VICE DETECTIVE [facility] CHLORIDE 109(H) 98 - 107 mmol/L 08/22/2024 8:09 PM [facility] CO2 23 22 - 29 mmol/L 08/22/2024 8:09 PM [facility] . [place] CALCIUM 9.0 8.6 - 10.2 mg/dL 08/22/2024 8:09 PM [facility] BUN 17 6 - 20 mg/dL 08/22/2024 8:09 PM [facility] CREATININE 0.86 0.51 - 0.95 mg/dL 08/22/2024 8:09 PM [facility] GLUCOSE 105(H) 74 - 99 mg/dL 08/22/2024 8:09 PM [facility] TOTAL PROTEIN 7.5 6.7 - 8.6 g/dL 08/22/2024 8:09 PM [facility] ALBUMIN 4.0 3.5 - 5.2 g/dL 08/22/2024 8:09 PM [facility] BILIRUBIN TOTAL 0.2(L) 0.3 - 1.2 mg/dL 08/22/2024 8:09 PM [facility] ALKALINE PHOSPHATASE 148(H) 35 - 104 U/L 08/22/2024 8:09 PM [facility] AST 08/22/2024 8:09 PM [facility] Comment:Test cannot be perfo rmed. Sample hemolysis interference above limits. Redraw if indicated. ALT 8 <34 U/L 08/22/2024 8:09 PM [facility] GFR >60 >=60 mL/min/1.7 3 sq meter 08/22/2024 8:09 PM [facility] Comment:eGFR calculated with 2020 CKD-EPI equation. Vegetarian diet, extremely high or low muscle mass, and may affect results. Cystatin C with Glomerular Filtration Rate is a suitable alternative for these patients. ANION GAP 10 8 - 16 mmol/L 08/22/2024 8:09 PM [facility] Blood Venipuncture / Unknown 08/22/2024 7:15 PM NARCOTICS AND/OR VICE DETECTIVE 08/22/2024 7:30 PM [facility] - 08/22/2024 8:09 PM [facility] Samples containing indocyanine green cause interferences on Total and/or Direct Bilirubin and must not be measured. Rabia Chi MD CHEMISTRY ORDERABLES Final Resul t [facility]# [id number] [address] [place] [id number] from Last 3 Months Insurance [facility] CHO[facility] [id number] [id number]
--- OUTSIDE RECORDS SUMMARY | 2024-11-18 15:31 | XMS_ITS | Clinical Summary ---
Author Organization [facility] Address [address] [place] [address] Care Team Providers Care Emergency Management Program Specialist Name Role Phone Cole Blackdrea Perera SITE RELIABILITY ENGINEER Primary Care Provider [phone] Allergies Active Allergy Reactions Criticality Noted Date [...] palpitations 12/24/2015 Depression 11/23/2015 Fibromyalgia 11/07/2015 Seizures ([facility]) 11/07/2015 Resolved Problems Problem Noted Date Diagnosed Date Resolved Date Partial small bowel obstruct ion ([facility]) 07/20/2022 07/22/2022 Incarcerated ventral hernia 07/20/2022 08/18/2022 Women's annual routine gynec ological examination 03/31/2016 04/13/2020 Encounters Date Type Department Care Team Description 09/15/2024 2:19 PM CONTINUOUS IMPROVEMENT LEAD - 09/15/2024 4:57 PM [facility] Emergency [facility] Emergency Room [id number] [place] [address] Andrew Marshall, Diarrhea; Fall Discharge Disposition: Home or Self Care (Routine Discharge) 09/15/2024 Travel from Last 3 Months Immunizations Immunization Administration Dates Next Due Fluzone 6 Months+ [...] 0.6 oz pur e alcohol) very rarely [facility] Utilities Answer Date Recorded In the past 12 months has e [employer], gas, oil, or water Disability Care Givers threatened to shut off services in your [...] How often do you attend chur or sabianist services? More than 4 times per year 07/24/2023 Do you belong to any clubs o r organizations such as gnosticism groups, unions, fraternal or athletic groups, or [...] medical care, and heating? Patient declined 07/24/2023 [facility] - Occupational [...] Sex Assigned at Female 09/15/2024 2:23 PM CONTINUOUS IMPROVEMENT LEAD Legal Sex Female 7:12 PM CDT Gender Identity Not on file Sexual Orientation Not on file Last Filed Vital Signs Vital Sign Reading Time Taken Comments Blood Pressure 128/87 09/15/2024 4:48 PM CONTINUOUS IMPROVEMENT LEAD Pulse 100 09/15/2024 4:48 PM CONTINUOUS IMPROVEMENT LEAD Temperature 36.9 C (98.4 F) 09/15/2024 2:24 PM CONTINUOUS IMPROVEMENT LEAD Respiratory Rate 16 09/15/2024 4:48 PM CONTINUOUS IMPROVEMENT LEAD Oxygen Saturation 98% 09/15/2024 4:48 PM CONTINUOUS IMPROVEMENT LEAD Inhaled Oxygen Concentration - - Weight 84.8 kg (187 lb) 09/15/2024 2:24 PM CONTINUOUS IMPROVEMENT LEAD Height 154.9 cm (5' 1 ) 09/15/2024 2:24 PM CONTINUOUS IMPROVEMENT LEAD Body Mass Index 35.33 09/15/2024 2:24 PM CONTINUOUS IMPROVEMENT LEAD Plan of Treatment Health Maintenance Due Date Last Done Comments ASCVD Statin 1980 Cervical Cancer Screening Pap Smear (Age 30 to 64) Every 3 Years 1980 Annual Physical 1983 Hepatitis C 1998 DTaP, Tdap and Td Vaccines (1 - Tdap) 1999 Hepatitis B Vaccines (1 of 3 - 19+ 3-dose series) 1999 Pneumococcal Vaccine: Pediatrics (0 to 5 Years) and At-Risk Patients (6 to 49 Years) (1 of 2 - PCV) 1999 Cervical Cancer Screening Pap with HPV Testing (Age 30 to 64) Every 5 Years 2010 Cervical Cancer Screening with HPV 2010 Mammogram Screening 01/02/2023 01/02/2021 COVID-19 Vaccine ( season) 2024 ASCVD LDL 07/24/2024 07/24/2023, 03/03, 02/07/2020, Additional history exists HPV Vaccines Aged Out No longer eligi [...] to independent living Lifestyle No Aracely Baird, OSTEOPATHIC RESIDENT Safety Patient/family will have appropriate support at home upon discharge Lifestyle No Nelli Rodríguez, casting operator Procedure Name Priority Date/Time Associated Diagnosis Comments XR KNEE LT 3V STAT 09/15/2024 3:11 PM CONTINUOUS IMPROVEMENT LEAD XR ANKLE LT M3V STAT 09/15/2024 3:11 PM CONTINUOUS IMPROVEMENT LEAD LIPASE STAT 09/15/2024 2:27 PM CONTINUOUS IMPROVEMENT LEAD COMPREHENSIVE METABOLIC PANEL STAT 09/15/2024 2:27 PM CONTINUOUS IMPROVEMENT LEAD CBC W/DIFF AUTOMATED STAT 09/15/2024 2:27 PM CONTINUOUS IMPROVEMENT LEAD LIPID PANEL Routine 07/24/2023 7:08 AM CONTINUOUS IMPROVEMENT LEAD MG SCREENING W ADRIANA LAISHA DIGI Routine 01/02/2021 1:19 PM CDT Visit for screening mammogram from Last 3 Months or Most Recently Relevant to Health Maintenance Results * XR KNEE LT 3V (09/15/2024 3:11 PM CONTINUOUS IMPROVEMENT LEAD) Anatomical Region Laterality Modality Knee Radiographic Halley ging 09/15/2024 3:35 PM CONTINUOUS IMPROVEMENT LEAD Impressions 09/15/2024 3:38 PM CONTINUOUS IMPROVEMENT LEAD IMPRESSION: 1. No radiographic evidence is seen to suggest acute fracture or malalignment of the bones of the left knee. 2. Approximately 6 mm ossicle anterior to the joint suggesting a small intra- articular body. 3. Incompletely visualized surgical changes of orthopedic reduction and internal fixation of the tibia without evidence to suggest loosening or failure along the visualized orthopedic hardware. Referred By: Interpreted By: Bryant Dalton DO, 09/15/2024 3:35 PM Narrative 09/15/2024 3:38 PM CONTINUOUS IMPROVEMENT LEAD [facility] [address] [facility] [place] [address] Examination: XR KNEE LT 3V Exam time: 09/15/2024 2:46 PM Clinical history: Left knee pain after fall. Comparison: Left tibia/fibular radiographs 04/27/2023 and left knee radiographs 09/12/2016. Technique: AP, lateral, and sunrise views of the left knee. Findings: There is an incompletely visualized intramedullary william with 2 proximal interlocking screws in the tibia. No evidence is seen to suggest loosening or failure along the visualized orthopedic hardware. There is mild deformity of the distal fibular diaphysis reflecting remote trauma. There is no joint effusion. No radiographic evidence is seen to suggest acute fracture or malalignment of the bones of the left knee. There is an approximately 6 mm ossicle anterior to the joint suggesting a small intra-articular body. Procedure Note Bryant Dalton DO - 09/15/2024 [facility] [address] [place] [id number] Examination: XR KNEE LT 3V Exam time: 09/15/2024 2:46 PM Clinical history: Left knee pain after fall. Comparison: Left tibia/fibular radiographs 04/27/2023 and left kneeradiographs 09/12/2016. Technique: AP, lateral, and sunrise views of the left knee. Findings: There is an incompletely visualized intramedullary william with 2 proximalinterlocking screws in the tibia. No evidence is seen to suggestloosening or failure along the visualized orthopedic hardware. There ismild deformity of the distal fibular diaphysis reflecting remote trauma.There is no joint effusion. No radiographic evidence is seen to suggestacute fracture or malalignment of the bones of the left knee. There is anapproximately 6 mm ossicle anterior to the joint suggesting a smallintra-articular body. IMPRESSION: 1. No radiographic evidence is seen to suggest acute fracture ormalalignment of the bones of the left knee. 2. Approximately 6 mm ossicle anterior to the joint suggesting a smallintra- articular body. 3. Incompletely visualized surgical changes of orthopedic reduction andinternal fixation of the tibia without evidence to suggest loosening orfailure along the visualized orthopedic hardware. Referred By: Interpreted By: Bryant Dalton DO, 09/15/2024 3:35 PM Andrew Marshall DO GENERAL IMAGING Final Result * XR ANKLE LT M3V (09/15/2024 3:11 PM CONTINUOUS IMPROVEMENT LEAD) Anatomical Region Laterality Modality Ankle Radiographic Halley ging 09/15/2024 3:31 PM CONTINUOUS IMPROVEMENT LEAD Impressions 09/15/2024 3:35 PM CONTINUOUS IMPROVEMENT LEAD IMPRESSION: 1. Soft tissue swelling overlying the medial ankle with a tiny ossicle along the tip of the medial malleolus that is technically age indeterminate but could reflect an acute fracture if this corresponds to the site of the patient's pain. 2. Surgical changes of orthopedic reduction and internal fixation of the distal tibia as above without evidence to suggest loosening or failure along the visualized orthopedic hardware. Referred By: Interpreted By: Bryant Dalton DO, 09/15/2024 3:31 PM Narrative 09/15/2024 3:35 PM CONTINUOUS IMPROVEMENT LEAD [address] [place] [address] Examination: XR ANKLE LT M3V Exam time: 09/15/2024 2:46 PM Clinical history: Left ankle pain after fall. Comparison: Left tibia/fibular radiographs 04/27/2023 and left ankle radiographs 11/06/2017. Technique: AP, lateral, and oblique views of the left ankle. Findings: There is an incompletely visualized intramedullary william with interlocking screws in the distal tibia as well as 2 orthopedic screws in the medial malleolus affixing a healed fracture is in near-anatomic alignment. No evidence is seen to suggest loosening or failure along the visualized orthopedic hardware. There is mild deformity of the distal fibular diaphysis reflecting remote injury. Soft tissue swelling overlies the medial ankle. The ankle mortise is intact. There is a tiny ossicle along the tip of the medial malleolus that is technically age indeterminate but could reflect an acute fracture if the patient has pain at this site. Small plantar and posterior calcaneal enthesophytes are noted. Procedure Note Bryant Dalton, DO - 09/15/2024 [facility] [address] [place] [place] [address] Examination: XR ANKLE LT M3V Exam time: 09/15/2024 2:46 PM Clinical history: Left ankle pain after fall. Comparison: Left tibia/fibular radiographs 04/27/2023 and left ankleradiographs 11/06/2017. Technique: AP, lateral, and oblique views of the left ankle. Findings: There is an incompletely visualized intramedullary william with interlockingscrews in the distal tibia as well as 2 orthopedic screws in the medialmalleolus affixing a healed fracture is in near-anatomic alignment. Noevidence is seen to suggest loosening or failure along the visualizedorthopedic hardware. There is mild deformity of the distal fibulardiaphysis reflecting remote injury. Soft tissue swelling overlies themedial ankle. The ankle mortise is intact. There is a tiny ossicle alongthe tip of the medial malleolus that is technically age indeterminate butcould reflect an acute fracture if the patient has pain at this site.Small plantar and posterior calcaneal enthesophytes are noted. IMPRESSION: 1. Soft tissue swelling overlying the medial ankle with a tiny ossiclealong the tip of the medial malleolus that is technically ageindeterminate but could reflect an acute fracture if this corresponds tothe site of the patient's pain. 2. Surgical changes of orthopedic reduction and internal fixation of thedistal tibia as above without evidence to suggest loosening or failurealong the visualized orthopedic hardware. Referred By: Interpreted By: Bryant Dalton DO, 09/15/2024 3:31 PM Andrew Marshall DO GENERAL IMAGING Final Result * (ABNORMAL) COMPREHENSIVE METABOLIC PANEL (09/15/2024 2:27 PM CONTINUOUS IMPROVEMENT LEAD) GLUCOSE 87 70 - 99 MG/DL 09/15/2024 3:06 PM [facility] BUN 10 7 - 18 MG/DL 09/15/2024 3:06 PM [facility] CREATININE S/P/B 0.64 0.55 - 1.02 MG/DL 09/15/2024 3:06 PM [facility] SODIUM S/P/B 141 136 - 145 MMOL/L 09/15/2024 3:06 PM [facility] POTASSIUM S/P/B 3.6 3.5 - 5.1 MMOL/L 09/15/2024 3:06 PM [facility] CHLORIDE S/P/B 106 100 - 108 MMOL/L 09/15/2024 3:06 PM [facility] CO2 22.7 21 - 32 MMOL/L 09/15/2024 3:06 PM [facility] CALCIUM S/P/B 9.2 8.5 - 10.1 MG/DL 09/15/2024 3:06 PM [facility] BILIRUBIN TOTAL S/P/B 0.3 0.2 - 1.2 MG/DL 09/15/2024 3:06 PM [facility] TOTAL PROTEIN S/P/B 6.9 6.4 - 8.2 G/DL 09/15/2024 3:06 PM [facility] ALBUMIN S/P/B 3.3(L) 3.4 - 5.0 G/DL 09/15/2024 3:06 PM [facility] AST 16 15 - 37 U/L 09/15/2024 3:06 PM [facility] ALT 17 14 - 55 U/L 09/15/2024 3:06 PM [facility] ALKALINE PHOSPHATASE S/P/B 179(H) 50 - 136 U/L 09/15/2024 3:06 PM [facility] ANION GAP 12.3 5 - 15 MMOL/L 09/15/2024 3:06 PM [facility] BUN CREATININE RATIO 15.6 6 - 26 09/15/2024 3:06 PM [facility] A/G RATIO 0.9(L) 1.0 - 2.0 RATIO 09/15/2024 3:06 PM [facility] GFR ESTIMATE >90 >90 ML/MIN/1.7 3 M2 09/15/2024 3:06 PM [facility] Comment: NOTE: eGFR is not calculated for patients <18 years of age. This is an estimated GFR calculation using the new CKD EPI creatinine equation without race and so does not require a correction factor for race. This estimated GFR should not be used for calculating drug doses. 09/15/2024 2:27 PM CONTINUOUS IMPROVEMENT LEAD Andrew Marshall DO LABORATORY Final Result [facility] [address] [place] [address], [place] [phone] * (ABNORMAL) CBC W/DIFF AUTOMATED (09/15/2024 2:27 PM CONTINUOUS IMPROVEMENT LEAD) [facility] WBC 3.71(L) 4.4 - 11.0 x10'3/uL 09/15/2024 2:54 PM CONTINUOUS IMPROVEMENT LEAD [facility] RBC 3.98(L) 4.50 - 5.10 x10'6/uL 09/15/2024 2:54 PM [facility] HGB 11.5(L) 12.3 - 15.3 G/DL 09/15/2024 2:54 PM [facility] HCT 34.6(L) 35.9 - 44.6 % 09/15/2024 2:54 PM [facility] MCV 86.9 80.0 - 96.0 FL 09/15/2024 2:54 PM [facility] MCH 28.9 25.3 - 30.9 PG 09/15/2024 2:54 PM [facility] MCHC 33.2 31.0 - 34.1 G/DL 09/15/2024 2:54 PM [facility] RDW 15.9(H) 12.4 - 15.1 % 09/15/2024 2:54 PM [facility] PLT 188 151 - 353 x10'3/uL 09/15/2024 2:54 PM [facility] MPV 10.4 9.6 - 12.0 FL 09/15/2024 2:54 PM [facility] RBC MORPHOLOGY NORMAL 09/15/2024 2:54 PM [facility] PLT MORPH. NORMAL 09/15/2024 2:54 PM [facility] WBC MORPHOLOGY NORMAL 09/15/2024 2:54 PM CONTINUOUS IMPROVEMENT LEAD [facility] LYMPHOCYTES % 49.6(H) 15.8 - 45.0 % 09/15/2024 2:54 PM CONTINUOUS IMPROVEMENT LEAD [facility] NEUTROPHILS % 36.4(L) 42.1 - 71.9 % 09/15/2024 2:54 PM CONTINUOUS IMPROVEMENT LEAD [facility] MONOCYTES % 12.4 5.7 - 12.5 % 09/15/2024 2:54 PM CONTINUOUS IMPROVEMENT LEAD [facility] EOSINOPHILS 0.8 0.0 - 5.6 % 09/15/2024 2:54 PM CONTINUOUS IMPROVEMENT LEAD [facility] BASOPHILS 0.5 0.0 - 1.3 % 09/15/2024 2:54 PM CONTINUOUS IMPROVEMENT LEAD [facility] ABS. NEUTROPHILS 1.35(L) 1.40 - 6.00 x10'3/uL 09/15/2024 2:54 PM CONTINUOUS IMPROVEMENT LEAD [facility] IMMATURE GRANS % 0.3 0.0 - 0.5 % 09/15/2024 2:54 PM CONTINUOUS IMPROVEMENT LEAD [facility] ABS. LYMPHOCYTES 1.84 0.80 - 4.70 x10'3/uL 09/15/2024 2:54 PM CONTINUOUS IMPROVEMENT LEAD [facility] 09/15/2024 2:27 PM CONTINUOUS IMPROVEMENT LEAD us Andrew Marshall DO LABORATORY Final Result [facility] [address] [place] [address], * LIPASE (09/15/2024 2:27 PM CONTINUOUS IMPROVEMENT LEAD) LIPASE 48 16 - 77 UNITS/L 09/15/2024 3:06 PM CONTINUOUS IMPROVEMENT LEAD [facility] 09/15/2024 2:27 PM CONTINUOUS IMPROVEMENT LEAD Andrew Marshall DO LABORATORY Final Result [facility] [address] [place] [address], [place] [phone] * LIPID PANEL (07/24/2023 7:08 AM CONTINUOUS IMPROVEMENT LEAD) CHOLESTEROL 131 <200 MG/DL 07/24/2023 8:17 AM CONTINUOUS IMPROVEMENT LEAD [facility] TRIGLYCERIDES 45 <150 MG/DL 07/24/2023 8:17 AM [facility] HDL 65 >40.0 MG/DL 07/24/2023 8:17 AM [facility] LDL (CALCULATED) 57 <100 MG/DL 07/24/20 8:17 AM [facility] NON HDL CHOLESTEROL 66 <130 MG/DL 07/24 8:17 AM [facility] CHOL/HDL RATIO 2.0 0.0 - 4.5 07/24/2023 8:17 AM [facility] VLDL CALCULATION 9 5 - 55 MG/DL 07/24/2023 8:17 AM [facility] LIPID INTERPRETATION 07/24/2023 8:17 AM [facility] Comment: [facility] CONCENSUS REPORT RECOMMENDATIONS: ADULT CHILD LOW RISK: CHOLESTEROL <200 <170 TRIGLYCERIDE <150 --- HDL >=60 --- LDL <100 <110 BORDERLINE: CHOLESTEROL 200-239 170-199 TRIGLYCERIDE 150-199 --- HDL 40-59 --- LDL 100-159 110-129 HIGH RISK: CHOLESTEROL >=240 >=200 TRIGLYCERIDE >=200 --- HDL <40 --- LDL >=160 >=130 07/24/2023 7:08 AM CONTINUOUS IMPROVEMENT LEAD Alyse Jacob MD LABORATORY Final Re sult [facility] [address] [place] [address], * MG SCREENING W ADRIANA LAISHA DIGI (01/02/2021 1:19 PM CDT) Anatomical Region Laterality Modality Breast Bilateral Mammography 01/02/2021 1:25 PM CDT Narrative 01/02/2021 1:26 PM CDT IMAGING STUDIES: MG SCREENING W ADRIANA LAISHA DIGI DATE: 01/02/2021 1:19 PM INDICATION: screening. [...] - benign findings. Routine screening mammography recommended MQSA BI-RADS Categories: Category 0 - needs [...] Daniel Presley, 01/02/2021 1:25 PM [facility] [place] [employer]ENT MAMMO Final Result from Last 3 Months or Most Recently Relevant to Health Maintenance Insurance [employer] Advance Directives * Full Code (Latest Code [...] 4:39 PM 02/07/2020 6:36 PM Care Teams Emergency Management Program Specialist Relationship Specialty Start Date End Date Rabia Black FNP PCP - General Nurse Practitioner Family 02/29/24
--- OUTSIDE RECORDS SUMMARY | 2024-11-18 15:31 | XMS_ITS | Clinical Summary ---
Author Organization [facility] Address [address], [facility] [address] [place] [address] Phone Care Team Providers Care Outside Installation Machinist Name Role Phone Unavailable Primary Care Provider [...] age to complete this topic Insurance MEDICAID [facility]
[2024-11-18 15:44] VITALS: BP 128/87; PULSE 106; RESP 18; TEMP 36.6; O2SAT 100
--- NOTE | 2024-11-18 17:29 | ED.GENADULT ---
HPI - General Adult General Chief complaint: Dental/Oral Stated complaint: tooth pain x1.5 week Time Seen by Provider: 11/18/24 17:05 History of Present Illness HPI narrative: [age] old female presenting to the emergency department for evaluation for dental pain this been ongoing for the last 1.5 weeks. Patient does report she fractured her to swell eating a [employer]arm sucker. Patient states she will have follow-up with her dentist. Related Data Allergies Allergy/AdvReac Type Severity Reaction Status Date / Time tramadol Allergy Unknown seizure Verified 11/18/24 15:29 codeine AdvReac Itching Verified 11/18/24 15:29 ketorolac (From Toradol) AdvReac Shakiness Verified 11/18/24 15:29 methocarbamol AdvReac Vomiting Verified 11/18/24 15:29 NSAIDS (Non-Steroidal AdvReac Diarrhea Verified 11/18/24 15:29 Anti-Inflamma Review of Systems Review of Systems: All systems reviewed & are unremarkable except as noted in HPI and below PMFSH Past Medical History Medical History Anemia Hypocalcemia Hyperkalemia Leukopenia Fibromyalgia Surgical History Surgical History History of umbilical hernia repair H/O gastric bypass Family History Family History Sibling Diabetes mellitus Mother Hypertension Father Family history unknown Social History Social History Social History: Caffeine-occasionally Smoking status: Never smoker Alcohol intake: current Alcohol use details: occasionally Exam Narrative: APPEARANCE: Well appearing, no pain, no distress, well-nourished. HEAD: normocephalic, atraumatic. EYES: PERRLA/EOMI, conjunctivae clear. NOSE: Normal no drainage EARS:TMS clear with good light reflex. THROAT: Pharynx clear, no exudate. NECK: Supple. No adenopathy, no masses. RESPIRATORY: Airway patent, respirations nonlabored. Clear to auscultation bilaterally, no rales, rhonchi, wheezing. CARDIOVASCULAR: Regular rate and rhythm without murmurs rubs or gallops. ABDOMINAL: Soft, nontender, nondistended, normal bowel sounds MUSCULOSKELETAL: Moves all extremities. Strength/ROM intact, No edema, No calf tenderness. NEURO: Alert. Cranial nerves II through XII intact. Good gait. Good coordination SKIN: Warm, dry. Normal Color Course Vital Signs Vital signs: Vital Signs Temperature 97.8 F 11/18/24 15:44 Pulse Rate 106 H 11/18/24 15:44 Respiratory Rate 18 11/18/24 15:44 Blood Pressure 128/87 11/18/24 15:44 Pulse Oximetry 100 11/18/24 15:44 Oxygen Delivery Room Air 11/18/24 15:44 Temperature 97.9 F 11/18/24 18:19 Pulse Rate 90 11/18/24 18:19 Respiratory Rate 16 11/18/24 18:19 Blood Pressure 120/80 11/18/24 18:19 Pulse Oximetry 100 11/18/24 18:19 Oxygen Delivery Room Air 11/18/24 15:44 Medical Decision Making MDM Narrative Medical decision making narrative: [age] old female presents emergency department for evaluation for left upper dental pain. No abscess amenable to drainage. Patient is being started on antibiotics for possible infection and being provided medications for pain control. Patient states she will follow-up with her dentist. Differential Diagnosis Differential Diagnosis: Dental dylan, dental abscess, dental fracture Vital Signs Vital Signs: Vital Signs Temperature 97.8 F 11/18/24 15:44 Pulse Rate 106 H 11/18/24 15:44 Respiratory Rate 18 11/18/24 15:44 Blood Pressure 128/87 11/18/24 15:44 Pulse Oximetry 100 11/18/24 15:44 Oxygen Delivery Room Air 11/18/24 15:44 Temperature 97.9 F 11/18/24 18:19 Pulse Rate 90 11/18/24 18:19 Respiratory Rate 16 11/18/24 18:19 Blood Pressure 120/80 11/18/24 18:19 Pulse Oximetry 100 11/18/24 18:19 Oxygen Delivery Room Air 11/18/24 15:44 Discharge Plan Discharge Clinical Impression: Tooth ache Patient Disposition: Home Condition: Stable Instructions: Antibiotic Form, Toothache (ED) Additional Instructions: [place] as needed for pain control. Antibiotic as directed until completed. Have close follow-up with your primary care physician. Patient Language: Iraqi Prescriptions: New hydrocodone-acetaminophen 5-325 mg tablet 1 tablet PO Q12H PRN (Reason: pain) Qty: 14 0RF amoxicillin-pot clavulanate 875-125 mg tablet 1 tablet PO Q12H 7 Days Qty: 14 0RF No Action sumatriptan succinate [Imitrex] 50 mg tablet See Rx Instructions PO .COMPLEX Qty: 9 2RF Rx Instructions: take 1 tab at onset of headache; if no relief may repeat 1 tab after at least 2 hrs; max = 4 tabs/24 hr PO pregabalin 200 mg capsule 200 mg PO BID Qty: 60 3RF gabapentin 300 mg capsule 300 mg PO BID 30 Days Qty: 60 0RF hydrocodone-acetaminophen 5-325 mg tablet 1 tablet PO Q6H PRN (Reason: pain) 3 Days Qty: 12 0RF polyethylene glycol 3350 [Miralax] 17 gram/dose powder 17 g PO DAILY 5 Days Qty: 119 0RF hydrocodone-acetaminophen 5-325 mg tablet 1 tablet PO Q6H PRN (Reason: pain) Qty: 12 0RF gabapentin 300 mg capsule 300 mg PO BID Qty: 60 0RF cyclobenzaprine 10 mg tablet 10 mg PO TID PRN (Reason: muscle spasm) Qty: 14 0RF oxycodone 5 mg capsule 5 mg PO Q8H PRN (Reason: pain) Qty: 4 0RF hydrocodone-acetaminophen 5-325 mg tablet 1 tablet PO Q6H PRN (Reason: pain) Qty: 10 0RF estazolam 2 mg tablet 2 mg PO QHS Qty: 30 0RF Follow-up/Referrals: Black,Rabia Yun APRN [Primary Care Provider] - Stand Alone Forms: Work/School Release IP
[2024-11-18] MEDS: AMOXICILLIN/CLAVULANATE K 875-125 MG TAB 1 TABLET PO (17:47)
--- OUTSIDE RECORDS SUMMARY | 2024-11-18 17:49 | XMS_ITS | Clinical Summary ---
Author Organization [facility] ui Address [address] [place] [address] Phone Care Team Providers Care Manager Costing Name Role Phone Unavailable Primary Care Provider Unavailabl e Allergies Active Allergy Reactions Criticality Noted Date Comments Codeine Itching Low 08/22/2024 Methocarbamol Nausea and Vomiting Low 08/22/2024 Nsaids (Non-Steroidal Anti-Inflammatory Drug) Nausea and Vomiting Low 08/22/2024 Tramadol Seizure High 08/22/2024 Encounters Date Type Department Care Team Description 08/22/2024 6:58 PM RADIO MESSAGE ROUTER - 08/22/2024 8:23 PM RADIO MESSAGE ROUTER Emergency [facility] Emergency Department [address] [place] [address] Rabia Chi MD Discharge [...] on file Legal Sex Female 6:11 PM RADIO MESSAGE ROUTER Gender Identity Not on file Sexual Orientation Not on file Last Filed Vital Signs Vital Sign Reading Time Taken Comments Blood Pressure 124/94 08/22/2024 6:16 PM RADIO MESSAGE ROUTER Pulse - - Temperature 36.6 C (97.9 F) 08/22/2024 6:16 PM RADIO MESSAGE ROUTER Respiratory Rate 20 08/22/2024 6:16 PM RADIO MESSAGE ROUTER Oxygen Saturation 100% 08/22/2024 6:16 PM RADIO MESSAGE ROUTER Inhaled Oxygen Concentration - - Weight 84.8 kg (187 lb) 08/22/2024 6:16 PM RADIO MESSAGE ROUTER Height 154.9 cm (5' 1 ) 08/22/2024 6:16 PM RADIO MESSAGE ROUTER Body Mass Index 35.33 08/22/2024 6:16 PM RADIO MESSAGE ROUTER Plan of Treatment Health Maintenance Due Date [...] Comments POC CREATININE Stat 08/22/2024 7:20 PM RADIO MESSAGE ROUTER COMPREHENSIVE METABOLIC PANEL Stat 08/22/2024 7:15 PM RADIO MESSAGE ROUTER CBC WITH DIFFERENTIAL Stat 08/22/2024 7:15 PM RADIO MESSAGE ROUTER from Last 3 Months Results * POC CREATININE (08/22/2024 7:20 PM RADIO MESSAGE ROUTER) CREATININE POC 0.90 0.50 - 1.00 mg/dL 08/22/2024 7:20 PM RADIO MESSAGE ROUTER [facility] GFR POC >60 >=60 mL/min/1.7 3 sq meter 08/22/2024 7:20 PM RADIO MESSAGE ROUTER [facility] Comment:eGFR calculated with 2020 CKD-EPI equation. Vegetarian diet, extremely high or low muscle mass, and may affect results. Cystatin C with Glomerular Filtration Rate is a suitable alternative for these patients. Blood, whole 08/22/2024 7:20 PM RADIO MESSAGE ROUTER 08/22/2024 7:23 PM RADIO MESSAGE ROUTER Rabia Chi MD POINT OF CARE TESTING Final Resu lt [facility] CLIA# [id number] [address] [place] [address] * (ABNORMAL) CBC WITH DIFFERENTIAL (08/22/2024 7:15 PM RADIO MESSAGE ROUTER) [facility] WBC 4.7 4.0 - 9.8 K/uL 08/22/2024 7:41 PM RADIO MESSAGE ROUTER [facility] . [facility] RBC 4.13 3.90 - 4.90 M/uL 08/22/2024 7:41 PM RADIO MESSAGE ROUTER [facility] HEMOGLOBIN 12.1 11.8 - 14.8 g/dL 08/22/2024 7:41 PM RADIO MESSAGE ROUTER [facility] HEMATOCRIT 37.1 35.5 - 44.0 % 08/22/2024 7:41 PM RADIO MESSAGE ROUTER [facility] MCV 89.8 82.0 - 99.0 fL 08/22/2024 7:41 PM RADIO MESSAGE ROUTER [facility] MCH 29.3 27.2 - 32.6 pg 08/22/2024 7:41 PM RADIO MESSAGE ROUTER [facility] MCHC 32.6 31.5 - 35.5 g/dL 08/22/2024 7:41 PM RADIO MESSAGE ROUTER [facility] RDW 16.3(H) 11.5 - 14.5 % 08/22/2024 7:41 PM RADIO MESSAGE ROUTER [facility] RDW-STDEV 54.5(H) 37.1 - 48.7 fL 08/22/2024 7:41 PM RADIO MESSAGE ROUTER [facility] PLATELETS 273 140 - 350 K/uL 08/22/2024 7:41 PM RADIO MESSAGE ROUTER [facility] MPV 10.4 9.3 - 12.4 fL 08/22/2024 7:41 PM RADIO MESSAGE ROUTER [facility] . [facility] NEUTROPHILS 41 % 08/22/2024 7:41 PM RADIO MESSAGE ROUTER [facility] LYMPHOCYTES 48 % 08/22/2024 7:41 PM RADIO MESSAGE ROUTER [facility] MONOCYTES 9 % 08/22/2024 7:41 PM RADIO MESSAGE ROUTER [facility] . [facility] EOSINOPHILS 1 % 08/22/2024 7:41 PM RADIO MESSAGE ROUTER [facility] . [facility] BASOPHILS 0 % 08/22/2024 7:41 PM RADIO MESSAGE ROUTER [facility] . [facility] IMMATURE GRANULOCYTES 0 % 08/22/2024 7:41 PM RADIO MESSAGE ROUTER [facility] NEUTROPHIL ABSOLUTE 1.93 1.90 - 7.00 K/uL 08/22/2024 7:41 PM RADIO MESSAGE ROUTER [facility] LYMPHOCYTE ABSOLUTE 2.25 0.70 - 4.50 K/uL 08/22/2024 7:41 PM [facility] MONOCYTE ABSOLUTE 0.41 0.10 - 1.30 K/uL 08/22/2024 7:41 PM [facility] EOSINOPHIL ABSOLUTE 0.04 0.00 - 0.70 K/uL 08/22/2024 7:41 PM RADIO MESSAGE ROUTER [facility] BASOPHILS ABSOLUTE 0.02 0.00 - 0.20 K/uL 08/22/2024 7:41 PM [facility] IMMATURE GRANULOCYTES ABSOLUTE 0.01 0.00 - 0.03 K/uL 08/22/2024 7:41 PM [facility] Blood Venipuncture / Unknown 08/22/2024 7:15 PM RADIO MESSAGE ROUTER 08/22/2024 7:30 PM RADIO MESSAGE ROUTER us Rabia Chi MD HEMATOLOGY ORDERABLES Final Resu lt [facility]# [id number] [address] [facility] [place] [address] * (ABNORMAL) COMPREHENSIVE METABOLIC PANEL (08/22/2024 7:15 PM RADIO MESSAGE ROUTER) SODIUM 142 136 - 145 mmol/L 08/22/2024 8:09 PM [facility] POTASSIUM 4.5 3.5 - 5.0 mmol/L 08/22/2024 8:09 PM RADIO MESSAGE ROUTER [facility] CHLORIDE 109(H) 98 - 107 mmol/L 08/22/2024 8:09 PM [facility] CO2 23 22 - 29 mmol/L 08/22/2024 8:09 PM [facility] . [place] CALCIUM 9.0 8.6 - 10.2 mg/dL 08/22/2024 8:09 PM [facility] BUN 17 6 - 20 mg/dL 08/22/2024 8:09 PM [facility] CREATININE 0.86 0.51 - 0.95 mg/dL 08/22/2024 8:09 PM [facility] GLUCOSE 105(H) 74 - 99 mg/dL 08/22/2024 8:09 PM [facility] TOTAL PROTEIN 7.5 6.7 - 8.6 g/dL 08/22/2024 8:09 PM [facility] ALBUMIN 4.0 3.5 - 5.2 g/dL 08/22/2024 8:09 PM [facility] BILIRUBIN TOTAL 0.2(L) 0.3 - 1.2 mg/dL 08/22/2024 8:09 PM [facility] ALKALINE PHOSPHATASE 148(H) 35 - 104 U/L 08/22/2024 8:09 PM [facility] AST 08/22/2024 8:09 PM [facility] Comment:Test cannot be perfo rmed. Sample hemolysis interference above limits. Redraw if indicated. ALT 8 <34 U/L 08/22/2024 8:09 PM [facility] GFR >60 >=60 mL/min/1.7 3 sq meter 08/22/2024 8:09 PM [facility] Comment:eGFR calculated with 2020 CKD-EPI equation. Vegetarian diet, extremely high or low muscle mass, and may affect results. Cystatin C with Glomerular Filtration Rate is a suitable alternative for these patients. ANION GAP 10 8 - 16 mmol/L 08/22/2024 8:09 PM [facility] Blood Venipuncture / Unknown 08/22/2024 7:15 PM RADIO MESSAGE ROUTER 08/22/2024 7:30 PM [facility] - 08/22/2024 8:09 PM [facility] Samples containing indocyanine green cause interferences on Total and/or Direct Bilirubin and must not be measured. Rabia Chi MD CHEMISTRY ORDERABLES Final Resul t [facility]# [id number] [address] [place] [address] from Last 3 Months Insurance [facility] CHO[facility] [phone] [place] [phone]
--- OUTSIDE RECORDS SUMMARY | 2024-11-18 17:49 | XMS_ITS | Clinical Summary ---
Author Organization [facility] Address [address] [place] [address] Care Team Providers Care Manager Financial Services Name Role Phone Unavailable Primary Care Provider Unavailabl e Source Comments [facility],non-owned Affiliates and Associated Physician Practices is amultiple site organization consisting of ambulatory clinics and hospital sitesin [place], [place], [place] and [place]. This disclosure is being madepursuant to the Care Everywhere program and may not contain all informatio navailable regarding this patient. Last updated 18.[facility] [place] Allergies Active Allergy Reactions Criticality Noted Date [...] Patient not taking.Reported on 07/07/2023 HYDROcodone-ac etaminophen ([place]) 5-325 MG tabletIndicati ons:Tibia/fibu la fracture, left, closed, with routine healing, subsequent encounter Take 1 (one) tablet by mouth every 8 hours as needed for Pain 40 tablet 3 Active Additional Information Patient not taking.Reported on 08/18/2023 naloxone HCl (Narcan) 4 MG/0.1ML nasal sprayIndicatio ns:Tibia/fibul a fracture, left, closed, with routine healing, subsequent encounter,[facility] current use of opiate analgesic,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 ashia pain syndrome [place] 1 (one) spray into the nose as [...] acetaminophen- codeine (Tylenol #3) 300-30 MG tabletIndicati ons:[facility] current use of opiate analgesic,Drafting Instructor ahsia pain syndrome,Close d displaced oblique fracture of shaft of left tibia with routine healing, subsequent encounter Take 1 (one) tablet by mouth every 8 hours as needed for Pain 30 tablet 4 Active diclofenac sodium (Voltaren) 1 % gelIndications :[facility] current use of opiate analgesic,Clos ed displaced [...] Recorded Patient Health Questionnaire-2 Score 0 08/18/2023 [facility] [place] of Occupat ional Health - Occupational Stress [...] place to sleep or slept in a usp (including now)? No 05/01/2023 Comments Unknown Sex and Gender Information Value Date Recorded Sex Assigned at Not on file Legal Sex Female 5:57 PM CLOTH BALE HEADER Gender Identity Not on file Sexual Orientation [...] kg (155 lb) 08/18/2023 10:5 9 AM CLOTH BALE HEADER Height 154.9 cm (5' 1 ) 05/19/2023 [...] this topic Medical Devices Implanted Type Area Airplane Engineer Device Identifier Shelf Expiration Date Model / Serial / Lot Tibial Nail- Advanced/11mm 345mm Implanted:Qty: 1 on 04/29/2023 by Sanjeev Kline MD at [facility] Left: Tibia [employer] 08/02/2032 [id number] S / / [id number] 5.0mm Locking Screws Implanted:Qty: 1 on 04/29/2023 [...] [facility] [id number] / / Explanted Type Area Airplane Engineer Device Identifier Shelf Expiration Date Model / Serial / Lot Slv Prtc 12mm Suprapatellar Strl Explanted:Qty: 1 on 04/29/2023 at [facility] Left: Tibia [employer] 10/31/2024 [id number] S / / [id number] Advance Directives * Full Code (Latest Code Status on File) Date Activated Date Inactivated Comments 04/28/2023 4:28 AM 05/08/2023 4:32 PM
--- OUTSIDE RECORDS SUMMARY | 2024-11-18 17:49 | XMS_ITS | Encounter Summary ---
Author Organization [facility] Address [facility] [place] [address] Care Team Providers Care Grocery Cashier Name Role Phone Betzy Tang APRN Primary Care Provider [phone] Rabia Black CHIEF PSYCHOLOGY Primary Care Provider [phone] Encounter Details Date Type Department Care Team (Late st Contact Info) Description 02/08/2020 Telephone [facility] Med/Surg [address] [place] [address] Katy Blevins CNA Social History Tobacco Use Types Packs/Day Years Used Date Smoking Tobacco: Never Smokeless Tobacco: Never Alcohol Use Standard Drinks/Week Comments Yes 0 (1 standard drink = 0.6 oz pur e alcohol) occ Comments No Sex and Gender Information Value Date Recorded Sex Assigned at Female 09/15/2024 2:23 PM EDGER TECHNICIAN Legal Sex Female 7:12 PM CDT Gender [...] on filedocumented in this encounter Care Teams Grocery Cashier Relationship Specialty Start Date End Date Betzy Tang APRN [address] [place] [address] PCP - General NURSE PRACTITIONER 04/01/19 10/29/23 Rabia Black FNP [address] [place] [address] PCP - General Nurse Practitioner Family 02/29/24 documented as of this encounter
--- OUTSIDE RECORDS SUMMARY | 2024-11-18 17:49 | XMS_ITS | Encounter Summary ---
Author Organization [facility] Address [address] [place] [address] Care Team Providers Care Occupational Therapy Director Name Role Phone Betzy Tang APRN Primary Care Provider [phone] Rabia Black TAIL END RIDER Primary Care Provider [phone] Encounter Details Date Type Department Care Team (Late st Contact Info) Description 07/23/2022 Hospital Follow-up Call [place] [address] [place] [address] Divina Merino, RN Social History Tobacco Use Types Packs/Day Years Used Date Smoking Tobacco: Never Smokeless Tobacco: Never Alcohol Use Standard Drinks/Week Comments Yes 0 (1 standard drink = 0.6 oz pur e alcohol) occ Comments No Sex and Gender Information Value Date Recorded Sex Assigned at Female 09/15/2024 2:23 PM CRYPTOLOGIC TECHNICIAN TECHNICAL Legal Sex Female 7:12 PM CDT Gender Identity Not on file Sexual Orientation Not on file COVID-19 Exposure Response Date Recorded In the last 10 days, have yo u been in contact with someone who was confirmed or suspected to have Coronavirus/COVID-19? No / Unsure 07/20/2022 1:13 PM CRYPTOLOGIC TECHNICIAN TECHNICAL documented as of this encounter Functional Status * RETIRED Are you deaf or do you have serious difficulty hearing Answer Date of Assessment Author Status No 07/20/2022 7:28 PM CRYPTOLOGIC TECHNICIAN TECHNICAL Activ e * RETIRED Are you blind or do you have serious difficulty seeing, even when wearing glasses? Answer Date of Assessment Author Status No 07/20/2022 7:28 PM CRYPTOLOGIC TECHNICIAN TECHNICAL Activ e * Do you have serious [...] on filedocumented in this encounter Care Teams Occupational Therapy Director Relationship Specialty Start Date End Date Betzy Tang APRN [address] [place] [address] PCP - General NURSE PRACTITIONER 04/01/19 10/29/23 Rabia Black FNP [address] [place] [address] PCP - General Nurse Practitioner Family 02/29/24 documented as of this encounter
--- OUTSIDE RECORDS SUMMARY | 2024-11-18 17:49 | XMS_ITS | Clinical Summary ---
Author Organization [facility] Address [address], [facility] [address] [place] [address] Phone Care Team Providers Care Propeller Inspector Name Role Phone Unavailable Primary Care Provider [...]
--- OUTSIDE RECORDS SUMMARY | 2024-11-18 17:49 | XMS_ITS | Clinical Summary ---
Author Organization [facility] Address [address] [place] [address] Care Team Providers Care Diamond Die Maker Name Role Phone Cole Blackdrea Perera HEMATOLOGY SUPERVISOR Primary Care Provider [phone] Allergies Active Allergy Reactions Criticality Noted Date [...] palpitations 12/24/2015 Depression 11/23/2015 Fibromyalgia 11/07/2015 Seizures ([facility]) 11/07/2015 Resolved Problems Problem Noted Date Diagnosed Date Resolved Date Partial small bowel obstruct ion ([facility]) 07/20/2022 07/22/2022 Incarcerated ventral hernia 07/20/2022 08/18/2022 Women's annual routine gynec ological examination 03/31/2016 04/13/2020 Encounters Date Type Department Care Team Description 09/15/2024 2:19 PM DOLL WIG MAKER - 09/15/2024 4:57 PM [facility] Emergency [facility] Emergency Room [id number] [place] [address] Andrew Marshall, Diarrhea; Fall Discharge Disposition: Home [...] 0.6 oz pur e alcohol) very rarely [facility] Utilities Answer Date Recorded In the past 12 months has e [employer], gas, oil, or water [employer] threatened to shut off services in your [...] How often do you attend chur or amish services? More than 4 times per year 07/24/2023 Do you belong to any clubs o r organizations such as confucianist groups, unions, fraternal or athletic groups, or [...] medical care, and heating? Patient declined 07/24/2023 [facility] - [...] Sex Assigned at Female 09/15/2024 2:23 PM DOLL WIG MAKER Legal Sex Female 7:12 PM CDT Gender Identity Not on file Sexual Orientation Not on file Last Filed Vital Signs Vital Sign Reading Time Taken Comments Blood Pressure 128/87 09/15/2024 4:48 PM DOLL WIG MAKER Pulse 100 09/15/2024 4:48 PM DOLL WIG MAKER Temperature 36.9 C (98.4 F) 09/15/2024 2:24 PM DOLL WIG MAKER Respiratory Rate 16 09/15/2024 4:48 PM DOLL WIG MAKER Oxygen Saturation 98% 09/15/2024 4:48 PM DOLL WIG MAKER Inhaled Oxygen Concentration - - Weight 84.8 kg (187 lb) 09/15/2024 2:24 PM DOLL WIG MAKER Height 154.9 cm (5' 1 ) 09/15/2024 2:24 PM DOLL WIG MAKER Body Mass Index 35.33 09/15/2024 2:24 PM DOLL WIG MAKER Plan of Treatment Health Maintenance Due Date [...] to independent living Lifestyle No Aracely Baird, COURT MESSENGER Safety Patient/family will have appropriate support at home upon discharge Lifestyle No Nelli Rodríguez, shoes salesperson Procedure Name Priority Date/Time Associated Diagnosis Comments XR KNEE LT 3V STAT 09/15/2024 3:11 PM DOLL WIG MAKER XR ANKLE LT M3V STAT 09/15/2024 3:11 PM DOLL WIG MAKER LIPASE STAT 09/15/2024 2:27 PM DOLL WIG MAKER COMPREHENSIVE METABOLIC PANEL STAT 09/15/2024 2:27 PM DOLL WIG MAKER CBC W/DIFF AUTOMATED STAT 09/15/2024 2:27 PM DOLL WIG MAKER LIPID PANEL Routine 07/24/2023 7:08 AM DOLL WIG MAKER MG SCREENING W ADRIANA LAISHA DIGI Routine 01/02/2021 1:19 PM CDT Visit for screening mammogram from Last 3 Months or Most Recently Relevant to Health Maintenance Results * XR KNEE LT 3V (09/15/2024 3:11 PM DOLL WIG MAKER) Anatomical Region Laterality Modality Knee Radiographic Halley ging 09/15/2024 3:35 PM DOLL WIG MAKER Impressions 09/15/2024 3:38 PM DOLL WIG MAKER IMPRESSION: 1. No radiographic evidence is seen [...] 09/15/2024 3:35 PM Narrative 09/15/2024 3:38 PM DOLL WIG MAKER [facility] [address] [address] [place] [address] Examination: XR KNEE LT 3V Exam time: [...] a small intra-articular body. Procedure Note Bryant Dalotn DO - 09/15/2024 [facility] [address] [place] [id number] Examination: XR KNEE LT 3V Exam time: [...] XR ANKLE LT M3V (09/15/2024 3:11 PM DOLL WIG MAKER) Anatomical Region Laterality Modality Ankle Radiographic Halley ging 09/15/2024 3:31 PM DOLL WIG MAKER Impressions 09/15/2024 3:35 PM DOLL WIG MAKER IMPRESSION: 1. Soft tissue swelling overlying the [...] 09/15/2024 3:31 PM Narrative 09/15/2024 3:35 PM DOLL WIG MAKER [address] [place] [address] Examination: XR ANKLE LT M3V Exam time: [...] Procedure Note Bryant Dalton, DO - 09/15/2024 [facility] [address] [facility] [place] [address] Examination: XR ANKLE LT M3V Exam time: [...] (ABNORMAL) COMPREHENSIVE METABOLIC PANEL (09/15/2024 2:27 PM DOLL WIG MAKER) GLUCOSE 87 70 - 99 MG/DL 09/15/2024 3:06 PM [facility] BUN 10 7 - 18 MG/DL 09/15/2024 3:06 PM [facility] CREATININE S/P/B 0.64 0.55 - 1.02 MG/DL 09/15/2024 3:06 PM [facility] SODIUM S/P/B 141 136 - 145 MMOL/L 09/15/2024 3:06 PM [facility] POTASSIUM S/P/B 3.6 3.5 - 5.1 MMOL/L 09/15/2024 3:06 PM [facility] CHLORIDE S/P/B 106 100 - 108 MMOL/L 09/15/2024 3:06 PM [facility] CO2 22.7 21 - 32 MMOL/L 09/15/2024 3:06 PM [facility] CALCIUM S/P/B 9.2 8.5 - 10.1 MG/DL 09/15/2024 3:06 PM [facility] BILIRUBIN TOTAL S/P/B 0.3 0.2 - 1.2 MG/DL 09/15/2024 3:06 PM [facility] TOTAL PROTEIN S/P/B 6.9 6.4 - 8.2 G/DL 09/15/2024 3:06 PM [facility] ALBUMIN S/P/B 3.3(L) 3.4 - 5.0 G/DL 09/15/2024 3:06 PM [facility] AST 16 15 - 37 U/L 09/15/2024 3:06 PM [facility] ALT 17 14 - 55 U/L 09/15/2024 3:06 PM [facility] ALKALINE PHOSPHATASE S/P/B 179(H) 50 - 136 U/L 09/15/2024 3:06 PM [facility] ANION GAP 12.3 5 - 15 MMOL/L 09/15/2024 3:06 PM [facility] BUN CREATININE RATIO 15.6 6 - 26 09/15/2024 3:06 PM [facility] A/G RATIO 0.9(L) 1.0 - 2.0 RATIO 09/15/2024 3:06 PM [facility] GFR ESTIMATE >90 >90 ML/MIN/1.7 3 M2 09/15/2024 3:06 PM [facility] Comment: NOTE: eGFR is not calculated for patients <18 years of age. This is an estimated GFR calculation using the new CKD EPI creatinine equation without race and so does not require a correction factor for race. This estimated GFR should not be used for calculating drug doses. 09/15/2024 2:27 PM DOLL WIG MAKER Andrew Marshall DO LABORATORY Final Result [facility] [address] [place] [address], [place] [phone] * (ABNORMAL) CBC W/DIFF AUTOMATED (09/15/2024 2:27 PM DOLL WIG MAKER) [facility] WBC 3.71(L) 4.4 - 11.0 x10'3/uL 09/15/2024 2:54 PM DOLL WIG MAKER [facility] RBC 3.98(L) 4.50 - 5.10 x10'6/uL 09/15/2024 2:54 PM [facility] HGB 11.5(L) 12.3 - 15.3 G/DL 09/15/2024 2:54 PM [facility] HCT 34.6(L) 35.9 - 44.6 % 09/15/2024 2:54 PM [facility] MCV 86.9 80.0 - 96.0 FL 09/15/2024 2:54 PM [facility] MCH 28.9 25.3 - 30.9 PG 09/15/2024 2:54 PM [facility] MCHC 33.2 31.0 - 34.1 G/DL 09/15/2024 2:54 PM [facility] RDW 15.9(H) 12.4 - 15.1 % 09/15/2024 2:54 PM [facility] PLT 188 151 - 353 x10'3/uL 09/15/2024 2:54 PM [facility] MPV 10.4 9.6 - 12.0 FL 09/15/2024 2:54 PM [facility] RBC MORPHOLOGY NORMAL 09/15/2024 2:54 PM [facility] PLT MORPH. NORMAL 09/15/2024 2:54 PM [facility] WBC MORPHOLOGY NORMAL 09/15/2024 2:54 PM DOLL WIG MAKER [facility] LYMPHOCYTES % 49.6(H) 15.8 - 45.0 % 09/15/2024 2:54 PM DOLL WIG MAKER [facility] NEUTROPHILS % 36.4(L) 42.1 - 71.9 % 09/15/2024 2:54 PM DOLL WIG MAKER [facility] MONOCYTES % 12.4 5.7 - 12.5 % 09/15/2024 2:54 PM DOLL WIG MAKER [facility] EOSINOPHILS 0.8 0.0 - 5.6 % 09/15/2024 2:54 PM DOLL WIG MAKER [facility] BASOPHILS 0.5 0.0 - 1.3 % 09/15/2024 2:54 PM DOLL WIG MAKER [facility] ABS. NEUTROPHILS 1.35(L) 1.40 - 6.00 x10'3/uL 09/15/2024 2:54 PM DOLL WIG MAKER [facility] IMMATURE GRANS % 0.3 0.0 - 0.5 % 09/15/2024 2:54 PM DOLL WIG MAKER [facility] ABS. LYMPHOCYTES 1.84 0.80 - 4.70 x10'3/uL 09/15/2024 2:54 PM DOLL WIG MAKER [facility] 09/15/2024 2:27 PM DOLL WIG MAKER us Andrew Marshall DO LABORATORY Final Result [facility] [address] [place] [address], * LIPASE (09/15/2024 2:27 PM DOLL WIG MAKER) LIPASE 48 16 - 77 UNITS/L 09/15/2024 3:06 PM DOLL WIG MAKER [facility] 09/15/2024 2:27 PM DOLL WIG MAKER Andrew Marshall DO LABORATORY Final Result [facility] [address] [place] [address], [place] [phone] * LIPID PANEL (07/24/2023 7:08 AM DOLL WIG MAKER) CHOLESTEROL 131 <200 MG/DL 07/24/2023 8:17 AM DOLL WIG MAKER [facility] TRIGLYCERIDES 45 <150 MG/DL 07/24/2023 8:[address] [facility] HDL 65 >40.0 MG/DL 07/24/2023 8:[address] [facility] LDL (CALCULATED) 57 <100 MG/DL 07/24/20 8:[address] [facility] NON HDL CHOLESTEROL 66 <130 MG/DL 07/24 8:[address] [facility] CHOL/HDL RATIO 2.0 0.0 - 4.5 07/24/2023 8:[address] [facility] VLDL CALCULATION 9 5 - 55 MG/DL 07/24/2023 8:[address] [facility] LIPID INTERPRETATION 07/24/2023 8:[address] [facility] Comment: [facility] CONCENSUS REPORT RECOMMENDATIONS: ADULT CHILD LOW RISK: CHOLESTEROL <200 <170 TRIGLYCERIDE <150 --- HDL >=60 --- LDL <100 <110 BORDERLINE: CHOLESTEROL 200-239 170-199 TRIGLYCERIDE 150-199 --- HDL 40-59 --- LDL 100-159 110-129 HIGH RISK: CHOLESTEROL >=240 >=200 TRIGLYCERIDE >=200 --- HDL <40 --- LDL >=160 >=130 07/24/2023 7:08 AM DOLL WIG MAKER Alyse Jacob MD LABORATORY Final Re sult [facility] [address] [place] [address], * MG SCREENING W ADRIANA LAISHA DIGI [...] Daniel Presley, 01/02/2021 1:25 PM Mita [place] FPGA DESIGN ENGINEER MAMMO Final Result from Last 3 [...] 4:39 PM 02/07/2020 6:36 PM Care Teams Diamond Die Maker Relationship Specialty Start Date End Date Rabia Black FNP PCP - General Nurse Practitioner Family 02/29/24
[2024-11-18 18:19] VITALS: BP 120/80; PULSE 90; RESP 16; TEMP 36.6; O2SAT 100
== END 2024-11-18 18:19 | disposition home or self-care (01) ==
LOC: ANHED 17:47
PROVIDERS: Emergency Provider Emergency Medicine; PCP Nurse Practitioner Family
DX: K08.89 Other specified disorders of teeth and supporting structures (principal); M79.7 Fibromyalgia; Z98.84 Bariatric surgery status; Z86.2 Personal history of diseases of the blood and blood-forming organs and certain disorders involving the immune mechanism
CPT/HCPCS: 99283; A9270

== ENCOUNTER 2025-01-19 15:38 | Emergency (ER) | payer OTHER, SELFPAY ==
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
[2025-01-19 15:40] VITALS: BP 145/89; PULSE 135; RESP 16; TEMP 36.8; O2SAT 100
--- OUTSIDE RECORDS SUMMARY | 2025-01-19 15:41 | XMS_ITS | Clinical Summary ---
Author Organization [facility] Address [address], [facility] [address] [place] [address] Phone Care Team Providers Care Conveyor Technician Name Role Phone Unavailable Primary Care Provider [...] 10:14 AM CDT Height 157.5 cm (5' 2) 01/23/2016 10:14 AM CDT Body Mass Index [...] age to complete this topic Insurance MEDICAID [facility]
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
[2025-01-19] MEDS: NAPROXEN 250 MG TABLET 500 MG PO (17:31)
[2025-01-19] MEDS: ACETAMINOPHEN 500 MG TABLET 1000 MG PO (17:31)
[2025-01-19 17:32] VITALS: BP 170/98; PULSE 112; RESP 16; O2SAT 100
--- OUTSIDE RECORDS SUMMARY | 2025-01-19 17:49 | XMS_ITS | Clinical Summary ---
Author Organization [facility] Address [address] [place] [address] Phone Care Team Providers Care Building Construction Estimator Name Role Phone Unavailable Primary Care Provider Unavailabl e Allergies Active Allergy Reactions Criticality Noted Date Comments Codeine Itching Low 08/22/2024 Methocarbamol Nausea and Vomiting Low 08/22/2024 Nsaids (Non-Steroidal Anti-Inflammatory Drug) Nausea and Vomiting Low 08/22/2024 Tramadol Seizure High 08/22/2024 Social History Tobacco Use Types Packs/Day Years Used Date Smoking Tobacco: Never Assessed Feeling Safe Answer Date Recorded Are you in a relationship wi th someone who hurts you emotionally and/or physically? No 08/22/2024 Comments Unknown Sex and Gender Information Value Date Recorded Sex Assigned at Not on file Legal Sex Female 6:11 PM TRAVEL WRITER Gender Identity Not on file Sexual Orientation Not on file Last Filed Vital Signs Vital Sign Reading Time Taken Comments Blood Pressure 124/94 08/22/2024 6:16 PM TRAVEL WRITER Pulse - - Temperature 36.6 C (97.9 F) 08/22/2024 6:16 PM TRAVEL WRITER Respiratory Rate 20 08/22/2024 6:16 PM TRAVEL WRITER Oxygen Saturation 100% 08/22/2024 6:16 PM TRAVEL WRITER Inhaled Oxygen Concentration - - Weight 84.8 kg (187 lb) 08/22/2024 6:16 PM TRAVEL WRITER Height 154.9 cm (5' 1) 08/22/2024 6:16 PM TRAVEL WRITER Body Mass Index 35.33 08/22/2024 6:16 PM TRAVEL WRITER Plan of Treatment Health Maintenance Due Date Last Done Comments Pre-Diabetes and Diabetes Screening 1980 DTAP/TDAP/TD VACCINES (1 - Tdap) 1999 HEPATITIS B VACCINES (1 of 3 - 19+ 3-dose series) 1999 HPV/Cotest (21-29) 2001 CERVICAL CANCER SCREENING 2010 HPV/Cotest (30-65) 2010 PAP SMEAR 2010 BREAST CANCER SCREENING 2020 INFLUENZA VACCINE (#1) 2024 HPV VACCINES Aged Out No longer eligi ble based on patient's age to complete this topic Insurance [facility] CHOICE [id number]
--- OUTSIDE RECORDS SUMMARY | 2025-01-19 17:49 | XMS_ITS | Clinical Summary ---
Author Organization [facility] Address [address], [facility] [address] [place] [address] Phone Care Team Providers Care Learning Services Coordinator Name Role Phone Unavailable Primary Care [...] age to complete this topic Insurance MEDICAID [facility]
[2025-01-19 17:56] VITALS: BP 159/82; PULSE 112; RESP 18; O2SAT 98
== END 2025-01-19 18:57 | disposition home or self-care (01) ==
PROVIDERS: Emergency Provider Registered Nurse Emergency; PCP Nurse Practitioner Family
DX: S39.92XA Unspecified injury of lower back, initial encounter (principal); S49.92XA Unspecified injury of left shoulder and upper arm, initial encounter; S19.9XXA Unspecified injury of neck, initial encounter; M79.7 Fibromyalgia; Z86.2 Personal history of diseases of the blood and blood-forming organs and certain disorders involving the immune mechanism; Z98.84 Bariatric surgery status; M47.812 Spondylosis without myelopathy or radiculopathy, cervical region; V49.50XA Passenger injured in collision with unspecified motor vehicles in traffic accident, initial encounter
CPT/HCPCS: 72040; 72100; 73030; 99284; A4565; A9270

== ENCOUNTER 2025-02-16 13:34 | Outpatient (CLI) | payer OTHER, SELFPAY ==
--- NOTE | ~2025-02-16 | MMUS_ITS ---
EXAMINATION: MM diagnostic moises BI w jay, US breast LT limited HISTORY: Follow-up left breast mass TECHNIQUE: Additional 3-D tomosynthesis images of the breasts were performed and synthetic 2-D images were generated. CAD analysis was submitted and interpreted. High resolution Limited left breast ultr asound was performed. COMPARISON: Comparison to multiple prior studies sequentially, with oldest reviewed study dated 08/2023. BREAST PARENCHYMAL COMPOSITION: Not dense: There are scattered areas of fibroglandular density. FINDINGS: MAMMOGRAPHIC FINDINGS: There are no suspicious masses, calcifications or architectural distortion in either breast to sugges t malignancy. ULTRASOUND: Limited left breast ultrasound: At 9:00, 5 cm from the nipple there is a 5 mm intramammary lymph node with fatty hilum. This corresponds to the previous abnormality seen on ultrasound dated 09/02/2024 IMPRESSION: 1. No evidence for malignancy in the left breast. Benign finding. 2. Routine yearly screening mammogram and regular clinical breast examination are recommended. BI-RADS Category 2: Benign finding(s). Reviewed, dictated and finalized at location B. IMPRESSION: 1. No evidence for malignancy in the left breast. Benign finding. 2. Routine yearly screening mammogram and regular clinical breast examination a re recommended. BI-RADS Category 2: Benign finding(s).
--- OUTSIDE RECORDS SUMMARY | 2025-02-16 13:45 | XMS_ITS | Clinical Summary ---
Author Organization [facility] Address [address] [place] [address] Care Team Providers Care Protein Purification Scientist Name Role Phone Pamela Poe DO Primary Care Provider [phone] Allergies Active Allergy Reactions Criticality Noted Date Comments Codeine Rash,Itching Low 11/07/2015 Doxycycline GI Upset 07/07/2023 Methocarbamol Nausea and Vomiting Low 08/22/2024 Nsaids GI Upset Low 06/10/2019 Gastric Bypass Surgery Ketorolac Tromethamine Other (see comment) 07/05 Gastric bypass Tramadol Seizure High 11/07/2015 Medications SUMAtriptan (IMITREX) 50 MG tablet Take 1 tablet (50 mg total) by mouth 2 (two) times daily as needed for Migraine. 3 Active Cyanocobalamin (B-12) 1000 MCG Tab Active Multiple Vitamin (MULTI-VITAMIN) tablet Take 1 tablet by mouth. Active Cyanocobalamin (B-12) 1000 MCG SL TabIndications: Vitamin B12 deficiency Place 1,000 mcg under the tongue daily. 90 tablet 5 04/02/20 25 Active pregabalin (LYRICA) 200 MG capsuleIndicati ons:Fibromyalgi a Take 1 capsule (200 mg total) by mouth 2 (two) times daily for 30 days. 60 capsule 5 02/27/20 25 Active pregabalin (LYRICA) 200 MG capsuleIndicati ons:Fibromyalgi a Take 1 capsule (200 mg total) by mouth 2 (two) times daily for 30 days. 60 capsule 5 01/25/20 25 Discontinue d(Reorder) cyclobenzaprine (FLEXERIL) 5 MG tabletIndicatio ns:Fibromyalgia Take 1 tablet (5 mg total) by mouth 3 (three) times daily as needed for Muscle Spasms. 30 tablet 5 02/04/20 25 Active Problems Problem Noted Date Diagnosed Date Cracked tooth 12/19/2024 Assessment & Plan (12/19/2024 2:37 PM CDT): Patient has a crack in left upper canine tooth. For pain, she can treat with [id number] Orajel, Tylenol no more than 4000 mg in a 24-hour period, ibuprofen 600 mg oral up to every 6 hours as needed. Recommended patient follow-up with dentist/dental provider. Narcotics are not indicated for this patient. Also, in the setting of patient taking narcotics that have not been prescribed by myself or communicated to us that she has been taking, would be unsafe to prescribe her narcotics. Class 1 obesity with serious comorbidity and body mass index (BMI) of 34.0 to 34.9 in adult, unspecified obesity type 12/15/2024 Overview (12/15/2024): Initial visit 12/15/2024: She reports she was told she had prediabetes in the past. Assessment & Plan (12/15/2024 11:13 AM CDT): Labs including A1c ordered Status post gastric bypass for obesity Overview (12/15/2024): Initial visit 12/15/2024: She reports she had gastric bypass surgery in 2003. She reports the surgery was 1 where she had to be cut open. 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 Status post laparoscopic hysterectomy 12/15/2024 Overview (12/15/2024): Initial visit 12/15/2024: She reports she had laparoscopic hysterectomy in July 2024. She reports ovaries are still remaining. Depression screening negative 12/15/2024 Overview (12/15/2024): PHQ-2 Score PHQ-2 Score: 0 PHQ-9: 12/15/2024 10:49 AM PHQ2/PHQ 9 DEPRESSION SCREEN QUESTIONAIRE Little interest or pleasure in doing things Not at all Feeling down, depressed, or hopeless Not at all Patient Health Questionnaire-2 Score 0 Trouble falling or staying asleep, or sleeping too much Not at all Feeling tired or having little energy Not at all Poor appetite or overeating Not at all Feeling bad about yourself - or that you are a failure or have let yourself or your family down Not at all Trouble concentrating on things, such as reading the newspaper or watching television Not at all Moving or speaking so slowly that other people could have noticed? Or the opposite - being so fidgety or restless that you have been moving around a lot more than usual. Not at all Thoughts that you would be better off or hurting yourself in some way Not at all Patient Health Questionnaire-9 Score 0 How difficult have these problems made it for you to do your work, take care of things at home, or get along with other people? Not difficult at all Assessment & Plan (12/15/2024 10:50 AM CDT): Depression screening negative. Patient denies any concerns. Controlled substance agreement signed 12/15/2024 Overview (12/15/2024): Signed 12/15/2024 History of seizures 12/15/2024 Overview (12/15/2024): Initial visit 12/15/2024: She reports she had grand mal seizures due to tramadol. She no longer takes tramadol. She denies experiencing seizures since then. Encounter for screening mamm ogram for malignant neoplasm of breast 12/15/2024 Overview (12/15/2024): Initial visit 12/15/2024: She reports previous mammogram was October 01, 2024 at [facility] in [place], [place]. Assessment & Plan (12/15/2024 11:08 AM CDT): Requesting records. Screening mammogram ordered to [facility]. History of DVT of lower extremity 12/15/2024 Overview (12/15/2024): Initial visit 12/15/2024: She reports she had DVT in left leg after surgery for left fractured tibia/fibula. She reports she was on apixaban in the past as well as rivaroxaban. She reports high pressure cleaner told her she could discontinue taking medication in July 2024 prior to her hysterectomy. Migraine without aura and wi thout status migrainosus, not intractable 12/15/2024 Overview (12/15/2024): Initial visit 12/15/2024: She reports she takes sumatriptan 50 mg twice daily as needed for migraine headache. She reports last migraine headache was a couple weeks ago. She reports previous provider tried to prescribe Nurtec however was not covered by her insurance. She reports her insurance has not changed since then. History of syncope 12/15/2024 Overview (12/15/2024): Initial visit 12/15/2024: She reports she had 1 episode of syncope while getting up to go to the bathroom in the past however has not had one since. Screening examination for STI 12/15/2024 Overview (12/15/2024): Initial visit 12/15/2024: She reports she is interested in getting tested for sexually transmitted infections. She denies experiencing any symptoms. Assessment & Plan (12/15/2024 11:15 AM CDT): STI testing ordered Low back pain 03/02/2020 B12 deficiency 01/23/2016 Overview (12/15/2024): Initial visit 12/15/2024: She reports she is not taking vitamin B12 supplementation Assessment & Plan (12/15/2024 11:08 AM CDT): Vitamin B12 levels ordered Iron deficiency anemia due to dietary causes Normocytic anemia 12/26/2015 Assessment & Plan (12/15/2024 11:09 AM CDT): CBC and anemia studies are ordered Fibromyalgia 11/07/2015 Overview (12/15/2024): Initial visit 12/15/2024: She reports she was diagnosed in [place]. She reports she tried Cymbalta in the past for at least a month with no help. She reports she is taking pregabalin 200 mg twice daily. She is asking if medication can be increased due to pain. Assessment & Plan (12/15/2024 1:03 PM CDT): Discussed with patient that 400 mg daily is generally maximum dose. If she is interested in increasing this medication, we would have to see a specialist. She reports she has not tried medications the past such as Savella so we might likely be able to add medication such as that at next visit. Savella does not appear to be covered by her insurance. Controlled substance agreement signed. Patient left sample for UDS. PDMP checked. Will refill pregabalin 200 mg twice daily to start 12/31/2024. Resolved Problems Problem Noted Date Diagnosed Date Resolved Date NSTEMI (non-ST elevated myoc ardial infarction) ([facility]) 07/24/2023 12/15/2024 Tachycardia 05/07/2023 12/15/2024 Tibia/fibula fracture, left, closed, initial encounter 04/28/2023 12/15/2024 Partial small bowel obstruct ion ([facility]) 07/20/2022 07/22/2022 Incarcerated ventral hernia 07/20/2022 08/18/2022 Syncope 02/06/2020 12/15/2024 TMJ (temporomandibular joint syndrome) 08/24/2017 12/15/2024 Patellar bursitis of right knee 06/18/2017 12/15/2024 Women's annual routine gynec ological examination 03/31/2016 04/13/2020 Intermittent palpitations 12/24/2015 Depression 11/23/2015 12/15/2024 Seizures (CMS/HCC [facility]/HCC) 11/07/2015 0 12/15/2024 Encounters Date Type Department Care Team Description 01/27/2025 MyChart Message Enc [facility] [facility] [place] [address] [place] [address] Pamela Poe, Order for testing 01/26/2025 Misc Documentation [facility] [facility] [place] [address] [place] [address] Halima Santos, ADMINISTRATOR 01/25/2025 Telephone [facility] [facility] [place] [address] [place] [address] Pamela Poe, Mammography Order 01/24/2025 Medication Management [facility] [place] [facility] [place] [address] [place] [address] Pamela Poe, 01/24/2025 Telephone [facility] [place] [facility] [place] [address] [place] [address] Pamela Poe, Follow Up Call 01/20/2025 Telephone [facility] [facility] [place] [address] [place] [address] Pamela Poe, Refill Request 01/03/2025 Results [facility] [place] [facility] [place] [address] [place] [address] Pamela Poe, GGT, GAMMA GLUTAMYLTRANSFERASE 01/02/2025 Orders Only [facility] [facility] [place] [address] [place] [address] Nazia Joseph MA 01/02/2025 Medication Management [facility] [place] [facility] [place] [address] [place] [address] Pamela Poe, 12/30/2024 12:45 PM CDT [facility] [place] [address] [facility] [address] [place] [address] Pamela Poe, DO 12/30/2024 - 12/30/2024 11:59 PM CDT Hospital Encounter [facility] [place] [address] Pamela Poe, DO Discharge Disposition: Home or Self Care (Routine Discharge) 12/30/2024 Travel 12/20/2024 Results Follow-Up [place] [address] [facility] [address] [place] [address] Pamela Poe, DO MG/PCCL UDS SCREEN , VITAMIN B-12, FOLIC ACID SERUM, Additional followed-up results: 15 12/19/2024 2:00 PM CDT Office Visit [place] [address] [address] [place] [address] Pamela Poe, DO Dental Problem (Tooth pain x 1 week. /Pt states she thinks it cracked from eating ice and tootsie pops/Pt states she gargled warm water and salt and has been taking tylenol and motrin. /Pt states she took amoxicillin for a week she had it left over at home. /) 12/19/2024 Travel 12/19/2024 Telephone [place] [address] [address] [place] [address] Pamela Poe, DO Question 12/15/2024 10:20 AM CDT Office Visit [place] [address] [facility] [address] [place] [address] Pamela Poe, DO New Patient 12/15/2024 Telephone [place] [address] [facility] [address] [place] [address] Pamela Poe, DO Information 12/15/2024 Travel from Last 3 Months Immunizations Immunization Administration Dates Next Due Fluzone 6 Months+ Quad (0.5 mL Prefilled Syringe) 07/25/2023(Deferred: Patient/family declined) Influenza (Generic) 06/03/2024 Family History Medical History Relation Comments No Known Problems Daughter 1 No Known Problems Daughter 2 Hypertension Father Diabetes Half-brother Hypertension Half-brother No Known Problems Maternal Grandfather Dementia Maternal Grandmother in 2019 Diabetes Maternal Grandmother Hypertension Mother Thyroid Mother Heart Paternal Grandfather Heart Paternal Grandmother Relation Status Comments Daughter 1 Alive Daughter 2 Alive Father Alive Half-brother Alive Maternal Grandfather Maternal Grandmother Mother Alive Paternal Grandfather Paternal Grandmother Social History Tobacco Use Types Packs/Day Years Used Date Smoking Tobacco: Never Smokeless Tobacco: Never Tobacco Cessation:Counseling Given: No Alcohol Use Standard Drinks/Week Comments Yes 0 (1 standard drink = 0.6 oz pur e alcohol) very rarely [facility] [employer] Answer Date Recorded In the past 12 months has [employer], oil, or water [employer] threatened to shut off services in your [...] declined 07/24/2023 How often do you attend [facility] or church services? More than 4 times per year 07/24/2023 Do you belong to any clubs o r organizations such as yarsanism groups, unions, fraternal or athletic groups, or [...] medical care, and heating? Patient declined 07/24/2023 PHQ-2 Answer Date Recorded Patient Health Questionnaire-2 Score 0 12/15/2024 [facility] - Occupational [...] place to sleep or slept in a halfway (including now)? Patient declined 07/24/2023 Comments No Sex and Gender Information Value Date Recorded Sex Assigned at Female 09/15/2024 2:23 PM TECHNICAL AGRONOMIST Legal Sex Female 7:12 PM CDT Gender Identity Female 12/15/2024 10:26 AM CDT Sexual Orientation Straight 12/15/2024 10 :26 AM CDT Last Filed Vital Signs Vital Sign Reading Time Taken Comments Blood Pressure 131/83 12/19/2024 2:01 PM CDT Pulse 110 12/19/2024 2:01 PM CDT Temperature 36.2 C (97.1 F) 12/19/2024 2:01 PM CDT Respiratory Rate 16 12/19/2024 2:01 PM CDT Oxygen Saturation 100% 12/19/2024 2:01 PM CDT Inhaled Oxygen Concentration - - Weight 88.9 kg (196 lb) 12/19/2024 2:01 PM CDT Height 154.9 cm (5' 1) 12/19/2024 2:01 PM CDT Body Mass Index 37.03 12/19/2024 2:01 PM CDT Plan of Treatment Upcoming Encounters Date Type Department Care Team (Late st Contact Info) Description 03/31/2025 3:00 PM CDT Office Visit [facility] - [place] [address] [address] [place] [address] [place] [address] [place] [address] [address] [place] [address] Health Maintenance Due Date Last Done Comments Cervical Cancer Screening Pap Smear (Age 30 to 64) Every 3 Years 1980 Annual Physical 1983 DTaP, Tdap and Td Vaccines (1 - Tdap) 1999 Hepatitis B Vaccines (1 of 3 - 19+ 3-dose series) 1999 Cervical Cancer Screening Pap with HPV Testing (Age 30 to 64) Every 5 Years 2010 Cervical Cancer Screening with HPV 2010 COVID-19 Vaccine ( - 2023-25 season) 2024 Mammogram Screening 09/02/2026 09/02/2024, 11/16/2023, 10/02/2023, Additional history exists PHQ-2 (Physician [place]) Completed 12/15/2024 Hepatitis C Completed 12/30/2024 HPV Vaccines Aged Out No longer eligi ble based on patient's age to complete this topic Meningococcal B Vaccine Aged Out No l onger eligible based on patient's age to complete this topic Meningococcal Vaccine Aged Out No renato gavi eligible based on patient's age to complete this topic Pneumococcal Vaccine: Pediatrics (0 to 5 Years) and At-Risk Patients (6 to 49 Years) Aged Out No longer eligible based on patient's age to complete this topic RSV Immunizations Under 20 Months Aged Out No longer eligible based on patient's age to complete this topic Goals Goal Patient Goal Type Associated Problems Recent Progress Patient-Stated? 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, ASSOCIATE COUNSEL Safety Patient/family will have appropriate support at home upon discharge Lifestyle No Nelli Rodríguez, pencil maker Procedure Name Priority Date/Time Associated Diagnosis Comments GGT, GAMMA GLUTAMYLTRANSFERASE Routine 12/30/2024 7:06 PM CDT Elevated alkaline phosphatase level TSH W/REFLEX Routine 12/30/2024 7:06 PM CDT Class 1 obesity with serious comorbidity and body mass index (BMI) of 34.0 to 34.9 in adult, unspecified obesity type VITAMIN D, 25 OH Routine 12/30/2024 7:06 PM CDT Class 1 obesity with serious comorbidity and body mass index (BMI) of 34.0 to 34.9 in adult, unspecified obesity type LIPID PANEL Routine 12/30/2024 7:06 PM CDT Class 1 obesity with serious comorbidity and body mass index (BMI) of 34.0 to 34.9 in adult, unspecified obesity type COMPREHENSIVE METABOLIC PANEL Routine 12/30/2024 7:06 PM CDT Elevated alkaline phosphatase level Class 1 obesity with serious comorbidity and body mass index (BMI) of 34.0 to 34.9 in adult, unspecified obesity type CBC W/DIFF AUTOMATED Routine 12/30/2024 12:56 PM CDT Normocytic anemia Class 1 obesity with serious comorbidity and body mass index (BMI) of 34.0 to 34.9 in adult, unspecified obesity type HEPATITIS B CORE ANTIBODY Routine 2024 12:56 PM CDT Need for hepatitis B screening test HEPATITIS B CORE AB IGM Routine 12/31/19 25 12:56 PM CDT Need for hepatitis B screening test HEPATITIS B SURFACE AG, EIA Routine 12/30/2024 12:56 PM CDT Need for hepatitis B screening test Screening examination for STI HEPATITIS B SURFACE ANTIBODY Routine 12/30/2024 12:56 PM CDT Need for hepatitis B screening test HEPATITIS C ANTIBODY Routine 12/30/2024 12:56 PM CDT Encounter for hepatitis C screening test for low risk patient Screening examination for STI FERRITIN Routine 12/30/2024 12:56 PM CDT Normocytic anemia IRON SAT PANEL (IRON,IBC,%SAT) Routine 12/30/2024 12:56 PM CDT Normocytic anemia HEMOGLOBIN, GLYCOSYLATED Routine 025 12:56 PM CDT Class 1 obesity with serious comorbidity and body mass index (BMI) of 34.0 to 34.9 in adult, unspecified obesity type HIV 1 ANTIGEN(S), WITH HIV-1 AND HIV-2 ANTIBODIES Routine 12/30/2024 12:56 PM CDT Screening examination for STI SYPHILIS AB (DIAGNOSTIC) WITH CASCADING REFLEX Routine 12/30/2024 12:56 PM CDT Screening examination for STI FOLIC ACID SERUM Routine 12/30/2024 12:5 6 PM CDT Folic acid deficiency VITAMIN B-12 Routine 12/30/2024 12:56 PM CDT B12 deficiency MG/PCCL UDS SCREEN Routine 12/15/2024 11 :33 AM CDT Medication management MG SCREENING W ADRIANA LAISHA DIGI Routine 01/02/2021 1:19 PM CDT Visit for screening mammogram from Last 3 Months or Most Recently Relevant to Health Maintenance Results * TSH W/REFLEX (12/30/2024 7:06 PM CDT) TSH 0.649 0.358 - 3.740 uIU/ML 12/31/2024 10:27 AM CDT [facility] 12/30/2024 7:06 PM CDT Pamela Poe DO LABORATORY Final Result [facility] [address] [place] [address], * (ABNORMAL) COMPREHENSIVE METABOLIC PANEL (12/30/2024 7:06 PM CDT) SODIUM S/P/B 141 136 - 145 MMOL/L 12/31/2024 10:27 AM CDT [facility] POTASSIUM S/P/B 4.6 3.5 - 5.1 MMOL/L 12/31/2024 10:27 AM CDT [facility] CHLORIDE S/P/B 106 98 - 107 MMOL/L 12/31/2024 10:27 AM CDT [facility] CO2 25.4 21 - 32 MMOL/L 12/31/2024 10:27 AM CDT [facility] GLUCOSE 79 70 - 99 MG/DL 12/31/2024 10:27 AM CDT [facility] BUN 17 7 - 18 MG/DL 12/31/2024 10:27 AM CDT [facility] CREATININE S/P/B 0.62 0.55 - 1.02 MG/DL 12/31/2024 10:27 AM CDT [facility] CALCIUM S/P/B 8.4 8.4 - 10.5 MG/DL 12/31/2024 10:27 AM CDT [facility] BILIRUBIN TOTAL S/P/B 0.3 0.2 - 1.0 MG/DL 12/31/2024 10:27 AM CDT [facility] ALKALINE PHOSPHATASE S/P/B 168(H) 37 - 98 U/L 12/31/2024 10:27 AM CDT [facility] AST 19 15 - 37 U/L 12/31/2024 10:27 AM CDT [facility] ALT 18 14 - 59 U/L 12/31/2024 10:27 AM CDT [facility] TOTAL PROTEIN S/P/B 6.5 6.4 - 8.2 G/DL 12/31/2024 10:27 AM CDT [facility] ALBUMIN S/P/B 3.4 3.4 - 5.0 G/DL 12/31/2024 10:27 AM CDT [facility] ANION GAP 9.6 5 - 15 MMOL/L 12/31/2024 10:27 AM CDT [facility] Comment:REFERENCE RANGE NOT ESTABLISHED OSMOLALITY (CALC) 292 MOSM/KG 025 10:27 AM CDT [facility] Comment:REFERENCE RANGE NOT ESTABLISHED GFR ESTIMATE >90 >90 ML/MIN/1. 73 M2 12/31/2024 10:27 AM CDT [facility] GFR NOTES GFR REFERENCE S: 12/31/2024 10:27 AM CDT [facility] Comment: THE ESTIMATED GFR IS CALCULATED USING THE 2020 CKD-EPI EQUATION. THE FOLLOWING CATEGORIES FOR GRADING RENAL FUNCTION ARE RECOMMENDED BY THE INTERNATIONAL SOCIETY OF NEPHROLOGY (KDIGO 2012 CLINICAL PRACTICE GUIDELINE). G1,NORMAL OR HIGH: >89 ml/min/1.73 m2 G2,MILDLY DECREASED: 60-89 ml/min/1.73 m2 G3A,MILDLY TO MODERATELY DECREASED: 45-59 ml/min/1.73 m2 G3B,MODERATELY TO SEVERELY DECREASED: 30-44 ml/min/1.73 m2 G4,SEVERELY DECREASED: 15-29 ml/min/1.73 m2 G5,KIDNEY FAILURE: <15 ml/min/1.73 m2 12/30/2024 7:06 PM CDT Pamela Poe DO LABORATORY Final Result [facility] [address] [place] [address], * LIPID PANEL (12/30/2024 7:06 PM CDT) CHOLESTEROL 139 <200 MG/DL 12/31/2024 10:27 AM CDT [facility] TRIGLYCERIDES 26 <150 MG/DL 12/31/2024 10:27 AM CDT [facility] HDL 64 >40 MG/DL 12/31/2024 10:27 AM CDT [facility] LDL-C 70 <100 MG/DL 12/31/2024 10:27 AM CDT [facility] VLDL CALCULATION 5 5 - 28 MG/DL 12/31/2024 10:27 AM CDT [facility] CHOL/HDL RATIO 2.2 0.0 - 4.0 12/31/2024 10:27 AM CDT [facility] LDL/HDL 1.1 0.41 - 2.13 12/31/2024 10:27 AM CDT [facility] NON HDL CHOLESTEROL 75 <140 MG/DL 12/31/2024 10:27 AM CDT [facility] 12/30/2024 7:06 PM CDT Pamela Poe DO LABORATORY Final Result Performing Organization Address City/[facility]/ZIP Co de Phone Number [facility] [address] [place] [address], [place] [phone] * VITAMIN D, 25 OH (12/30/2024 7:06 PM CDT) VITAMIN D 25 HYDROXY TOTAL S/P/B 32.4 30 - 100 NG/ML 12/31/2024 10:27 AM CDT [facility] Comment: DEFICIENT <20 INSUFFICIENT 20-30 SUFFICIENT 30-100 12/30/2024 7:06 PM CDT Pamela Poe DO LABORATORY Final Result Performing Organization Address [facility]/ZIP Co de Phone Number [address] [address], [place] [phone] * GGT, GAMMA GLUTAMYLTRANSFERASE (12/30/2024 7:06 PM CDT) GGT 15 5 - 55 U/L 01/02/2025 7:56 PM CDT [facility] 12/30/2024 7:06 PM CDT Pamela Poe DO LABORATORY Final Result Performing Organization Address City/[facility]/ZIP Co de Phone Number [facility] [address] [place] [address], [place] [phone] * SYPHILIS AB (DIAGNOSTIC) WITH CASCADING REFLEX (12/30/2024 12:56 PM CDT) SYPHILIS IGG IGM AB NON-REACTI VE NON-REACTI VE 01/02/2025 8:40 PM CDT [facility] Comment: No serologic evidence of syphilis. No follow-up necessary unless clinically indicated. 12/30/2024 12:5 6 PM CDT Pamela Poe DO LABORATORY Final Result Performing Organization Address [facility] Co de Phone Number [facility] [address] [place] [address], [place] [phone] * HIV 1 ANTIGEN(S), WITH HIV-1 AND HIV-2 ANTIBODIES (12/30/2024 12:56 PM CDT) Pathologist [facility] HIV 1/2 AB+ HIV1 P24 AG NON-REACTI VE NON-REACTI VE 01/02/2025 8:40 PM CDT [facility] Comment:HIV 1 p24 Ag and HIV 1/ HIV 2 Ab not detected. 12/30/2024 12:5 6 PM CDT Pamela Poe DO LABORATORY Final Result Performing Organization Address [facility] de Phone Number [facility] [address] [place] [address], [place] [phone] * (ABNORMAL) HEMOGLOBIN, GLYCOSYLATED (12/30/2024 12:56 PM CDT) HGB A1C 4.4(L) 4.5 - 6.2 % 12/30/2024 7:44 PM CDT [facility] ESTIMATED AVG GLUCOSE 80 74 - 106 MG/DL 12/30/2024 7:44 PM CDT [facility] 12/30/2024 12:5 6 PM CDT Pamela Poe DO LABORATORY Final Result [facility] [address] [place] [address], [place] [phone] * (ABNORMAL) IRON SAT PANEL (IRON,IBC,%SAT) (12/30/2024 12:56 PM CDT) Pathologist [facility] IRON 45(L) 50 - 170 MCG/DL 12/31/2024 10:23 AM CDT [facility] IRON BINDING CAPACITY 407 250 - 450 MCG/DL 12/31/2024 10:23 AM CDT [facility] IRON SATURATION 11 % 10:23 AM CDT [facility] Comment:REFERENCE RANGE NOT ESTABLISHED 12/30/2024 12:5 6 PM CDT Pamela Poe DO LABORATORY Final Result Performing Organization Address City/[facility]/ZIP Co de Phone Number [address] [address], [place] [phone] * (ABNORMAL) VITAMIN B-12 (12/30/2024 12:56 PM CDT) Pathologist [facility] VITAMIN B12 S/P/B 99(L) 193 - 986 PG/ML 12/31/2024 10:23 AM CDT [facility] 12/30/2024 12:5 6 PM CDT Pamela Poe DO LABORATORY Final Result Performing Organization Address City/[facility]/ZIP Co de Phone Number [facility] [address] [place] [address], [place] [phone] * HEPATITIS C ANTIBODY (12/30/2024 12:56 PM CDT) HEPATITIS C AB NON-REACTI VE NON-REACT EUGENE 01/02/2025 8:40 PM CDT [facility] Comment: ANTIBODIES TO HCV NOT DETECTED. DOES NOT EXCLUDE THE POSSIBILITY OF EXPOSURE TO HCV. 12/30/2024 12:5 6 PM CDT us Pamela Poe DO LABORATORY Final Result [facility] [address] [place] [address], [place] [phone] * HEPATITIS B SURFACE AG, EIA (12/30/2024 12:56 PM CDT) Pathologist [facility] HEPATITIS B SURFACE AG NON-REACTI VE NON-REACTI VE 01/02/2025 8:40 PM CDT [facility] Comment:HBsAg NOT DETECTED. 12/30/2024 12:5 6 PM CDT us Pamela Poe DO LABORATORY Final Result Performing Organization Address [facility] Co de Phone Number [facility] [address] [place] [address], [place] [phone] * HEPATITIS B SURFACE ANTIBODY (12/30/2024 12:56 PM CDT) Pathologist [facility] HEP B SURFACE AB 23.0 >9.9 MIU/ML 01/02/2025 8:40 PM CDT [facility] Comment:INDIVIDUAL IS CONSID ERED IMMUNE TO HBV INFECTION. 12/30/2024 12:5 6 PM CDT us Pamela Poe DO LABORATORY Final Result Performing Organization Address City/[facility]/ZIP Co de Phone Number [facility] [address] [place] [address], [place] [phone] * HEPATITIS B CORE ANTIBODY (12/30/2024 12:56 PM CDT) HEP B CORE TOTAL AB NON-REACTI VE NON-REACTI VE 01/02/2025 8:40 PM CDT [facility] Comment:IgM and IgG anti HBc not detected. 12/30/2024 12:5 6 PM CDT us Pamela Poe DO LABORATORY Final Result Performing Organization Address City/[facility] Co de Phone Number [facility] [address] [place] [address], [place] [phone] * HEPATITIS B CORE AB IGM (12/30/2024 12:56 PM CDT) HEP B CORE IGM NON-REACT EUGENE NON-REACT EUGENE 01/02/2025 8:40 PM CDT [facility] Comment: IgM ANTI HBc NOT DETECTED. DOES NOT EXCLUDE THE POSSIBILITY OF EXPOSURE TO OR INFECTION WITH HBV. NO RETEST REQUIRED. HIGH DOSES OF BIOTIN MAY INTERFERE WITH THIS TEST RESULT. CORRELATION TO CLINICAL HISTORY AND PRESENTATION RECOMMENDED. 12/30/2024 12:5 6 PM CDT us Pamela Poe DO LABORATORY Final Result Performing Organization Address [facility] Co de Phone Number [facility] [address] [place] [address], [place] [phone] * FOLIC ACID SERUM (12/30/2024 12:56 PM CDT) FOLATE 18.6 8.6 - 58.9 NG/ML 12/30/2024 7:51 PM CDT [facility] 12/30/2024 12:5 6 PM CDT us Pamela Poe DO LABORATORY Final Result Performing Organization Address City/[facility] Co de Phone Number [facility] [address] [facility] [place] [address], * (ABNORMAL) CBC W/DIFF AUTOMATED (12/30/2024 12:56 PM CDT) [facility] WBC 5.12 4.00 - 10.80 x10'3/uL 12/30/2024 7:15 PM CDT [facility] RBC 3.50(L) 4.10 - 5.40 x10'6/uL 12/30/2024 7:15 PM CDT [facility] HGB 10.0(L) 12.0 - 16.0 G/DL 12/30/2024 7:15 PM CDT [facility] HCT 32.3(L) 36.0 - 47.0 % 12/30/2024 7:15 PM CDT [facility] MCV 92.3 78.0 - 100.0 FL 12/30/2024 7:15 PM CDT [facility] MCH 28.6 27.0 - 31.0 PG 12/30/2024 7:15 PM CDT [facility] MCHC 31.0(L) 33.0 - 36.0 G/DL 12/30/2024 7:15 PM CDT [facility] RDW 15.0(H) 11.5 - 14.5 % 12/30/2024 7:15 PM CDT [facility] PLT 247 150 - 350 x10'3/uL 12/30/2024 7:15 PM CDT [facility] MPV 11.2(H) 7.4 - 10.4 FL 12/30/2024 7:15 PM CDT [facility] DIFFERENTIAL TYPE AUTOMATED DIFFERENTIAL 12/30/2024 7:15 PM CDT [facility] NEUTROPHILS % 52.1 % 12/30/2024 7:15 PM CDT [facility] LYMPHOCYTES % 39.3 % 12/30/2024 7:15 PM CDT [facility] MONOCYTES % 7.4 % 12/30/2024 7:15 PM CDT [facility] EOSINOPHILS % 0.6 % 12/30/2024 7:15 PM CDT [facility] BASOPHILS % 0.6 % 12/30/2024 7:15 PM CDT [facility] IMMATURE GRANS % 0.0 % 12/30/2024 7:15 PM CDT [facility] ABS. NEUTROPHILS 2.67 1.60 - 8.30 x10'3/uL 12/30/2024 7:15 PM CDT [facility] ABS. LYMPHOCYTES 2.01 0.80 - 4.70 x10'3/uL 12/30/2024 7:15 PM CDT [facility] ABS. MONOCYTES 0.38 0.00 - 1.50 x10'3/uL 12/30/2024 7:15 PM CDT [facility] ABS. EOSINOPHILS 0.03 0.00 - 0.40 x10'3/uL 12/30/2024 7:15 PM CDT [facility] ABS. BASOPHILS 0.03 0.00 - 0.20 x10'3/uL 12/30/2024 7:15 PM CDT [facility] ABS. IMMATURE GRANULOCYTES 0.00 0.00 - 0.03 x10'3/uL 12/30/2024 7:15 PM CDT [facility] 12/30/2024 12:5 6 PM CDT us Pamela Poe DO LABORATORY Final Result -[facility] [address] [place] [address], * FERRITIN (12/30/2024 12:56 PM CDT) FERRITIN 10.0 8 - 252 NG/ML 12/31/2024 10:23 AM CDT [facility] 12/30/2024 12:5 6 PM CDT Pamela Poe DO LABORATORY Final Result [facility] [address] [place] [address], * (ABNORMAL) MG/PCCL UDS SCREEN (12/15/2024 11:33 AM CDT) FENTANYL SCREEN (U) NEGATIVE <0.5 ng/mL [facility] Comment: See Note A See Note A MORPHINE (U) NEGATIVE <10 ng/mL [facility] Comment: See Note A See Note A AMPHETAMINES PM NEGATIVE <500 ng/mL [facility] Comment: See Note A See Note A BARBITURATES PM (U) NEGATIVE <300 ng/mL [facility] Comment: See Note A See Note A BENZODIAZEPINES PM (U) NEGATIVE <100 ng/mL [facility] Comment: See Note A See Note A COCAINE METABOLITE PM (U) NEGATIVE <150 ng/mL [facility] Comment: See Note A See Note A MARIJUANA METABOLITE PM (U) NEGATIVE <20 ng/mL [facility] Comment: See Note A See Note A METHADONE PM (U) NEGATIVE <100 ng/mL [facility] Comment: See Note A See Note A OPIATES PM (U) POSITIVE(A) <100 ng/mL [facility] Comment: See Note A See Note A OXYCODONE PM (U) POSITIVE(A) <100 ng/mL [facility] Comment: See Note A See Note A CREATININE RANDOM (U) 149.1 > or = 20.0 mg/dL [facility] pH PM (U) 5.2 4.5 - 9.0 [facility] OXIDANT NEGATIVE <200 mcg/mL [facility] NOTE [facility] Comment: This drug testing is for medical treatment only. Analysis was performed as non-forensic testing and these results should be used only by healthcare providers to render diagnosis or treatment, or to monitor progress of medical conditions. Note A: The results are presumptive; based only on screening methods, and they have not been confirmed by a definitive method. LDT Notes: Confirmation tests were developed and their analytical performance characteristics have been determined by [facility]. It has not been cleared or approved by the FDA. This assay has been validated pursuant to the CLIA regulations and is used for clinical purposes. Healthcare Providers needing Interpretation assistance, please contact us at [phone] ( ) M-F, 8am to 10pm EST URINE SPECIMEN / Unknown 12/15/2024 11:33 AM CDT 12/16/2024 1:37 AM CDT Narrative Resulting Agency Comment Performing Organization Information: Site ID: [facility] Address: [address] [place] [address] Director: Daniel Basilio Site ID: [place] Name: [facility] Address: [address] [place], [place] [address] [address] Director: Ellie Hooker MD Pamela Poe DO URINE ORDERABLES Final Result Performing Organization Address City/State/[facility] Co de Phone Number [facility] [place] [address] [place] [address] [facility] [phone] [place], [place] [address]ologyOnlineANCH[place]AGE, [place] [address] * MG SCREENING W ADRIANA LAISHA DIGI [...] - benign findings. Routine screening mammography recommended [facility] BI-RADS Categories: Category 0 - needs [...] Daniel Presley, 01/02/2021 1:25 PM Mita [place] ADMINISTRATOR MAMMO Final Result from Last 3 Months or Most Recently Relevant to Health Maintenance Insurance [facility] [address] Advance Directives * Full Code (Latest [...] 4:39 PM 02/07/2020 6:36 PM Care Teams Protein Purification Scientist Relationship Specialty Start Date End Date Pamela Poe DO [address] [facility] [address] [place] [address] PCP - General FAMILY PRACTICE 12/15/24 03/26/25
--- OUTSIDE RECORDS SUMMARY | 2025-02-16 13:45 | XMS_ITS | Encounter Summary ---
Author Organization [facility] Address [facility] [place] [address] Care Team Providers Care Manager Cargo Name Role Phone Pamela Poe DO Primary Care Provider [phone] Encounter Details Date Type Department Care Team (Latest Contact Info) Description 01/27/2025 Sunnyloftt Message Enc [facility] Medical [facility] Multispecialty Care - [place] [address] [place] [address] Pamela Poe DO [address] [place] [address] Order for testing Social History Tobacco Use Types Packs/Day Years Used Date Smoking Tobacco: Never Smokeless Tobacco: Never Alcohol Use Standard Drinks/Week Comments Yes 0 (1 standard drink = 0.6 oz pur e alcohol) very rarely [facility] Utilities Answer Date Recorded In the past 12 months has [facility] [employer], gas, oil, or water [place] threatened to shut off services in your [...] How often do you attend chur or religion services? More than 4 times per year 07/24/2023 Do you belong to any clubs o r organizations such as restorationist groups, unions, fraternal or athletic groups, or [...] Recorded Patient Health Questionnaire-2 Score 0 12/15/2024 [facility] - [...] or slept in a mcfp (including now)? Patient declined 07/24/2023 Comments No Sex and Gender Information Value Date Recorded Sex Assigned at Female 09/15/2024 2:23 PM HITTING COACH Legal Sex Female 7:12 PM CDT Gender Identity Female 12/15/2024 10:26 AM CDT Sexual Orientation Straight 12/15/2024 10 :26 AM CDT documented as of this encounter Functional Status * Are you deaf or do you have serious difficulty hearing Answer Date of Assessment Author Status No 07/24/2023 6:00 AM Jennie Evans RN Active * Are you blind or do you have serious difficulty seeing, even when wearing glasses? Answer Date of Assessment Author Status No 07/24/2023 6:00 AM Jennie Evans RN Active * Do you have serious difficulty walking or climbing stairs? Answer Date of Assessment Author Status No 07/24/2023 6:00 AM Jennie Evans RN Active * Do you have difficulty dressing or bathing? Answer Date of Assessment Author Status No 07/24/2023 6:00 AM Jennie Evans RN Active * Because of a physical, mental, or emotional condition, do you have difficulty doing errands alone such as visiting a doctor's office or shopping? Answer Date of Assessment Author Status No 07/24/2023 6:00 AM Jennie Evans RN Active documented as of this encounter Mental Status * Because of a physical, mental, or emotional condition, do you have serious difficulty concentrating, remembering, or making decisions? Answer Entry Date Author Status No 07/24/2023 6:00 AM Jennie Evans RN Active documented in this encounter Plan of Treatment Upcoming Encounters Date Type Department Care Team (Late st Contact Info) Description 03/31/2025 3:00 PM CDT Office Visit [facility] Medical [facility] Multispecialty [facility] [place] [address] [address] [address] [place], [place] [id number] [place] [address] [place] [address] [address] [place], [place] [id number] documented as of this encounter Goals Goal Patient Goal Type Associated Problems Recent Progress Patient-Stated? 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 SENIOR GEOTECHNICAL ENGINEER Safety Patient/family will have appropriate support at home upon discharge Lifestyle No Nelli Rodríguez RN documented as of this encounter Visit Diagnoses Not on filedocumented in this encounter Additional Health Concerns Assessment Noted Time PHQ-9 Depression Total Score: 0 12/16/19 10:49 AM CDT documented as of this encounter Care Teams Manager Cargo Relationship Specialty Start Date End Date Pamela Poe DO [facility] [address] [place] [address] PCP - General FAMILY PRACTICE 12/15/24 03/26/25 documented as of this encounter
--- OUTSIDE RECORDS SUMMARY | 2025-02-16 13:45 | XMS_ITS | Clinical Summary ---
Author Organization [facility] Address [address], [facility] [address] [place] [address] Phone Care Team Providers Care Formation Testing Operator Name Role Phone Unavailable Primary Care [...] age to complete this topic Insurance MEDICAID [facility]
--- OUTSIDE RECORDS SUMMARY | 2025-02-16 13:46 | XMS_ITS | Encounter Summary ---
Author Organization [facility] Address [address] [place] [address] Care Team Providers Care Exterior Door Installer Name Role Phone Clyde Betzy Maribell MINISTER OF RELIGION Primary Care Provider [phone] Rabia Black FUDGE CANDY MAKER Primary Care Provider [phone] Lui Pamela Trever DO Primary Care Provider [phone] Encounter Details Date Type Department Care Team (Late st Contact Info) Description 07/23/2022 Hospital Follow-up Call [facility] [address] [place] [address] Divina Merino RN Social History Tobacco Use Types Packs/Day Years Used Date Smoking Tobacco: Never Smokeless Tobacco: Never Alcohol Use Standard Drinks/Week Comments Yes 0 (1 standard drink = 0.6 oz pur e alcohol) occ Comments No Sex and Gender Information Value Date Recorded Sex Assigned at Female 09/15/2024 2:23 PM DIRECTOR COMMUNITY CENTER Legal Sex Female 7:12 PM CDT Gender Identity Female 12/15/2024 10:26 AM CDT Sexual Orientation Straight 12/15/2024 10 :26 AM CDT COVID-19 Exposure Response Date Recorded In the last 10 days, have yo u been in contact with someone who was confirmed or suspected to have Coronavirus/COVID-19? No / Unsure 07/20/2022 1:13 PM DIRECTOR COMMUNITY CENTER documented as of this encounter Functional Status * RETIRED Are you deaf or do you have serious difficulty hearing Answer Date of Assessment Author Status No 07/20/2022 7:28 PM DIRECTOR COMMUNITY CENTER Activ e * RETIRED Are you blind or do you have serious difficulty seeing, even when wearing glasses? Answer Date of Assessment Author Status No 07/20/2022 7:28 PM DIRECTOR COMMUNITY CENTER Activ e * Do you have serious [...] Description 03/31/2025 3:00 PM CDT Office Visit [facility] Multispecialty [facility] [address] [address] [address] [place] [address] [place] [address] [place] [address] [address] [place], [place] [id number] documented as of this encounter Goals Goal Patient Goal Type Associated Problems Recent Progress Patient-Stated? 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 MSW Safety Patient/family will have appropriate support at home upon discharge Lifestyle No Nelli Rodríguez, SURINDER documented as of this encounter Visit Diagnoses Not on filedocumented in this encounter Care Teams Exterior Door Installer Relationship Specialty Start Date End Date Betzy Tang APRN [address] [facility] [address] [place], [place] [phone] PCP - General NURSE PRACTITIONER 04/01/19 10/29/23 Rabia Black FNP [address] [place] [address] PCP - General Nurse Practitioner Family 02/29/2412/01 Pamela Poe DO [address] [place] [address] PCP - General FAMILY PRACTICE 12/15/24 03/26/25 documented as of this encounter
--- OUTSIDE RECORDS SUMMARY | 2025-02-16 13:46 | XMS_ITS | Encounter Summary ---
Author Organization [facility] Address [facility] [place] [address] Care Team Providers Care Analyst Market Intelligence Name Role Phone AdelaidaBetzy meehan PROJECT ASSOCIATE Primary Care Provider [phone] Rabia Black PUSH BENCH OPERATOR HELPER Primary Care Provider [phone] Lui Pamela M DO Primary Care Provider [phone] Encounter Details Date Type Department Care Team (Late st Contact Info) Description 02/08/2020 Telephone [facility] Med/Surg [address] [id number] Katy Blevins CNA Social History Tobacco Use Types Packs/Day Years Used Date Smoking Tobacco: Never Smokeless Tobacco: Never Alcohol Use Standard Drinks/Week Comments Yes 0 (1 standard drink = 0.6 oz pur e alcohol) occ Comments No Sex and Gender Information Value Date Recorded Sex Assigned at Female 09/15/2024 2:23 PM SYNCHRONOUS MOTOR ASSEMBLER Legal Sex Female 7:12 PM CDT Gender [...] Assessment Author Status No 02/06/2020 5:07 PM TAMMYT Jennifer Masters RN Active * Do you have difficulty dressing or bathing? Answer Date of Assessment Author Status No 02/06/2020 5:07 PM TAMMYT Jennifer Masters RN Active * Because of a physical, mental, or emotional condition, do you have difficulty doing errands alone such as visiting a doctor's office or shopping? Answer Date of Assessment Author Status No 02/06/2020 5:07 PM TAMMYT Jennifer Masters RN Active documented as of this encounter [...] Description 03/31/2025 3:00 PM CDT Office Visit [facility] Medical Group Multispecialty [facility] [address] [address] [address] [place] [address] Trisha Bourgeois MD [address] [place] [address] documented as of this encounter Goals Goal Patient Goal Type Associated Problems Recent Progress Patient-Stated? 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 MSW documented as of this encounter Visit Diagnoses Not on filedocumented in this encounter Care Teams Analyst Market Intelligence Relationship Specialty Start Date End Date Betzy Tang APRN [address] [place] [address] PCP - General NURSE PRACTITIONER 04/01/19 10/29/23 Rabia Black FNP [address] [facility] [address] [facility] [address] [place] [address] PCP - General Nurse Practitioner Family 02/29/2412/01 Pamela Poe DO [address] [facility] [address] [place] [address] PCP - General FAMILY PRACTICE 12/15/24 03/26/25 documented as of this encounter
--- OUTSIDE RECORDS SUMMARY | 2025-02-16 13:46 | XMS_ITS | Clinical Summary ---
Author Organization [facility] Address [address] [place] [address] Phone Care Team Providers Care Bow Maker Gift Wrapping Name Role Phone Unavailable Primary Care Provider Unavailabl e Allergies Active Allergy Reactions Criticality Noted Date Comments Codeine Itching Low 08/22/2024 Methocarbamol Nausea and Vomiting Low 08/22/2024 Nsaids (Non-Steroidal Anti-Inflammatory Drug) Nausea and Vomiting Low 08/22/2024 Tramadol Seizure High 08/22/2024 Social History Tobacco Use Types Packs/Day Years Used Date Smoking Tobacco: Never Assessed Comments Unknown Sex and Gender Information Value Date Recorded Sex Assigned at Not on file Legal Sex Female 6:11 PM CAREER LAW CLERK Gender Identity Not on file Sexual Orientation Not on file Last Filed Vital Signs Vital Sign Reading Time Taken Comments Blood Pressure 124/94 08/22/2024 6:16 PM CAREER LAW CLERK Pulse - - Temperature 36.6 C (97.9 F) 08/22/2024 6:16 PM CAREER LAW CLERK Respiratory Rate 20 08/22/2024 6:16 PM CAREER LAW CLERK Oxygen Saturation 100% 08/22/2024 6:16 PM CAREER LAW CLERK Inhaled Oxygen Concentration - - Weight 84.8 kg (187 lb) 08/22/2024 6:16 PM CAREER LAW CLERK Height 154.9 cm (5' 1) 08/22/2024 6:16 PM CAREER LAW CLERK Body Mass Index 35.33 08/22/2024 6:16 PM CAREER LAW CLERK Plan of Treatment Health Maintenance Due Date Last Done Comments Pre-Diabetes and Diabetes Screening 1980 DTAP/TDAP/TD VACCINES (1 - Tdap) 1999 HEPATITIS B VACCINES (1 of 3 - 19+ 3-dose series) 1999 HPV/Cotest (21-29) 2001 CERVICAL CANCER SCREENING 2010 HPV/Cotest (30-65) 2010 PAP SMEAR 2010 BREAST CANCER SCREENING 2020 INFLUENZA VACCINE (#1) 2025 HPV VACCINES Aged Out No longer eligi ble based on patient's age to complete this topic Insurance [facility] CHOICE [id number] [place] [address]
== END 2025-02-16 13:35 | disposition home or self-care (01) ==
PROVIDERS: PCP Family Medicine; Visit Provider Nurse Practitioner
DX: R92.8 Other abnormal and inconclusive findings on diagnostic imaging of breast (principal); N63.20 Unspecified lump in the left breast, unspecified quadrant
CPT/HCPCS: 76642; 77062; 77066; G0279

== ENCOUNTER 2025-02-27 08:03 | Outpatient (CLI) | payer OTHER, SELFPAY ==
--- OUTSIDE RECORDS SUMMARY | 2025-02-27 08:11 | XMS_ITS | Clinical Summary ---
Author Organization [facility] Address [address], [facility] [address] [place] [address] Phone Care Team Providers Care Clinical Research Specialist Name Role Phone Unavailable Primary Care Provider [...] Virus (HCV) Screening 1980 TdaP Immunization 1980 Human Papillomavirus (HPV) Immunization (1 - 3-dose series) 1995 Hepatitis B Immunization (1 of 3 - 19+ 3-dose series) 1999 Pap Smear 2001 Cervical Cancer Screening (CCS) 2010 HPV/Cotest 2010 SARS-COV-2 Immunization ( - 2023- season) 2024 Influenza Immunization (#1) 2025 Respiratory Syncytial Virus (RSV) Immunization (Adult) (1 [...]
--- OUTSIDE RECORDS SUMMARY | 2025-02-27 08:11 | XMS_ITS | Clinical Summary ---
Author Organization [facility] Address [address] [place] [address] Care Team Providers Care Academic Affairs Director Name Role Phone None, Provider MD Primary Care Provider Unavaila ble Allergies Active Allergy Reactions Criticality Noted Date [...] mcg under the tongue daily. 90 tablet 01/02/2025 04/02/20 25 Active HYDROcodone-chris taminophen (NORCO) 5-325 MG tabletIndicatio ns:Acute Pain < 7 Day Supply Take 1 tablet by mouth every 6 (six) hours as needed. Indications: Acute Pain < 7 Day Supply 21 tablet 02/17/2025 Active penicillin VK 500 MG tablet Take 1 tablet (500 mg total) by mouth 4 (four) times daily for 10 days. 40 tablet 02/17/2025 02/28/20 25 Active famotidine (PEPCID) 20 MG tablet Take 1 tablet (20 mg total) by mouth 2 (two) times daily. 20 tablet 02/17/2025 Active predniSONE (DELTASONE) 20 MG tablet Take 1 tablet (20 mg total) by mouth daily for 10 days. 10 tablet 02/17/2025 02/28/20 25 Active pregabalin (LYRICA) 200 MG capsuleIndicati ons:Fibromyalgi a Take 1 capsule (200 mg total) by mouth 2 (two) times daily for 30 days. 60 capsule 01/27/2025 02/27/20 25 cyclobenzaprine (FLEXERIL) 5 MG tabletIndicatio ns:Fibromyalgia Take 1 tablet (5 mg total) by mouth 3 (three) times daily as needed for Muscle Spasms. 30 tablet 01/24/2025 02/04/20 25 Active Problems Problem Noted Date Diagnosed Date Cracked tooth 12/19/2024 Assessment & Plan (12/19/2024 2:37 PM CDT): Patient has a crack in left upper canine tooth. For pain, she can treat with [id number] Orajel, Tylenol no more than 4000 mg [...] previous mammogram was October 01, 2024 at [facility] in [place], [place]. Assessment & Plan (12/15/2024 11:08 AM CDT): Requesting records. Screening mammogram ordered to [facility]. History of DVT of lower extremity 12/15/2024 Overview (12/15/2024): Initial visit 12/15/2024: She reports she had DVT in left leg after surgery for left fractured tibia/fibula. She reports she was on apixaban in the past as well as rivaroxaban. She reports dry starch supervisor told her she could discontinue taking medication [...] 12/15/2024: She reports she was diagnosed in [place]. She reports she tried Cymbalta in the [...] Date NSTEMI (non-ST elevated myoc ardial infarction) ([facility]) 07/24/2023 12/15/2024 Tachycardia 05/07/2023 12/15/2024 Tibia/fibula fracture, left, closed, initial encounter 04/28/2023 12/15/2024 Partial small bowel obstruct ion ([facility]) 07/20/2022 07/22/2022 Incarcerated ventral hernia 07/20/2022 08/18/2022 Syncope 02/06/2020 12/15/2024 TMJ (temporomandibular joint syndrome) 08/24/2017 12/15/2024 Patellar bursitis of right knee 06/18/2017 12/15/2024 Women's annual routine gynec ological examination 03/31/2016 04/13/2020 Intermittent palpitations 12/24/2015 Depression 11/23/2015 12/15/2024 Seizures ([facility]) 11/07/2015 0 12/15/2024 Encounters Date Type Department Care Team Description 02/17/2025 2:10 PM CDT - 02/17/2025 3:11 PM CDT Emergency [facility] Emergency Room [id number] [place] [address] Tsering Castro MD Dental Pain; Headache Discharge Disposition: Home or Self Care (Routine Discharge) 02/17/2025 Travel 01/27/2025 MyChart Message Enc [facility] [address] [address] [address] [place] [address] Pamela Poe, Order for testing 01/26/2025 Misc Documentation [address] [facility] [address] [place] [address] Halima Santos, [place] 01/25/2025 Telephone [facility] [address] [facility] [address] [place] [address] Pamela Poe, Mammography Order 01/24/2025 Medication Management [facility] [address] [facility] [address] [place] [address] Pamela Poe, 01/24/2025 Telephone [facility] [address] [facility] [address] [place] [address] Pamela Poe, DO Follow Up Call 01/20/2025 Telephone [facility] [address] [facility] [address] [place] [address] Pamela Poe, Refill Request 01/03/2025 Results [facility] [address] [facility] [address] [place] [address] Pamela Poe, GGT, GAMMA GLUTAMYLTRANSFERASE 01/02/2025 Orders [facility] [address] [address] [address] [facility] [address] [place] [address] Nazia Joseph MA 01/02/2025 [facility]ication Management [facility] [place] [address] [address] [facility] [address] [place] [address] Pamela Poe DO 12/30/2024 12:45 PM CDT Laboratory Only [address] [address] [address] [facility] [address] [place] [address] Pamela Poe DO 12/30/2024 - 12/30/2024 11:59 PM CDT [facility] [address] [place] [address] Pamela Poe, Discharge Disposition: Home or Self Care (Routine Discharge) 12/30/2024 Travel 12/20/2024 Results Follow-Up [facility] [place] [address] [address] [facility] [address] [place] [address] Pamela Poe DO MG/PCCL UDS SCREEN , VITAMIN B-12, FOLIC ACID SERUM, Additional followed-up results: 15 12/19/2024 2:00 PM CDT [facility] [place] [address] [address] [facility] [address] [place] [address] Pamela Poe, Dental Problem (Tooth pain x 1 week. /Pt states she thinks it cracked from eating ice and tootsie pops/Pt states she gargled warm water and salt and has been taking tylenol and motrin. /Pt states she took amoxicillin for a week she had it left over at home. /) 12/19/2024 Travel 12/19/2024 Telephone [address] [facility] [address] [place] [address] Pamela Poe, DO Question 12/15/2024 10:20 AM CDT Office Visit [place] [address] [address] [facility] [address] [place] [address] Pamela Poe, DO New Patient 12/15/2024 Telephone [facility] [place] [address] [facility] [address] [place] [address] Pamela Poe, DO Information 12/15/2024 Travel from Last 3 Months Immunizations Immunization Administration Dates Next Due Fluzone 6 Months+ Quad (0.5 mL Prefilled Syringe) 07/25/2023(Deferred: Patient/family declined) Influenza (Generic) 06/03/2024 Family History Medical History Relation Comments No Known Problems Daughter 1 No Known Problems Daughter 2 Hypertension Father Diabetes Half-brother Hypertension Half-brother No Known Problems Maternal Grandfather Dementia Maternal Grandmother in 2018 Diabetes Maternal Grandmother Hypertension Mother Thyroid Mother Heart Paternal Grandfather Heart Paternal Grandmother Relation Status Comments Daughter 1 Alive Daughter 2 Alive Father Alive Half-brother Alive Maternal Grandfather Maternal Grandmother Mother Alive Paternal Grandfather Paternal Grandmother Social History Tobacco Use Types Packs/Day Years Used Date Smoking Tobacco: Never Smokeless Tobacco: Never Tobacco Cessation:Counseling Given: No Alcohol Use Standard Drinks/Week Comments Not Currently 0 (1 standard drink = 0.6 oz pur e alcohol) very rarely [facility] Utilities Answer Date Recorded In the past 12 months has e [employer], [employer], oil, or water [employer] threatened to shut off services in your [...] any clubs o r organizations such as mu-ism groups, unions, fraternal or athletic groups, or [...] Recorded Patient Health Questionnaire-2 Score 0 12/15/2024 [facility] Occupat ional Health - Occupational Stress [...] or slept in a prison (including now)? 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 Legal Sex Female 7:12 PM CDT Gender Identity Female 12/15/2024 10:26 AM CDT Sexual Orientation Straight 12/15/2024 10 :26 AM CDT Last Filed Vital Signs Vital Sign Reading Time Taken Comments Blood Pressure 129/96 02/17/2025 2:18 PM CDT Pulse 116 02/17/2025 2:18 PM CDT Temperature 36.3 C (97.3 F) 02/17/2025 2:18 PM CDT Respiratory Rate 18 02/17/2025 2:18 PM CDT Oxygen Saturation 100% 02/17/2025 2:18 PM CDT Inhaled Oxygen Concentration - - Weight 87.3 kg (192 lb 7.4 oz) 02/17/2025 2:18 P M CDT Height 154.9 cm (5' 1) 02/17/2025 2:18 PM CDT Body Mass Index 36.37 02/17/2025 2:18 PM CDT Plan of Treatment Upcoming Encounters Date Type Department Care Team (Late st Contact Info) Description 03/31/2025 3:00 PM CDT Office Visit [facility] [place] [address] [address] [address] [place] [address] Trisha Bourgeois MD [address] [facility] [address] [place] [address] Health Maintenance Due Date Last Done Comments Cervical Cancer Screening Pap Smear (Age 30 to 64) Every 3 Years 1980 Annual Physical 1983 DTaP, Tdap and Td Vaccines (1 - Tdap) 1999 Hepatitis B Vaccines (1 of 3 - 19+ 3-dose series) 1999 HPV Vaccines (1 - 3-dose SCDM series) 2007 Cervical Cancer Screening Pap with HPV Testing (Age 30 to 64) Every 5 Years 2010 Cervical Cancer Screening with HPV 2010 COVID-19 Vaccine (2023- season) 2024 Mammogram Screening 02/16/2027 02/16/2025, 09/02/2024, 11/16/2023, Additional history exists PHQ-2 (Physician [place]) Completed 12/15/2024 Hepatitis C Completed 12/30/2024 Meningococcal B Vaccine Aged Out No l [...] to independent living Lifestyle No Aracely Baird, LOOM CHECKER Safety Patient/family will have appropriate support at home upon discharge Lifestyle No Gwendolyn Rodrgíuezanne, reference assistant Procedure Name Priority Date/Time Associated Diagnosis Comments MG SCREENING W ADRIANA LAISHA DIGI Routine 02/16/2025 12:00 AM CDT Encounter for screening mammogram for malignant neoplasm of breast GGT, GAMMA GLUTAMYLTRANSFERASE Routine 12/30/2024 7:06 PM [...] HEPATITIS B CORE AB IGM Routine 12/31/19 12:56 PM CDT Need for hepatitis B [...] 12/15/2024 11 :33 AM CDT Medication management from Last 3 Months Results * MG SCREENING W ADRIANA LAISHA DIGI (02/16/2025 12:00 AM CDT) Anatomical Region Laterality Modality Breast Bilateral Mammography 02/16/2025 us Pamela Poe DO MAMMO Final Result * TSH W/REFLEX (12/30/2024 7:06 PM CDT) TSH 0.649 0.358 - 3.740 uIU/ML 12/31/2024 10:27 AM CDT [facility] 12/30/2024 7:06 PM CDT Pamela Poe DO LABORATORY Final Result -[facility] [place] [address] [facility] [place] [address], * (ABNORMAL) COMPREHENSIVE METABOLIC PANEL (12/30/2024 7:06 PM CDT) Pathologist [facility] SODIUM S/P/B 141 136 - 145 MMOL/L 12/31/2024 10:27 AM CDT [facility] POTASSIUM S/P/B 4.6 3.5 - 5.1 MMOL/L 12/31/2024 10:27 AM CDT [facility] CHLORIDE S/P/B 106 98 - 107 MMOL/L 12/31/2024 10:27 AM CDT [facility] CO2 25.4 21 - 32 MMOL/L 12/31/2024 10:27 AM CDT [facility] GLUCOSE 79 70 - 99 MG/DL 12/31/2024 10:27 AM CDT [facility] BUN 17 7 - 18 MG/DL 12/31/2024 10:27 AM CDT [facility] CREATININE S/P/B 0.62 0.55 - 1.02 MG/DL 12/31/2024 10:27 AM CDT [facility] CALCIUM S/P/B 8.4 8.4 - 10.5 MG/DL 12/31/2024 10:27 AM CDT [facility] BILIRUBIN TOTAL S/P/B 0.3 0.2 - 1.0 MG/DL 12/31/2024 10:27 AM CDT [facility] ALKALINE PHOSPHATASE S/P/B 168(H) 37 - 98 U/L 12/31/2024 10:27 AM CDT [facility] [place] AST 19 15 - 37 U/L 12/31/2024 10:27 AM CDT [facility] [place] ALT 18 14 - 59 U/L 12/31/2024 10:27 AM CDT [facility] [place] TOTAL PROTEIN S/P/B 6.5 6.4 - 8.2 G/DL 12/31/2024 10:27 AM CDT [facility] [place] ALBUMIN S/P/B 3.4 3.4 - 5.0 G/DL 12/31/2024 10:27 AM CDT [facility] [place] ANION GAP 9.6 5 - 15 MMOL/L 12/31/2024 10:27 AM T [facility] [place] Comment:REFERENCE RANGE NOT ESTABLISHED OSMOLALITY (CALC) 292 MOSM/KG 025 10:27 AM T [facility] [place] Comment:REFERENCE RANGE NOT ESTABLISHED GFR ESTIMATE >90 >90 ML/MIN/1. 73 M2 12/31/2024 10:27 AM T [facility] [place] GFR NOTES GFR REFERENCE S: 12/31/2024 10:27 AM [facility] [place] Comment: THE ESTIMATED GFR IS CALCULATED USING [...] CDT Pamela Poe DO LABORATORY Final Result [facility] [address] [place] [address], * LIPID PANEL (12/30/2024 7:06 PM CDT) CHOLESTEROL 139 <200 MG/DL 12/31/2024 10:27 AM CDT [facility] TRIGLYCERIDES 26 <150 MG/DL 12/31/2024 10:27 AM CDT [facility] HDL 64 >40 MG/DL 12/31/2024 10:27 AM CDT [facility] LDL-C 70 <100 MG/DL 12/31/2024 10:27 AM CDT [facility] VLDL CALCULATION 5 5 - 28 MG/DL 12/31/2024 10:27 AM CDT [facility] CHOL/HDL RATIO 2.2 0.0 - 4.0 12/31/2024 10:27 AM CDT [facility] LDL/HDL 1.1 0.41 - 2.13 12/31/2024 10:27 AM CDT [facility] NON HDL CHOLESTEROL 75 <140 MG/DL 12/31/2024 10:27 AM CDT [facility] 12/30/2024 7:06 PM CDT Pamela Poe DO LABORATORY Final Result [facility] [place] [address] [place] [address], * VITAMIN D, 25 [place] (12/30/2024 7:06 PM CDT) VITAMIN D 25 HYDROXY TOTAL S/P/B 32.4 30 - 100 NG/ML 12/31/2024 10:27 AM CDT [facility] Comment: DEFICIENT <20 INSUFFICIENT 20-30 SUFFICIENT 30-100 12/30/2024 7:06 PM CDT Pamela M Lui DO LABORATORY Final Result Performing Organization Address City/[facility]/ZIP Co de Phone Number [facility] [place], [place] [address] [facility] [place] [address], [place] [phone] * GGT, GAMMA GLUTAMYLTRANSFERASE (12/30/2024 7:06 PM CDT) Pathologist [facility] GGT 15 5 - 55 U/L 01/02/2025 7:56 PM CDT [facility] 12/30/2024 7:06 PM CDT Pamela Poe DO LABORATORY Final Result Performing Organization Address [facility] de Phone Number [facility] [address] [place] [address], [place] [phone] * SYPHILIS AB (DIAGNOSTIC) WITH CASCADING REFLEX (12/30/2024 12:56 PM CDT) [facility] SYPHILIS IGG IGM AB NON-REACTI VE NON-REACTI VE 01/02/2025 8:40 PM CDT [facility] Comment: No serologic evidence of syphilis. No follow-up necessary unless clinically indicated. 12/30/2024 12:5 6 PM CDT Pamela M Lui RIVAS LABORATORY Final Result Performing Organization Address [facility] Co de Phone Number [facility] [address] [place] [address], [place] [phone] * HIV 1 ANTIGEN(S), WITH HIV-1 AND HIV-2 ANTIBODIES (12/30/2024 12:56 PM CDT) [facility] HIV 1/2 AB+ HIV1 P24 AG NON-REACTI VE NON-REACTI VE 01/02/2025 8:40 PM CDT [facility] Comment:HIV 1 p24 Ag and HIV 1/ HIV 2 Ab not detected. 12/30/2024 12:5 6 PM CDT Pamela Poe DO LABORATORY Final Result Performing Organization Address City/[facility]/ZIP Co de Phone Number [facility] [address] [place] [address], [place] [phone] * (ABNORMAL) HEMOGLOBIN, GLYCOSYLATED (12/30/2024 12:56 PM CDT) HGB A1C 4.4(L) 4.5 - 6.2 % 12/30/2024 7:44 PM CDT [facility] ESTIMATED AVG GLUCOSE 80 74 - 106 MG/DL 12/30/2024 7:44 PM CDT [facility] 12/30/2024 12:5 6 PM CDT Pamela Poe DO LABORATORY Final Result Performing Organization Address [facility] Co de Phone Number [facility] [address] [place] [address], [place] [phone] * (ABNORMAL) IRON SAT PANEL (IRON,IBC,%SAT) (12/30/2024 12:56 PM CDT) IRON 45(L) 50 - 170 MCG/DL 12/31/2024 10:23 AM CDT [facility] IRON BINDING CAPACITY 407 250 - 450 MCG/DL 12/31/2024 10:23 AM CDT [facility] IRON SATURATION 11 % 10:23 AM CDT [facility] Comment:REFERENCE RANGE NOT ESTABLISHED 12/30/2024 12:5 6 PM CDT Pamela Poe DO LABORATORY Final Result Performing Organization Address [facility] de Phone Number [facility] [address] [place] [address], [place] [phone] * (ABNORMAL) VITAMIN B-12 (12/30/2024 12:56 PM CDT) VITAMIN B12 S/P/B 99(L) 193 - 986 PG/ML 12/31/2024 10:23 AM CDT [facility] 12/30/2024 12:5 6 PM CDT Pamela Trever Poe DO LABORATORY Final Result Performing Organization Address [facility] de Phone Number [facility] [address] [place] [address], * HEPATITIS C ANTIBODY (12/30/2024 12:56 PM CDT) HEPATITIS C AB NON-REACTI VE NON-REACT EUGENE 01/02/2025 8:40 PM CDT [facility] Comment: ANTIBODIES TO HCV NOT DETECTED. DOES NOT EXCLUDE THE POSSIBILITY OF EXPOSURE TO HCV. 12/30/2024 12:5 6 PM CDT Pamela Poe DO LABORATORY Final Result Performing Organization Address City/[facility] Co de Phone Number [facility] [address] [place] [address], [place] [phone] * HEPATITIS B SURFACE AG, EIA (12/30/2024 12:56 PM CDT) HEPATITIS B SURFACE AG NON-REACTI VE NON-REACTI VE 01/02/2025 8:40 PM CDT [facility] Comment:HBsAg NOT DETECTED. 12/30/2024 12:5 6 PM CDT Pamelajudi Poe DO LABORATORY Final Result Performing Organization Address [facility] de Phone Number [facility] [address] [place] [address], [place] [phone] * HEPATITIS B SURFACE ANTIBODY (12/30/2024 12:56 PM CDT) HEP B SURFACE AB 23.0 >9.9 MIU/ML 01/02/2025 8:40 PM CDT [facility] Comment:INDIVIDUAL IS CONSID ERED IMMUNE TO HBV INFECTION. 12/30/2024 12:5 6 PM CDT Pamela Trever Poe DO LABORATORY Final Result Performing Organization Address [facility] de Phone Number [facility] [address] [place] [address], [place] [phone] * HEPATITIS B CORE ANTIBODY (12/30/2024 12:56 PM CDT) HEP B CORE TOTAL AB NON-REACTI VE NON-REACTI VE 01/02/2025 8:40 PM CDT [facility] Comment:IgM and IgG anti HBc not detected. 12/30/2024 12:5 6 PM CDT us Shanksnajudi Poe DO LABORATORY Final Result Performing Organization Address [facility] Co de Phone Number [facility] [address] [place] [address], [place] [phone] * HEPATITIS B CORE AB IGM (12/30/2024 12:56 PM CDT) HEP B CORE IGM NON-REACT EUGENE NON-REACT EUGENE 01/02/2025 8:40 PM CDT [facility] Comment: IgM ANTI HBc NOT DETECTED. DOES NOT EXCLUDE THE POSSIBILITY OF EXPOSURE TO OR INFECTION WITH HBV. NO RETEST REQUIRED. HIGH DOSES OF BIOTIN MAY INTERFERE WITH THIS TEST RESULT. CORRELATION TO CLINICAL HISTORY AND PRESENTATION RECOMMENDED. 12/30/2024 12:5 6 PM CDT Pamela Poe DO LABORATORY Final Result [facility] [address] [place] [address], [place] [phone] * FOLIC ACID SERUM (12/30/2024 12:56 PM CDT) FOLATE 18.6 8.6 - 58.9 NG/ML 12/30/2024 7:51 PM CDT [facility] 12/30/2024 12:5 6 PM CDT Pamela Poe DO LABORATORY Final Result Performing Organization Address [facility] Co de Phone Number [facility] [address] [place] [address], [place] [phone] * (ABNORMAL) CBC W/DIFF AUTOMATED (12/30/2024 12:56 PM CDT) WBC 5.12 4.00 - 10.80 x10'3/uL 12/30/2024 7:15 PM CDT [facility] RBC 3.50(L) 4.10 - 5.40 x10'6/uL 12/30/2024 7:15 PM CDT [facility] HGB 10.0(L) 12.0 - 16.0 G/DL 12/30/2024 7:15 PM CDT [facility] HCT 32.3(L) 36.0 - 47.0 % 12/30/2024 7:15 PM CDT [facility] MCV 92.3 78.0 - 100.0 FL 12/30/2024 7:15 PM CDT [facility] MCH 28.6 27.0 - 31.0 PG 12/30/2024 7:15 PM CDT [facility] MCHC 31.0(L) 33.0 - 36.0 G/DL 12/30/2024 7:15 PM CDT [facility] RDW 15.0(H) 11.5 - 14.5 % 12/30/2024 7:15 PM CDT [facility] PLT 247 150 - 350 x10'3/uL 12/30/2024 7:15 PM CDT [facility] MPV 11.2(H) 7.4 - 10.4 FL 12/30/2024 7:15 PM CDT [facility] DIFFERENTIAL TYPE AUTOMATED DIFFERENTIAL 12/30/2024 7:15 PM CDT [facility] NEUTROPHILS % 52.1 % 12/30/2024 7:15 PM CDT [facility] LYMPHOCYTES % 39.3 % 12/30/2024 7:15 PM CDT [facility] MONOCYTES % 7.4 % 12/30/2024 7:15 PM CDT [facility] EOSINOPHILS % 0.6 % 12/30/2024 7:15 PM CDT [facility] BASOPHILS % 0.6 % 12/30/2024 7:15 PM CDT [facility] IMMATURE GRANS % 0.0 % 12/30/2024 7:15 PM CDT [facility] ABS. NEUTROPHILS 2.67 1.60 - 8.30 x10'3/uL 12/30/2024 7:15 PM CDT [facility] ABS. LYMPHOCYTES 2.01 0.80 - 4.70 x10'3/uL 12/30/2024 7:15 PM CDT [facility] ABS. MONOCYTES 0.38 0.00 - 1.50 x10'3/uL 12/30/2024 7:15 PM CDT [facility] ABS. EOSINOPHILS 0.03 0.00 - 0.40 x10'3/uL 12/30/2024 7:15 PM CDT [facility] ABS. BASOPHILS 0.03 0.00 - 0.20 x10'3/uL 12/30/2024 7:15 PM CDT [facility] ABS. IMMATURE GRANULOCYTES 0.00 0.00 - 0.03 x10'3/uL 12/30/2024 7:15 PM CDT [facility] 12/30/2024 12:5 6 PM CDT Pamela Poe DO LABORATORY Final Result Performing Organization Address City/[facility]/ZIP Co de Phone Number [facility] [address] [place] [phone], * FERRITIN (12/30/2024 12:56 PM CDT) FERRITIN 10.0 8 - 252 NG/ML 12/31/2024 10:23 AM CDT [facility] 12/30/2024 12:5 6 PM CDT Pamela Poe DO LABORATORY Final Result Performing Organization Address City/[facility]/ZIP Co de Phone Number [facility] [address] [place] [address], * (ABNORMAL) MG/PCCL UDS SCREEN (12/15/2024 11:33 AM CDT) FENTANYL SCREEN (U) NEGATIVE <0.5 ng/mL [facility] Comment: See Note A See Note A MORPHINE (U) NEGATIVE <10 ng/mL [facility] Comment: See Note A See Note A AMPHETAMINES PM NEGATIVE <500 ng/mL [facility] Comment: See Note A See Note A [...] [facility] WOOD [place]ILLA NOTE [facility] Comment: This drug testing is for [...] analytical performance characteristics have been determined by [facility]. It has not been cleared or approved by the FDA. This assay has been validated pursuant to the CLIA regulations and is used for clinical purposes. Healthcare Providers needing Interpretation assistance, please contact us at [phone] ( ) M-F, 8am to 10pm EST URINE SPECIMEN / Unknown 12/15/2024 11:33 AM CDT 12/16/2024 1:37 AM CDT Narrative Resulting Agency Comment Performing Organization Information: Site ID: [id number] [facility] Address: [address] [place] [id number] Director: Daniel Basilio Site ID: [place] Name: [facility] Address: [address], [place] [id number] Director: Ellie Hooker MD us Pamela Poe DO URINE ORDERABLES Final Result [facility] JORGITO PLEITEZ [address] [facility] [address] [facility] [address] [place] [address], from Last 3 Months Insurance [employer] Directives * Full Code [...] 4:39 PM 02/07/2020 6:36 PM Care Teams Academic Affairs Director Relationship Specialty Start Date End Date None, Provider, MD PCP - General UNKNOWN PHYSICIAN SPECIALTY 02/17/25
--- OUTSIDE RECORDS SUMMARY | 2025-02-27 08:11 | XMS_ITS | Encounter Summary ---
Author Organization [facility] Address [address] [place] [address] Care Team Providers Care Cable Splicer Name Role Phone Betzy Tang HOT BRAIDER Primary Care Provider [phone] Rabia Black CAGER OPERATOR Primary Care Provider [phone] Pamela Poe DO Primary Care Provider [phone] None, Provider Primary Care Provider Unavaila ble Encounter Details Date Type Department Care Team (Late st Contact Info) Description 07/23/2022 Hospital Follow-up Call [facility] [address] [place] [address] Divina Merino RN Social History Tobacco Use Types Packs/Day Years Used Date Smoking Tobacco: Never Smokeless Tobacco: Never Alcohol Use Standard Drinks/Week Comments Yes 0 (1 standard drink = 0.6 oz pur e alcohol) occ Comments No Sex and Gender Information Value Date Recorded Sex Assigned at Female 09/15/2024 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 No / Unsure 07/20/2022 1:13 PM PICKING CREW SUPERVISOR documented as of this encounter Functional Status * RETIRED Are you deaf or do you have serious difficulty hearing Answer Date of Assessment Author Status No 07/20/2022 7:28 PM PICKING CREW SUPERVISOR Activ e * RETIRED Are you blind or do you have serious difficulty seeing, even when wearing glasses? Answer Date of Assessment Author Status No 07/20/2022 7:28 PM PICKING CREW SUPERVISOR Activ e * Do you have serious [...] Description 03/31/2025 3:00 PM CDT Office Visit [facility] Multispecialty Care - [place] [address] [address] [place] [address] [place] [address] [place] [id number] documented as of this encounter Goals Goal Patient Goal Type Associated Problems Recent Progress Patient-Stated? 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 BEVERAGE HOST Safety Patient/family will have appropriate support at home upon discharge Lifestyle No Nelli Rodríguez, SURINDER documented as of this encounter Visit Diagnoses Not on filedocumented in this encounter Care Teams Cable Splicer Relationship Specialty Start Date End Date Betzy Tang APRN [address] [facility] [address] [place] [address] PCP - General NURSE PRACTITIONER 04/01/19 10/29/23 Rabia Black FNP [address] [place], [place] [id number] PCP - General Nurse Practitioner Family 02/29/2412/01 Pamela Poe DO [address] [place] [address] PCP - General FAMILY PRACTICE 12/15/24 01/31/25 None, Provider, PCP - General UNKNOWN PHYSICIAN SPECIALTY 02/17/25 documented as of this encounter
--- OUTSIDE RECORDS SUMMARY | 2025-02-27 08:11 | XMS_ITS | Clinical Summary ---
Author Organization [facility] Address [address] [place] [address] Phone Care Team Providers Care Quality Improvement Coordinator Name Role Phone Unavailable Primary Care [...] on file Legal Sex Female 6:11 PM NURSE RECRUITER Gender Identity Not on file Sexual Orientation Not on file Last Filed Vital Signs Vital Sign Reading Time Taken Comments Blood Pressure 124/94 08/22/2024 6:16 PM NURSE RECRUITER Pulse - - Temperature 36.6 C (97.9 F) 08/22/2024 6:16 PM NURSE RECRUITER Respiratory Rate 20 08/22/2024 6:16 PM NURSE RECRUITER Oxygen Saturation 100% 08/22/2024 6:16 PM NURSE RECRUITER Inhaled Oxygen Concentration - - Weight 84.8 kg (187 lb) 08/22/2024 6:16 PM NURSE RECRUITER Height 154.9 cm (5' 1) 08/22/2024 6:16 PM NURSE RECRUITER Body Mass Index 35.33 08/22/2024 6:16 PM NURSE RECRUITER Plan of Treatment Health Maintenance Due Date Last Done Comments Pre-Diabetes and Diabetes Screening 1980 HPV VACCINES (1 - 3-dose series) 1995 DTAP/TDAP/TD VACCINES (1 - Tdap) 1999 HEPATITIS B VACCINES (1 of 3 - 19+ 3-dose series) 04/04 HPV/Cotest (21-29) 2001 CERVICAL CANCER SCREENING 2010 HPV/Cotest (30-65) 2010 PAP SMEAR 2010 BREAST CANCER SCREENING 2020 INFLUENZA VACCINE (#1) 2025 Insurance [facility] CHOICE [id number] [id number]
--- OUTSIDE RECORDS SUMMARY | 2025-02-27 08:11 | XMS_ITS | Encounter Summary ---
Author Organization [facility] Address [facility] [place] [address] Care Team Providers Care Screening Specialist Name Role Phone Pamela Poe DO Primary Care Provider [phone] None, Provider Primary Care Provider Andrew maurer Encounter Details Date Type Department Care Team (Latest Contact Info) Description 01/27/2025 [facility] [employer] Message Enc [facility] Medical Group Multispecialty Care - [place] [address] [place] [address] Pamela Poe DO [address] [place], [place] [phone] Order for testing Social History Tobacco Use Types Packs/Day Years Used Date Smoking Tobacco: Never Smokeless Tobacco: Never Alcohol Use Standard Drinks/Week Comments Yes 0 (1 standard drink = 0.6 oz pur e alcohol) very rarely [facility] Utilities Answer Date Recorded In the past 12 months has [employer], oil, or water [employer] threatened to shut off services in your [...] How often do you attend chur or yazidism services? More than 4 times per year 07/24/2023 Do you belong to any clubs o r organizations such as baptism groups, unions, fraternal or athletic groups, or [...] Recorded Patient Health Questionnaire-2 Score 0 12/15/2024 [facility] - Occupational [...] to sleep or slept in a senior living (including now)? 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 Safety Patient/family will have appropriate support at home upon discharge Lifestyle No Nelli Rodríguez RN documented as of this encounter Visit Diagnoses Not on filedocumented in this encounter Additional Health Concerns Assessment Noted Time PHQ-9 Depression Total Score: 0 12/16/19 10:49 AM CDT documented as of this encounter Care Teams Screening Specialist Relationship Specialty Start Date End Date Pamela Poe DO [address] [place] [address] [address] [place] [address] PCP - General FAMILY PRACTICE 12/15/24 01/31/25 None, Tami, PCP - General UNKNOWN PHYSICIAN SPECIALTY 02/17/25 documented as of this encounter
--- OUTSIDE RECORDS SUMMARY | 2025-02-27 08:11 | XMS_ITS | Encounter Summary ---
Author Organization [facility] Address [facility] [place] [address] Care Team Providers Care Inspector Chief Name Role Phone Betzy Tang EXOTIC DANCER Primary Care Provider [phone] Rabia Black PROGRAM MANAGEMENT INTERN Primary Care Provider [phone] Pamela Poe DO Primary Care Provider [phone] None, Provider Primary Care Provider Unavaila ble Encounter Details Date Type Department Care Team (Late st Contact Info) Description 02/08/2020 Telephone [facility] Med/Surg [address] [phone] Katy Blevins CNA Social History Tobacco Use Types Packs/Day Years Used Date Smoking Tobacco: Never Smokeless Tobacco: Never Alcohol Use Standard Drinks/Week Comments Yes 0 (1 standard drink = 0.6 oz pur e alcohol) occ Comments No Sex and Gender Information Value Date Recorded Sex Assigned at Female 09/15/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 Answer Date of Assessment Author Status No 02/06/2020 5:07 PM CDT Jennifer Masters RN Active * Because of a physical, mental, or emotional condition, do you have difficulty doing errands alone such as visiting a doctor's office or shopping? Answer Date of Assessment Author Status No 02/06/2020 5:07 PM CDT Jennifer Masters RN Active documented as of this encounter Mental Status * Because of a physical, mental, or emotional condition, do you have serious difficulty concentrating, remembering, or making decisions? Answer Entry Date Author Status No 02/06/2020 5:07 PM TAMMYT Jennifer Masters RN Active documented in this encounter Plan of Treatment Upcoming Encounters Date Type Department Care Team (Late st Contact Info) Description 03/31/2025 3:00 PM CDT Office Visit [facility] Medical Group Multispecialty [facility] [place] [address] [address] [address] [place], [place] [phone] Trisha Bourgeois MD [address] [place] [phone] documented as of this encounter Goals Goal Patient Goal Type Associated Problems Recent Progress Patient-Stated? 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 MSW documented as of this encounter Visit Diagnoses Not on filedocumented in this encounter Care Teams Inspector Chief Relationship Specialty Start Date End Date Betzy Tang APRN [address] [place] [phone] PCP - General NURSE PRACTITIONER 04/01/19 10/29/23 Rabia Black FNP [address] [place] [phone] PCP - General Nurse Practitioner Family 02/29/2412/01 Pamela Poe DO [address] [facility] [address] [place] [address] PCP - General FAMILY PRACTICE 12/15/24 01/31/25 None, Provider, PCP - General UNKNOWN PHYSICIAN SPECIALTY 02/17/25 documented as of this encounter
[2025-02-27 08:32] LABS: Hematocrit 34.8 % (37.0-47.0); Hemoglobin 11.1 g/dL (12.0-15.0); Immature Granulocyte Percent A 0.3 % (0-0.5); Lymphocytes Absolute Auto 1.64 K/mm3 (0.9-3.2); Mean Corpuscular HGB Conc 31.9 g/dl (32-36); Mean Corpuscular Hemoglobin 28.1 pg (26-34); Mean Corpuscular Volume 88.1 fl (80-100); Nucleated Red Blood Cells Absolute Auto 0.000 K/mm3 (0.0-0.012); Nucleated Red Blood Cells Perc 0.0 % (0.0-0.2); Platelet Count Result 184 k/mm3 (150-375); Red Blood Count 3.95 M/mm3 (4.2-5.4); White Blood Count 3.9 K/mm3 (4.5-10.0)
[2025-02-27 08:55] LABS: Alanine Aminotransferase 13 U/L (6-35); Albumin Level 3.9 g/dL (3.5-5.1); Alkaline Phosphatase 144 U/L (38-126); Anion Gap 5 mmol/L (4-12); Aspartate Amino Transferase 25 U/L (14-36); Bilirubin,Total 0.3 mg/dL (0.2-1.3); Blood Urea Nitrogen 12 mg/dL (7-17); Calcium 8.8 mg/dL (8.4-10.2); Carbon Dioxide 27 mmol/L (22-30); Chloride 105 mmol/L (98-107); Cholesterol 147 mg/dL (0-200); Estimated Glomerular Filt Rate > 60; Glucose 99 mg/dL (65-110); HDL Direct 60 mg/dL; Hemoglobin A1C 4.7 % (<5.7); Potassium 4.4 mmol/L (3.4-5.0); Sodium 137 mmol/L (137-145); Total Protein 7.1 g/dL (6.3-8.2); Triglycerides 46 mg/dL (<150)
[2025-02-27 09:27] LABS: Thyroid Stimulating Hormone Reflex 0.918 uIU/mL (0.465-4.68)
[2025-02-27 09:49] LABS: Vitamin B12 216.0 pg/mL (239-931)
== END 2025-02-27 08:04 | disposition home or self-care (01) ==
LOC: ANHLAB 08:04
PROVIDERS: PCP Family Medicine; Visit Provider Family Medicine
DX: Z13.1 Encounter for screening for diabetes mellitus (principal); R00.0 Tachycardia, unspecified; Z98.84 Bariatric surgery status; Z13.6 Encounter for screening for cardiovascular disorders
CPT/HCPCS: 36415; 80053; 80061; 82306; 82607; 83036; 84443; 85025

== ENCOUNTER 2025-04-12 08:33 | Outpatient (CLI) | payer OTHER, SELFPAY ==
--- OUTSIDE RECORDS SUMMARY | 2025-04-12 09:00 | XMS_ITS | Clinical Summary ---
Author Organization [facility] Address [address] [place] [address] Care Team Providers Care Adult Neuropsychologist Name Role Phone Unavailable Primary Care Provider Unavailabl e Source Comments [facility],non-owned Affiliates and Associated Physician Practices is amultiple site organization consisting of ambulatory clinics and hospital sitesin [place], [place], [place] and [place]. This disclosure is being madepursuant to the Care Everywhere program and may not contain all informatio navailable regarding this patient. 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,Oxygen Therapist ashia pain syndrome [place] 1 (one) spray into the nose as [...] acetaminophen- codeine (Tylenol #3) 300-30 MG tabletIndicati ons: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 [facility] [place] [address] Praful Reina, DO Closed displaced oblique fracture of shaft of left tibia with routine healing, subsequent encounter from Last 3 Months Social History Tobacco [...] Recorded Patient Health Questionnaire-2 Score 0 08/18/2023 [facility] - Occupational [...] place to sleep or slept in a snf (including now)? No 05/01/2023 Comments Unknown Sex and Gender Information Value Date Recorded Sex Assigned at Not on file Legal Sex Female 5:57 PM PROGRESSIVE CARE MANAGER Gender Identity Not on file Sexual Orientation [...] kg (155 lb) 08/18/2023 10:5 9 AM PROGRESSIVE CARE MANAGER Height 154.9 cm (5' 1) 05/19/2023 10:3 7 AM CDT Body Mass Index 29.29 05/19/2023 10:37 AM CDT Plan of Treatment Health Maintenance Due Date Last Done Comments HIV SCREENING 1995 HEPATITIS C SCREENING 04/21/1998 DTAP/TDAP/TD VACCINES (1 - Tdap) 1999 HEPATITIS B VACCINE (1 of 3 - 19+ 3-dose series) 1999 PAP SMEAR 2001 HPV VACCINE (1 - 3-dose SCDM series) 2007 MAMMOGRAM 01/02/2023 01/02/2021 DEPRESSION SCREENING 08/03/2024 08/18/2023, 07/07/2023 COVID-19 VACCINE (1 - 2023-2 5 season) 2025 INFLUENZA VACCINE (#1) 2025 LIPID TESTING 07/24/2028 07/24/2023, 02/07/2020, 02/07/2020 [...] this topic Medical Devices Implanted Type Area Air Bag Builder Device Identifier Shelf Expiration Date Model / Serial / Lot Tibial Nail- Advanced/11mm 345mm Implanted:Qty: 1 on 04/29/2023 by Sanjeev Kline MD at [facility] Left: Tibia [employer] 08/02/2032 [id number] S / / [id number] 5.0mm Locking Screws Implanted:Qty: 1 on 04/29/2023 by Sanjeev Kline MD at [facility] [id number] / / 5.0mm Locking Screw Implanted:Qty: 1 on 04/29/2023 by Sanjeev Kline MD at [facility] [id number] / / 5.0mm Locking Screw Implanted:Qty: 2 on 04/29/2023 by Sanjeev Kline MD at [facility] [id number] / / 5.0mm Locking Screw Implanted:Qty: 1 on 04/29/2023 by Sanjeev Kline MD at [facility] [id number] / / 3.5 Cannulated Implanted:Qty: 1 on 04/29/2023 by Sanjeev Kline MD at [facility] [id number] / / 3.5 Cannulated Implanted:Qty: 1 on 04/29/2023 by Sanjeev Kline MD at [facility] [id number] / / Explanted Type Area Air Bag Builder Device Identifier Shelf Expiration Date Model / Serial / Lot Slv Prtc 12mm Suprapatellar Strl Explanted:Qty: 1 on 04/29/2023 at [facility] Left: Tibia [employer] 10/31/2024 [id number] S / / [id number] Advance Directives * Full Code (Latest Code Status on File) Date Activated Date Inactivated Comments 04/28/2023 4:28 AM 05/08/2023 4:32 PM
--- OUTSIDE RECORDS SUMMARY | 2025-04-12 09:00 | XMS_ITS | Clinical Summary ---
Author Organization [facility] Address [address], [facility] [address] [place] [address] Phone Care Team Providers Care Software Project Engineer Name Role Phone Unavailable Primary Care [...] 19+ 3-dose series) 1999 Pap Smear 2001 Human Papillomavirus (HPV) Immunization (1 - 3-dose SCDM series) 2007 Cervical Cancer Screening (CCS) 2010 HPV/Cotest 2010 SARS-COV-2 Immunization ( season) 2024 Influenza Immunization (#1) 2025 Respiratory [...] age to complete this topic Insurance MEDICAID [facility]
--- OUTSIDE RECORDS SUMMARY | 2025-04-12 09:00 | XMS_ITS | Clinical Summary ---
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 Gender Identity Not on file Sexual Orientation Not on file Last Filed Vital Signs Vital Sign Reading Time Taken Comments Blood Pressure 124/94 08/22/2024 6:16 PM CUP MACHINE OPERATOR Pulse - - Temperature 36.6 C (97.9 F) 08/22/2024 6:16 PM CUP MACHINE OPERATOR Respiratory Rate 20 08/22/2024 6:16 PM CUP MACHINE OPERATOR Oxygen Saturation 100% 08/22/2024 6:16 PM CUP MACHINE OPERATOR Inhaled Oxygen Concentration - - Weight 84.8 kg (187 lb) 08/22/2024 6:16 PM CUP MACHINE OPERATOR Height 154.9 cm (5' 1) 08/22/2024 6:16 PM CUP MACHINE OPERATOR Body Mass Index 35.33 08/22/2024 6:16 PM CUP MACHINE OPERATOR Plan of Treatment Upcoming Encounters Date Type Department Care Team (Late st Contact Info) Description 06/22/2025 1:30 PM CUP MACHINE OPERATOR Office Visit [facility] Oncology and Hematology - [place] [address] [place] [address] Nakia Dickinson MD [address] [place] [id number] Health Maintenance Due Date Last Done Comments Pre-Diabetes and Diabetes Screening 1980 DTAP/TDAP/TD VACCINES (1 - Tdap) 1999 HEPATITIS B VACCINES (1 of 3 - 19+ 3-dose series) 04/04 HPV/Cotest (21-29) 2001 HPV VACCINES (1 - 3-dose SCDM series) 2007 CERVICAL CANCER SCREENING 2010 HPV/Cotest (30-65) 2010 PAP SMEAR 2010 BREAST CANCER SCREENING 2020 INFLUENZA VACCINE (#1) 2025 Insurance [facility] CHOICE [id number] [id number]
[2025-04-12 09:33] LABS: Alanine Aminotransferase 14 U/L (6-35); Albumin Level 4.1 g/dL (3.5-5.1); Alkaline Phosphatase 154 U/L (38-126); Anion Gap 6 mmol/L (4-12); Aspartate Amino Transferase 28 U/L (14-36); Bilirubin,Total 0.5 mg/dL (0.2-1.3); Blood Urea Nitrogen 13 mg/dL (7-17); Calcium 8.8 mg/dL (8.4-10.2); Carbon Dioxide 25 mmol/L (22-30); Chloride 105 mmol/L (98-107); Estimated Glomerular Filt Rate > 60; Glucose 143 mg/dL (65-110); Sodium 136 mmol/L (137-145); Total Protein 7.3 g/dL (6.3-8.2)
[2025-04-12 09:41] LABS: Potassium 4.5 mmol/L (3.4-5.0)
[2025-04-13 07:09] LABS: GGT 11 IU/L (0-60)
== END 2025-04-12 08:34 | disposition home or self-care (01) ==
LOC: ANHLAB 08:33
PROVIDERS: PCP Family Medicine; Visit Provider Family Medicine
DX: R74.8 Abnormal levels of other serum enzymes (principal)
CPT/HCPCS: 36415; 80053; 82977

== ENCOUNTER 2025-05-30 16:55 | Emergency (ER) | payer OTHER, SELFPAY ==
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
[2025-05-30 17:31] VITALS: BP 128/96; PULSE 116; RESP 15; TEMP 36.6; O2SAT 100
--- OUTSIDE RECORDS SUMMARY | 2025-05-30 17:57 | XMS_ITS | Encounter Summary ---
Author Organization [facility] Address [address] [place] [address] Care Team Providers Care Nuclear Fuel Processing Technician Name Role Phone Doyle Jeremiah Reyna DO Primary Care Provider [phone] Encounter Details Date Type Department Care Team (Latest Contact Info) Description 05/29/2025 Travel Social History Tobacco Use Types Packs/Day Years Used Date Smoking Tobacco: Never Smokeless Tobacco: Never Alcohol Use Standard Drinks/Week Comments Not Currently 0 (1 standard drink = 0.6 oz pur e alcohol) very rarely [facility] Utilities Answer Date Recorded In the past 12 months has [employer], gas, oil, or water [employer] threatened to shut off services in your [...] 07/24/2023 How often do you attend chur ch or protestant services? More than 4 times per year 07/24/2023 Do you belong to any clubs o r organizations such as evangelical groups, unions, fraternal or athletic groups, or [...] Recorded Patient Health Questionnaire-2 Score 0 12/15/2024 [facility] - Occupational Stress Questionnaire Answer Date [...] place to sleep or slept in a [place] facility (including now)? Patient declined 07/24/2023 Comments No Sex and Gender Information Value Date Recorded Sex Assigned at Female 09/15/2024 2:23 PM PAYMENT COLLECTOR Legal Sex Female 7:12 PM CDT Gender Identity Female 12/15/2024 10:26 AM CDT Sexual Orientation Straight 12/15/2024 10 :26 AM CDT documented as of this encounter Functional Status * Are you deaf or do you have serious difficulty hearing Answer Date of Assessment Author Status No 07/24/2023 6:00 AM PAYMENT COLLECTOR Jennie Marie RN Active * Are you blind or [...] Status No Risk Indicated 05/29/2025 6:05 PM CDT Shaye Larsen RN Active * [place] Suicide Severity Rating Scale (Screener/Recent Self-Report) Question Answer Date of Assessment Author Status 1. Wish to be (Past 1 Month) No 05/29/2025 6:05 PM CDT Crispin Larsen RN Acti ve 2. Non-Specific Active Suicidal Thoughts (Past 1 Month) No 05/29/2025 6:05 PM CDT Crispin Larsen RN Acti ve 6. Suicidal Behavior (Lifetime) No 05/29/2025 6:05 PM CDT Crispin Larsen RN Acti ve documented as of this [...] documented as of this encounter Care Teams Nuclear Fuel Processing Technician Relationship Specialty Start Date End Date Jeremiah Kwon DO [address] [place] [address] PCP - General FAMILY PRACTICE 05/29/25 documented as of this encounter
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
--- OUTSIDE RECORDS SUMMARY | 2025-05-30 17:57 | XMS_ITS | Clinical Summary ---
Author Organization [facility] Address [address] [place] [address] Care Team Providers Care Senior Commissary Agent Name Role Phone Unavailable Primary Care Provider Unavailabl e Source Comments [facility],non-owned Affiliates and Associated Physician Practices is amultiple site organization consisting of ambulatory clinics and hospital sitesin [place], [place], [place] and [place]. This disclosure is being madepursuant to the Care Everywhere program and may not contain all information available regarding this patient. Last updated 18.[facility] Usarium Allergies Active Allergy Reactions Criticality Noted Date [...] Patient not taking.Reported on 07/07/2023 HYDROcodone-ac etaminophen ([place]) 5-325 MG tabletIndicati ons:Tibia/fibu la fracture, left, closed, with routine healing, subsequent encounter Take 1 (one) tablet by mouth every 8 hours as needed for Pain 40 tablet 3 Active Additional Information Patient not taking.Reported on 08/18/2023 naloxone HCl (Narcan) 4 MG/0.1ML nasal sprayIndicatio ns:Tibia/fibul a fracture, left, closed, with routine healing, subsequent encounter,intermediate designer current use of opiate analgesic,Drink Mixer ashia pain syndrome Walters 1 (one) spray into the nose as [...] acetaminophen- codeine (Tylenol #3) 300-30 MG tabletIndicati ons:correction current use of opiate analgesic,Drink Mixer ashia pain syndrome,Close d displaced oblique fracture of shaft of left tibia with routine healing, subsequent encounter Take 1 (one) tablet by mouth every 8 hours as needed for Pain 30 tablet 4 Active diclofenac sodium (Voltaren) 1 % gelIndications :intermediate designer current use of opiate analgesic,Clos ed displaced [...] Department Care Team Description 03/30/2025 Orders Only [facility] Orthoped[facility], [facility] [place] [address] Praful Reina, DO Closed displaced oblique fracture [...] Recorded Patient Health Questionnaire-2 Score 0 08/18/2023 [facility] - Occupational Stress [...] on file Legal Sex Female 5:57 PM TAX CLERK Gender Identity Not on file Sexual [...] kg (155 lb) 08/18/2023 10:5 9 AM TAX CLERK Height 154.9 cm (5' 1) 05/19/2023 10:3 7 AM CDT Body Mass Index 29.29 05/19/2023 10:37 AM CDT Plan of Treatment Health Maintenance Due Date Last Done Comments COLOGUARD (AGES 45-75) - COL ON CA SCREENING 1980 COLON MONITORING 1980 COLONOSCOPY - COLON CA SCREENING 1980 CT COLONOGRAPHY - COLON CA SCREENING 1980 Colorectal Cancer Screening 1980 FIT - COLON CA SCREENING 1980 FLEX SIG - COLON CA SCREENING 1980 HIV SCREENING 1995 HEPATITIS C SCREENING 04/21/1998 DTAP/TDAP/TD VACCINES (1 - Tdap) 1999 HEPATITIS B VACCINE (1 of 3 - 19+ 3-dose series) 1999 PAP SMEAR 2001 HPV VACCINE (1 - 3-dose SCDM series) 2007 MAMMOGRAM 01/02/2023 01/02/2021 DEPRESSION SCREENING 08/03/2024 08/18/2023, 07/07/2023 COVID-19 VACCINE (1 - 2023-2 5 season) 2025 INFLUENZA VACCINE (#1) 2025 LIPID TESTING 07/24/2028 07/24/2023, 02/07/2020 ZOSTER VACCINE (1 of 2) 2030 [...] this topic Medical Devices Implanted Type Area Corporate Tutor Device Identifier Shelf Expiration Date Model / Serial / Lot Tibial Nail- Advanced/11mm 345mm Implanted:Qty: 1 on 04/29/2023 by Sanjeev Kline MD at [facility] Left: Tibia [employer] 08/02/2032 [id number] S / / [id number] 5.0mm Locking Screws Implanted:Qty: 1 on 04/29/2023 by Sanjeev Kline MD at [facility] [id number] / / 5.0mm Locking Screw Implanted:Qty: 1 on 04/29/2023 by Sanjeev Kline MD at [facility] [id number] / / 5.0mm Locking Screw Implanted:Qty: 2 on 04/29/2023 by Sanjeev Kline MD at [facility] [id number] / / 5.0mm Locking Screw Implanted:Qty: 1 on 04/29/2023 by Sanjeev Kline MD at [facility] [id number] / / 3.5 Cannulated Implanted:Qty: 1 on 04/29/2023 by Sanjeev Kline MD at [facility] [id number] / / 3.5 Cannulated Implanted:Qty: 1 on 04/29/2023 by Sanjeev Kline MD at [facility] [id number] / / Explanted Type Area Corporate Tutor Device Identifier Shelf Expiration Date Model / Serial / Lot Slv Prtc 12mm Suprapatellar Strl Explanted:Qty: 1 on 04/29/2023 at [facility] Left: Tibia [employer] 10/31/2024 [id number] S / / [id number] Advance Directives * Full Code (Latest Code Status on File) Date Activated Date Inactivated Comments 04/28/2023 4:28 AM 05/08/2023 4:32 PM
--- OUTSIDE RECORDS SUMMARY | 2025-05-30 17:57 | XMS_ITS | Clinical Summary ---
Author Organization [facility] Address [address], [facility] [address] [place] [address] Phone Care Team Providers Care Wheel Fitter Name Role Phone Unavailable Primary Care Provider [...] Cervical Cancer Screening (CCS) 2010 HPV/Cotest 2010 Influenza Immunization (#1) 2025 SARS-COV-2 Immunization ( season) 2025 Cologuard 2025 Colonoscopy 2025 Colorectal Cancer Screening 2025 Immunochemical Fecal Occult Blood 2025 Respiratory Syncytial Virus (RSV) Immunization (Adult) (1 - 1-dose 75+ series) 2055 Meningococcal Immunization (ACWY) Aged Out No longer eligible based on patient's age to complete this topic Pneumococcal Immunization Combined Aged Out No longer eligible based on patient's age to complete this topic Rotavirus Immunization Aged Out No lo nger eligible based on patient's age to complete this topic Insurance MEDICAID [facility]
--- OUTSIDE RECORDS SUMMARY | 2025-05-30 17:57 | XMS_ITS | Encounter Summary ---
Author Organization [facility] Address [address] [place] [address] Care Team Providers Care Custom Furrier Name Role Phone Pamela Poe DO Primary Care Provider Dimple hylton None, Provider Primary Care Provider Jeremiah Hu DO Primary Care Provider Encounter Details Date Type Department Care Team (Latest Contact Info) Description 01/27/2025 AppEnsure Message Enc [facility] Multispecialty Care - [address] [place] [address] Pamela Poe DO Order for testing Social History Tobacco Use Types Packs/Day Years Used Date Smoking Tobacco: Never Smokeless Tobacco: Never Alcohol Use Standard Drinks/Week Comments Yes 0 (1 standard drink = 0.6 oz pur e alcohol) very rarely [facility] Utilities Answer Date Recorded In the past 12 months has e [employer], gas, oil, or water [employer] threatened to shut off services in your [...] How often do you attend chur or mandaeism services? More than 4 times per year [...] Patient Health Questionnaire-2 Score 0 12/15/2024 [facility] - Occupational Stress Questionnaire Answer Date [...] or slept in a alf (including now)? Patient declined 07/24/2023 Comments No Sex and Gender Information Value Date Recorded Sex Assigned at Female 09/15/2024 2:23 PM PATIENT ACCESS Legal Sex Female 7:12 PM CDT Gender [...] documented as of this encounter Care Teams Custom Furrier Relationship Specialty Start Date End Date Pamela Poe DO PCP - General FAMILY PRACTICE 12/15/24 01/31/25 None, MD Tami PCP - General UNKNOWN PHYSICIAN SPECIALTY 02/17/25 05/28/25 Jeremiah Kwon DO [address] [place] [address] PCP - General FAMILY PRACTICE 05/29/25 documented as of this encounter
--- OUTSIDE RECORDS SUMMARY | 2025-05-30 17:57 | XMS_ITS | Clinical Summary ---
Author Organization [facility] Address [address] [place] [address] Phone Care Team Providers Care Manager Report Name Role Phone Unavailable Primary Care Provider [...] on file Legal Sex Female 6:11 PM HRIS ADMINISTRATOR Gender Identity Not on file Sexual Orientation Not on file Last Filed Vital Signs Vital Sign Reading Time Taken Comments Blood Pressure 124/94 08/22/2024 6:16 PM HRIS ADMINISTRATOR Pulse - - Temperature 36.6 C (97.9 F) 08/22/2024 6:16 PM HRIS ADMINISTRATOR Respiratory Rate 20 08/22/2024 6:16 PM HRIS ADMINISTRATOR Oxygen Saturation 100% 08/22/2024 6:16 PM HRIS ADMINISTRATOR Inhaled Oxygen Concentration - - Weight 84.8 kg (187 lb) 08/22/2024 6:16 PM HRIS ADMINISTRATOR Height 154.9 cm (5' 1) 08/22/2024 6:16 PM HRIS ADMINISTRATOR Body Mass Index 35.33 08/22/2024 6:16 PM HRIS ADMINISTRATOR Plan of Treatment Upcoming Encounters Date Type Department Care Team (Late st Contact Info) Description 06/22/2025 1:30 PM HRIS ADMINISTRATOR Office Visit [facility] Oncology and Hematology - [place] [place] [address] Nakia Dickinson MD [address] [place] [id number] Health Maintenance Due Date Last Done Comments Pre-Diabetes and Diabetes Screening 1980 DTAP/TDAP/TD VACCINES (1 - Tdap) 1999 HEPATITIS B VACCINES (1 of 3 - 19+ 3-dose series) 04/04 HPV/Cotest (21-29) 2001 HPV VACCINES (1 - 3-dose SCDM series) 2007 CERVICAL CANCER SCREENING 2010 HPV/Cotest (30-65) 2010 PAP SMEAR 2010 BREAST CANCER SCREENING 2020 INFLUENZA VACCINE (#1) 2025 COLORECTAL SCREENING 2025 Colorectal Cancer Screening 2025 FIT-DNA Q 3 years 2025 FIT/FOBT Q 1 year 2025 Flex Sig/CT Colonography Q 5 years 2025 Insurance [facility] [id number] [facility] [id number]
--- OUTSIDE RECORDS SUMMARY | 2025-05-30 17:58 | XMS_ITS | Encounter Summary ---
Author Organization [facility] Address [facility] [place] [address] Care Team Providers Care Knitter Machine Name Role Phone Betzy Tang APRN Primary Care Provider [phone] Rabia Black IRON CUTTER Primary Care Provider [phone] Pamela Poe DO Primary Care Provider Dimple hylton None, Provider Primary Care Provider Jeremiah Hu DO Primary Care Provider [phone] Encounter Details Date Type Department Care Team (Late st Contact Info) Description 02/08/2020 Telephone [facility] Med/Surg [address] [place] [id number] Katy Blevins CNA Social History Tobacco Use Types Packs/Day Years Used Date Smoking Tobacco: Never Smokeless Tobacco: Never Alcohol Use Standard Drinks/Week Comments Yes 0 (1 standard drink = 0.6 oz pur e alcohol) occ Comments No Sex and Gender Information Value Date Recorded Sex Assigned at Female 09/15/2024 2:[address] TECHNICIAN Legal Sex Female 7:12 PM CDT [...] on filedocumented in this encounter Care Teams Knitter Machine Relationship Specialty Start Date End Date Betzy Tang APRN [address] [place] [address] PCP - General NURSE PRACTITIONER 04/01/19 10/29/23 Rabia Black FNP [address] [place] [address] PCP - General Nurse Practitioner Family 02/29/2412/01 Pamela Poe DO [address] [place] [address] PCP - General FAMILY PRACTICE 12/15/24 01/31/25 None, Provider, PCP - General UNKNOWN PHYSICIAN SPECIALTY 02/17/25 1 Jeremiah Kwon DO [address] [place] [address] PCP - General FAMILY PRACTICE 05/29/25 documented as of this encounter
--- OUTSIDE RECORDS SUMMARY | 2025-05-30 17:58 | XMS_ITS | Encounter Summary ---
Author Organization [facility] Address [address] [place] [address] Care Team Providers Care Hotel Room Attendant Name Role Phone Betzy Tang APRN Primary Care Provider [phone] Rabia Black CAR SALES ASSOCIATE Primary Care Provider [phone] Pamela Poe DO Primary Care Provider Dimple hylton None, Provider Primary Care Provider Jeremiah Hu DO Primary Care Provider [phone] Encounter Details Date Type Department Care Team (Late st Contact Info) Description 07/23/2022 Hospital Follow-up Call [facility] [address] [place] [address] Divina Merino RN Social History Tobacco Use Types Packs/Day Years Used Date Smoking Tobacco: Never Smokeless Tobacco: Never Alcohol Use Standard Drinks/Week Comments Yes 0 (1 standard drink = 0.6 oz pur e alcohol) occ Comments No Sex and Gender Information Value Date Recorded Sex Assigned at Female 09/15/2024 2:23 PM CARDIOLOGY NURSE PRACTITIONER Legal Sex Female 7:12 PM CDT Gender Identity Female 12/15/2024 10:26 AM CDT Sexual Orientation Straight 12/15/2024 10 :26 AM CDT COVID-19 Exposure Response Date Recorded In the last 10 days, have yo u been in contact with someone who was confirmed or suspected to have Coronavirus/COVID-19? No / Unsure 07/20/2022 1:13 PM CARDIOLOGY NURSE PRACTITIONER documented as of this encounter Functional Status * RETIRED Are you deaf or do you have serious difficulty hearing Answer Date of Assessment Author Status No 07/20/2022 7:28 PM CARDIOLOGY NURSE PRACTITIONER Activ e * RETIRED Are you blind or do you have serious difficulty seeing, even when wearing glasses? Answer Date of Assessment Author Status No 07/20/2022 7:28 PM CARDIOLOGY NURSE PRACTITIONER Activ e * Do you have serious [...] on filedocumented in this encounter Care Teams Hotel Room Attendant Relationship Specialty Start Date End Date Betzy Tang APRN [address] [place] [address] PCP - General NURSE PRACTITIONER 04/01/19 10/29/23 Rabia Black FNP [address] [place] [address] PCP - General Nurse Practitioner Family 02/29/2412/01 Pamela Poe DO [address] [place] [address] PCP - General FAMILY PRACTICE 12/15/24 01/31/25 None, Provider, PCP - General UNKNOWN PHYSICIAN SPECIALTY 02/17/25 1 Jeremiah Kwon DO [address] [place] [address] PCP - General FAMILY PRACTICE 05/29/25 documented as of this encounter
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
[2025-05-30 20:00] VITALS: BP 121/101; PULSE 115; RESP 16; TEMP 36.6; O2SAT 98
--- NOTE | 2025-05-30 20:59 | PC.NURSE ---
Waiting on medication to be tubed from pharmacy.
--- NOTE | 2025-05-30 21:10 | PC.NURSE ---
Pt. had additional questions for provider. ALEXANDRIA Harvey notified and returned to bedside. Pt. states all additional questions were addressed.
[2025-05-30] MEDS: TIZANIDINE HCL 4 MG TABLET PO (21:21)
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
[2025-05-30 21:27] VITALS: BP 118/92; PULSE 114; RESP 18; TEMP 36.6; O2SAT 100
== END 2025-05-30 21:28 | disposition home or self-care (01) ==
PROVIDERS: Emergency Provider Registered Nurse
DX: S76.012A Strain of muscle, fascia and tendon of left hip, initial encounter (principal); M79.7 Fibromyalgia; Z98.84 Bariatric surgery status; Z86.2 Personal history of diseases of the blood and blood-forming organs and certain disorders involving the immune mechanism; V49.40XA Driver injured in collision with unspecified motor vehicles in traffic accident, initial encounter
CPT/HCPCS: 73502; 99283; A9270; J7512